=== PATIENT | male | born 1970 | race Caucasian/White ===

== ENCOUNTER 2020-09-03 18:12 | Observation (INO) | payer MEDICAID, SELFPAY ==
[2020-09-03] VITALS (7 sets, daily range): BP systolic 117–150; BP diastolic 73–115; PULSE 67–124; RESP 14–20; TEMP 36.1–36.6; O2SAT 97–100; BMI 28.7
--- NOTE | ~2020-09-03 | XR_ITS ---
XR chest 1V portable DATE: 09/03/2020 19:03 INDICATION: Left chest pain. Atrial fibrillation. TECHNIQUE: Portable upright AP chest on 09/03/2020 at 1905 hours COMPARISON: None FINDINGS: Normal heart size. No hilar or mediastinal enlargement. No pulmonary infiltrate or consolid ation, pleural effusion or pulmonary vascular congestion or pneumothorax. Osteopenia. IMPRESSION: No active cardiopulmonary disease Reviewed, dictated and finalized at location A.
--- NOTE | 2020-09-03 18:33 | ED.GENADULT ---
HPI - General Adult General Chief complaint: Recheck/Abnormal Lab/Rx Stated complaint: high blood pressure Time Seen by Provider: 09/03/20 18:21 Source: patient History of Present Illness HPI narrative: Patient is a 50 y/o male complaining of intermittent feeling off , head pressure for 2 weeks. The severity of his symptom is moderate. There is no alleviating or exacerbating factor. He also has intermittent chest pain. Related Data Home Medications Medication Instructions Recorded Confirmed No Home Medications 09/03/20 09/03/20 Allergies Allergy/AdvReac Type Severity Reaction Status Date / Time No Known Allergies Allergy Verified 09/03/20 18:46 Review of Systems Constitutional: Constitutional: Denies chills, Denies fever(s), Reports headache(s), Reports malaise and Denies weakness Eyes: Eyes: Denies blurry vision ENT: Reports headache(s) and Denies neck pain Cardiovascular: Cardiovascular: Reports chest pain and Denies dyspnea Respiratory: Respiratory: Denies cough and Denies dyspnea Gastrointestinal: Gastrointestinal: Denies abdominal pain, Denies diarrhea, Denies nausea and Denies vomiting Genitourinary: Genitourinary: Denies hematuria and Denies dysuria Musculoskeletal: Musculoskeletal: Denies back pain and Denies neck pain Neurologic: Reports headache(s) and Denies weakness [facility] Social History Social History Gender identity (if verbalized by the patient): Male Exam Const: General: no acute distress and well developed Orientation/consciousness: oriented to person, oriented to place, oriented to time and patient oriented x3 HENMT: Head: normocephalic Ears: external ears normal General nose exam: Normal external nose present Eyes: General: appearance normal, both eyes and all related structures Conjunctivae: conjunctivae normal Neck: Neck: normal visual inspection and full ROM Chest: Chest palpation & inspection: normal inspection of the chest and no tenderness Resp: Effort & Inspection: normal respiratory effort Auscultation: clear to auscultation bilaterally Cardio: Rate: tachycardic Rhythm: abnormal rhythm irregularly irregular GI: GI Palp: No abdominal tenderness and Yes Soft to palpation Skin: General skin exam: normal color and turgor normal Neuro: General: oriented to person, oriented to place, oriented to time and patient oriented x3 Cognition (Neuro): normal cognition Extrem: General: normal to inspection, full ROM and no pedal edema Psych: Appearance: grossly normal Mental Status: mental status grossly normal Affect: normal affect Course Consultations Consultation #1: Discussed with Dr. Roman, who agrees to admit and recommends Lovenox x 1 dose Date: 09/03/20 Time: 22:18 Vital Signs Vital signs: Vital Signs Temperature 36.6 C 09/03/20 18:17 Pulse Rate 89 09/03/20 18:17 Respiratory Rate 20 09/03/20 18:17 Blood Pressure 141/92 H 09/03/20 18:17 Pulse Oximetry 99 09/03/20 18:17 Temperature 36.6 C 09/03/20 18:17 Pulse Rate 88 09/03/20 19:45 Respiratory Rate 14 09/03/20 19:45 Blood Pressure 133/115 H 09/03/20 19:45 Pulse Oximetry 100 09/03/20 19:45 Medical Decision Making Vital Signs Vital Signs: Vital Signs Temperature 36.6 C 09/03/20 18:17 Pulse Rate 89 09/03/20 18:17 Respiratory Rate 20 09/03/20 18:17 Blood Pressure 141/92 H 09/03/20 18:17 Pulse Oximetry 99 09/03/20 18:17 Temperature 36.6 C 09/03/20 18:17 Pulse Rate 88 09/03/20 19:45 Respiratory Rate 14 09/03/20 19:45 Blood Pressure 133/115 H 09/03/20 19:45 Pulse Oximetry 100 09/03/20 19:45 Lab Data Result diagrams: 09/03/20 18:55 09/03/20 18:55 Labs: Lab Results 09/03/20 09/03/20 09/03/20 Range/Units 18:54 18:55 18:55 WBC 9.1 (4.5-10.0) K/mm3 RBC 4.61 (4.6-6.20) M/mm3 Hgb 15.7 (14.0-18.0) g/dL Hct 46.1 (42.0-52.0)
--- NOTE | 2020-09-03 18:48 | ECG_ITS ---
Measurements Intervals [place] Rate: 111 P: 75 CT: 173 QRS: 9 QRSD: 81 T: 68 QT: 370 QTc: 503 Interpretive Statements ATRIAL TACHYCARDIA WITH RAPID VENTRICULAR RESPONSE CHANGES TO SINUS RHYTHM ATRIAL COUPLET AND ATRIAL PREMATURE COMPLEX BORDERLINE T WAVE ABNORMALITY- HIGH LATERAL LEADS BASELINE ARTIFACT- II, III, V1 ABNORMAL ECG Electronically Signed On 09-03-2020 20:13:44 CDT by Adolfo Dos Santos D.O.
[2020-09-03 19:16] LABS: Basophils Percent Auto 0.4 % (0.2-1.2); Hematocrit 46.1 % (42.0-52.0); Hemoglobin 15.7 g/dL (14.0-18.0); Immature Granulocyte Absolute 0.02 K/mm3 (0.00-0.031); Immature Granulocyte Percent A 0.2 % (0-0.5); Lymphocytes Absolute Auto 3.73 K/mm3 (0.9-3.2); Lymphocytes Percent Auto 41.2 % (18.3-44.2); Mean Corpuscular HGB Conc 34.1 g/dl (32-36); Mean Corpuscular Hemoglobin 34.1 pg (26-34); Mean Platelet Volume 10.2 fl (7.4-10.4); Monocytes Absolute Auto 0.8 K/mm3 (0.1-0.6); Monocytes Percent Auto 8.7 % (2.6-8.5); Neutrophils Absolute Auto 4.5 K/mm3 (1.3-6.7); Neutrophils Percent Auto 49.5 % (45.5-73.1); Platelet Count Result 233 k/mm3 (150-375); Red Blood Count 4.61 M/mm3 (4.6-6.20); Red Cell Distribution Width 12.6 % (11.5-14.5); White Blood Count 9.1 K/mm3 (4.5-10.0)
[2020-09-03 19:28] LABS: Alanine Aminotransferase 26 U/L (4-50); Albumin Level 4.5 g/dL (3.5-5.1); Alkaline Phosphatase 67 U/L (38-126); Anion Gap 6 mmol/L (8-16); Aspartate Amino Transferase 31 U/L (17-59); Bilirubin,Total 0.6 mg/dL (0.2-1.3); Blood Urea Nitrogen 14 mg/dL (9-20); Calcium 9.3 mg/dL (8.4-10.2); Carbon Dioxide 30 mmol/L (22-30); Chloride 103 mmol/L (98-107); Estimated CRCL calculation 93 ml/min; Estimated Glomerular Filt Rate > 60; Glucose 83 mg/dL (75-110); Potassium 4.2 mmol/L (3.4-5.0); Sodium 139 mmol/L (137-145)
[2020-09-03 19:35] LABS: Add Urine Microscopic? NO; Appearance Urine Clear (Clear); Bilirubin Urine Negative (Negative); Blood Urine Negative (Negative); Color Urine Yellow (Yellow); Glucose Urine UA Negative (Negative); Ketones Urine Negative (Negative); Leukocyte Esterase Ur Negative LEU/UL (Negative); Nitrate Urine Negative (Negative); Protein Urine Negative (Negative); Specific Grav Ur 1.011 (1.001-1.035); Urobilinogen Urine Negative mg/dL (<2.0)
[2020-09-03 19:37] LABS: NT Pro B Type Natriuretic Pept 265 PG/ML (5-100)
[2020-09-03 19:40] LABS: Troponin I < 0.012 ng/mL (0.000-0.034)
[2020-09-03] MEDS: METOPROLOL TARTRATE 50 MG TAB PO (20:02)
[2020-09-03 22:28] LABS: Troponin I < 0.012 ng/mL (0.000-0.034)
[2020-09-03] MEDS: ENOXAPARIN 100 MG/ML SYRINGE SUB-Q (23:35)
--- NOTE | 2020-09-03 23:57 | ADMGEN ---
This patient, Pa Galeas, was admitted to IMU Room 211-01. Patient/family oriented to hospital policies and general routines including ID bracelet, bed and alarms, visiting hours, pain management, procedures, bathroom and other care routines, personal items, smoking policy, room service/diet, and visiting hours. Information on how to activate the Rapid Response Team has been discussed. Patient/Family are encouraged to report perceived risks to care and to ask questions if they do not understand what they are told or what they should do.
[2020-09-04] VITALS (20 sets, daily range): BP systolic 99–120; BP diastolic 54–70; PULSE 75–129; RESP 18–20; TEMP 36.2–36.4; O2SAT 97–100; BMI 28.7
[2020-09-04 01:12] LABS: Troponin I < 0.012 ng/mL (0.000-0.034)
[2020-09-04] MEDS: METOPROLOL TARTRATE 25 MG TABLET PO ×2 (08:18→15:07)
--- NOTE | 2020-09-04 09:23 | ECHO_ITS ---
Patient Info Name: Pa Galeas Age: 50 years : 1970 Gender: Male Ht: 71 in Wt: 206 lbs BSA: 2.18 m2 HR: 105 bpm BP: 106 / 68 mmHg Heart Rhythm: Sinus Rhythm, Tachycardia Technical Quality: Good Exam Date: 09/04/2020 1:55 PM Exam Location: [facility] Card Pulmonary Patient Status: Inpatient Admit Date: 09/03/2020 Staff Ordering Physician: Sudhir Torres MD Radio Equipment Repairer: Brandi Monreal RDCS Attending Provider: Flores Roman MD Referring Physician: Brian ANNE; Exam Type: CA echo doppler color flow Study Info Indications - atrial tachyarrhythmia Complete two-dimensional, color flow and Doppler transthoracic echocardiogram is performed. Summary 1. Complete two-dimensional, color flow and Doppler transthoracic echocardiogram is performed. 2. Left ventricular systolic function is normal, estimated at 55-60%. 3. There is no increased left ventricular wall thickness. 4. The left ventricular diastolic function is grade II diastolic dysfunction. 5. Left atrial chamber dimension is mildly enlarged. 6. There is no aortic valve stenosis. 7. There is mild mitral valve regurgitation. 8. There is mild tricuspid valve regurgitation. 9. No pulmonary hypertension, estimated pulmonary arterial systolic pressure is 34 mmHg. 10. Sinus rhythm with frequent brief runs of atrial tachycardia. Left Ventricle Left ventricular chamber dimension is normal. Left ventricular systolic function is normal, estimated at 55-60%. There is no increased left ventricular wall thickness. The left ventricular diastolic function is grade II diastolic dysfunction. Right Ventricle Right ventricular chamber dimension is normal. Right ventricular systolic function is normal. Left Atria Left atrial chamber dimension is mildly enlarged. Right Atria Right atrial chamber dimension is normal. Aortic Valve The aortic valve is trileaflet. There is mild aortic valve sclerosis. There is no aortic valve stenosis. There is no aortic valve regurgitation. Pulmonic Valve The pulmonic valve is not well visualized. There is trace pulmonic regurgitation. Mitral Valve The mitral valve has thickened leaflets. There is mild mitral valve regurgitation. Tricuspid Valve The tricuspid valve leaflets are normal. There is mild tricuspid valve regurgitation. No pulmonary hypertension, estimated pulmonary arterial systolic pressure is 34 mmHg. Pericardium/Pleural The pericardium appears normal. There is trivial pericardial effusion. Inferior Vena Cava Normal inferior vena cava with >50% collapse upon inspiration consistent with normal right atrial pressure, 5 mmHg. Aorta The aortic root size at the sinus of Valsalva is normal. Left Ventricular Outflow Tract Name Value Normal LVOT 2D LVOT Diameter 2.0 cm LVOT Doppler LVOT Peak Gradient 4 mmHg LVOT Mean Gradient 2 mmHg LVOT VTI 29 cm LVOT VTI/AV VTI Ratio 0.9 LVOT Stroke Volume 93 ml LVOT CO
[2020-09-04 10:03] LABS: Cholesterol 187 mg/dL (0-200); HDL Direct 49 mg/dL; Triglycerides 216 mg/dL (<150)
[2020-09-04 10:14] LABS: LDL Cholesterol Direct 115 mg/dL
[2020-09-04 10:17] LABS: Magnesium 1.8 mg/dL (1.6-2.3)
--- NOTE | 2020-09-04 10:43 | PM.IMHP ---
H&P: HPI History of Present Illness Date/Time: Date of service: 09/04/20 10:43 Cardiology short-stay H and P summary: Chief Complaint: Head pressure/fogginess, high blood pressure Narrative: Patient is a pleasant 50-year-old male with chronic back pain, tobacco and social alcohol use, history of polysubstance abuse presents emergency department after complaining of feeling off the preceding day. Patient states he checked his blood pressure at home and found it to be 160s over 100 so presented to the ER out of concern. He has occasional sharp aching chest pain which occurs randomly not associated with position or activity. He notes intermittent symptoms off and on at rest years no particular exacerbation of late although noted it intermittently prior to presentation. He denies chest pain presently. He states he presented to the ER feeling foggy or with head pressure but no sinus congestion, recent illnesses, fevers or chills. He noted mild lightheadedness but no near syncope or syncope. He admits he snores and stops breathing at night but has never been tested for BEE. No prior cardiac testing. He does not check his blood pressure at other times generally. Currently he feels well. In the ER it was noted to have sinus rhythm with frequent intermittent self-limited runs of SVT which the ER interpreted as atrial fibrillation. No evidence of AFib thus far on telemetry. Patient has no prior history of arrhythmias but admits to feeling intermittent palpitations for many years. He feels fine and has no other complaints at this time. BP is much improved at present. Review of Systems Review of Systems: All systems reviewed & are unremarkable except as noted in HPI and below Constitutional: Constitutional: Reports as per HPI and Reports no additional constitutional complaints Eyes: Eyes: Reports as per HPI and Reports no additional eye complaints ENT: Reports system reviewed and no additional complaints, except as documented, Reports as per HPI, Denies nasal congestion and Denies nasal discharge Comments: Head pressure, feeling of fogginess Cardiovascular: Cardiovascular: Reports as per HPI, Reports no additional cardiovascular complaints, Reports chest pain, Reports lightheadedness and Reports palpitations (Intermittent faint palpitations) Respiratory: Respiratory: Reports as per HPI, Reports no additional respiratory complaints, Denies chest congestion, Denies cough, Denies dyspnea and Denies dyspnea on exertion Gastrointestinal: Gastrointestinal: Reports as per HPI, Reports no additional gastrointestinal complaints, Denies abdominal pain, Denies melena, Denies hematochezia, Denies nausea and Denies vomiting Genitourinary: Genitourinary: Reports no additional male genitourinary complaints and Reports as per HPI Musculoskeletal: Musculoskeletal: Reports no additional musculoskeletal complaints, Reports as per HPI, Reports back pain (Chronic on disability) and Reports arthralgias Integumentary/Breasts: Skin/Breast: Reports system reviewed and no additional complaints, except as docu and Reports as per HPI Neurologic: Reports system reviewed and no additional complaints, except as documented, Reports as per HPI, Denies Abnormal speech present, Denies abnormal gait, Denies confusion and Reports headache(s) Psychiatric: Psychiatric: Reports no additional psychiatric complaints and Reports as per HPI Endocrine: Endocrine: Reports no additional endocrine complaints and Reports as per HPI Hematologic/Lymphatic: Hematologic/Lymphatic: Reports no additional hematologic/lymphatic complaints and Reports as per HPI Allergic/Immunologic: Allergic/Immunologic: Reports no additional allergic/immunologic complaints and Reports as per HPI [facility] Past Medical History Medical History Arthritis, lumbar spine Chronic back pain Hypertension Family History Family History (Reviewed 09/04/20 @ 14:07 b
[2020-09-04] MEDS: METOPROLOL TARTRATE 50 MG TAB PO (20:20)
[2020-09-05] VITALS (8 sets, daily range): BP systolic 97–106; BP diastolic 48–61; PULSE 74–104; RESP 18–22; TEMP 36.2–36.4; O2SAT 99–100
--- NOTE | 2020-09-05 07:55 | PCRCNOTE ---
Apnea link monitor not available on 09/04. Will perform study tonight.
[2020-09-05] MEDS: METOPROLOL TARTRATE 50 MG TAB PO (08:32)
--- NOTE | 2020-09-05 10:18 | PM.PNCARD ---
Progress Note: A&P Assessment and Plan (1) Tachycardia-bradycardia syndrome: Code(s): I49.5 - Sick sinus syndrome Status: Acute Assessment and Plan: Evidence of tachycardia bradycardia syndrome but without prolonged pauses or high-grade AV blocks. Second-degree AV block Mobitz type 1 noted. Tolerating medications thus far. Frequent atrial tachycardia, possible brief transient AFib. Limited aggressive antiarrhythmic therapy due to tachybrady. Discussed case with electrophysiology at [facility] Dr. Hill who agreed with plan of care and will see pt this Thursday at 815 AM in consultation as an outpatient. Patient in agreement. Patient comfortable discharge home as he is asymptomatic at this time. Counseled patient monitor symptoms closely, ambulate with caution. Monitor for bleeding. Will continue metoprolol 50 mg twice daily for now. -will not pursue stress test at this time inpatient as it will not change our management given concerns regarding tolerance for additional antiarrhythmic therapy and in particular Class IC agents (unlikely but cannot entirely exclude accessory pathway) Patient will be discharged home in stable and improved condition with the above recommendations. He will follow up with me in approximately 1 month. (2) PSVT (paroxysmal supraventricular tachycardia): Code(s): I47.1 - Supraventricular tachycardia Status: Acute Assessment and Plan: As above. Mostly consistent with atrial tachycardia. Possible transient brief episode of atrial fibrillation intermixed. Brief wide complex tachyarrhythmia likely aberrant conduction cannot exclude possible accessory pathway as well. Given intervening bradycardia caution antiarrhythmic therapy. Continue metoprolol 50 mg twice daily. Plan for apnea link to screen for probable obstructive sleep apnea, however, study was not performed due to lack of availability of the device which was frustrating. Outpatient pursuit of BEE. (3) Paroxysmal atrial fibrillation: Code(s): I48.0 - Paroxysmal atrial fibrillation Status: Acute Assessment and Plan: Possible transient brief episode albeit very little. Will institute aspirin 325 mg daily enteric-coated to be taken with full glass of water and food for now. CHADS2 Vasc score 0-1. (4) Hypertension: Code(s): I10 - Essential (primary) hypertension Status: Acute Assessment and Plan: Uncontrolled at presentation but has been entirely normal subsequently on beta-kevin therapy. (5) Headache: Code(s): R51.9 - Headache, unspecified Status: Acute Assessment and Plan: Resolved with improvement in blood pressure. BP at home, low-sodium intake, lifestyle modification counseling. (6) Chest pain: Qualifiers: Chest pain type: unspecified Qualified Code(s): R07.9 - Chest pain, unspecified Code(s): R07.9 - Chest pain, unspecified Status: Acute Assessment and Plan: Atypical, very likely noncardiac. Ruled out for myocardial infarction. Not exertional. 2D echo fairly unremarkable. No wall motion abnormalities, preserved LV systolic function. (7) Chronic back pain: Code(s): M54.9 - Dorsalgia, unspecified; G89.29 - Other chronic pain Status: Acute Assessment and Plan: Chronic no acute issue. Subjective Date/time seen: Date of service: 09/05/20 10:18 Follow-up for tachy-janes, dizziness, palpitations Patient stable but continues with frequent runs of SVT likely atrial tachycardia cannot exclude AFib transiently with intermittent bradycardia and second-degree AV block Mobitz type 1. Patient asymptomatic this morning denies dizziness, headache, chest pain or palpitations. Unfortunately apnea link was not performed due to the lack of availability of testing device. Review of Systems Review of Systems: All systems reviewed & are unremarkable except as noted in HPI and below Constitutional:
--- NOTE | 2020-09-05 10:37 | PM.DS ---
DS: Admitting Diagnosis Admitting Diagnosis Admitting Diagnosis: SVT, hypertension DS: Discharge Diagnosis Discharge Diagnosis (1) Tachycardia-bradycardia syndrome: Code(s): I49.5 - Sick sinus syndrome Status: Acute Assessment and Plan: Evidence of tachycardia bradycardia syndrome but without prolonged pauses or high-grade AV blocks. Second-degree AV block Mobitz type 1 noted. Tolerating medications thus far. Frequent atrial tachycardia, possible brief transient AFib. Limited aggressive antiarrhythmic therapy due to tachybrady. Discussed case with electrophysiology at [facility] Dr. Hill who agreed with plan of care and will see pt this Thursday at 815 AM in consultation as an outpatient. Patient in agreement. Patient comfortable discharge home as he is asymptomatic at this time. Counseled patient monitor symptoms closely, ambulate with caution. Monitor for bleeding. Will continue metoprolol 50 mg twice daily for now. -will not pursue stress test at this time inpatient as it will not change our management given concerns regarding tolerance for additional antiarrhythmic therapy and in particular Class IC agents (unlikely but cannot entirely exclude accessory pathway) Patient will be discharged home in stable and improved condition with the above recommendations. He will follow up with me in approximately 1 month. (2) PSVT (paroxysmal supraventricular tachycardia): Code(s): I47.1 - Supraventricular tachycardia Status: Acute Assessment and Plan: As above. Mostly consistent with atrial tachycardia. Possible transient brief episode of atrial fibrillation intermixed. Brief wide complex tachyarrhythmia likely aberrant conduction cannot exclude possible accessory pathway as well. Given intervening bradycardia caution antiarrhythmic therapy. Continue metoprolol 50 mg twice daily. Plan for apnea link to screen for probable obstructive sleep apnea, however, study was not performed due to lack of availability of the device which was frustrating. Outpatient pursuit of BEE. (3) Paroxysmal atrial fibrillation: Code(s): I48.0 - Paroxysmal atrial fibrillation Status: Acute Assessment and Plan: Possible transient brief episode albeit very little. Will institute aspirin 325 mg daily enteric-coated to be taken with full glass of water and food for now. CHADS2 Vasc score 0-1. (4) Hypertension: Code(s): I10 - Essential (primary) hypertension Status: Acute Assessment and Plan: Uncontrolled at presentation but has been entirely normal subsequently on beta-kevin therapy. (5) Headache: Code(s): R51.9 - Headache, unspecified Status: Acute Assessment and Plan: Resolved with improvement in blood pressure. BP at home, low-sodium intake, lifestyle modification counseling. (6) Chest pain: Qualifiers: Chest pain type: unspecified Qualified Code(s): R07.9 - Chest pain, unspecified Code(s): R07.9 - Chest pain, unspecified Status: Acute Assessment and Plan: Atypical, very likely noncardiac. Ruled out for myocardial infarction. Not exertional. 2D echo fairly unremarkable. No wall motion abnormalities, preserved LV systolic function. (7) Chronic back pain: Code(s): M54.9 - Dorsalgia, unspecified; G89.29 - Other chronic pain Status: Acute Assessment and Plan: Chronic no acute issue. DS: Summary Hospital Course Reason for hospitalization: SVT, hypertension Hospital Course: Patient was admitted to the emergency department thought to be in atrial fibrillation intermittently, however, he is predominantly in sinus rhythm and sinus bradycardia with frequent runs of atrial tachycardia possible very brief episodes of atrial fibrillation. Patient was minimally symptomatic initially. No prior known history of arrhythmias. Blood pressure elevated at presentation very well controlled on metoprolol thereafte
== END 2020-09-05 11:17 | disposition home or self-care (01) ==
LOC: ANHED 22:20 → ANHIMU 09-04 00:26
PROVIDERS: Admitting Provider Internal Medicine Cardiovascular Disease; Emergency Provider Emergency Medicine; Visit Provider Internal Medicine Cardiovascular Disease
DX: I47.1 Supraventricular tachycardia (principal); I49.5 Sick sinus syndrome; I48.0 Paroxysmal atrial fibrillation; R07.89 Other chest pain; I10 Essential (primary) hypertension; M54.9 Dorsalgia, unspecified; G89.29 Other chronic pain; F17.210 Nicotine dependence, cigarettes, uncomplicated
CPT/HCPCS: 36415; 71045; 80053; 80061; 81003; 83735; 83880; 84443; 84484; 85025; 93005; 93306; 96372; 99285; A9270; G0378; G0379; J1650

== ENCOUNTER 2020-10-05 12:41 | Outpatient (CLI) | payer MEDICAID, SELFPAY ==
[2020-10-05 13:21] LABS: Basophils Percent Auto 0.2 % (0.2-1.2); Hemoglobin 16.1 g/dL (14.0-18.0); Immature Granulocyte Absolute 0.05 K/mm3 (0.00-0.031); Immature Granulocyte Percent A 0.4 % (0-0.5); Lymphocytes Absolute Auto 2.13 K/mm3 (0.9-3.2); Lymphocytes Percent Auto 16.7 % (18.3-44.2); Mean Corpuscular HGB Conc 34.3 g/dl (32-36); Mean Corpuscular Hemoglobin 33.5 pg (26-34); Mean Corpuscular Volume 97.9 fl (80-100); Mean Platelet Volume 9.4 fl (7.4-10.4); Monocytes Absolute Auto 0.8 K/mm3 (0.1-0.6); Monocytes Percent Auto 6.6 % (2.6-8.5); Neutrophils Absolute Auto 9.7 K/mm3 (1.3-6.7); Neutrophils Percent Auto 76.1 % (45.5-73.1); Platelet Count Result 301 k/mm3 (150-375); Red Cell Distribution Width 12.3 % (11.5-14.5); White Blood Count 12.7 K/mm3 (4.5-10.0)
[2020-10-05 13:34] LABS: Alanine Aminotransferase 20 U/L (4-50); Albumin Level 4.7 g/dL (3.5-5.1); Alkaline Phosphatase 75 U/L (38-126); Anion Gap 5 mmol/L (8-16); Aspartate Amino Transferase 38 U/L (17-59); Bilirubin,Total 0.7 mg/dL (0.2-1.3); Blood Urea Nitrogen 10 mg/dL (9-20); Calcium 11.1 mg/dL (8.4-10.2); Carbon Dioxide 33 mmol/L (22-30); Chloride 101 mmol/L (98-107); Estimated Glomerular Filt Rate > 60; Glucose 109 mg/dL (75-110); Sodium 139 mmol/L (137-145)
== END 2020-10-05 12:42 | disposition home or self-care (01) ==
PROVIDERS: Visit Provider Nurse Practitioner Adult Health
DX: K29.00 Acute gastritis without bleeding (principal)
CPT/HCPCS: 36415; 80053; 85025

== ENCOUNTER → 2021-11-19 00:22 | Outpatient (CLI) | payer OTHER, SELFPAY ==
[2021-11-19 12:07] LABS: SARS-CoV-2 RNA PCR Negative
== END ==
PROVIDERS: PCP Family Medicine; Visit Provider Internal Medicine Critical Care Medicine
DX: U07.1 COVID-19 (principal); Z20.822 Contact with and (suspected) exposure to COVID-19
CPT/HCPCS: C9803; U0003; U0005

== ENCOUNTER 2021-11-21 08:21 | Outpatient (CLI) | payer OTHER, SELFPAY ==
--- NOTE | 2021-12-05 17:45 | WPDSLEEPSTUD ---
Sleep Study Date of Study: 11/21/21 Ordering Provider: Sania Levin MD Interpreting Physician: Masha Gonzales MD Sleep Study Type: Split Polysomnogram Height: 1.83 m Weight: 97.522 kg Body Mass Index: 29.1 Neck Circumference (inches): 17 [place]: 3 Reason for Sleep Study Non-restorative sleep, waking up more tired than he feels at bedtime Sleep History Pa Galeas is a 51-year-old man with non restorative sleep. He has a difficult time falling asleep and he wakes up throughout the night. He has a difficult time waking in the morning. He occasionally awakens from sleep feeling short of breath. He occasionally awakens at night with heartburn, belching or coughing. He constantly snores, and frequently this is loud enough that others complain about it. He rarely has trouble sleeping with a cold. He rarely wakes up gasping for breath at night. He frequently has breathing problems at night observed by others. He frequently sweats excessively night. He rarely notices his heart pounding or beating irregularly at night. He does not fall asleep during the day, does not fall asleep involuntarily or while driving. He does not have loss of muscle tone with strong emotion. He does not have daytime difficulties due to excessive sleepiness. 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 He does not feel paralyzed on waking or falling asleep. He does not have vivid dreamlike scenes upon awakening or falling asleep. He does not feel afraid to go to sleep. He rarely has nightmares. He rarely remembers his dreams. He rarely has racing thoughts. He rarely feels sad depressed or anxious. He frequently has muscular tension. He occasionally notices parts of his body jerking and he occasionally kicks at night. He constantly has aching and crawling feelings in his legs and constantly has leg pain during the night. He does not have morning jaw pain. He does not grind his teeth during sleep. He constantly is bothered by pain during the day, at night, constantly feels stiff in the morning with sore achy muscles and pain in the neck and spine. He has fatigue, headaches, sexual problems. Normal bedtime is between 11:00 p.m. and 1:00 a.m., taking 1-2 hours to fall asleep, typically waking up 4-5 times throughout the night to urinate. He usually awakens in the morning between 8:00 a.m. and 10:00 p.m.. His weekend schedule is the same. He estimates getting between 7 hours and 10 hours of sleep at night. He does not generally nap in the afternoon or evening. A short nap is not refreshing. He is usually drowsy for 2 hours after waking. He feels better in the evening compared other times a day. Habits: Tobacco half pack per day. He consumes caffeine. He consumes 3 alcoholic beverages per week. No current recreational drug use. [facility] Past Medical History Medical History Arthritis, lumbar spine Chronic back pain Erectile dysfunction Hypertension Peripheral neuropathy Surgical History Surgical History Hx of tonsillectomy (~1973) Perirectal cyst 2018 - Excision Previous back surgery (~2013) Lumbar spine surgeries - 2013, 2017, 2019 Family History Family History Father History of blood clots Mother Hypertension Social History Social History Smoking packs per day: 1 Smoking cigarettes per day: 20.0 Years smoked: 30 Smoking pack-years: 30.00 Smoking status: Current some day smoker Second hand tobacco smoke exposure: Yes Alcohol intake: current Drinks per week: 3 Substance use: former Substance use type: marijuana and crack/cocaine Last use: 2000 Gender identity (if verbalized by the patient): Male Spiritual care concerns: No Medications Home Medications Medica
[2021-12-05 18:33] VITALS: BMI 29.1
== END 2021-11-22 06:35 | disposition home or self-care (01) ==
LOC: ANHCSM 08:24
PROVIDERS: PCP Family Medicine; Visit Provider Family Medicine
DX: G47.30 Sleep apnea, unspecified (principal); G47.33 Obstructive sleep apnea (adult) (pediatric); G25.81 Restless legs syndrome
CPT/HCPCS: 95811

== ENCOUNTER 2021-12-19 21:46 | Emergency (ER) | payer OTHER, SELFPAY ==
[2021-12-19] VITALS (10 sets, daily range): BP systolic 146–174; BP diastolic 95–108; PULSE 76–99; RESP 18–20; TEMP 36.7; O2SAT 95–97
--- NOTE | ~2021-12-19 | CT_ITS ---
EXAMINATION: CT brain wo con INDICATION: Headache COMPARISON: None TECHNIQUE: Standard unenhanced head CT. The dose-length product (DLP) was 681.00 mGy-cm. The mA was a djusted according to patient size. Iterative reconstruction technique was employed. FINDINGS: There is no intracranial hemorrhage, acute infarction, or abnormal mass lesion. The ventric les are normal. There is no abnormal mass effect or midline shift. The rodriguez-white matter differentiat ion is normal. The basal cisterns are patent. Intracranial calcified cerebral atherosclerosis is note d. The orbits are normal. There is mild mucosal thickening of the paranasal sinuses. IMPRESSION: 1. No acute intracranial abnormality. Reviewed, dictated and finalized at location F.
[2021-12-19] MEDS: cloNIDine HCL 0.1 MG TABLET PO (22:38)
[2021-12-19 23:01] LABS: Basophils Percent Auto 0.2 % (0.2-1.2); Hematocrit 43.3 % (42.0-52.0); Hemoglobin 14.8 g/dL (14.0-18.0); Immature Granulocyte Absolute 0.08 K/mm3 (0.00-0.031); Immature Granulocyte Percent A 0.6 % (0-0.5); Lymphocytes Absolute Auto 2.23 K/mm3 (0.9-3.2); Lymphocytes Percent Auto 15.9 % (18.3-44.2); Mean Corpuscular HGB Conc 34.2 g/dl (32-36); Mean Corpuscular Hemoglobin 34.1 pg (26-34); Mean Corpuscular Volume 99.8 fl (80-100); Mean Platelet Volume 9.1 fl (7.4-10.4); Monocytes Absolute Auto 1.1 K/mm3 (0.1-0.6); Neutrophils Absolute Auto 10.6 K/mm3 (1.3-6.7); Neutrophils Percent Auto 75.3 % (45.5-73.1); Platelet Count Result 236 k/mm3 (150-375); Red Blood Count 4.34 M/mm3 (4.6-6.20); Red Cell Distribution Width 13.2 % (11.5-14.5)
[2021-12-19 23:03] LABS: Appearance Urine Clear (Clear); Bilirubin Urine Negative (Negative); Blood Urine Negative (Negative); Glucose Urine UA Negative (Negative); Ketones Urine Negative (Negative); Leukocyte Esterase Ur Negative LEU/UL (Negative); Nitrate Urine Negative (Negative); Protein Urine Negative (Negative); Specific Grav Ur <= 1.005 (1.001-1.035); Urobilinogen Urine 0.2 mg/dL (<2.0); pH Urine 5.5 (5.0-9.0)
[2021-12-19 23:17] LABS: Alanine Aminotransferase 40 U/L (6-50); Albumin Level 4.5 g/dL (3.5-5.1); Alkaline Phosphatase 71 U/L (38-126); Anion Gap 9 mmol/L (8-16); Aspartate Amino Transferase 43 U/L (17-59); Bilirubin,Total 0.3 mg/dL (0.2-1.3); Blood Urea Nitrogen 10 mg/dL (9-20); Calcium 8.9 mg/dL (8.4-10.2); Carbon Dioxide 21 mmol/L (22-30); Chloride 104 mmol/L (98-107); Estimated CRCL calculation 100 ml/min; Estimated Glomerular Filt Rate > 60; Glucose 112 mg/dL (65-110); Potassium 4.2 mmol/L (3.4-5.0); Sodium 134 mmol/L (137-145)
[2021-12-19 23:30] LABS: Add Urine Microscopic? NO; Color Urine Light Yellow (Yellow)
--- NOTE | 2021-12-19 23:42 | ED.GENADULT ---
HPI - General Adult General Chief complaint: Headache Stated complaint: headache, hi blood pressure readings Time Seen by Provider: 12/19/21 22:15 Source: patient and family Mode of arrival: ambulatory Limitations: no limitations History of Present Illness HPI narrative: 51-year-old with a history of PSVT on flecainide here with complaints of headache and elevated blood pressure for past few days patient states that he feels like pressure in his head. He denies any nausea or vomiting. He states that he has been checking his home blood pressures diastolic is about 105. He denied any chest pain. No history of nausea or vomiting or visual problems. Onset (ago): day(s) (2) Location: head Radiation: non-radiation Severity: moderate Quality: aching Pain Consistency: constant Relieving factors: none Exacerbating factors: none Associated symptoms: denies other symptoms Related Data Home Medications Medication Instructions Recorded Confirmed flecainide 100 mg tablet 100 mg PO Q12H 05/06/21 11/04/21 Allergies Allergy/AdvReac Type Severity Reaction Status Date / Time No Known Allergies Allergy Verified 12/19/21 22:02 Review of Systems Review of Systems: All systems reviewed & are unremarkable except as noted in HPI and below Constitutional: Constitutional: Reports no additional constitutional complaints Eyes: Eyes: Reports no additional eye complaints ENT: Reports system reviewed and no additional complaints, except as documented Cardiovascular: Cardiovascular: Reports no additional cardiovascular complaints Respiratory: Respiratory: Reports no additional respiratory complaints Gastrointestinal: Gastrointestinal: Reports no additional gastrointestinal complaints Musculoskeletal: Musculoskeletal: Reports no additional musculoskeletal complaints Neurologic: Reports as per HPI Psychiatric: Psychiatric: Reports no additional psychiatric complaints Endocrine: Endocrine: Reports no additional endocrine complaints COUNTS INCLUDE 234 BEDS AT THE [facility] Past Medical History Medical History Arthritis, lumbar spine Chronic back pain Erectile dysfunction Hypertension Peripheral neuropathy Surgical History Surgical History Hx of tonsillectomy (~1973) Perirectal cyst 2018 - Excision Previous back surgery (~2013) Lumbar spine surgeries - 2013, 2018, 2019 Family History Family History Father History of blood clots Mother Hypertension Social History Social History Smoking packs per day: 1 Smoking cigarettes per day: 20.0 Years smoked: 30 Smoking pack-years: 30.00 Smoking status: Current some day smoker Second hand tobacco smoke exposure: Yes Alcohol intake: current Drinks per week: 3 Substance use: former Substance use type: marijuana and crack/cocaine Last use: 2000 Gender identity (if verbalized by the patient): Male Spiritual care concerns: No Course Course Emergency Course: Patient feeling much better. His headache has resolved. And his blood pressure is 146/97 I informed him about his lab work, CT findings recommended him to start Norvasc 5 mg daily, follow-up with his primary doctor in the next few days to recheck the blood pressure . Vital Signs Vital signs: Vital Signs Temperature 36.7 C 12/19/21 21:59 Pulse Rate 78 12/19/21 21:59 Respiratory Rate 20 12/19/21 21:59 Blood Pressure 160/95 H 12/19/21 21:59 Pulse Oximetry 97 12/19/21 21:59 Oxygen Delivery Room Air 12/19/21 21:59 Temperature 36.7 C 12/19/21 21:59 Pulse Rate 76 12/19/21 22:47 Respiratory Rate 18 12/19/21 22:17 Blood Pressure 146/97 H 12/19/21 22:47 Pulse Oximetry 96 12/19/21 22:47 Oxygen Delivery Room Air 12/19/21 21:59 Medical Decision Making Vital Signs Vital Signs:
== END 2021-12-20 00:20 | disposition home or self-care (01) ==
PROVIDERS: Emergency Provider Family Medicine; PCP Family Medicine
DX: R51.9 Headache, unspecified (principal); I10 Essential (primary) hypertension; M47.816 Spondylosis without myelopathy or radiculopathy, lumbar region; G62.9 Polyneuropathy, unspecified; F17.210 Nicotine dependence, cigarettes, uncomplicated
CPT/HCPCS: 36415; 70450; 80053; 81003; 85025; 99284; A9270

== ENCOUNTER 2021-12-25 14:49 | Emergency (ER) | payer MEDICARE, MEDICAID, SELFPAY ==
[2021-12-25] VITALS (11 sets, daily range): BP systolic 139–177; BP diastolic 90–116; PULSE 75–94; RESP 13–20; TEMP 36.6; O2SAT 94–99
--- NOTE | ~2021-12-25 | CT_ITS ---
EXAMINATION: CT brain wo con DATE: 12/25/2021 15:21 INDICATION: Headache, hypertension TECHNIQUE: Computed tomography (CT) of the head was performed without intravenous contrast. The mA wa s adjusted according to patient size. Iterative reconstruction technique was employed. Exam dose: 60 5.33 mGy-cm total exam DLP. COMPARISON: 12/19/2021 CT brain FINDINGS: Bilateral carotid siphon and supraclinoid internal carotid artery calcifications. There is nonspecific diminished attenuation of the cerebral white matter, likely due to chronic small vessel i schemic changes. Caval septum pellucidum and cavum vergae, anatomic variations. No intracranial mass lesion or hemorrhage or cerebrovascular accident is detected. No midline shift o r mass effect. No subdural or epidural hematoma is detected. No fracture or bone destruction of the cranial vault. Included paranasal sinuses and mastoid air cell s are unremarkable. IMPRESSION: Cerebral atherosclerosis and chronic small vessel ischemic changes of cerebral white mat ter Caval septum pellucidum and cavum verge, anatomic variants No acute intracranial finding Reviewed, dictated and finalized at Location A. Reviewed, dictated and finalized at location A. IMPRESSION: Cerebral atherosclerosis and chronic small vessel ischemic changes of cerebral white matter Caval septum pellucidum and cavum verge, anatomic variants No acute intracranial finding
--- NOTE | ~2021-12-25 | XR_ITS ---
EXAMINATION: XR chest 2V 12/25/2021 15:25 INDICATION: Left-sided chest pain PROCEDURE: 2 view chest COMPARISON: 09/03/2020 FINDINGS: The lungs are clear. The cardiomediastinal silhouette is within normal limits. There are no pleural effusions. There is no pneumothorax suspected. IMPRESSION: 1: NO ACUTE CARDIOPULMONARY DISEASE. Reviewed, dictated and finalized at location A.
--- NOTE | 2021-12-25 14:55 | ECG_ITS ---
Measurements Intervals [place] Rate: 79 P: 42 HI: 187 QRS: -19 QRSD: 94 T: 47 QT: 377 QTc: 434 Interpretive Statements SINUS RHYTHM BASELINE ARTIFACT- I, III, AVR, AVL, AVF, V4-V6 NORMAL ECG Electronically Signed On 12-25-2021 15:09:28 CDT by Adolfo Dos Santos D.O.
--- NOTE | 2021-12-25 15:16 | PC.NURSE ---
Dr. Ramos stated to let pt have scan before admin of Aspirin
[2021-12-25 15:22] LABS: Basophils Percent Auto 0.3 % (0.2-1.2); Immature Granulocyte Absolute 0.14 K/mm3 (0.00-0.031); Immature Granulocyte Percent A 1.1 % (0-0.5); Lymphocytes Absolute Auto 1.95 K/mm3 (0.9-3.2); Lymphocytes Percent Auto 15.5 % (18.3-44.2); Mean Corpuscular HGB Conc 35.6 g/dl (32-36); Mean Corpuscular Hemoglobin 34.9 pg (26-34); Monocytes Absolute Auto 0.7 K/mm3 (0.1-0.6); Monocytes Percent Auto 5.7 % (2.6-8.5); Neutrophils Absolute Auto 9.8 K/mm3 (1.3-6.7); Neutrophils Percent Auto 77.4 % (45.5-73.1); Platelet Count Result 241 k/mm3 (150-375); Red Blood Count 4.59 M/mm3 (4.6-6.20); Red Cell Distribution Width 13.2 % (11.5-14.5); White Blood Count 12.6 K/mm3 (4.5-10.0)
--- NOTE | 2021-12-25 15:27 | ED.CHESTPAIN ---
HPI - Chest Pain General Chief Complaint: Chest Pain Stated Complaint: high blood pressure Time Seen by Provider: 12/25/21 14:55 Source: patient History of Present Illness HPI narrative: Patient presents with headache and chest pain. Patient reports eating approximately week ago for the same in the emergency room was worked up and was discharged home started on a new medication. He has continued to have intermittent symptoms and noted his blood pressure was high so he came to the ER for evaluation. Reports his chest pain is now resolved. There is a pulmonary pain and see his headache. His pain is achy, constant, no clear aggravating or alleviating factors, no radiation. Denies any focal numbness or weakness denies any nausea vomiting or diaphoresis denies any shortness of breath. Related Data Home Medications Medication Instructions Recorded Confirmed flecainide 100 mg tablet 100 mg PO Q12H 05/06/21 11/04/21 Allergies Allergy/AdvReac Type Severity Reaction Status Date / Time No Known Allergies Allergy Verified 12/19/21 22:02 Review of Systems Review of Systems: CONSTITUTIONAL: Denies fever, chills, or sweats. EYES: Denies visual changes, redness, or discharge. ENT: Denies rhinorrhea, congestion, sore throat, or otalgia. CARDIOVASCULAR: Denies palpitations, or edema. RESPIRATORY: Denies cough or dyspnea. GASTROINTESTINAL: Denies abdominal pain, nausea, vomiting, or diarrhea. GENITOURINARY: Denies dysuria or hematuria. SKIN: Denies rash or itching. MUSCULOSKELETAL: Denies back pain, joint pain, or myalgia. NEUROLOGIC: Denies numbness, dizziness, or weakness. PSYCHIATRIC: Denies anxiety or depression. All systems reviewed & are unremarkable except as noted in HPI and below PMFSH Past Medical History Medical History Arthritis, lumbar spine Chronic back pain Erectile dysfunction Hypertension Peripheral neuropathy Surgical History Surgical History Hx of tonsillectomy (~1973) Perirectal cyst 2018 - Excision Previous back surgery (~2013) Lumbar spine surgeries - 2013, 2018, 2019 Family History Family History Father History of blood clots Mother Hypertension Social History Social History Smoking packs per day: 1 Smoking cigarettes per day: 20.0 Years smoked: 30 Smoking pack-years: 30.00 Smoking status: Current some day smoker Second hand tobacco smoke exposure: Yes Alcohol intake: current Drinks per week: 3 Substance use: former Substance use type: marijuana and crack/cocaine Last use: 2000 Gender identity (if verbalized by the patient): Male Spiritual care concerns: No Exam Narrative: GENERAL: Well-appearing, well-nourished, and in no acute distress. HEAD: Normocephalic, atraumatic. EYES: PERRLA and EOMI. ENT: Nares clear, no rhinorrhea or epistaxis. Mucous membranes moist. NECK: Supple. No masses. No JVD CHEST: Clear to auscultation. No respiratory distress. No wheezes rales or rhonchi HEART: Regular rate and rhythm. No murmur heard. Normal peripheral pulses. ABDOMEN: Soft, nontender, nondistended EXTREMITIES: Normal range of motion. No edema. SKIN: Warm, dry, no rash. NEURO: No nerves II through XII are intact patient is 5 out of 5 strength in all extremities sensation intact light touch in all extremities alert and oriented x3. PSYCH: Normal mood and affect. Course Reevaluation(s) Reevaluation #1: Patient resting comfortable blood pressure greatly improved patient reports symptoms much improved. Patient is comfortable outpatient plan. Date: 12/25/21 Time: 17:04 Vital Signs Vital signs: Vital Signs Temperature 36.6 C 12/25/21 14:55 Pulse Rate 80 12/25/21 14:55 Respiratory Rate 15 12/25/21 14:55 Blood Pressure 177/109 H 12/25/21 14:5
[2021-12-25 15:32] LABS: Alanine Aminotransferase 48 U/L (6-50); Albumin Level 4.6 g/dL (3.5-5.1); Alkaline Phosphatase 84 U/L (38-126); Anion Gap 5 mmol/L (8-16); Aspartate Amino Transferase 43 U/L (17-59); Bilirubin,Total 0.6 mg/dL (0.2-1.3); Blood Urea Nitrogen 12 mg/dL (9-20); Calcium 9.2 mg/dL (8.4-10.2); Carbon Dioxide 23 mmol/L (22-30); Chloride 103 mmol/L (98-107); Estimated CRCL calculation 90 ml/min; Estimated Glomerular Filt Rate > 60; Glucose 109 mg/dL (65-110); Lipase 201 U/L (23-300); Potassium 4.1 mmol/L (3.4-5.0); Sodium 131 mmol/L (137-145)
[2021-12-25 15:34] LABS: Prothrombin Time 12.7 Seconds (11.1-14.7)
[2021-12-25 15:35] LABS: Partial Thromboplastin Time 27.1 SECONDS (22.3-36.8)
[2021-12-25 15:44] LABS: Troponin I < 0.012 ng/mL (0.000-0.034)
[2021-12-25] MEDS: ASPIRIN 81 MG CHEWABLE TABLET 324 MG PO (16:19)
[2021-12-25] MEDS: PROCHLORPERAZINE EDISYLATE 10 MG/2 ML VIAL IV PUSH (16:23)
[2021-12-25] MEDS: KETOROLAC 15 MG/ML VIAL (*BKC) IV PUSH (16:27)
== END 2021-12-25 17:28 | disposition home or self-care (01) ==
PROVIDERS: Emergency Provider Emergency Medicine; PCP Family Medicine
DX: I10 Essential (primary) hypertension (principal); R51.9 Headache, unspecified; F17.210 Nicotine dependence, cigarettes, uncomplicated
CPT/HCPCS: 36415; 70450; 71046; 80053; 83690; 84484; 85025; 85610; 85730; 93005; 96365; 96375; 99284; A9270; J0131; J0780; J1885

== ENCOUNTER 2022-05-12 09:26 | Outpatient (CLI) | payer MEDICARE, SELFPAY ==
[2022-05-12 10:05] LABS: Basophils Percent Auto 0.4 % (0.2-1.2); Eosinophils Percent Auto 0.1 % (0-4.4); Hematocrit 45.8 % (42.0-52.0); Hemoglobin 15.7 g/dL (14.0-18.0); Immature Granulocyte Absolute 0.02 K/mm3 (0.00-0.031); Immature Granulocyte Percent A 0.3 % (0-0.5); Lymphocytes Absolute Auto 2.26 K/mm3 (0.9-3.2); Lymphocytes Percent Auto 31.4 % (18.3-44.2); Mean Corpuscular HGB Conc 34.3 g/dl (32-36); Mean Corpuscular Hemoglobin 34.3 pg (26-34); Mean Platelet Volume 9.1 fl (7.4-10.4); Monocytes Absolute Auto 0.6 K/mm3 (0.1-0.6); Monocytes Percent Auto 7.8 % (2.6-8.5); Neutrophils Absolute Auto 4.3 K/mm3 (1.3-6.7); Platelet Count Result 235 k/mm3 (150-375); Red Blood Count 4.58 M/mm3 (4.6-6.20); Red Cell Distribution Width 12.5 % (11.5-14.5); White Blood Count 7.2 K/mm3 (4.5-10.0)
[2022-05-12 10:32] LABS: Alanine Aminotransferase 37 U/L (6-50); Albumin Level 4.4 g/dL (3.5-5.1); Alkaline Phosphatase 85 U/L (38-126); Anion Gap 9 mmol/L (8-16); Aspartate Amino Transferase 37 U/L (17-59); Bilirubin,Total 0.7 mg/dL (0.2-1.3); Blood Urea Nitrogen 11 mg/dL (9-20); Calcium 9.2 mg/dL (8.4-10.2); Carbon Dioxide 23 mmol/L (22-30); Chloride 103 mmol/L (98-107); Cholesterol 237 mg/dL (0-200); Estimated Glomerular Filt Rate > 60; Glucose 99 mg/dL (65-110); HDL Direct 54 mg/dL; Potassium 4.4 mmol/L (3.4-5.0); Sodium 135 mmol/L (137-145); Triglycerides 208 mg/dL (<150)
[2022-05-12 10:43] LABS: LDL Cholesterol Direct 136 mg/dL
[2022-05-12 11:01] LABS: Prostate Specific Antigen 2.1 ng/mL (< OR = 4.0)
[2022-05-12 11:01] LABS: Vitamin D 25 Hydroxy 28.3 ng/mL
== END 2022-05-12 09:27 | disposition home or self-care (01) ==
PROVIDERS: PCP Family Medicine; Visit Provider Family Medicine
DX: Z79.899 Other long term (current) drug therapy (principal); G62.9 Polyneuropathy, unspecified; I47.1 Supraventricular tachycardia; E78.5 Hyperlipidemia, unspecified; Z12.5 Encounter for screening for malignant neoplasm of prostate; E55.9 Vitamin D deficiency, unspecified
CPT/HCPCS: 36415; 80053; 80061; 82306; 84153; 84443; 85025; G0103

== ENCOUNTER 2022-07-10 12:32 | Emergency (ER) | payer MEDICARE, SELFPAY ==
[2022-07-10] VITALS (9 sets, daily range): BP systolic 113–141; BP diastolic 54–103; PULSE 72–100; RESP 17–21; TEMP 36.6; O2SAT 97–100
--- NOTE | ~2022-07-10 | XR_ITS ---
XR hip LT min 3V w AP pelvis DATE: 07/10/2022 15:37 INDICATION: Left hip pain following fall. TECHNIQUE: AP pelvis. AP, lateral and crosstable lateral views of left hip COMPARISON: None FINDINGS: Status post anterior and posterior surgical fusion at L5-S1. Normal alignment at the pubic symphysis and sacral iliac joints. No pelvic fracture or bone destructi on is detected. Mild bilateral hip osteoarthritis. No fracture, dislocation, avascular necrosis or bone destruction o f the left hip. IMPRESSION: Mild bilateral hip osteoarthritis; no fracture or dislocation of left hip Status post anterior and posterior surgical fusion at L5-S1 Reviewed, dictated and finalized at location L. STRAPPER IMPRESSION: Mild bilateral hip osteoarthritis; no fracture or dislocation of le ft hip Status post anterior and posterior surgical fusion at L5-S1
--- NOTE | ~2022-07-10 | CT_ITS ---
EXAMINATION: CT cervical spine wo con DATE: 07/10/2022 15:24 INDICATION: Neck pain. Syncope. Fall. TECHNIQUE: Computed tomography (CT) of the cervical spine was performed without intravenous contrast. Automated exposure control and iterative reconstruction technique were employed. The dose-length pro duct was 555.24 mGy-cm. COMPARISON: None FINDINGS: There is 10 degrees levoscoliosis of cervicothoracic spine. There is 2 mm retrolisthesis of C5 on C6. Vertebral body heights are normal. There is mildly decreased disc height at C4-C5 and mode rately decreased disc height at C5-C6 and C6-C7. The following disc levels are specifically discussed : C2-C3: There is mild bilateral uncovertebral joint osteoarthritis. There is moderate left facet joint osteoarthritis. There is no neural foraminal stenosis. There is no central canal stenosis. C3-C4: There is no uncovertebral joint osteoarthritis. There is mild right and severe left facet join t osteoarthritis. There is mild left neural foraminal stenosis. There is no central canal stenosis. C4-C5: There is mild bilateral uncovertebral joint osteoarthritis. There is mild right and severe lef t facet joint osteoarthritis. There is mild left neural foraminal stenosis. There is no central canal stenosis. C5-C6: There is severe right and moderate left uncovertebral joint osteoarthritis. There is severe le ft facet joint osteoarthritis. There is mild bilateral neural foraminal stenosis. There is mild centr al canal stenosis. C6-C7: There is mild right and severe left uncovertebral joint osteoarthritis. There is severe bilate ral facet joint osteoarthritis. There is mild bilateral neural foraminal stenosis. There is mild cent ral canal stenosis. C7-T1: There is no uncovertebral joint osteoarthritis. There is severe bilateral facet joint osteoart hritis. There is mild bilateral neural foraminal stenosis. There is no central canal stenosis. IMPRESSION: 1. No fracture. 2. Moderate cervical spondylosis. 3. Cervicothoracic dextroscoliosis. Reviewed, dictated and finalized at location A. MAN CONDUCTOR
--- NOTE | ~2022-07-10 | CT_ITS ---
EXAMINATION: CT brain wo con DATE: 07/10/2022 15:23 INDICATION: Syncope. Neck pain. Fall. TECHNIQUE: Computed tomography (CT) of the head was performed without intravenous contrast. The mA wa s adjusted according to patient size. Iterative reconstruction technique was employed. The dose-lengt h product was 605.33 mGy-cm. COMPARISON: Head CT 12/25/21 FINDINGS: There is no intracranial hemorrhage, acute infarction, or abnormal intracranial mass lesion . There are scattered areas of low attenuation in the cerebral white matter, which is within normal l imits for the patient's age. The ventricles are normal in size. Cavum septum pellucidum and vergae ar e noted. There are bilateral optic nerve drusen. The mastoid air cells are normal. There is mild muco koby thickening in the paranasal sinuses. IMPRESSION: 1. Normal aging brain. Reviewed, dictated and finalized at location A. IFIED ENERGY MANAGER IMPRESSION: 1. Normal aging brain.
--- NOTE | 2022-07-10 12:36 | ECG_ITS ---
Measurements Intervals [place] Rate: 75 P: 46 [place]: 185 QRS: -17 QRSD: 96 T: 30 QT: 382 QTc: 429 Interpretive Statements SINUS RHYTHM DELAYED PRECORDIAL R/S TRANSITION BORDERLINE ECG COMPARED TO ECG 12/25/2021 15:04:05 NO SIGNIFICANT CHANGES Electronically Signed On 07-10-2022 16:31:23 MUSIC DIRECTOR by Adolfo Dos Santos D.O.
--- NOTE | 2022-07-10 12:53 | PC.NURSE ---
multiple attempts at blood draw without success.
[2022-07-10 15:14] LABS: Basophils Percent Auto 0.3 % (0.2-1.2); Eosinophils Percent Auto 0.1 % (0-4.4); Hematocrit 46.3 % (42.0-52.0); Hemoglobin 15.9 g/dL (14.0-18.0); Immature Granulocyte Absolute 0.06 K/mm3 (0.00-0.031); Immature Granulocyte Percent A 0.6 % (0-0.5); Lymphocytes Absolute Auto 2.76 K/mm3 (0.9-3.2); Lymphocytes Percent Auto 28.1 % (18.3-44.2); Mean Corpuscular HGB Conc 34.3 g/dl (32-36); Mean Corpuscular Hemoglobin 34.6 pg (26-34); Mean Corpuscular Volume 100.7 fl (80-100); Mean Platelet Volume 9.4 fl (7.4-10.4); Monocytes Absolute Auto 0.7 K/mm3 (0.1-0.6); Monocytes Percent Auto 7.2 % (2.6-8.5); Neutrophils Absolute Auto 6.3 K/mm3 (1.3-6.7); Neutrophils Percent Auto 63.7 % (45.5-73.1); Platelet Count Result 229 k/mm3 (150-375); Red Cell Distribution Width 12.7 % (11.5-14.5); White Blood Count 9.8 K/mm3 (4.5-10.0)
[2022-07-10 15:34] LABS: Alanine Aminotransferase 39 U/L (6-50); Albumin Level 4.5 g/dL (3.5-5.1); Alkaline Phosphatase 87 U/L (38-126); Anion Gap 8 mmol/L (8-16); Aspartate Amino Transferase 41 U/L (17-59); Bilirubin,Total 0.5 mg/dL (0.2-1.3); Blood Urea Nitrogen 12 mg/dL (9-20); Calcium 9.1 mg/dL (8.4-10.2); Carbon Dioxide 26 mmol/L (22-30); Chloride 103 mmol/L (98-107); Estimated CRCL calculation 104 ml/min; Estimated Glomerular Filt Rate > 60; Glucose 115 mg/dL (65-110); Potassium 4.2 mmol/L (3.4-5.0); Sodium 137 mmol/L (137-145)
--- NOTE | 2022-07-10 16:14 | ED.SYNCOPE ---
HPI - Syncope General Chief Complaint: Syncope Stated Complaint: Hit head, loc Time Seen by Provider: 07/10/22 14:47 History of Present Illness HPI narrative: Patient presents after he found himself on the ground in the hallway, last thing he remembered he was in bed. He does have a history of sleepwalking and he does have a bad leg that he trips over frequently. He denies any chest pain, JUAN, lightheadedness, or any recent illness; does endorse pain in his head, neck, and hip where he fell. Ambulating with normal gait. Dnies focal numbness/weakness. Related Data Home Medications Medication Instructions Recorded Confirmed cholecalciferol (vitamin D3) 50 07/10/22 mcg (2,000 unit) tablet diclofenac sodium 1 % topical gel topical 07/10/22 flecainide 100 mg tablet mg 07/10/22 lisinopril 20 tablet 07/10/22 mg-hydrochlorothiazide 12.5 mg tablet pregabalin 100 mg capsule mg 07/10/22 Allergies Allergy/AdvReac Type Severity Reaction Status Date / Time No Known Allergies Allergy Verified 07/10/22 14:54 Review of Systems Review of Systems: CONST: No fever. HEENT: No sore throat C/V: No chest pain RESP: No cough GI: No nausea or vomiting : No dysuria. M/S: Left hip pain SKIN: No rash. NEURO: [Headache, no focal numbness or weakness] PSYCH: [No depression] [facility] Past Medical History Medical History Arthritis, lumbar spine Chronic back pain Dyslipidemia Erectile dysfunction Essential (primary) hypertension Hypertension BEE (obstructive sleep apnea) Peripheral neuropathy Vitamin D deficiency Surgical History Surgical History Hx of tonsillectomy (~1973) Perirectal cyst 2018 - Excision Previous back surgery (~2013) Lumbar spine surgeries - 2013, 2017, 2018 Family History Family History Father History of blood clots Mother Hypertension Social History Social History Smoking packs per day: 1 Smoking cigarettes per day: 20.0 Years smoked: 30 Smoking pack-years: 30.00 Smoking status: Current some day smoker Second hand tobacco smoke exposure: Yes Alcohol intake: current Drinks per week: 3 Substance use: former Substance use type: marijuana and crack/cocaine Last use: 2000 Lack of Transportation: No Lack of Food: Never True Current Housing: I Have Housing Concerned About Future Housing: No Difficulty Paying Gas/Electric Bills: No Difficulty Paying for Meds: No Currently Unemployed: No Education: High School Diploma/GED Difficulty w/ Childcare or Family Care: No Gender identity (if verbalized by the patient): Male Spiritual care concerns: No Exam Narrative: EXAMINATION OF ORGAN SYSTEMS/BODY AREAS: Constitutional: Vital signs per nursing GENERAL:[No acute distress, non-toxic appearing.] HEAD: Some tenderness to head EYES: EOMI, conjunctiva normal ENT: Hearing grossly intact LUNGS: Nonlabored breathing. HEART: [Regular rate and rhythm] ABD: [Soft], [nontender to palpation] EXT: Normal range of motion, some tenderness to L hip SKIN: [No rashes or lesions.] NEURO: [Alert and oriented x 3. No gross focal sensory or strength deficits.] PSYCH: Normal affect Course Vital Signs Vital signs: Vital Signs Temperature 97.8 F 07/10/22 12:33 Pulse Rate 80 07/10/22 12:33 Respiratory Rate 18 07/10/22 12:33 Blood Pressure 140/100 H 07/10/22 12:33 Pulse Oximetry 100 07/10/22 12:33 Oxygen Delivery Room Air 07/10/22 12:33 Temperature 97.8 F 07/10/22 12:33 Pulse Rate 83 07/10/22 16:30 Respiratory Rate 17 07/10/22 16:30 Blood Pressure 118/54 L 07/10/22 16:30 Pulse Oximetry 97 07/10/22 16:30 Oxygen Delivery Room Air 07/10/22 12:33 MDM - Syncope MDM Narrative Medical decision making narrative: 51-year-
[2022-07-10 16:24] LABS: Troponin I < 0.012 ng/mL (0.000-0.034)
== END 2022-07-10 16:59 | disposition home or self-care (01) ==
PROVIDERS: Emergency Provider Emergency Medicine; PCP Family Medicine
DX: S09.90XA Unspecified injury of head, initial encounter (principal); R55 Syncope and collapse; E78.5 Hyperlipidemia, unspecified; I10 Essential (primary) hypertension; G47.33 Obstructive sleep apnea (adult) (pediatric); G62.9 Polyneuropathy, unspecified; E55.9 Vitamin D deficiency, unspecified; F17.210 Nicotine dependence, cigarettes, uncomplicated; M47.812 Spondylosis without myelopathy or radiculopathy, cervical region; M16.0 Bilateral primary osteoarthritis of hip; Z98.1 Arthrodesis status; W18.39XA Other fall on same level, initial encounter
CPT/HCPCS: 36415; 70450; 72125; 73502; 80053; 84484; 85025; 93005; 99284

== ENCOUNTER 2023-05-08 09:34 | Outpatient (CLI) | payer MEDICARE, SELFPAY ==
[2023-05-08 10:44] LABS: Basophils Percent Auto 0.5 % (0.2-1.2); Eosinophils Absolute Auto 0.2 K/mm3 (0-0.3); Eosinophils Percent Auto 2.6 % (0-4.4); Hematocrit 44.8 % (42.0-52.0); Hemoglobin 14.9 g/dL (14.0-18.0); Immature Granulocyte Absolute 0.04 K/mm3 (0.00-0.031); Immature Granulocyte Percent A 0.5 % (0-0.5); Lymphocytes Absolute Auto 2.55 K/mm3 (0.9-3.2); Lymphocytes Percent Auto 34.6 % (18.3-44.2); Mean Corpuscular HGB Conc 33.3 g/dl (32-36); Mean Corpuscular Hemoglobin 34.1 pg (26-34); Mean Corpuscular Volume 102.5 fl (80-100); Mean Platelet Volume 9.9 fl (7.4-10.4); Monocytes Absolute Auto 0.6 K/mm3 (0.1-0.6); Monocytes Percent Auto 7.7 % (2.6-8.5); Neutrophils Percent Auto 54.1 % (45.5-73.1); Platelet Count Result 234 k/mm3 (150-375); Red Blood Count 4.37 M/mm3 (4.6-6.20); Red Cell Distribution Width 12.2 % (11.5-14.5); White Blood Count 7.4 K/mm3 (4.5-10.0)
[2023-05-08 11:01] LABS: Hemoglobin A1C 5.1 % (<5.7)
[2023-05-08 11:13] LABS: LDL Cholesterol Direct 102 mg/dL
[2023-05-08 11:16] LABS: Alanine Aminotransferase 62 U/L (6-50); Albumin Level 4.1 g/dL (3.5-5.1); Alkaline Phosphatase 82 U/L (38-126); Anion Gap 9 mmol/L (8-16); Blood Urea Nitrogen 12 mg/dL (9-20); Calcium 9.3 mg/dL (8.4-10.2); Carbon Dioxide 24 mmol/L (22-30); Chloride 104 mmol/L (98-107); Cholesterol 196 mg/dL (0-200); Estimated Glomerular Filt Rate > 60; Glucose 95 mg/dL (65-110); HDL Direct 62 mg/dL; Sodium 137 mmol/L (137-145); Triglycerides 174 mg/dL (<150)
[2023-05-08 11:27] LABS: Prostate Specific Antigen 1.4 ng/mL (< OR = 4.0)
[2023-05-08 11:39] LABS: Aspartate Amino Transferase 55 U/L (17-59)
[2023-05-08 11:44] LABS: Vitamin D 25 Hydroxy 45.4 ng/mL
[2023-05-08 11:57] LABS: Thyroid Stimulating Hormone Reflex 0.794 uIU/mL (0.465-4.68)
== END 2023-05-08 09:35 | disposition home or self-care (01) ==
PROVIDERS: PCP Family Medicine; Visit Provider Family Medicine
DX: E78.5 Hyperlipidemia, unspecified (principal); I10 Essential (primary) hypertension; Z00.00 Encounter for general adult medical examination without abnormal findings; R73.9 Hyperglycemia, unspecified; E55.9 Vitamin D deficiency, unspecified; Z12.5 Encounter for screening for malignant neoplasm of prostate; E53.8 Deficiency of other specified B group vitamins
CPT/HCPCS: 36415; 80053; 80061; 82306; 82607; 83036; 84153; 84443; 85025; G0103

== ENCOUNTER 2023-05-27 15:44 | Outpatient (CLI) | payer MEDICARE, MEDICAID, SELFPAY ==
--- NOTE | ~2023-05-27 | US_ITS ---
EXAMINATION: US soft tissue UE RT DATE: 05/27/2023 16:42 INDICATION: Right ring finger mass TECHNIQUE: Multiple grayscale and Doppler ultrasound images of the region of concern at the medial as pect of the right fourth middle phalanx were obtained. COMPARISON: None FINDINGS: Nonspecific 1.5 x 0.7 x 0.7 cm hypoechoic subcutaneous mass with bilobed peanut shaped configuration at the region of concern. A couple small vessels appear to flow into the mass both proximally and dis tally on color Doppler. The mass appears separate from the underlying bone as well as the dorsal exte nsor and palmar sided flexor tendons. IMPRESSION: 1. 1.5 x 0.7 x 0.7 cm bilobed simultaneous mass at the medial aspect of the right fourth middle phala nx. Appearance is nonspecific although the location along the course of the neurovascular bundle rais es the possibility of either a dilated thrombosed vessel or neurogenic tumor such as schwannoma or pe ripheral nerve sheath tumor. Definitive determination would likely require biopsy. Reviewed, dictated and finalized at location A. RS LACE MACHINE OPERATOR IMPRESSION: 1. 1.5 x 0.7 x 0.7 cm bilobed simultaneous mass at the medial aspect of the rig ht fourth middle phalanx. Appearance is nonspecific although the location along the course of the neurovascular bundle raises the possibility of either a dila chadwick thrombosed vessel or neurogenic tumor such as schwannoma or peripheral nerv e sheath tumor. Definitive determination would likely require biopsy.
== END 2023-05-27 15:45 | disposition home or self-care (01) ==
PROVIDERS: PCP Family Medicine; Visit Provider Plastic Surgery
DX: R22.31 Localized swelling, mass and lump, right upper limb (principal)
CPT/HCPCS: 76882

== ENCOUNTER 2023-07-28 09:40 | Outpatient (CLI) | payer MEDICARE, MEDICAID, SELFPAY ==
--- NOTE | 2023-07-28 11:00 | NEURO_ITS ---
# iMPRESSION: # Complains of numbness of right hand. # Right Carpal tunnel Syndrome. # No ulnar neuropathy. # Needle/EMG exam mildly neurogenic in right APB. Nerve Conduction Studies Anti Sensory Summary Table Stim Site NR Peak (ms) P-T Amp (?V) Site1 Site2 Delta-P (ms) Dist (cm) Landon (m/s) Right Median Anti Sensory (2-3nd Digit) Wrist 4.6 20.1 Wrist 2-3nd Digit 4.6 14.0 30 Wrist 5.2 23.5 Wrist 2-3nd Digit 4.6 14.0 30 Right Radial Anti Sensory (Base 1st Digit) Wrist 2.7 7.7 Wrist Base 1st Digit 2.7 0.0 Right Ulnar Anti Sensory (5th Digit) Wrist 2.9 11.4 Wrist 5th Digit 2.9 14.0 48 Motor Summary Table Stim Site NR Onset (ms) O-P Amp (mV) Site1 Site2 Delta-0 (ms) Dist (cm) Landon (m/s) Right Median Motor (Abd Poll Brev) Wrist 4.6 4.1 Elbow Wrist 5.3 29.0 55 Elbow 9.9 4.2 Right Ulnar Motor (Abd Dig Minimi) Wrist 2.9 6.2 A Elbow Wrist 5.5 31.0 56 A Elbow 8.4 5.3 F Wave Studies NR F-Lat (ms) L-R F-Lat (ms) Right Median (Mrkrs) (Abd Poll Brev) 31.93 Right Ulnar (Mrkrs) (Abd Dig Min) 31.11 EMG Side Muscle Nerve Root Ins Act Fibs Amp Dur Recrt Comment Right 1stDorInt Ulnar C8-T1 Nml Nml Nml Nml Nml Right Ext Indicis Radial (Post Int) C7-8 Nml Nml Nml Nml Nml Right Ext Digitorum Radial (Post Int) C7-8 Nml Nml Nml Nml Nml Right BrachioRad Radial C5-6 Nml Nml Nml Nml Nml Right PronatorTeres Median C6-7 Nml Nml Nml Nml Nml Right Abd Poll Brev Median C8-T1 Nml Nml Nml Nml Nml Right ABD Dig Min Ulnar C8-T1 Nml Nml Nml Nml Nml MTDD
== END 2023-07-28 09:41 | disposition home or self-care (01) ==
LOC: ANHNEURO 09:42
PROVIDERS: PCP Family Medicine; Visit Provider Plastic Surgery
DX: G56.01 Carpal tunnel syndrome, right upper limb (principal); R22.30 Localized swelling, mass and lump, unspecified upper limb
CPT/HCPCS: 95886; 95909

== ENCOUNTER 2023-09-02 02:49 | Day surgery (SDC) | payer MEDICARE, MEDICAID, SELFPAY ==
--- NOTE | 2023-08-25 15:04 | PC.NURSE ---
Addendum entered by sAhley Ruth RN 08/28/23 09:46: pt called in, states no longer taking Pregabalin. Aware that he should take no meds am of surgery and aware of holding Vitamin d# x 3 days. Original Note: Report to the Outpatient Waiting Room, entrance under the green pavilion located off [facility], at time _0600_ on date _[id number]_. Planned Procedure Time: _0730_. Time changes happen often and if your time is changed the preop area will call you the afternoon before. - You and your visitor will be asked to self-screen and do not enter if you have any COVID symptoms. - A mask is optional within the hospital at this time. Patients may have clear liquids (water, carbonated beverages, clear teas, apple juice) until 3 hours prior to surgery with a maximum of 20 ounces. - No food from midnight until time of surgery Take the following medications with a SIP of water the morning of surgery: ____Pregabalin DO NOT STOP ANY OF YOUR OTHER PRESCRIPTION MEDICATIONS PRIOR TO SURGERY ?EXCEPT THE FOLLOWING Medications to discontinue per physician Vitamin D3 Date to take last dcwx___[id number] Please no make-up, nail kyrgyz, hairspray, perfume, deodorant, or body powder the day of surgery. No jewelry (including any body piercings) or valuables the day of surgery, leave them at home. Please take a shower or bath the night before, or the morning of, surgery with an antibacterial soap. Wear comfortable, loose fitting clothing. - Jewelry must be removed prior to entering the operating room. Rings and piercings that are not removed may be cut off. - The hospital will not accept responsibility for valuables. - Please leave all valuables, including medications, at home the day of surgery. If you are going home after surgery, a licensed catering truck driver must drive you home. - NO public transportation without another adult if you receive anesthesia. - We recommend that an adult stay with you for 24 hours following discharge. - We also recommend that you do not drive, make important decision, drink alcoholic beverages, or take any drugs that were not prescribed by your health care provider for at least 24 hours after your discharge time. Follow any additional instructions given to you from your surgeon. If you or anyone in your household have experienced Covid symptoms in the past week, please notify your surgeon or the nurse liaison at the phone number below for possible testing. Telephone instructions given to _Robert and asked if any additional questions and then verbalized understanding. Patient advised to call surgeon office or pre surgery nurse liaison [phone] if any additional questions.
--- NOTE | 2023-09-02 08:10 | PM.HPGS ---
History of Present Illness History of Present Illness Chief complaint: right carpal tunnel syndrome Narrative: Patient seen and examined in pre-operative holding area. No interval change in medical history or symptoms. Patient recalls previous discussion of benefits and alternatives to procedure. Continues to desire to proceed with right endoscopic possible open carpal tunnel release and right ring finger radial sided mass excision possible nerve repair with conduit . Reviewed procedure, post-op expectations and risks including but not limited to bleeding, infection, injury to tendon/nerve/vessel, decreased hand function, stiffness, recurrence, RSD, no change or worsening of symptoms. I discussed the possible use of assistants and their participation in the case. Patient stated understanding and signed the consent form wishing to proceed. Review of Systems Review of Systems: All systems reviewed & are unremarkable except as noted in HPI and below PMFSH Past Medical History Medical History (Updated 09/02/23 @ 08:50 by Harry Novak DO) Arthritis, lumbar spine Atrial fibrillation Chronic back pain Dyslipidemia Erectile dysfunction Essential (primary) hypertension GERD without esophagitis Lumbar spondylosis BEE (obstructive sleep apnea) Peripheral neuropathy Post laminectomy syndrome Restless legs syndrome (RLS) Vitamin D deficiency Surgical History Surgical History Hx of tonsillectomy (~1973) Perirectal cyst 2018 - Excision Previous back surgery (~2013) Lumbar spine surgeries - 2013, 2017, 2019 Family History Family History Father History of blood clots Mother Hypertension Social History Social History Smoking packs per day: 0.5 Smoking cigarettes per day: 10.0 Years smoked: 25 Smoking pack-years: 12.50 Smoking status: Current some day smoker Tobacco type: cigarettes Second hand tobacco smoke exposure: Yes Alcohol intake: current Drinks per week: 3 Substance use: former Substance use type: marijuana and crack/cocaine Last use: 2000 Lack of Transportation: No Lack of Food: Never True Current Housing: I Have Housing Concerned About Future Housing: No Difficulty Paying Gas/Electric Bills: No Difficulty Paying for Meds: No Currently Unemployed: No Education: High School Diploma/GED Difficulty w/ Childcare or Family Care: No Living arrangements: with family Gender identity (if verbalized by the patient): Male Spiritual care concerns: No Meds Home Medications and Allergies Home Medications Medication Instructions Recorded Confirmed Type cholecalciferol (vitamin D3) 50 50 mcg PO DAILY #90 tabs 02/16/23 08/25/23 Rx mcg (2,000 unit) tablet atorvastatin 40 mg tablet 40 mg PO QHS 05/04/23 08/25/23 History losartan 100 mg tablet 100 mg PO DAILY 05/04/23 08/25/23 History omeprazole 20 mg capsule,delayed 20 mg PO DAILY #90 caps 07/17/23 08/25/23 Rx release Allergies Allergy/AdvReac Type Severity Reaction Status Date / Time No Known Allergies Allergy Verified 08/25/23 14:57 Exam Narrative: unchanged Assessment and Plan Assessment and plan (1) Localized swelling, mass and lump, right upper limb: Code(s): R22.31 - Localized swelling, mass and lump, right upper limb Status: Acute Assessment and Plan: cont as above
--- NOTE | 2023-09-02 08:11 | W.PM.PROC2 ---
Procedure Note - Detailed Date of Procedure 09/02/23 Pre-op Diagnosis right carpal tunnel syndrome and ring finger mass Post-op Diagnosis Same Procedure Performed right ectr and right ring finger mass excision Surgeon Renny Buck MD Maid Supervisor Gucci Alan PA-C Anesthesia MAC Description of Procedure INFORMED CONSENT: The patient was seen and examined and marked in the pre-op area.? The patient signed the consent form. PROCEDURE IN DETAIL:The patient taken back to OR on the stretcher in supine position. Time out performed with anesthesia, surgeon and staff agreeing on patient's name site and surgery to be performed SCDs were placed on the lower extremities and inflated. A tourniquet was placed on {right} upper extremity and antibiotics given IV After anesthesia administered sedation I injected {4}cc 1%lido with epi and 0.5% marcaine plain at the operative site for ectr and 3cc 1%lido and 0.5%marcaine plain for right ring finger digital block in the palm The?{right upper extremity}?was prepped and draped in sterile fashion the??{right upper extremity} was? exsanguinated with Esmarch bandage and tourniquet inflated to 250mmHg I made a transverse incision in the {right} volar distal wrist crease through skin and dermis with 15 blade scalpel.? Littler scissors spread down to antebrachial fascia. A small incision was made in antebrachial fascia allowing access to Carpal tunnel. I proceeded with sequential dilation staying in line with the ring finger and hugging the hook of the hamate.? I then used the synovial elevator to free any adhesions from the underside of the transverse carpal ligament. Next I was able to insert the Microaire endoscopic carpal tunnel device with direct visualization of the transverse fibers on the monitor and proceeded with complete segmental retrograde release of the ligament in its entirety.? I irrigated with normal saline and closed with 4-0 monocryl for dermis and subcuticular closure. Next I proceeded with making a longitudinal incision over the Right ring finger mass at the glabrous non-glabrous border through skin and dermis with a 15 blade scalpel. I identified a cyst-like lobulated mass that began in the subcutaneous tissue but appeared to have penetrated deeper through Timothy's ligament and was abutting the radial neurovascular bundle. The mass was dissected off the neurovascular bundle which was protected throughout the procedure. I irrigated with normal saline and closed skin with 4-0 chromic. A dressing of xeroform for the finger and Dermabond for the wrist followed by 4x4s, adolph, and a volar wrist splint was applied for patient safety, security, and comfort and secured with an elif bandage after the tourniquet was let down noting the hand was warm and well perfused. The patient was then awaken from anesthesia and transferred to the recovery room in stable condition.? Complications - none EBL- 0cc Disposition - home in stable conditions Gucci Alan PA-C was essential for positioning, retraction, closure and dressing placement [facility] Billing Surgery - Charge Forward: Surgery Billing ([id number] and [id number] and [id number] same for gucci adding modifier and omitting [id number])
--- NOTE | 2023-09-02 08:50 | WPDANESEPPF ---
Anes - Initial Pre Proc Eval Procedure: Operation Date: 09/02/23 12:30 Proposed Procedures p Right Endoscopic Carpal Tunnel Release, Possible Open - Renny Buck MD s Excision Right Ring Finger Mass, Possible Nerve Repair with Conduit - Renny Buck MD Date/Time: 09/02/23 08:50 Surgeon: Renny Buck MD Pre Op Diagnosis: right carpal tunnel syndrome Patient Data Age: 53 Gender: M Height: 1.8 m Weight: 97.7 kg Allergies Allergy/AdvReac Type Severity Reaction Status Date / Time No Known Allergies Allergy Verified 09/02/23 11:00 Home Medications Medication Instructions Recorded Confirmed Type cholecalciferol (vitamin D3) 50 50 mcg PO DAILY #90 tabs 02/16/23 09/02/23 Rx mcg (2,000 unit) tablet atorvastatin 40 mg tablet 40 mg PO QHS 05/04/23 09/02/23 History losartan 100 mg tablet 100 mg PO DAILY 05/04/23 09/02/23 History omeprazole 20 mg capsule,delayed 20 mg PO DAILY #90 caps 07/17/23 09/02/23 Rx release tramadol 50 mg tablet 50 mg PO Q6H PRN pain #16 tabs 09/02/23 Rx Patient hx anesthesia problems: post op nausea/vomiting (only one time) Family hx anesthesia problems: none Results Review: All pre-operative results and documents have been reviewed as part of the pre-operative evaluation. [facility] Past Medical History Medical History (Updated 09/02/23 @ 08:50 by Harry Novak DO) Arthritis, lumbar spine Atrial fibrillation Chronic back pain Dyslipidemia Erectile dysfunction Essential (primary) hypertension GERD without esophagitis Lumbar spondylosis BEE (obstructive sleep apnea) Peripheral neuropathy Post laminectomy syndrome Restless legs syndrome (RLS) Vitamin D deficiency Surgical History Surgical History Hx of tonsillectomy (~1973) Perirectal cyst 2018 - Excision Previous back surgery (~2013) Lumbar spine surgeries - 2013, 2017, 2019 Family History Family History Father History of blood clots Mother Hypertension Social History Social History (Updated 09/02/23 @ 11:21 by DEBBY Omalley Smoking packs per day: 1 Smoking cigarettes per day: 20.0 Years smoked: 25 Smoking pack-years: 25.00 Smoking status: Current every day smoker Tobacco type: cigarettes Second hand tobacco smoke exposure: Yes Alcohol intake: current Alcohol use details: 6 beers/day Substance use: former Substance use type: marijuana and crack/cocaine Other substance usage details: still smokes marijuana occasionally Last use: 2000 Lack of Transportation: No Lack of Food: Never True Current Housing: I Have Housing Concerned About Future Housing: No Difficulty Paying Gas/Electric Bills: No Difficulty Paying for Meds: No Currently Unemployed: No Education: High School Diploma/GED Difficulty w/ Childcare or Family Care: No Living arrangements: with family Gender identity (if verbalized by the patient): Male Spiritual care concerns: No Anes - Eval Final PreProcedure Day of Procedure 09/02/23 08:50 Patient weight: obese Heart: regular rate and rhythm Lungs: clear to auscultation Airway: Mallampati scale class III Neurological: alert and oriented Last oral intake: >/= 8 hours ASA classification: III Emergent: no Anesthetic plan: proceed Anesthesia type and monitoring: general LMA and standard monitoring Results Review: All pre-operative results and documents have been reviewed as part of the pre-operative evaluation. Informed Consent: The patient's anesthetic plan and its attendant risks and benefits were discussed with the patient/family/POA. Questions were solicited and answers provided to the satisfaction of the patient/family/POA.
[2023-09-02 10:35] VITALS: BP 142/88; PULSE 79; RESP 16; TEMP 36.9; O2SAT 96
[2023-09-02] MEDS: LACTATED RINGERS 1,000 ML 30 ML IV CONT (11:05)
[2023-09-02] MEDS: ceFAZolin 2 GM/D5W 50 ML 2 GM/50 ML BAG IVPB (11:56)
[2023-09-02] MEDS: LIDOCAINE HCL 1% LOCAL INJ 10 ML VIAL INFILTRATE (12:07)
[2023-09-02] MEDS: LIDO 1%/EPINEPHRINE 1:100,000 50 ML VIAL 15 ML INFILTRATE (12:11)
[2023-09-02 12:33] VITALS: BP 131/88; PULSE 76; RESP 16; TEMP 36.4; O2SAT 100
[2023-09-02 12:45] VITALS: BP 151/104; PULSE 73; RESP 15; O2SAT 100
[2023-09-02 13:00] VITALS: BP 146/100; PULSE 74; RESP 19; O2SAT 99
[2023-09-02 13:06] VITALS: BP 140/105; PULSE 75; RESP 18
[2023-09-02] MEDS: oxyCODONE HCL (*CRX) 5 MG TAB IR PO (13:15)
[2023-09-02 13:36] VITALS: BP 153/94; PULSE 67; RESP 18
== END 2023-09-02 13:46 | disposition home or self-care (01) ==
PROVIDERS: PCP Family Medicine; Visit Provider Plastic Surgery
PROC: 01N54ZZ Release Median Nerve, Percutaneous Endoscopic Approach (ICD-10-PCS; CPT 29848; principal; 2023-09-02 12:30)
PROC: (CPT 29848; 2023-09-02 12:30)
DX: G56.01 Carpal tunnel syndrome, right upper limb (principal); L72.8 Other follicular cysts of the skin and subcutaneous tissue; I48.91 Unspecified atrial fibrillation; E78.5 Hyperlipidemia, unspecified; I10 Essential (primary) hypertension; G47.33 Obstructive sleep apnea (adult) (pediatric); E55.9 Vitamin D deficiency, unspecified; F17.210 Nicotine dependence, cigarettes, uncomplicated
CPT/HCPCS: 29848; 11422; 88304; A9270; J0690; J1100; J2250; J2405; J2704; J3010; J7120

== ENCOUNTER 2023-10-20 10:00 | Outpatient (CLI) | payer MEDICARE, MEDICAID, SELFPAY ==
--- NOTE | 2023-10-20 10:45 | NEURO_ITS ---
Impression: # Complains of left hand pain and paresthesia. Not diabetic. # Left mild to moderate Carpal Tunnel Syndrome. # No ulnar neuropathy. # Needle/EMG exam mildly abnormal in left APB. Nerve Conduction Studies Anti Sensory Summary Table Stim Site NR Peak (ms) P-T Amp (?V) Site1 Site2 Delta-P (ms) Dist (cm) Landon (m/s) Left Median Anti Sensory (2-3nd Digit) Wrist 3.8 19.8 Wrist 2-3nd Digit 3.8 14.0 37 Wrist 4.3 15.7 Wrist 2-3nd Digit 3.8 14.0 37 Left Radial Anti Sensory (Base 1st Digit) Wrist 2.0 4.7 Wrist Base 1st Digit 2.0 0.0 Left Ulnar Anti Sensory (5th Digit) Wrist 2.5 37.3 Wrist 5th Digit 2.5 14.0 56 Motor Summary Table Stim Site NR Onset (ms) O-P Amp (mV) Site1 Site2 Delta-0 (ms) Dist (cm) Landon (m/s) Left Median Motor (Abd Poll Brev) Wrist 4.4 0.9 Elbow Wrist 5.7 31.0 54 Elbow 10.1 0.8 Left Ulnar Motor (Abd Dig Minimi) Wrist 2.6 9.3 A Elbow Wrist 5.4 32.0 59 A Elbow 8.0 8.2 F Wave Studies NR F-Lat (ms) L-R F-Lat (ms) Left Median (Mrkrs) (Abd Poll Brev) 28.83 Left Ulnar (Mrkrs) (Abd Dig Min) 29.44 EMG Side Muscle Nerve Root Ins Act Fibs Amp Dur Recrt Comment Left 1stDorInt Ulnar C8-T1 Nml Nml Nml Nml Nml Left Ext Indicis Radial (Post Int) C7-8 Nml Nml Nml Nml Nml Left Ext Digitorum Radial (Post Int) C7-8 Nml Nml Nml Nml Nml Left BrachioRad Radial C5-6 Nml Nml Nml Nml Nml Left PronatorTeres Median C6-7 Nml Nml Nml Nml Nml Left Abd Poll Brev Median C8-T1 Nml Nml Nml >12ms + Left ABD Dig Min Ulnar C8-T1 Nml Nml Nml Nml Nml MTDD
== END 2023-10-20 10:01 | disposition home or self-care (01) ==
LOC: ANHNEURO 10:02
PROVIDERS: PCP Family Medicine; Visit Provider Physician Assistant Surgical
DX: G56.02 Carpal tunnel syndrome, left upper limb (principal)
CPT/HCPCS: 95886; 95909

== ENCOUNTER 2023-12-17 13:28 | Emergency (ER) | payer MEDICARE, MEDICAID, SELFPAY ==
[2023-12-17] VITALS (8 sets, daily range): BP systolic 123–151; BP diastolic 82–99; PULSE 54–78; RESP 15–18; TEMP 36.9–37; O2SAT 96–100
--- NOTE | ~2023-12-17 | CT_ITS ---
CT brain wo con Ordering provider: Pavan Gardner MD History: 53 years Male with . JERRY x 3 weeks . Comparison: July 10, 2022 Technique: CT of the head without contrast. Radiation reduction technique utilized. DLP is 681 mGy. FINDINGS: BRAIN PARENCHYMA AND CSF SPACES: No midline shift, mass effect or hemorrhage. The brain parenchyma a nd CSF spaces are otherwise normal. Cavum septum pellucidum. VISUALIZED PARANASAL SINUSES: Bilateral ethmoid sinus disease. MASTOIDS: Well aerated. BONES: The bones appear intact. SOFT TISSUES: Visualized nasopharynx is normal. Superficial soft tissues are normal. IMPRESSION: No acute intracranial findings. Reviewed, dictated and finalized at location A.
[2023-12-17] MEDS: diphenhydrAMINE HCl INJ 50 MG/ML VIAL 25 MG IV PUSH (17:15)
[2023-12-17] MEDS: KETOROLAC 15 MG/ML VIAL (*BKC) IV PUSH (17:16)
[2023-12-17] MEDS: SODIUM CHLORIDE 0.9% IV 1,000 ML 999 ML IV CONT (17:16)
[2023-12-17] MEDS: METOCLOPRAMIDE HCL INJ 10 MG/2 ML VIAL IV PUSH (17:16)
--- NOTE | 2023-12-17 17:23 | ED.GENADULT ---
HPI - General Adult General Chief complaint: Headache Stated complaint: c/o JERRY x 3 weeks Time Seen by Provider: 12/17/23 16:23 History of Present Illness HPI narrative: Patient is a 53-year-old male who presents to the emergency department this afternoon complaining of headache for the past 3 weeks. Patient states that he initially thought it was due to the Chantix he was taking. Patient states that he stopped taking it as he thought that the headaches were due to the medication but even though he has opted for 3 weeks, he continues to have these headaches. Headaches are mild, not associated with any photophobia. Patient denies any focal weakness, lightheadedness, dizziness, numbness and aching. No additional symptoms or concerns at this time. Related Data Home Medications Medication Instructions Recorded Confirmed losartan 100 mg tablet 100 mg PO DAILY 05/04/23 11/21/23 nicotine (polacrilex) 2 mg gum mg PO 11/20/23 11/21/23 atorvastatin 40 mg tablet See Rx Instructions PO QHS 11/21/23 11/21/23 Allergies Allergy/AdvReac Type Severity Reaction Status Date / Time No Known Allergies Allergy Verified 11/21/23 11:41 Review of Systems Review of Systems: All systems are reviewed and are negative unless stated otherwise in the HPI. [facility] Past Medical History Medical History Arthritis, lumbar spine Atrial fibrillation Chronic back pain Dyslipidemia Erectile dysfunction Essential (primary) hypertension GERD without esophagitis Lumbar spondylosis BEE (obstructive sleep apnea) Peripheral neuropathy Post laminectomy syndrome Restless legs syndrome (RLS) Vitamin D deficiency Surgical History Surgical History History of carpal tunnel surgery Hx of tonsillectomy (~1973) Perirectal cyst 2018 - Excision Previous back surgery (~2013) Lumbar spine surgeries - 2013, 2018, 2019 Family History Family History Father History of blood clots Mother Hypertension Social History Social History Smoking packs per day: 0.50 Smoking cigarettes per day: 10.0 Years smoked: 25 Smoking pack-years: 12.50 Smoking status: Current every day smoker Tobacco type: cigarettes Second hand tobacco smoke exposure: Yes Alcohol intake: current Alcohol use details: 6 beers/day Substance use: former Substance use type: marijuana and crack/cocaine Other substance usage details: still smokes marijuana occasionally Last use: 2000 Do You Feel Safe in your Home?: Yes Lack of Transportation: No Lack of Food: Never True Current Housing: I Have Housing Concerned About Future Housing: No Difficulty Paying Gas/Electric Bills: No Difficulty Paying for Meds: No Currently Unemployed: No Education: High School Diploma/GED Difficulty w/ Childcare or Family Care: No Living arrangements: with family Gender identity (if verbalized by the patient): Male Spiritual care concerns: No Exam Narrative: General: Alert, awake, afebrile, in no acute distress. HEENT: PERRL, no rhinorrhea, no post nasal drip, oropharynx clear. Cardiovascular: Regular rate and rhythm, no murmurs, rubs or gallops, no peripheral edema. Respiratory: Clear to auscultation bilaterally, no tachypnea, no wheezing, no rhonchi, no rubs, no respiratory distress. Abdomen: Soft, nontender, nondistended, no rebound, no guarding, no peritoneal signs. Musculoskeletal: No joint swelling or deformity, normal muscle tone. Skin: No rashes or petechia, no signs of infection. Neurological: Alert and oriented to person, place, and time. Follows all commands. No focal deficits, speech is clear and fluent. Course Vital Signs Vital signs: Vital Signs Temperature 98.6 F 12/17/23 13:48 Pulse Rate 78 12/17/23 13:48
== END 2023-12-17 18:23 | disposition home or self-care (01) ==
PROVIDERS: Emergency Provider Emergency Medicine; PCP Family Medicine
DX: R51.9 Headache, unspecified (principal); I48.91 Unspecified atrial fibrillation; I10 Essential (primary) hypertension; E78.5 Hyperlipidemia, unspecified; E55.9 Vitamin D deficiency, unspecified; G47.33 Obstructive sleep apnea (adult) (pediatric); G62.9 Polyneuropathy, unspecified; G25.81 Restless legs syndrome; K21.9 Gastro-esophageal reflux disease without esophagitis; M47.816 Spondylosis without myelopathy or radiculopathy, lumbar region; F17.210 Nicotine dependence, cigarettes, uncomplicated; Z79.899 Other long term (current) drug therapy
CPT/HCPCS: 70450; 96361; 96374; 96375; 99284; J1200; J1885; J2765; J7030

== ENCOUNTER 2024-10-05 13:15 | Outpatient (RCR) | payer MEDICARE, SELFPAY ==
--- NOTE | 2024-09-14 14:31 | OPREHPOC ---
Outpatient Therapy Plan of Care This is a Multidisciplinary Plan of Care that may contain components documented by all disciplines (PT, OT, and ST.) PT Problem 1 PT Problem #1 Knowledge Deficit PT Goal 1 Goal / Goal Update 1. Pt to be IND with issued HEP Target Visit 8 PT Problem 2 PT Problem #2 Pain PT Goal 1 Goal / Goal Update 1. Pt to report pain no greater than 5/10 in the last week. 2. Pt to report no more than 25% disability on the Oswestry. Target Visit 8 PT Problem 3 PT Problem #3 Impaired Range of Motion PT Goal 1 Goal / Goal Update 1. Pt to improve hip flexion ROM to 120 deg without pain 2. Pt to improve hamstring length to -30 deg Target Visit 8 PT Problem 4 PT Problem #4 Impaired Strength PT Goal 1 Goal / Goal Update 1. Pt to improve 5xSTS to less than 20s 2. Pt to be able to lift 20lb from ground without an increase in pain. Target Visit 8
--- NOTE | 2024-09-14 14:31 | PTOPEVAL1 ---
Assessment and note entered by Aster Ugalde, PT, DPT Evaluation Information Assessment Status Evaluation Diagnosis chronic low back pain ICD-10 Condition Codes (PT) Pain in low back M54.50,Radiculopathy, lumbar region M54.16 Subjective Information Pt reports 3 back surgeries, and has been on disability since 2018. He states he is getting worse, not better, but states he is not doing anything to get better. States he has not done exercise since covid started in 2020. States his most surgery was in 2019, he has an anterior and posterior fusion at L5-S1. Pt reports constant burning sensations in both of his legs, states his L foot is completely numb. States he get stabbing , shooting, and muscle spasms, in his BLEs and sometimes in his hands. Reported Pain Level Pain Score 7: Self Report Assessment PT Clinical Summary Pt presents to therapy today for his initial evaluation with a diagnosis of chronic low back pain with peripheral neuropathy, has a history of a lumbar fusion procedure as well. Today he demonstrates significant limitations in his hip and lumbar mobility, he demonstrates hip and ankle weakness, core weakness, poor posture, and decreased body awareness with functional tasks. He reports BLE pain that limits his functional mobility. Times during the 5xSTS and 2 min walk test also place him at an increased risk for falls . Skilled therapy services are indicated to address the deficits noted above, to manage pain, to improve body mechanics, and to promote improved functional mobility. Plan of Care Interventions Electrical Stimulation,Gait Training,Hot Pack/Cold Pack,Manual Therapy,Neuro Re-education,Patient/ Caregiver Education,Therapeutic Activities, Therapeutic Exercise PT Services Indicated Yes Treatment Frequency and 2x/wk for 8 visits Duration These treatments will address the objective and functional deficits as defined above. The patient will be advanced safely and appropriately in order for the patient to progress towards his/her prior level of function. Additional exercises will be introduced and as well as a comprehensive home exercise program upon discharge, if needed, ?to ensure carryover of functional gains achieved in the clinic. This treatment plan has been reviewed and agreement upon by the patient.
--- NOTE | 2024-10-06 15:53 | PCPTNOTE ---
Patient called & cancelled scheduled appointment this date due to pain. Has been rescheduled.
--- NOTE | 2024-10-13 11:13 | PCPTNOTE ---
Patient did not show up for scheduled appointment this date.
--- NOTE | 2024-10-13 11:19 | PTOPDC ---
Assessment and note entered by Aster Ugalde, PT, DPT Evaluation Information Assessment Status Discharge - Pt Not Present Diagnosis chronic low back pain ICD-10 Condition Codes (PT) Pain in low back M54.50,Radiculopathy, lumbar region M54.16 Subjective Information Pt did not show up for scheduled appointment. Called and spoke to pt, he states he does not remember scheduling his appointment. States he has been doing the exercises and is not getting any benefit and would not like to continue. Assessment PT Clinical Summary Pt completed 7 visits of skilled therapy from 09/14 to 10/06/24. Will be discharged at this time per pt request.
== END 2024-10-13 13:00 | disposition home or self-care (01) ==
LOC: ANHGOSHPT 13:15
PROVIDERS: PCP Family Medicine; Visit Provider Family Medicine
DX: M96.1 Postlaminectomy syndrome, not elsewhere classified (principal); M54.9 Dorsalgia, unspecified; G89.29 Other chronic pain; G62.9 Polyneuropathy, unspecified
CPT/HCPCS: 97014; 97110; 97161; 97530; G0283

== ENCOUNTER 2024-11-09 09:08 | Outpatient (CLI) | payer MEDICARE, MEDICAID, SELFPAY ==
--- NOTE | ~2024-11-09 | US_ITS ---
EXAMINATION: US art doppler w press LE BI DATE: 11/09/2024 09:55 INDICATION: Peripheral vascular disease TECHNIQUE: Segmental pressures and plethysmographic and Doppler waveforms of the brachial and lower e xtremity arteries were obtained. COMPARISON: None. FINDINGS: Right and left brachial artery pressures of 124 mm Hg and 139 mm Hg, respectively, are concordant (no rmal difference <= 30 mmHg). The right ankle-brachial index (BOUBACAR) is 1.13 (normal >= 0.9-1). The right great toe-brachial index (T BI) is 0.90 (normal >= 0.6-0.8). The right lower extremity segmental pressure gradients are normal (n ormal gradients <= 20-30 mmHg between adjacent levels on the same leg or the same levels on the two l egs). Arterial waveforms are triphasic with brisk systolic upstrokes throughout the arteries of the r ight lower limb. The left BOUBACAR is 1.09. The left TBI is 2.81. The left lower extremity segmental pressure gradients are normal. Arterial waveforms are biphasic with brisk systolic upstrokes at the left common femoral, roblero perficial femoral and popliteal arteries and monophasic with brisk systolic upstrokes at the left pos terior tibial and dorsalis pedis arteries. IMPRESSION: 1. No significant arterial occlusive disease with normal bilateral ABIs and TBIs. Reviewed, dictated and finalized at location A. IMPRESSION: 1. No significant arterial occlusive disease with normal bilateral ABIs and TBI s.
--- OUTSIDE RECORDS SUMMARY | 2024-11-09 09:48 | XMS_ITS | Referral Summary ---
Author Organization [facility] Address [address] [place] [address] Care Team Providers Care Principal Network Architect Name Role Phone Brendon Ramirez MD Unavailable [phone] No, Physician Primary Care Provider [phone] Allergies No known active allergies Medications pantoprazole DR (PROTONIX) 40 mg EC tabletIndication s:Acute gastritis, presence of bleeding unspecified, unspecified gastritis type Take 1 tablet (40 mg total) by mouth daily 90 tablet 1 12/27/2020 Active flecainide (TAMBOCOR) 100 mg tablet TAKE 1 TABLET BY MOUTH TWICE A DAY 180 tablet 1 02/19/2022 Active Active Problems Problem Noted Date Diagnosed Date Paroxysmal atrial tachycardia 11/21/2020 Palpitations 11/21/2020 Paroxysmal atrial fibrillation 11/21/2020 Dyslipidemia 11/21/2020 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 His permanent weight limit is 20 lb and could do no bending twisting stooping or awkward positions Assessment & Plan (07/27/2019 9:38 AM SALES SUPPORT ENGINEER): Assessment Healed L5-S1 fusion with ongoing bilateral lower extremity symptoms in light of normal electrical studies and no impingement on the CT scan Plan Physical therapy 2 times per week return in 6 weeks for lumbar spine x-ray in to assess his progress. I have told him that there is nothing else surgically to offer him Assessment & Plan (05/03/2019 9:26 AM SALES SUPPORT ENGINEER): Assessment Healing fusion L5-S1 with ongoing symptoms of low back pain and bilateral leg numbness and tingling Plan Repeat CT scan to evaluate fusion and EMG nerve conduction studies meanwhile he is unable to work Assessment & Plan (03/02/2019 10:11 AM CDT): Assessment Delayed union L5-S1 with some improvement on recent CT scan Plan I would see him back in 2 months for an x-ray hopefully it will be improved. Meanwhile a given names of pain management physicians for ongoing treatment Assessment & Plan (02/03/2019 10:51 AM CDT): Healing anterior posterior lumbar fusion at the level of L5-S1. I am ordering lab work to determine if the patient has any underlying rheumatologic condition that is causing his other joint aches and pains. I will call him with regard to his results. I am increasing his gabapentin to 900 mg at night. He is to make an appointment for February and we will schedule another CT scan at that time which will make him approximately 5 months out postop from the anterior fusion and a year out from his posterior fusion. S/P spinal fusion 09/14/2018 Overview (09/14/2018): Added automatically from request for surgery [id number] Assessment & Plan (12/15/2018 12:04 PM CDT): Assessment Healing fusion L5-S1 with continued leg pain Plan Because he has a strong history of deep venous thrombosis in his family I will schedule venous Doppler and call him with the results. I increased his Neurontin to 600 HS and he is to return in 6 weeks for an x-ray Postlaminectomy syndrome, lumbar 03/01/2018 Overview (03/01/2018): Added automatically from request for surgery [id number] Assessment & Plan (07/22/2018 12:17 PM SALES SUPPORT ENGINEER): Assessment Healing fusion L5-S1 with some increased leg pain compared to the recent visit Plan Observation I added Neuronmani at HS talked about do's no 6 cues and from work and he is to return for x-ray in 6 weeks Intervertebral disc disorder s with radiculopathy, lumbosacral region 03/01/2018 Overview (03/01/2018): Added automatically from request for surgery [id number] Assessment & Plan (09/04/2021 11:31 AM CDT): Assessment Healed fusion L5-S1 with solid bone graft and no further nerve root impingement on imaging studies. I released him in 2019 with a permanent 20 lb weight limit no bending twisting stooping or awkward positions. 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 I will procedure with him using anatomical models outlined the risks nature and expectations he understands and accepts Assessment & Plan (09/02/2018 9:39 AM CDT): Assessment Healing fusion L5-S1 Plan CT scan lumbar spine to evaluate fusion and the recent increase in left leg pain and then a decision can be made about his ability to return to work Resolved Problems Problem Noted Date Diagnosed Date Resolved Date Spinal instabilities, lumbosacral region 03/01/2018 07/22/2018 Overview (03/01/2018): Added automatically from request for surgery [id number] Assessment & Plan (06/10/2018 12:05 PM SALES SUPPORT ENGINEER): Assessment Healing fusion L5-S1 Plan I talked about do's and don'ts he is to continue to exercise on his own return in 6 weeks for an x-ray which time we will likely begin physical therapy. He is to remain off work Social History Tobacco Use Types Packs/Day Years Used Date Smoking Tobacco: Some Days Cigarettes 0.3 20 Cigars Smokeless Tobacco: Never Comments:quit cigarettes 12/21 018- still smokes occasional cigar Alcohol Use Standard Drinks/Week Comments Not Currently 0 (1 standard drink = 0.6 oz pure alcohol) previously 18 cans beer/week - has not drank since 02/2018 PHQ-2 Answer Date Recorded PHQ-2 Score 0 08/27/2018 Sex and Gender Information Value Date Recorded Sex Assigned at Not on file Legal Sex Male 4:43 AM SALES SUPPORT ENGINEER Gender Identity Not on file Sexual Orientation Not on file Last Filed Vital Signs Vital Sign Reading Time Taken Comments Blood Pressure 130/91 05/22/2021 11:08 AM SALES SUPPORT ENGINEER Pulse 87 05/22/2021 11:08 AM SALES SUPPORT ENGINEER Temperature 36.5 C (97.7 F) 08/03/2019 8:42 AM SALES SUPPORT ENGINEER Respiratory Rate 18 05/22/2021 11:0 8 AM SALES SUPPORT ENGINEER Oxygen Saturation 97% 11/21/2020 2:27 PM CDT Inhaled Oxygen Concentration - - Weight 95.2 kg (209 lb 12.8 oz) 021 11:08 AM SALES SUPPORT ENGINEER Height 180.3 cm (5' 11 ) 05/22/2021 11: 08 AM SALES SUPPORT ENGINEER Body Mass Index 29.26 05/22/2021 11:08 AM SALES SUPPORT ENGINEER Plan of Treatment Not on file Medical Devices Implanted Type Area Apartment Hotel Manager Device Identifier Shelf Expiration Date Model / Serial / Lot [employer] [id number] Inqu Paste Mix Plus Bulk Plant Agent 10cc Bone Graft Hyaluronic Acid Poly - [id number] Implanted:Qty: 1 on 03/16/2018 by Ronaldo Toledo MD at [facility] N/A: Lumbar-Sa cral Spine [employer] 11/25/2018 [id number] / / [id number] Screw 7.0mm X 40mm Streamline Tl Pedicle - [id number] Implanted:Qty: 4 on 03/16/2018 by Ronaldo Toledo MD at [facility] N/A: Lumbar-Sa cral Spine [employer] PA-70-40 / / Description:Polyaxial screw Screw Set Streamline Tl Screw System - [id number] Implanted:Qty: 4 on 03/16/2018 by Ronaldo Toledo MD at [facility] N/A: Lumbar-Sa cral Spine [employer] 01-SETSCREW / / [employer] Pr35 Quantum 5.5mm 35mm Prebent Michele Spinal Titanium - [id number] Implanted:Qty: 2 on 03/16/2018 by Ronaldo Toledo MD at [facility] N/A: Lumbar-Sa cral Spine [employer] AZ35 / / Description:Prebent michele Medtronic Sofamor Danek [id number] Infuse 20ga 2x1in Vial Absorbable Syringe Needle Medium Graft 5.6 - [id number] Implanted:Qty: 1 on 10/06/2018 by Ronaldo Toledo MD at [facility] N/A: Lumbar-Sa cral Spine [employer] Sofamor [employer] 04/21/2019 [id number] / / [id number] [employer] [id number] Contact Option Vbr [id number] Insertion Hole Back Cut Teeth - [id number] Implanted:Qty: 1 on 10/06/2018 by Ronaldo Toledo MD at [facility] N/A: Lumbar-Sa cral Spine [employer] 06/04/2021 [id number] / / [id number] [employer] 25-Sp-36 36mm Spine Sacral Anterior Plate Bone Nonsterile - [id number] Implanted:Qty: 1 on 10/06/2018 by Ronaldo Toledo MD at [facility] N/A: Lumbar-Sa cral Spine [employer] 25-SP-36 / / [employer] 25-60-24 6mm 24mm Spine Lumbar Screw Bone Nonsterile - [id number] Implanted:Qty: 4 on 10/06/2018 by Ronaldo Toledo MD at [facility] N/A: Lumbar-Sa cral Spine [employer] 25-60-24 / / Insurance [facility] Address: [address] [address] [place] [address] Advance Directives For more information, please contact: [phone] * Full Code (Latest Code Status on File) Date Activated Date Inactivated Comments 06/17/2019 9:18 PM 06/19/2019 6:47 PM * Full Code Date Activated Date Inactivated Comments 10/06/2018 5:48 PM 10/07/2018 5:18 PM * Full Code Date Activated Date Inactivated Comments 03/16/2018 6:28 PM 03/18/2018 4:03 PM Care Teams Principal Network Architect Relationship Specialty Start Date End Date No, Physician PCP - General 09/03/20 Brendon Ramirez MD Consulting Physician Colon and Rectal Surgery 08/03/19
--- OUTSIDE RECORDS SUMMARY | 2024-11-09 09:48 | XMS_ITS | Encounter Summary ---
Author Organization [facility] Address [address] [place] [address] Care Team Providers Care Data Software Engineer Name Role Phone Spenser Crooks MD Primary Care Provider [phone] Encounter Details Date Type Department Care Team (Late st Contact Info) Description 01/07/2017 [facility] Outpatient Visit [facility] [address] [place] [address] [place] [id number] [place], [place] [id number] Social History Tobacco Use Types Packs/Day Years Used Date Smoking Tobacco: Every Day Smokeless Tobacco: Never Alcohol Use Standard Drinks/Week Comments Yes 0 (1 standard drink = 0.6 oz pur e alcohol) Sex and Gender Information Value Date Recorded Sex Assigned at Not on file Legal Sex Male 5:51 AM DRY DRUG WORKER Gender Identity Not on file Sexual Orientation Not on file documented as of this encounter Plan of Treatment Not on file documented as of this encounter Visit Diagnoses Not on filedocumented in this encounter Care Teams Data Software Engineer Relationship Specialty [place] [address] [place] [address] [address] [place] [address] PCP - General Internal Medicine 01/07/17 documented as of this encounter
--- OUTSIDE RECORDS SUMMARY | 2024-11-09 09:48 | XMS_ITS | Clinical Summary ---
Author Organization [email or web address] Address [address] [facility] [place] [address] Care Team Providers Care Water Proofer Name Role Phone Spenser Crooks MD Primary Care Provider Source Comments [email or web address],non-owned Affiliates and Associated Physician Practices is amultiple site organization consisting of ambulatory clinics and hospital sitesin [place], [place], [place] and [place]. This disclosure is being madepursuant to the Care Everywhere program and may not contain all information available regarding this patient. Last updated 18.[email or web address] Allergies No known active allergies Medications * Be aware that medications may not be up to date on this document. Alwaysverify current medications with the patient. LYRICA 50 MG capsule Take 50 mg by mouth 3 times daily 0 7 Active docusate sodium (COLACE) 100 MG capsule Take 1 Cap by mouth 2 times daily 60 Cap 1 7 Active Additional Information Patient not taking.Reported on 03/06/2017 oxyCODONE-aceta minophen (PERCOCET) 7.5-325 MG tablet Take 1 Tab by mouth every 6 hours as needed for Pain 40 Tab 7 Active Additional Information Patient not taking.Reported on 03/06/2017 traMADol (ULTRAM) 50 MG tablet Take 50 mg by mouth once daily 0 7 Active Active Problems Problem Noted Date Diagnosed Date [id number] 02/19/2017 Encounter for screening for malignant neoplasm o f colon 01/27/2017 Benign neoplasm of ascending colon 01/27/2017 Third degree hemorrhoids 01/27/2017 Fistula 01/07/2017 Family History Medical History Relation Name Comments Cancer - Breast Mother Other Neg Hx negative Relation Name Status Comments Father Alive Mother Alive Social History Tobacco Use Types Packs/Day Years Used Date Smoking Tobacco: Every Day Cigarettes Smokeless Tobacco: Never Tobacco Cessation:Ready to Q uit: No; Counseling Given: Yes Alcohol Use Standard Drinks/Week Comments Yes 0 (1 standard drink = 0.6 oz pur e alcohol) 3x week Sex and Gender Information Value Date Recorded Sex Assigned at Not on file Legal Sex Male 5:51 AM GROCERY CADDY Gender Identity Not on file Sexual Orientation Not on file Last Filed Vital Signs Vital Sign Reading Time Taken Comments Blood Pressure 130/93 02/24/2017 11:24 AM CDT Pulse 72 02/24/2017 11:24 AM CDT Temperature 34.9 C (94.8 F) 02/24/2017 11:24 AM CDT Just had Ice Water Respiratory Rate 18 02/24/2017 11:2 4 AM CDT Oxygen Saturation 100% 02/24/2017 11: 24 AM CDT Inhaled Oxygen Concentration - - Weight 95.7 kg (211 lb) 04/24/2017 2:32 PM CDT Height 182.9 cm (6') 04/24/2017 2:32 PM CDT Body Mass Index 28.62 04/24/2017 2:32 PM CDT Plan of Treatment Health Maintenance Due Date Last Done Comments COLOGUARD (AGES 45-75) - COL ON CA SCREENING 1970 CT COLONOGRAPHY - COLON CA SCREENING 1970 FIT - COLON CA SCREENING 1970 FLEX SIG - COLON CA SCREENING 1969 LIPID TESTING 1969 HIV SCREENING 1984 HEPATITIS C SCREENING 07/20/1987 DTAP/TDAP/TD VACCINES (1 - Tdap) 1988 HEPATITIS B VACCINE (1 of 3 - 19+ 3-dose series) 1988 PNEUMOCOCCAL VACCINE 50+ (1 of 2 - PCV) 1988 SCREENING FOR DIABETES 01/07/2017 ZOSTER VACCINE (1 of 2) 2019 COVID-19 VACCINE (1 - 2023-2 5 season) 2024 DEPRESSION SCREENING 06/22/2024 MEDICARE AWV CALENDAR YEAR 2024 INFLUENZA VACCINE (Season Ended) 2025 COLON MONITORING 01/27/2027 01/27/2017, 01/27/2017 COLONOSCOPY - COLON CA SCREENING 01/27/2027 01/27/2017, 01/27/2017 Colorectal Cancer Screening 01/27/2027 HIB VACCINE Aged Out No longer eligi ble based on patient's age to complete this topic HPV VACCINE Aged Out No longer eligi ble based on patient's age to complete this topic MENINGOCOCCAL (Group B) VACCINE SHARED DECISION-MAKING Aged Out No longer eligible based on patient's age to complete this topic MENINGOCOCCAL GROUPS A/C/Y/W VACCINE Aged Out No longer eligible b ased on patient's age to complete this topic Procedures Procedure Name Priority Date/Time Associated Diagnosis Comments ENDOSCOPY, COLON, SCREENING Routine 01/27/2017 7:27 AM CDT from Last 3 Months or Most Recently Relevant to Health Maintenance Results * ENDOSCOPY, COLON, SCREENING (01/27/2017 7:27 AM CDT) Report Endoscopy POC _ Patient Name: Brenden Dunham Procedure Date: 01/27/2017 7:27 AM Date of : 1970 Admit Type: Outpatient Age: 46 Gender: Male Attending MD: Hemanth Gimenez MD _ Procedure: Colonoscopy Indications: Screening for colorectal malignant neoplasm Providers: Hemanth Gimenez MD (Doctor) Referring MD: Spenser Crooks (Referring MD) Medicines: Propofol per Anesthesia Complications: No immediate complications. _ Procedure: After I obtained informed consent, the scope was passed under direct vision. Throughout the procedure, the patient's blood pressure, pulse, and oxygen saturations were monitored continuously. The Colonoscope was introduced through the anus and advanced to the cecum, identified by appendiceal orifice and ileocecal valve. The colonoscopy was performed without difficulty. The patient tolerated the procedure well. The quality of the bowel preparation was good. Findings: A 4 mm polyp was found in the mid ascending colon. The polyp was sessile. The polyp was removed with a hot biopsy forceps. Resection and retrieval were complete. Verification of patient identification for the specimen was done by the nurse. Estimated blood loss was minimal. Internal hemorrhoids were found during digital exam. The hemorrhoids were Grade III (internal hemorrhoids that prolapse but require manual reduction). _ Impression: - One 4 mm polyp in the mid ascending colon, removed with a hot biopsy forceps. Resected and retrieved. - Internal hemorrhoids. Recommendation: - Return to my office in 2 weeks. Procedure Code(s): --- Professional --- [id number], Colonoscopy, flexible; with removal of tumor(s), polyp(s), or other lesion(s) by hot biopsy forceps --- Technical --- [id number], Colonoscopy, flexible; with removal of tumor(s), polyp(s), or other lesion(s) by hot biopsy forceps Diagnosis Code(s): --- Professional --- Z12.11, Encounter for screening for malignant neoplasm of colon D12.2, Benign neoplasm of ascending colon K64.2, Third degree hemorrhoids --- Technical --- Z12.11, Encounter for screening for malignant neoplasm of colon D12.2, Benign neoplasm of ascending colon K64.2, Third degree hemorrhoids CPT copyright 2015 [employer]. All rights reserved. The codes documented in this report are preliminary and upon compressor mechanic review may be revised to meet current compliance requirements. Dr. Hemanth Gimenez MD Hemanth Gimenez MD 01/27/2017 9:04:26 AM This report has been signed electronically. Number of Addenda: 0 Note Initiated On: 01/27/2017 7:27 AM [facility] 01/27/2017 7:27 AM CDT us Hemanth Gimenez MD GI PROCEDURE ORDERABLES Edited Result - Final [place] [address] from Last 3 Months or Most Recently Relevant to Health Maintenance Insurance [facility] MANAGED MEDICARE [facility] MEDICAID - [place] Member Subscriber Plan / Payer (Ef fective for All Dates) Name:Brenden Dunham Member ID:Not on file Relation to Subscriber:Self Name:Brenden Dunham Subscriber ID:Not on file Payer ID:Not on file Group ID:Not on file Type:Medicaid [place] Address: [place] [id number] [facility] MANAGED MEDICARE ADV Member Subscriber Plan / Payer (Ef fective 2024-Present) Name:Brenden Dunham Relation to Subscriber:Self Name:Brenden Dunham Payer ID:[id number] (NAIC) Type:Medicare-Managed Care Address: [address] MEDICAID - [place] [facility] MANAGED MEDICARE ADV Member Subscriber Plan / Payer (Ef fective 2024-Present) Name:Brenden Dunham Relation to Subscriber:Self Name:Brenden Dunham Payer ID:[id number] (NAIC) Type:Medicare-Managed Care Address: [address] [place]ICAID [place] Member Subscriber Plan / Payer (Ef fective for All Dates) Name:Brenden Dunham Member ID:Not on file Relation to Subscriber:Self Name:Brenden Dunham Subscriber ID:Not on file Payer ID:Not on file Group ID:Not on file Type:Medicaid [place] Address: [place] [phone] [facility] MANAGED MEDICARE ADV Care Teams Water Proofer Relationship Specialty Start Date End Date Spenser Crooks MD [address] [facility] [address] [place] [id number] PCP - General Internal Medicine 01/07/17
--- OUTSIDE RECORDS SUMMARY | 2024-11-09 09:48 | XMS_ITS | Clinical Summary ---
Author Organization [facility] Address [address] [place] [address] Care Team Providers Care Social Worker Delinquency Prevention Name Role Phone Brendon Ramirez MD Unavailable [phone] No, Physician Primary Care Provider [phone] Allergies No known active allergies Medications pantoprazole [...] (07/13/2019): Added automatically from request for surgery [id number] Perirectal abscess 06/17/2019 Alcohol use 06/17/2019 Pseudarthrosis after fusion or arthrodesis 09/14 Overview (09/14/2018): Added automatically from request for surgery [id number] Assessment & Plan (03/20/2020 10:31 AM CDT): Assessment Healed fusion L5-S1 Plan Released with permanent restrictions as outlined in the functional capabilities report that I filled out. His permanent weight limit is 20 lb and could do no bending twisting stooping or awkward positions Assessment & Plan (07/27/2019 9:38 AM OPTOMETRIC ASSISTANT): Assessment Healed L5-S1 fusion with ongoing bilateral lower extremity symptoms in light of normal electrical studies and no impingement on the CT scan Plan Physical therapy 2 times per week return in 6 weeks for lumbar spine x-ray in to assess his progress. I have told him that there is nothing else surgically to offer him Assessment & Plan (05/03/2019 9:26 AM OPTOMETRIC ASSISTANT): Assessment Healing fusion L5-S1 with ongoing symptoms [...] (09/14/2018): Added automatically from request for surgery [id number] Assessment & Plan (12/15/2018 12:04 PM CDT): [...] (03/01/2018): Added automatically from request for surgery [id number] Assessment & Plan (07/22/2018 12:17 PM OPTOMETRIC ASSISTANT): Assessment Healing fusion L5-S1 with some increased leg pain compared to the recent visit Plan Observation I added Neuronmani at HS talked about do's no 6 cues and from work and he is to return for x-ray in 6 weeks Intervertebral disc disorder s with radiculopathy, lumbosacral region 03/01/2018 Overview (03/01/2018): Added automatically from request for surgery [id number] Assessment & Plan (09/04/2021 11:31 AM CDT): [...] (03/01/2018): Added automatically from request for surgery [id number] Assessment & Plan (06/10/2018 12:05 PM OPTOMETRIC ASSISTANT): Assessment Healing fusion L5-S1 Plan I talked about do's and don'ts he is to continue to exercise on his own return in 6 weeks for an x-ray which time we will likely begin physical therapy. He is to remain off work Surgical History Surgery Date Site/Laterality Comments MICRODISCECTOMY LUMBAR L5-S1 TONSILLECTOMY TREATMENT FISTULA ANAL several surgeries SPINAL FUSION 03/16/2018 L5-S1 PLF SPINAL FUSION 10/06/2018 L5-S1 ALIF Medical History Medical History Date Comments Postlaminectomy syndrome of lumbar region Osteoarthritis Intervertebral disc disorder with radiculopathy of lumbosacral region Heavy alcohol consumption Perirectal abscess Atrial fibrillation (HCC) Supraventricular tachycardia Social History Tobacco Use Types Packs/Day Years [...] on file Legal Sex Male 4:43 AM OPTOMETRIC ASSISTANT Gender Identity Not on file Sexual Orientation Not on file Obstetrics History Last Filed Vital Signs Vital Sign Reading Time Taken Comments Blood Pressure 130/91 05/22/2021 11:08 AM OPTOMETRIC ASSISTANT Pulse 87 05/22/2021 11:08 AM OPTOMETRIC ASSISTANT Temperature 36.5 C (97.7 F) 08/03/2019 8:42 AM OPTOMETRIC ASSISTANT Respiratory Rate 18 05/22/2021 11:0 8 AM OPTOMETRIC ASSISTANT Oxygen Saturation 97% 11/21/2020 2:27 PM CDT Inhaled Oxygen Concentration - - Weight 95.2 kg (209 lb 12.8 oz) 021 11:08 AM OPTOMETRIC ASSISTANT Height 180.3 cm (5' 11 ) 05/22/2021 11: 08 AM OPTOMETRIC ASSISTANT Body Mass Index 29.26 05/22/2021 11:08 AM OPTOMETRIC ASSISTANT Plan of Treatment Not on file Medical Devices Implanted Type Area Assembly Room Supervisor Device Identifier Shelf Expiration Date Model / Serial / Lot [employer] [id number] Inqu Paste Mix Plus House Supervisor 10cc Bone Graft Hyaluronic Acid Poly - [id number] Implanted:Qty: 1 on 03/16/2018 by Ronaldo Toledo MD at [facility] N/A: Lumbar-Sa cral Spine [employer] 11/25/2018 [id number] / / [id number] Screw 7.0mm X 40mm Streamline Tl Pedicle - [id number] Implanted:Qty: 4 on 03/16/2018 by Ronaldo Toledo MD at [facility] N/A: Lumbar-Sa cral Spine [employer] PA-70-40 / / Description:Polyaxial screw Screw Set Streamline Tl Screw System - [id number] Implanted:Qty: 4 on 03/16/2018 by Ronaldo Toledo MD at [facility] N/A: Lumbar-Sa cral Spine [employer] -SETSCREW / / [employer] Pr-35 Quantum 5.5mm 35mm Prebent Michele Spinal Titanium - [id number] Implanted:Qty: 2 on 03/16/2018 by Ronaldo Toledo MD at [facility] N/A: Lumbar-Sa cral Spine [employer] -DC-35 / / Description:Prebent michele [employer] Sof[employer] [id number] Infuse 20ga 2x1in Vial Absorbable Syringe Needle Medium Graft 5.6 - [id number] Implanted:Qty: 1 on 10/06/2018 by Ronaldo Toledo MD at [facility] N/A: Lumbar-Sa cral Spine [employer] 04/21/2019 [id number] / / [id number] [employer] [id number] Contact Option [id number] [id number] Insertion Hole Back Cut Teeth - [id number] Implanted:Qty: 1 on 10/06/2018 by Ronaldo Toledo MD at [facility] N/A: Lumbar-Sa cral Spine [employer] 06/04/2021 [id number] / / [id number] [employer] 25-Sp-36 36mm Spine Sacral Anterior Plate Bone Nonsterile - [id number] Implanted:Qty: 1 on 10/06/2018 by Ronaldo Toledo MD at [facility] N/A: Lumbar-Sa cral Spine [employer] 25-SP-36 / / [employer] 2560-24 6mm 24mm Spine Lumbar Screw Bone Nonsterile - [id number] Implanted:Qty: 4 on 10/06/2018 by Ronaldo Toledo MD at [facility] N/A: Lumbar-Sa cral Spine [employer] 2560-24 / / Insurance [facility] [facility] Advance Directives For more information, please contact: [phone] * Full Code (Latest Code Status on File) Date Activated Date Inactivated Comments 06/17/2019 9:18 PM 06/19/2019 6:47 PM * Full Code Date Activated Date Inactivated Comments 10/06/2018 5:48 PM 10/07/2018 5:18 PM * Full Code Date Activated Date Inactivated Comments 03/16/2018 6:28 PM 03/18/2018 4:03 PM Care Teams Social Worker Delinquency Prevention Relationship Specialty Start Date End Date No, Physician PCP - General 09/03/20 Brendon Ramirez MD Consulting Physician Colon and Rectal Surgery 08/03/19
--- OUTSIDE RECORDS SUMMARY | 2024-11-09 09:48 | XMS_ITS | Patient Health Record ---
Author Organization [facility] Address [address] [place] [address] [place] [address] Care Team Providers Care And Drying Supervisor Cooking Casing Name Role Phone Sania Levin MD Primary Care Provider Unavailable ALLERGIES No Known Allergies REASON FOR REFERRAL No Information MEDICATIONS Medication SIG (Take, Route, Frequency, Duration) Notes Start Date End Date Status Flecainide Acetate 100 MG as directed Orally Active Voltaren 1 % apply 4 grams to jo nful joint(s) Transdermal 4x/day as needed for pain for 30 days Active Medrol 4 MG as directed Orally 10/30/2021 Active Pregabalin 100 MG 1 capsule Orally Twi ce a day for 30 days 01/15/2023 Active Xanax 0.25 MG 1-2 tablets Orally 3 0 minutes prior to injection 09/22/2022 Activ e Omeprazole 10 MG 1 capsule 30 minutes before morning meal Orally Once a day for 30 day(s) Active Lisinopril-hydroCHLOROthia zide 20-12.5 MG 1 tablet Orally Once a day for 30 day(s) Active SOCIAL HISTORY Sex Assigned At : Social History Observation Description Sex Assigned At Unknown PROBLEMS Problem Type ICD Code Onset Dates Problem Status W/U Status Risk SNOMED Code Notes Problem Fear of injections and transfusions (F40.231) Active confirmed Fear of medical treatment (739342917) Problem Unspecified osteoarthritis, unspecified site (M19.90) Active confirmed Osteoarthritis (278445608) Problem Sacroiliitis, not elsewhere classified (M46.1) Active confirmed Solitary sacroiliitis (557655162) Problem Spondylosis without myelopathy or radiculopathy, cervical region (M47.812) Active confirmed Cervical spondylosis without myelopathy (220731989) Problem Spondylosis without myelopathy or radiculopathy, cervicothoracic region (M47.813) Active confirmed Cervical spondylosis without myelopathy (354013758) Problem Spondylosis without myelopathy or radiculopathy, lumbar region (M47.816) Active confirmed Lumbosacral spondylosis without myelopathy (76031046) Problem Spondylosis without myelopathy or radiculopathy, lumbosacral region (M47.817) Active confirmed Lumbosacral spondylosis without myelopathy (disorder) (77419968) Problem Intervertebral disc disorders with radiculopathy, lumbosacral region (M51.17) Active confirmed Lumbosacral radiculopathy (2503921) Problem Radiculopathy, cervical region (M54.12) Active confirmed Cervical radiculopathy (98135983) Problem Radiculopathy, cervicothoracic region (M54.13) Active confirmed Cervical radiculopathy (76120201) Problem Radiculopathy, lumbar region (M54.16) Active confirmed Lumbar radiculopathy (516641237) Problem Radiculopathy, lumbosacral region (M54.17) Active confirmed Lumbosacral radiculopathy (6531269) Problem Cervicalgia (M54.2) Active confirmed Cervicalgia (32188833) Problem Postlaminectomy syndrome, not elsewhere classified (M96.1) Active confirmed Post-lami nectomy syndrome (83186186) Problem Osseous stenosis of neural canal of lumbar region (M99.33) Active confirmed Spinal stenosis of lumbar region (84389382) Problem Other vermin exterminator (current) drug therapy (Z79.899) Active confirmed Long-term current use of drug therapy (581769457) PLAN OF TREATMENT Pending Test Test Name Order Date Chem 7 (BUN, Cr, Lytes, Glu) 09/04/2022 MRI : Cervical Spine without Contrast (7 0540) 11/07/2021 MRI : Lumbar Spine with and without Cont rast (68683) 04/16/2022 Insurance Providers Payer Name Payer Address Payer Phone Subscriber Number Group Number Insured Name Patient Relationship to Insured Coverage Start Date Coverage End Date [facility] MEDIC[facility] [employer]VANTAGE (PPO) [address] [address] [place] [address] [id number] BRENDEN DUNHAM Self - patient is the insured [place] [address] [address] [place] [address] [id number] BRENDEN DUNHAM Self - patient is the insured MEDICAL (GENERAL) HISTORY Medical History History ICD Code AFIB Osteoarthritis SVT Hypertension Surgical History Surgery Date(Month/Year) L5-S1 microdisctomy Posterior lumbar fusion at L5-S1 02/2018 ALIF L5-S1 09/2018
--- OUTSIDE RECORDS SUMMARY | 2024-11-09 09:48 | XMS_ITS | CONTINUITY OF CARE DOCUMENT ---
Author Name sameer estrella Address Unknown Organization [facility] Address [address] [place] [address] [address] [place] [address] Phone [phone] Care Team Providers Care Resin Coater Name Role Phone Agus MEYERS, Katarzyna Unavailable [phone] Spenser Crooks MD Unavailable [phone] Spenser Crooks MD Unavailable [phone] PROBLEMS Condition Status Date Provider Notes Alcohol abuse active Rashel Ahmedzai Venous insufficiency, bilateral active Rashel Ahmedzai Long-term (current) use of other medications active 20 13/12/25 Carlos Floyd RN Vitamin D deficiency- on meds active Carlos odonnell RN Hypertension--echo ef nl, 01/2023 active Ri lotus Ahmedzai Hyperlipidemia active Rashel Ahmedzai Hypertriglyceridemia active Trino Kruse MD Leg ulcer, right active Rashel Ahmedzai Lower extremity edema active Rashel Ahmedzai Sleep apnea--cpap active Rashel Ahmedzai Chest pain--stress nuc nl, 04/2023 active Flash Goldsmith MD SVT / atrial tach, mobap active Rashel Ahmedz ai Syncope active Rashel Ahmedzai Tobacco abuse active Rashel Ahmedzai ENCOUNTERS Date Type Provider Location Encounter Diag nosis - In-person encounter Office Visit Trino Aixa MD [facility] [place] [facility] Hypertriglyceridemia - In-person encounter Office Visit Katarzyna Goldsmith MD [facility] Lower extremity edemaLeg ulcer, right - In-person encounter Office Visit Slava Blanco MD [facility] [place] [facility] - In-person encounter Office Visit Katarzyna Goldsmith MD [facility] [place] [facility] - In-person encounter Office Visit Katarzyna Goldsmith MD [facility] Chest pain--stress nuc nl, 04/2023 - In-person encounter Office Visit Katarzyna Goldsmith MD [facility] [place] [facility] Tobacco abuseSyncopeSVT / atrial tach, mobapHypertension--echo ef nl, hest pain--stress nuc nl, 04/2023Sleep apnea--cpapHyperlipidemia VITAL SIGNS Date Observation Value Provider Body Mass Index (Ratio) 29.84 kg/m2 Francisco J Nugent blood pressure, cuff size regular Ke rri Ang blood pressure, diastolic 80 mm[Hg] Ke rri Ionuealberto blood pressure, systolic 140 mm[Hg] Randall ri Ang oxygen saturation, oximetry 98 % Marysol Ang respiratory rate E&M 14 /min Marysol G johneneamador pulse rate 98 /min Marysol Abigail lder weight E&M 214 [lb_av] Marysol Abigail lder height E&M 71 [in_i] Marysol Abigail lder Body Mass Index (Ratio) 30.82 kg/m2 Frank Goldsmith MD blood pressure, cuff size regular [facility] blood pressure, diastolic 90 mm[Hg] [facility] blood pressure, systolic 132 mm[Hg] [facility] respiratory rate E&M 16 /min [facility] pulse rate 85 /min [facility] oxygen saturation, oximetry 97 % [facility] weight E&M 221 [lb_av] [facility] height E&M 71 [in_i] [facility] Body Mass Index (Ratio) 30.82 kg/m2 Francisco J as Raffi blood pressure, diastolic 80 mm[Hg] Li nkLogic blood pressure, systolic 118 mm[Hg] Tasha kLogic blood pressure, diastolic 80 mm[Hg] Ja blood pressure, systolic 118 mm[Hg] Jar [facility] pulse rate 91 /min [facility] y blood pressure, cuff size regular [facility] oxygen saturation, oximetry 97 % [facility] respiratory rate E&M 16 /min [facility] weight E&M 221 [lb_av] [facility] y height E&M 71 [in_i] [facility] y Body Mass Index (Ratio) 30.54 kg/m2 Frank Goldsmith MD blood pressure, diastolic 93 mm[Hg] Ja rret blood pressure, systolic 140 mm[Hg] Jar ret pulse rate 90 /min Isaak y blood pressure, cuff size regular [facility] oxygen saturation, oximetry 98 % [facility] respiratory rate E&M 16 /min Isaak weight E&M 219 [lb_av] [facility] y height E&M 71 [in_i] [facility] Body Mass Index (Ratio) 32.21 kg/m2 Frank Goldsmith MD blood pressure, cuff size regular Ja [facility] blood pressure, diastolic 103 mm[Hg] Ja et blood pressure, systolic 152 mm[Hg] Jacoby delarosa pulse rate 81 /min Isaak respiratory rate E&M 12 /min Isaak oxygen saturation, oximetry 98 % Isaak weight E&M 231 [lb_av] Isaak height E&M 71 [in_i] [facility] Body Mass Index (Ratio) 31.66 kg/m2 Frank Goldsmith MD height E&M 71 [in_i] [facility] blood pressure, cuff size regular [facility] blood pressure, diastolic 127 mm[Hg] [facility] blood pressure, systolic 148 mm[Hg] [facility] oxygen saturation, oximetry 98 % [facility] pulse rate 98 /min [facility] respiratory rate E&M 16 /min Rosa Kohler iller weight E&M 227 [lb_av] [facility] ALLERGIES Allergy Name Onset Date Reaction Criticality Status CHANTIX headache headache Low Criticality ac tive METOPROLOL CP High Criticality active AMLODIPINE CP High Criticality active HISTORY OF MEDICATION USE Medication Status Instructions Dates Provider Indications Com ments amlodipine 10 mg tablet active TAKE 1 TABLET BY MOUTH EVERY DAY AT NIGHT Jelena Davis losartan 100 mg tablet active TAKE 1 TABLET BY MOUTH EVERY DAY Rashel Manley atorvastatin 40 mg tablet active TAKE 1 TABLET BY MOUTH EVERYDAY AT BEDTIME Katarzyna Goldsmith MD metoprolol succinate 50 mg tablet extended release 24 hr active TAKE 1 TABLET BY MOUTH EVERY DAY Marysol Fry atorvastatin 40 mg tablet completed - Katarzyna Goldsmith MD Vascepa 1 gram capsule active TAKE 2 CAPSULES BY MOUTH TWICE A DAY Katarzyna Goldsmith MD metoprolol succinate 100 mg tablet extended release 24 hr completed Take 1 tablet by mouth once a day - Marysol Fry metoprolol succinate 25 mg tablet extended release 24 hr completed TAKE 1 TABLET BY MOUTH EVERY DAY - Rashel Manley Toprol XL 25 mg tablet extended release 24 hr completed Take 1 tablet by mouth once a day - Rashel Manley amlodipine 10 mg tablet completed Take 1 tablet by mouth every night - Katarzyna Goldsmith MD nicotine (polacrilex) 2 mg gum completed Chew 1 piece in mouth every two hours for first 6 weeks - Rashel Manley atorvastatin 40 mg tablet completed Take 1 tablet by mouth at bedtime - [facility] losartan 100 mg tablet completed Take 1 tablet by mouth once a day - Rashel Manley Vitamin D3 50 mcg (2,000 unit) tablet completed TAKE 1 TABLET BY MOUTH EVERY DAY - Isaak pregabalin 100 mg capsule completed - Rashel Manley omeprazole 20 mg capsule,delayed release(DR/EC) active TAKE 1 CAPSULE BY MOUTH EVERY DAY 30 MINUTES TO 1 HOUR BEFORE A MEAL [facility] flecainide 100 mg tablet completed - Rashel Manley lisinopril-hydr ochlorothiazide 20-12.5 mg tablet completed - Rashel Manley SOCIAL HISTORY Date Observation Value Provider smoking history, tot al pack/day less than a pack a day Trino Kruse MD cigarette use yes Trino Rehman smoking status Current every day smoker U loan Kruse MD smoking history, tot al pack/day less than a pack a day Rashel Manley cigarette use yes Rashel Manley smoking status Current every day smoker R luisnaeem Manley smoking history, tot al pack/day less than a pack a day Slava Blanco MD cigarette use yes Slava Blanco MD smoking status Current every day smoker M nakita Blanco MD smoking history, tot al pack/day less than a pack a day Rashel Manley cigarette use yes Rashel Manley smoking status Current every day smoker R bibi Manley smoking history, tot al pack/day less than a pack a day Rashel Manley cigarette use yes Rashel Manley smoking status Current every day smoker R bibi Manley social history E&M S moking History: P atmoni currently smokes every day. Rashel Manley smoking history, tot al pack/day less than a pack a day Rosa Brush cigarette use yes Rosa Brush smoking status Current every day smoker F stephane Brush social history reviewed E&M revi ewed - no changes required Rashel Manley INSURANCE PROVIDERS Payer name Policy type / Coverage type [employer] party ID AARP MEDICARE ADVANTAGE ([facility] COMPLETE PPO) Other [id number] ADVANCE DIRECTIVES Name Date DISCUSSED - NO DECISION MADE TREATMENT PLAN Date Name Performer [id number],S, Rashel Hinojosa i [id number],S, Rashel Hinojosa i [id number],S, Rashel Hinojosa i [id number],SRashel i [id number],S, Rashel Hinojosa i [id number],S, Rashel Hinojosa i Cardiology:The patie nt is using CPAP on a regular basis. The patient has been benefiting from therapy and should continue use. Trino Kruse MD Cardiology: H is updated medication list for this problem includes: Atorvastatin 40 Mg Tablet (Atorvastatin) Vascepa 1 Gram Capsule (Icosapent ethyl) ..... Take 2 capsules by mouth twice a day Trino Kruse MD Cardiology: H is updated medication list for this problem includes: Metoprolol Succinate 100 Mg Tablet Extended Release 24 Hr (Metoprolol succinate) ..... Take 1 tablet by mouth once a day Losartan 100 Mg Tablet (Losartan) ..... Take 1 tablet by mouth once a day BP today: 140/80 P rior BP: 132/90 (01/27/2024) Trino Kruse MD Cardiology:last trig s [address] medical therapy along with associated lifestyle changes Trino Kruse MD Cardiology:Will plan for venaseal of the R SSV H e endorses rest pain and discomfort at present H as had previous ulcer that has healed. Trino Kruse MD Telehealth Rashel Manley Telehealth Rashel Manley Telehealth Rashel Manley Telehealth: H is updated medication list for this problem includes: Atorvastatin 40 Mg Tablet (Atorvastatin) Vascepa 1 Gram Capsule (Icosapent ethyl) ..... Take 2 capsules by mouth twice a day Rashel Manley Telehealth: H is updated medication list for this problem includes: Metoprolol Succinate 100 Mg Tablet Extended Release 24 Hr (Metoprolol succinate) ..... Take 1 tablet by mouth once a day Losartan 100 Mg Tablet (Losartan) ..... Take 1 tablet by mouth once a day Rashel Manley Telehealth: H is updated medication list for this problem includes: Metoprolol Succinate 100 Mg Tablet Extended Release 24 Hr (Metoprolol succinate) ..... Take 1 tablet by mouth once a day [facility] Telehealth [facility] Cardiology:This visi t has been a part of the consistent, comprehensive, and ongoing management of the chronic medical condition(s) listed above for the patient. BP today: 132/90 P rior BP: 118/80 (12/23/2023) His updated medication list for this problem includes: Metoprolol Succinate 100 Mg Tablet Extended Release 24 Hr (Metoprolol succinate) ..... Take 1 tablet by mouth once a day Losartan 100 Mg Tablet (Losartan) ..... Take 1 tablet by mouth once a day Katarzyna Goldsmith MD Cardiology: O rders: V enous Doppler Bilateral LE - Reflux (CPT-96201) [facility]: O rders: V enous Doppler Bilateral LE - Reflux (CPT-29872) A rterial Duplex Bi-Lower EX (CPT-15092) [facility] Cardiology: H is updated medication list for this problem includes: Vascepa 1 Gram Capsule (Icosapent ethyl) ..... Take 2 capsules by mouth twice a day Orders: L IPID PANEL (9819) [facility] Card[facility]: B P today: 132/90 P rior BP: 118/80 (12/23/2023) His updated medication list for this problem includes: Metoprolol Succinate 100 Mg Tablet Extended Release 24 Hr (Metoprolol succinate) ..... Take 1 tablet by mouth once a day Losartan 100 Mg Tablet (Losartan) ..... Take 1 tablet by mouth once a day [facility] Cardiology: H is updated medication list for this problem includes: Metoprolol Succinate 100 Mg Tablet Extended Release 24 Hr (Metoprolol succinate) ..... Take 1 tablet by mouth once a day [facility] Cardiology:The patie nt is using CPAP on a regular basis. The patient has been benefiting from therapy and should continue use. Rashel Manley Telehealth Katarzyna Goldsmith MD Telehealth Katarzyna Goldsmith MD Telehealth Katarzyna Goldsmith MD Telehealth: H is updated medication list for this problem includes: Metoprolol Succinate 100 Mg Tablet Extended Release 24 Hr (Metoprolol succinate) ..... Take 1 tablet by mouth once a day Losartan 100 Mg Tablet (Losartan) ..... Take 1 tablet by mouth once a day Katarzyna Goldsmith MD Cardiology: B lood pressure is satisfactory. Slava Blanco MD Cardiology: N o recurrence. Slava Blanco MD Cardiology: R ecent TG 729, LDL not reported. Off statin due to leg pains. Slava Blanco MD Cardiology: T he Patient was reencouraged to stop smoking. Slava Blanco MD Cardiology: O rders: C OMPREHENSIVE METABOLIC PANEL, W/EGFR (57930) C BC (INCLUDES DIFF/PLT) (6399) L IPID PANEL (7600) M AGNESIUM (622) T SH, free T4, total T3 (7444) V itamin D, 25-Hydroxy (969418) Rashel Manley Cardiology: O rders: C OMPREHENSIVE METABOLIC PANEL, W/EGFR (68476) C BC (INCLUDES DIFF/PLT) (6399) L IPID PANEL (7600) M AGNESIUM (622) T SH, free T4, total T3 (7444) V itamin D, 25-Hydroxy (679737) Rashel Manley Cardiology: O rders: C OMPREHENSIVE METABOLIC PANEL, W/EGFR (06664) C BC (INCLUDES DIFF/PLT) (6399) L IPID PANEL (7600) M AGNESIUM (622) T SH, free T4, total T3 (7444) V itamin D, 25-Hydroxy (129637) Rashel Manley Cardiology:Patient was advised t o stop smoking. Rashel Ahmedzai Cardiology: O rders: C OMPREHENSIVE METABOLIC PANEL, W/EGFR (26126) C BC (INCLUDES DIFF/PLT) (6399) L IPID PANEL (7600) M AGNESIUM (622) T SH, free T4, total T3 (7444) V itamin D, 25-Hydroxy (548497) Rashel Ahmedzai Cardiology: O rders: R PM (remote patient monitoring) (77045) C OMPREHENSIVE METABOLIC PANEL, W/EGFR (09762) C BC (INCLUDES DIFF/PLT) (6399) L IPID PANEL (7600) M AGNESIUM (622) T SH, free T4, total T3 (7444) V itamin D, 25-Hydroxy (821591) H is updated medication list for this problem includes: Metoprolol Succinate 50 Mg Tablet Extended Release 24 Hr (Metoprolol succinate) ..... Take 1 tablet by mouth every day Losartan 100 Mg Tablet (Losartan) ..... Take 1 tablet by mouth once a day Rashel Ahmedzai Telehealth Rashel Ahmedzai Telehealth Rashel Ahmedzai Telehealth Rashel Ahmedzai Telehealth Rashel Ahmedzai Telehealth Rashel Ahmedzai Cardiology Rashel Ahmedzai Cardiology Rashel Ahmedzai Cardiology Rashel Ahmedzai Cardiology Rashel Ahmedzai Cardiology Rashel Ahmedzai Cardiology Rashel Ahmedzai Cardiology Rashel Ahmedzai Cardiology Rashel Ahmedzai Cardiology Rashel Ahmedzai Cardiology Rashel Ahmedzai Cardiology Rashel Ahmedzai Cardiology Rashel Ahmedzai Date Name VenaSeal Arterial Duplex Bi-L ower EX Venous Doppler Bilat eral LE - Reflux LIPID PANEL Vitamin D, 25-Hydrox y TSH, free T4, total T3 MAGNESIUM LIPID PANEL CBC (INCLUDES DIFF/P LT) COMPREHENSIVE METABO LIC PANEL, W/EGFR RPM (remote patient monitoring) Stress Exercise Card iolite HISTORY OF PROCEDURES Procedure Date Procedure Name Provider Procedure Notes S tatus Complex e/m visit add on Katarzyna Goldsmith MD completed EKG Slava Blanco MD complet ed Complex e/m visit add on Katarzyna Goldsmith MD completed Tobacco user + tobac co cessation intervention Katarzyna Goldsmith MD completed
--- OUTSIDE RECORDS SUMMARY | 2024-11-09 09:48 | XMS_ITS | Clinical Summary ---
Author Organization [facility] Address [address] 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 Role Phone Unavailable Primary Care Provider Unavailabl e Social History Tobacco Use Types Packs/Day Years Used Date Smoking Tobacco: Never Assessed Sex and Gender Information Value Date Recorded Sex Assigned at Not on file Legal Sex Male 11:26 PM CDT Gender Identity Not on file Sexual Orientation Not on file Plan of Treatment Health Maintenance Due Date Last Done Comments DTAP/TDAP/TD VACCINES (1 - Tdap) 1988 HEPATITIS B VACCINES (1 of 3 - 19+ 3-dose series) 07/1988 COLORECTAL SCREENING 2014 Colorectal Cancer Screening 2014 FIT-DNA Q 3 years 2014 FIT/FOBT Q 1 year 2014 Flex Sig/CT Colonography Q 5 years 2014 ZOSTER VACCINE (1 of 2) 2019 INFLUENZA VACCINE (#1) 2024
== END 2024-11-09 09:09 | disposition home or self-care (01) ==
PROVIDERS: PCP Family Medicine; Visit Provider Family Medicine
DX: I73.9 Peripheral vascular disease, unspecified (principal)
CPT/HCPCS: 93923

== ENCOUNTER 2024-12-05 11:34 | Inpatient (IN) | payer MEDICARE, MEDICAID, SELFPAY ==
[2024-12-05] VITALS (18 sets, daily range): BP systolic 106–140; BP diastolic 64–83; PULSE 81–151; RESP 16–19; TEMP 36.6–36.9; O2SAT 97–98; BMI 31.0; BMI 30.4
--- NOTE | ~2024-12-05 | CT_ITS ---
CLINICAL INDICATION: Left-sided chest and abdominal pain COMPARISON: None. TECHNIQUE: An enhanced CT of the abdomen and pelvis was performed utilizing multislice spiral [place] ue reconstructed at 5 mm slice thickness. Coronal and sagittal reconstructions were performed. This CT examination was performed utilizing dose reduction techniques. DLP: 1387 mGy-cm FINDINGS/OBSERVATIONS: Lung: The lungs are clear. The heart is of normal size, without pericardial effusion. Mediastinum: No pathologically enlarged or morphologically suspicious lymph nodes are identified within the medias tinum, bilateral axilla, within the soft tissues of the anterior chest wall. Small hiatal hernia. Soft tissues of the chest: Unremarkable. Bones of the chest: No acute fracture. No lytic or blastic lesions are identified. Liver: The liver enhances homogeneously and is enlarged measuring 21 cm in longitudinal dimension. Gallbladder and biliary system: The gallbladder is decompressed, and otherwise unremarkable. Pancreas: The pancreas enhances homogeneously, without ductal dilatation. Spleen: The spleen enhances homogeneously and is not enlarged. Kidneys: The bilateral kidneys enhance symmetrically without hydronephrosis or renal calculi. Adrenal glands: Unremarkable. Gastrointestinal tract: Small hiatal hernia is present. Bowel loops are unremarkable Appendix: The air-filled appendix is of normal caliber (axial series, images 164 through 179). Vasculature: Calcified atherosclerotic disease is present. No aneurysmal dilatation. Lymph nodes: Scattered nonpathologically enlarged lymph nodes within the root of the mesentery and deep in the pel vis. Pelvic structures: The bladder is only minimally distended and otherwise unremarkable. The prostate gland is not enlarged. Body wall and musculoskeletal: Small fat-containing umbilical hernia. Anterior fixation at the level of L5/S1. The remainder of the thoracic and lumbar spines are unremark able IMPRESSION: Hepatomegaly. No acute pathology within the chest, abdomen or pelvis, as detailed above. Reviewed, dictated and finalized at location A.
--- NOTE | ~2024-12-05 | XR_ITS ---
XR chest 2V Ordering provider: Yoandy Avila MD History: 54 years Male with . Dizzy . Comparison: December 25, 2021 FINDINGS: MEDIASTINUM: The cardiac silhouette is not enlarged. LUNGS: No infiltrates, effusions or pneumothorax. OTHER: No free air under the diaphragm. Degenerative changes of the spine. IMPRESSION: No acute cardiopulmonary pathology. Reviewed, dictated and finalized at location A.
--- NOTE | 2024-12-05 11:56 | ECG_ITS ---
Test Date: 2024-12-05 11:42:13 Measurements Intervals [place] Rate: 138 P: 0 PA: 0 QRS: -7 QRSD: 85 T: 30 QT: 260 QTc: 395 Interpretive Statements SINUS RHYTHM WITH FREQUENT EPISODES OF ATRIAL TACHYCARDIA ABNORMAL ECG No previous ECG available for comparison Electronically Signed On 12-05-2024 13:03:02 CDT by Adolfo Dos Santos D.O.
[2024-12-05 12:02] LABS: Basophils Percent Auto 0.5 % (0.2-1.2); Eosinophils Absolute Auto 0.2 K/mm3 (0-0.3); Hematocrit 47.1 % (42.0-52.0); Hemoglobin 16.4 g/dL (14.0-18.0); Immature Granulocyte Absolute 0.03 K/mm3 (0.00-0.031); Immature Granulocyte Percent A 0.4 % (0-0.5); Lymphocytes Absolute Auto 3.22 K/mm3 (0.9-3.2); Lymphocytes Percent Auto 42.6 % (18.3-44.2); Mean Corpuscular HGB Conc 34.8 g/dl (32-36); Mean Corpuscular Hemoglobin 34.9 pg (26-34); Mean Corpuscular Volume 100.2 fl (80-100); Mean Platelet Volume 9.7 fl (7.4-10.4); Monocytes Absolute Auto 0.6 K/mm3 (0.1-0.6); Monocytes Percent Auto 8.5 % (2.6-8.5); Neutrophils Absolute Auto 3.5 K/mm3 (1.3-6.7); Platelet Count Result 206 k/mm3 (150-375); Red Cell Distribution Width 12.5 % (11.5-14.5); White Blood Count 7.6 K/mm3 (4.5-10.0)
[2024-12-05 12:11] LABS: Alanine Aminotransferase 60 U/L (6-50); Albumin Level 4.2 g/dL (3.5-5.1); Alkaline Phosphatase 70 U/L (38-126); Anion Gap 8 mmol/L (4-12); Aspartate Amino Transferase 51 U/L (17-59); Bilirubin,Total 0.7 mg/dL (0.2-1.3); Blood Urea Nitrogen 14 mg/dL (9-20); Calcium 9.2 mg/dL (8.4-10.2); Carbon Dioxide 21 mmol/L (22-30); Chloride 107 mmol/L (98-107); Estimated CRCL calculation 99 ml/min; Estimated Glomerular Filt Rate > 60; Glucose 110 mg/dL (65-110); Potassium 4.6 mmol/L (3.4-5.0); Sodium 136 mmol/L (137-145); Total Protein 7.4 g/dL (6.3-8.2)
--- NOTE | 2024-12-05 12:34 | ED_ITS ---
HPI - General Adult General Chief complaint: Weakness Stated complaint: headache, HTN, palpitations Time Seen by Provider: 12/05/24 12:03 History of Present Illness HPI narrative: 54-year-old male with history of hypertension, atrial fibrillation on losartan and metoprolol. No anticoagulation. Patient presents to the emergency depart with 5 days of malaise, headache, weakness, dizziness. 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 No leg swelling or history of DVT/PE but he is not anticoagulated for his AFib. No recent upper respiratory symptoms, no sick contacts. Was otherwise in his normal state of health. No recent hospital visits. Related Data Home Medications ?Medication ?Instructions ?Recorded ?Confirmed ?Last Taken ?Type losartan 100 mg tablet 100 mg PO DAILY 05/04/23 12/05/24 09/01/23 History icosapent ethyl 1 gram capsule 2 g PO BID 05/05/24 12/05/24 Unknown History (Vascepa) metoprolol succinate 50 mg 50 mg PO DAILY 05/05/24 12/05/24 Unknown History tablet,extended release 24 hr omeprazole 20 mg capsule,delayed 20 mg PO DAILY 09/12/24 12/05/24 Unknown History release Allergies Allergy/AdvReac Type Severity Reaction Status Date / Time No Known Allergies Allergy Verified 12/05/24 15:20 Review of Systems 2 Review of Systems: As reviewed above in HPI [facility] Past Medical History Medical History Atrial fibrillation GERD without esophagitis Lumbar spondylosis Post laminectomy syndrome Dyslipidemia Vitamin D deficiency BEE (obstructive sleep apnea) Essential (primary) hypertension Restless legs syndrome (RLS) Erectile dysfunction Peripheral neuropathy Arthritis, lumbar spine Chronic back pain Surgical History Surgical History History of carpal tunnel surgery (~08/2023) Right Perirectal cyst 2018 - Excision Hx of tonsillectomy (~1973) Previous back surgery (~2013) Lumbar spine surgeries - 2013, 2017, 2019 Family History Family History Father History of blood clots Mother Hypertension Social History Social History Smoking packs per day: 0.5 Smoking cigarettes per day: 10.0 Years smoked: 33 Smoking pack-years: 16.50 Smoking status: Current every day smoker Tobacco type: cigarettes Second hand tobacco smoke exposure: Yes Alcohol intake: current Drinks per week: 14 Alcohol use details: 6 beers/day Substance use: current Substance use type: marijuana Other substance usage details: still smokes marijuana occasionally Last use: 2000 Do You Feel Safe in your Home?: Yes Lack of Transportation: No Lack of Food: Never True Current Housing: I Have Housing Concerned About Future Housing: No Difficulty Paying Gas/Electric Bills: No Difficulty Paying for Meds: No Currently Unemployed: No Education: Associate Degree Difficulty w/ Childcare or Family Care: No Living arrangements: with family Gender identity (if verbalized by the patient): Male Spiritual care concerns: No Exam 2 Narrative: GENERAL: Ill-appearing, not in any acute distress HEAD: [Normocephalic, atraumatic.] EYES: [PERRLA and EOMI.] ENT: Nares clear, no rhinorrhea or epistaxis. Mucous membranes moist. NECK: Supple. CHEST: [Clear to auscultation. No respiratory distress.] HEART: Irregular rate and rhythm. No murmur heard. [Normal peripheral pulses.] ABDOMEN: [Soft, nondistended], [nontender], [No rigidity or guarding] EXTREMITIES: Normal range of motion. [No edema.] SKIN: Warm, dry, no rash. NEURO: [No focal deficits]. Alert and oriented [x3.] PSYCH: [Normal mood and affect.] Course Vital Signs Vital signs: Vital Signs Temperature 36.8 C 12/05/24 11:49 Pulse Rate 102 H 12/05/24 11:49 Respiratory Rate 19 12/05/24 11:49 Blood Pressure 140/71 12/05/24 11:49 Pulse Oximetry 98 12/05/24 11:49 Oxygen Delivery Room Air 12/05/24 11:49 Temperature 36.8 C 12/05/24 19:34 Pulse Rate 113 H 12/05/24 22:00 Respiratory Rate 18 12/05/24 21:35 Blood Pressure 106/64 12/05/24 22:00 Pulse Oximetry 98 12/05/24 19:34 Oxygen Delivery Room Air 12/05/24 20:00 Medical Decision Making MDM Narrative Medical decision making narrative: 54-year-old male presenting with generalized malaise, weakness, headache. He has a history of atrial fibrillation and hypertension he takes losartan and metoprolol. Does not take any anticoagulation. Found to be very tachycardic in triage with a rate of 138 confirmed on EKG to be AFib RVR. This resolved spontaneously when transitioning him into the bed. He still complaints of malaise and weakness but no present chest pain shortness a breath. Heart rate in the low 90s to 100s range. No hypoxia, fever, blood pressure concerns. Clear breath sounds throughout, no signs of thromboembolic DVT on examination, no leg swelling. Given his AFib RVR in triage this could be likely source of his symptomatology but other potential causes include viral syndrome, pneumonia, pneumothorax, ACS, heart failure. Low suspicion PE given low Wells criteria. Workup was ordered including CBC, CMP, BNP, troponin, D-dimer, chest x-ray, viral panel swabs. He was given a fluid bolus re-evaluated. Placed on radiographer cardiac catheterization and pulse oximetry. Workup shows no leukocytosis or anemia. Normal platelet count. D-dimer is negative which is reassuring. Chemistry panel shows no electrolyte derangements, normal creatinine, normal glucose. Unremarkable LFTs. Serial troponins are negative. BNP mildly elevated 1460. Chest x-ray without any acute cardiopulmonary disease. EKG shows atrial fibrillation versus atrial tachycardia with rapid ventricular response. Patient was given 5 mg aliquots of metoprolol with transient improvement. Discussed the case with the hospitalist service who accepted the patient to the IMU for continued evaluation and treatment of his atrial tachycardia/fibrillation. He has a low chads Vasc score and in. Anticoagulation was deferred to treatment team. Patient was comfortable with the plan and safely admitted to the IMU. Medical Records Medical records reviewed: Yes I reviewed the external patient's medical records. Vital Signs Vital Signs: Vital Signs Temperature 36.8 C 12/05/24 11:49 Pulse Rate 102 H 12/05/24 11:49 Respiratory Rate 19 12/05/24 11:49 Blood Pressure 140/71 12/05/24 11:49 Pulse Oximetry 98 12/05/24 11:49 Oxygen Delivery Room Air 12/05/24 11:49 Temperature 36.8 C 12/05/24 19:34 Pulse Rate 113 H 12/05/24 22:00 Respiratory Rate 18 12/05/24 21:35 Blood Pressure 106/64 12/05/24 22:00 Pulse Oximetry 98 12/05/24 19:34 Oxygen Delivery Room Air 12/05/24 20:00 Lab Data Lab results reviewed: Yes I reviewed the patient's lab results. 12/05/24 11:57 12/05/24 11:57 Labs: Lab Results 12/05/24 12/05/24 Range/Units 11:57 12:27 WBC 7.6 (4.5-10.0) K/mm3 RBC 4.70 (4.6-6.20) M/mm3 Hgb 16.4 (14.0-18.0) g/dL Hct 47.1 (42.0-52.0) % MCV 100.2 H (80-100) fl MCH 34.9 H (26-34) pg MCHC 34.8 (32-36) g/dl RDW 12.5 (11.5-14.5) % Plt Count 206 (150-375) k/mm3 MPV 9.7 (7.4-10.4) fl Immature Gran % (Auto) 0.4 (0-0.5) % Neut % (Auto) 46.0 (45.5-73.1) % Lymph % (Auto) 42.6 (18.3-44.2) % Mayes % (Auto) 8.5 (2.6-8.5) % Eos % (Auto) 2.0 (0-4.4) % Baso % (Auto) 0.5 (0.2-1.2) % Lymph # (Auto) 3.22 H (0.9-3.2) K/mm3 Mayes # (Auto) 0.6 (0.1-0.6) K/mm3 Eos # (Auto) 0.2 (0-0.3) K/mm3 Baso # (Auto) 0.0 (0.0-0.1) K/mm3 Abs Immat Gran (auto) 0.03 (0.00-0.031) K/mm3 Absolute Neuts (auto) 3.5 (1.3-6.7) K/mm3 Absolute Nucleated RBC 0.000 (0.0-0.012) K/mm3 Nucleated RBC % 0.0 (0.0-0.2) % D-Dimer 0.37 (<0.48) ug/mL Sodium 136 L (137-145) mmol/L Potassium 4.6 (3.4-5.0) mmol/L Chloride 107 (98-107) mmol/L Carbon Dioxide 21 L (22-30) mmol/L Anion Gap 8 (4-12) mmol/L BUN 14 (9-20) mg/dL Creatinine 0.89 (0.7-1.3) mg/dL Estim Creat Clear Calc 99 ml/min Estimated GFR > 60 (59 - ) Glucose 110 (65-110) mg/dL Calcium 9.2 (8.4-10.2) mg/dL Total Bilirubin 0.7 (0.2-1.3) mg/dL AST 51 (17-59) U/L ALT 60 H (6-50) U/L Alkaline Phosphatase 70 (38-126) U/L Troponin I < 0.012 (0.000-0.034) ng/mL NT-Pro-B Natriuret Pep 1460 H (19.9-100) pg/mL Total Protein 7.4 (6.3-8.2) g/dL Albumin 4.2 (3.5-5.1) g/dL Influenza A (RT-PCR) Negative (Negative) Influenza B (RT-PCR) Negative (Negative) RSV (RT-PCR) Negative (Negative) SARS-CoV-2 RNA (RT-PCR) Negative (Negative) Imaging Data Attestation: I personally reviewed and interpreted this imaging study as follows: My impression: Impressions Chest X-Ray 12/05/24 12:34 IMPRESSION: No acute cardiopulmonary pathology. Critical Care Time Critical Care Time Critical Care Time: Yes Total Critical Care Time: 35 Discharge Plan Discharge Clinical Impression: Atrial fibrillation with rapid ventricular response, Atrial paroxysmal tachycardia, Exertional dyspnea Patient Disposition: Home Condition: Stable Time of Disposition: 22:59
[2024-12-05] MEDS: LACTATED RINGERS 1,000 ML 999 ML IV CONT (12:38)
[2024-12-05 12:49] LABS: D Dimer 0.37 ug/mL (<0.48)
[2024-12-05 12:50] LABS: NT Pro B Type Natriuretic Pept 1460 pg/mL (19.9-100); Troponin I < 0.012 ng/mL (0.000-0.034)
--- OUTSIDE RECORDS SUMMARY | 2024-12-05 12:50 | XMS_ITS | Clinical Summary ---
Author Organization [facility] [employer] Address [address] [place] [address] Care Team Providers Care Railroad Worker Name Role Phone Spenser Crooks MD Primary Care Provider [phone] Source Comments [facility] [employer],non-owned Affiliates and Associated Physician Practices is amultiple site organization consisting of ambulatory clinics and hospital sitesin [place], [place], [place] and [place]. This disclosure is being madepursuant to the Care Everywhere program and may not contain all information available regarding this patient. 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 Procedure Code(s): --- Professional --- 53375, Colonoscopy, flexible; with removal of tumor(s), polyp(s), or other lesion(s) by hot biopsy forceps --- Technical --- 15773, Colonoscopy, flexible; with removal of tumor(s), polyp(s), or other lesion(s) by hot biopsy forceps Diagnosis Code(s): --- Professional --- Z12.11, Encounter for screening for malignant neoplasm of colon D12.2, Benign neoplasm of ascending colon K64.2, Third degree hemorrhoids --- Technical --- Z12.11, Encounter for screening for malignant neoplasm of colon D12.2, Benign neoplasm of ascending colon K64.2, Third degree hemorrhoids CPT copyright 2015 [employer]. All rights reserved. The codes documented in this report are preliminary and upon education and development manager review may be revised to meet current compliance requirements. Dr. Hemanth Gimenez MD Hemanth Gimenez MD 01/27/2017 9:04:26 AM This report has been signed electronically. Number of Addenda: 0 Note Initiated On: 01/27/2017 7:27 AM [facility] 01/27/2017 7:27 AM CDT us Hemanth Gimenez MD GI PROCEDURE ORDERABLES Edited Result - Final [facility] [place] [address] from Last 3 Months or Most Recently Relevant to Health Maintenance Insurance [facility] MANAGED MEDICARE [facility] [place] [address] MEDICAID - [place] Member Subscriber Plan / Payer (Ef fective for All Dates) Name:Brenden Dunham Member ID:Not on file Relation to Subscriber:Self Name:Brenden Dunham Subscriber ID:Not on file Payer ID:Not on file Group ID:Not on file Type:Medicaid [place] Address: [place] [id number] [facility]NA[facility]ED [facility] ADV Member Subscriber Plan / Payer (Ef fective 2024-Present) Name:Brenden Dunham Relation to Subscriber:Self Name:Brenden Dunham Payer ID:[id number] (NAIC) Type:Medicare-Managed Care Address: [address] MEDICAID - [place] [facility] MANAGED MEDICARE ADV Member Subscriber Plan / Payer (Ef fective 2024-Present) Name:Brenden Dunham Relation to Subscriber:Self Name:Brenden Dunham Payer ID:[id number] (NAIC) Type:Medicare-Managed Care Address: [address] MEDICAID - [place] Member Subscriber Plan / Payer (Ef fective for All Dates) Name:Brenden Dunham Member ID:Not on file Relation to Subscriber:Self Name:Brenden Dunham Subscriber ID:Not on file Payer ID:Not on file Group ID:Not on file Type:Medicaid [place] Address: [place] [id number] [facility] [place] [address] Care Teams Railroad Worker Relationship Specialty Start Date End Date Spenser Crooks MD [address] [facility] [address] [place] [id number] PCP - General Internal Medicine 01/07/17
--- OUTSIDE RECORDS SUMMARY | 2024-12-05 12:50 | XMS_ITS | Referral Summary ---
Author Organization [facility] Address [address] [place] [address] Care Team Providers Care Raveler Name Role Phone Brendon Ramirez MD Unavailable [phone] Sania Levni MD Primary Care Provider Allergies No known active allergies Medications pantoprazole [...] (07/13/2019): Added automatically from request for surgery [id number] Perirectal abscess 06/17/2019 Alcohol use 06/17/2019 Pseudarthrosis after fusion or arthrodesis 09/14 Overview (09/14/2018): Added automatically from request for surgery [id number] Assessment & Plan (03/20/2020 10:31 AM CDT): Assessment Healed fusion L5-S1 Plan Released with permanent restrictions as outlined in the functional capabilities report that I filled out. His permanent weight limit is 20 lb and could do no bending twisting stooping or awkward positions Assessment & Plan (07/27/2019 9:38 AM STERILE INSTRUMENT TECHNICIAN): Assessment Healed L5-S1 fusion with ongoing bilateral lower extremity symptoms in light of normal electrical studies and no impingement on the CT scan Plan Physical therapy 2 times per week return in 6 weeks for lumbar spine x-ray in to assess his progress. I have told him that there is nothing else surgically to offer him Assessment & Plan (05/03/2019 9:26 AM STERILE INSTRUMENT TECHNICIAN): Assessment Healing fusion L5-S1 with ongoing symptoms [...] (09/14/2018): Added automatically from request for surgery [id number] Assessment & Plan (12/15/2018 12:04 PM CDT): [...] (03/01/2018): Added automatically from request for surgery [id number] Assessment & Plan (07/22/2018 12:17 PM STERILE INSTRUMENT TECHNICIAN): Assessment Healing fusion L5-S1 with some increased leg pain compared to the recent visit Plan Observation I added Neurontin at HS talked about do's no 6 cues and from work and he is to return for x-ray in 6 weeks Intervertebral disc disorder s with radiculopathy, lumbosacral region 03/01/2018 Overview (03/01/2018): Added automatically from request for surgery [id number] Assessment & Plan (09/04/2021 11:31 AM CDT): [...] (03/01/2018): Added automatically from request for surgery [id number] Assessment & Plan (06/10/2018 12:05 PM STERILE INSTRUMENT TECHNICIAN): Assessment Healing fusion L5-S1 Plan I talked [...] on file Legal Sex Male 4:43 AM STERILE INSTRUMENT TECHNICIAN Gender Identity Not on file Sexual Orientation Not on file Last Filed Vital Signs Vital Sign Reading Time Taken Comments Blood Pressure 130/91 05/22/2021 11:08 AM STERILE INSTRUMENT TECHNICIAN Pulse 87 05/22/2021 11:08 AM STERILE INSTRUMENT TECHNICIAN Temperature 36.5 C (97.7 F) 08/03/2019 8:42 AM STERILE INSTRUMENT TECHNICIAN Respiratory Rate 18 05/22/2021 11:0 8 AM STERILE INSTRUMENT TECHNICIAN Oxygen Saturation 97% 11/21/2020 2:27 PM CDT Inhaled Oxygen Concentration - - Weight 95.2 kg (209 lb 12.8 oz) 021 11:08 AM STERILE INSTRUMENT TECHNICIAN Height 180.3 cm (5' 11) 05/22/2021 11: 08 AM STERILE INSTRUMENT TECHNICIAN Body Mass Index 29.26 05/22/2021 11:08 AM STERILE INSTRUMENT TECHNICIAN Plan of Treatment Not on file Medical Devices Implanted Type Area Accounting Associate Device Identifier Shelf Expiration Date Model / Serial / Lot [employer] [id number] Inqu Paste Mix Plus Grey Tender 10cc Bone Graft Hyaluronic Acid Poly - [id number] Implanted:Qty: 1 on 03/16/2018 by Ronaldo Toledo MD at [facility] N/A: Lumbar-Sa cral Spine [employer] 11/25/2018 [id number] / / [id number] Screw 7.0mm X 40mm Streamline Tl Pedicle - [id number] Implanted:Qty: 4 on 03/16/2018 by Ronaldo Toledo MD at [facility] N/A: Lumbar-Sa cral Spine [employer] PA-70-40 / / Description:Polyaxial screw Screw Set Streamline Tl Screw System - [id number] Implanted:Qty: 4 on 03/16/2018 by Ronaldo Toledo MD at [facility] N/A: Lumbar-Sa cral Spine [employer] 01-SETSCREW / / [employer] Pr35 Quantum 5.5mm 35mm Prebent Michele Spinal Titanium - [id number] Implanted:Qty: 2 on 03/16/2018 by Ronaldo Toledo MD at [facility] N/A: Lumbar-Sa cral Spine [employer] [id number] / / Description:Prebent michele Medtronic Sofamor Danek [id number] Infuse 20ga 2x1in Vial Absorbable Syringe Needle Medium Graft 5.6 - [id number] Implanted:Qty: 1 on 10/06/2018 by Ronaldo Toledo MD at [facility] N/A: Lumbar-Sa cral Spine [employer] 04/21/2019 [id number] / / [id number] [employer] 34-L50-31-5 Contact Option [id number] Insertion Hole Back Cut Teeth - [id number] Implanted:Qty: 1 on 10/06/2018 by Ronaldo Toledo MD at [facility] N/A: Lumbar-Sa cral Spine [employer] 06/04/2021 34-K18-75-8 / / [id number] [employer] 25-Sp-36 36mm Spine Sacral Anterior Plate Bone Nonsterile - [id number] Implanted:Qty: 1 on 10/06/2018 by Ronaldo Toledo MD at [facility] N/A: Lumbar-Sa cral Spine [employer] 25-SP-36 / / [employer] 60-24 6mm 24mm Spine Lumbar Screw Bone Nonsterile - [id number] Implanted:Qty: 4 on 10/06/2018 by Ronaldo Toledo MD at [facility] N/A: Lumbar-Sa cral Spine [employer] 25-60-24 / / Insurance [facility] Advance Directives For more information, please contact: [phone] * Full Code (Latest Code Status on File) Date Activated Date Inactivated Comments 06/17/2019 9:18 PM 06/19/2019 6:47 PM * Full Code Date Activated Date Inactivated Comments 10/06/2018 5:48 PM 10/07/2018 5:18 PM * Full Code Date Activated Date Inactivated Comments 03/16/2018 6:28 PM 03/18/2018 4:03 PM Care Teams Raveler Relationship Specialty Start Date End Date Sania Levin MD [address] [place] [address] [address] PCP - General Family Practice 11/09/24 Brendon Ramirez MD Consulting Physician Colon and Rectal Surgery 08/03/19
--- OUTSIDE RECORDS SUMMARY | 2024-12-05 12:50 | XMS_ITS | Clinical Summary ---
Author Organization [facility] Address [address] [place] [address] Care Team Providers Care Journeyman Painter Name Role Phone Brendon Ramirez MD Unavailable [phone] Sania Levin MD Primary Care Provider Allergies No known [...] (07/13/2019): Added automatically from request for surgery [id number] Perirectal abscess 06/17/2019 Alcohol use 06/17/2019 Pseudarthrosis after fusion or arthrodesis 09/14 Overview (09/14/2018): Added automatically from request for surgery [id number] Assessment & Plan (03/20/2020 10:31 AM CDT): Assessment Healed fusion L5-S1 Plan Released with permanent restrictions as outlined in the functional capabilities report that I filled out. His permanent weight limit is 20 lb and could do no bending twisting stooping or awkward positions Assessment & Plan (07/27/2019 9:38 AM EXHIBITIONS AND COLLECTIONS MANAGER): Assessment Healed L5-S1 fusion with ongoing bilateral lower extremity symptoms in light of normal electrical studies and no impingement on the CT scan Plan Physical therapy 2 times per week return in 6 weeks for lumbar spine x-ray in to assess his progress. I have told him that there is nothing else surgically to offer him Assessment & Plan (05/03/2019 9:26 AM EXHIBITIONS AND COLLECTIONS MANAGER): Assessment Healing fusion L5-S1 with ongoing symptoms [...] (09/14/2018): Added automatically from request for surgery [id number] Assessment & Plan (12/15/2018 12:04 PM CDT): [...] (03/01/2018): Added automatically from request for surgery [id number] Assessment & Plan (07/22/2018 12:17 PM EXHIBITIONS AND COLLECTIONS MANAGER): Assessment Healing fusion L5-S1 with some increased leg pain compared to the recent visit Plan Observation I added Neurontin at HS talked about do's no 6 cues and from work and he is to return for x-ray in 6 weeks Intervertebral disc disorder s with radiculopathy, lumbosacral region 03/01/2018 Overview (03/01/2018): Added automatically from request for surgery [id number] Assessment & Plan (09/04/2021 11:31 AM CDT): [...] (03/01/2018): Added automatically from request for surgery [id number] Assessment & Plan (06/10/2018 12:05 PM EXHIBITIONS AND COLLECTIONS MANAGER): Assessment Healing fusion L5-S1 Plan I talked [...] on file Legal Sex Male 4:43 AM EXHIBITIONS AND COLLECTIONS MANAGER Gender Identity Not on file Sexual Orientation Not on file Obstetrics History Last Filed Vital Signs Vital Sign Reading Time Taken Comments Blood Pressure 130/91 05/22/2021 11:08 AM EXHIBITIONS AND COLLECTIONS MANAGER Pulse 87 05/22/2021 11:08 AM EXHIBITIONS AND COLLECTIONS MANAGER Temperature 36.5 C (97.7 F) 08/03/2019 8:42 AM EXHIBITIONS AND COLLECTIONS MANAGER Respiratory Rate 18 05/22/2021 11:0 8 AM EXHIBITIONS AND COLLECTIONS MANAGER Oxygen Saturation 97% 11/21/2020 2:27 PM CDT Inhaled Oxygen Concentration - - Weight 95.2 kg (209 lb 12.8 oz) 021 11:08 AM EXHIBITIONS AND COLLECTIONS MANAGER Height 180.3 cm (5' 11) 05/22/2021 11: 08 AM EXHIBITIONS AND COLLECTIONS MANAGER Body Mass Index 29.26 05/22/2021 11:08 AM EXHIBITIONS AND COLLECTIONS MANAGER Plan of Treatment Health Maintenance Due Date Last Done Comments Colon Cancer Screening-Colonoscopy 1969 Hepatitis C Screening 1969 Prostate Cancer Screening-PSA 1969 DTaP/Tdap/Td Vaccine (1 - Tdap) 1980 Hepatitis B Screening 1987 Regular Well Visit/Exam 18-64 1987 Pneumococcal vaccine <65 (1 of 2 - PCV) 1988 Zoster Vaccine (1 of 2) 2019 Depression Screening 09/09/2019 09/08/2018, 09/03/19 Influenza Vaccine (Season Ended) 2025 Medical Devices Implanted Type Area Timber Harvester Operator Device Identifier Shelf Expiration Date Model / Serial / Lot [employer]S [facility] [id number] Inqu Paste Mix Plus Jinrikisha Driver 10cc Bone Graft Hyaluronic Acid Poly - [id number] Implanted:Qty: 1 on 03/16/2018 by Ronaldo Toledo MD at [facility] N/A: Lumbar-Sa cral Spine Isto [employer] [facility] 11/25/2018 [id number] / / [id number] Screw 7.0mm X 40mm Streamline Tl Pedicle - [id number] Implanted:Qty: 4 on 03/16/2018 by Ronaldo Toledo MD at [facility] N/A: Lumbar-Sa cral Spine [employer] PA-70-40 / / Description:Polyaxial screw Screw Set Streamline Tl Screw System - [id number] Implanted:Qty: 4 on 03/16/2018 by Ronaldo Toledo MD at [facility] N/A: Lumbar-Sa cral Spine [employer] 01-SETSCREW / / [employer] Pr35 Quantum 5.5mm 35mm Prebent Michele Spinal Titanium - [id number] Implanted:Qty: 2 on 03/16/2018 by Ronaldo Toledo MD at [facility] N/A: Lumbar-Sa cral Spine [employer] -AL-35 / / Description:Prebent michele Medtronic Sofamor Danek [id number] Infuse 20ga 2x1in Vial Absorbable Syringe Needle Medium Graft 5.6 - [id number] Implanted:Qty: 1 on 10/06/2018 by Ronaldo Toledo MD at [facility] N/A: Lumbar-Sa cral Spine [employer] Sofamor [employer]ane[employer] 04/21/2019 [id number] / / [id number] [employer] 34-N68-31-8 Contact Option Vbr [id number] 3 Insertion Hole Back Cut Teeth - [id number] Implanted:Qty: 1 on 10/06/2018 by Ronaldo Toledo MD at [facility] N/A: Lumbar-Sa cral Spine [employer] 06/04/2021 34-U71-02-5 / / [id number] [employer] 25-Sp-36 36mm Spine Sacral Anterior Plate Bone Nonsterile - [id number] Implanted:Qty: 1 on 10/06/2018 by Ronaldo Toledo MD at [facility] N/A: Lumbar-Sa cral Spine [employer] 25-SP-36 / / [employer] 25-60-24 6mm 24mm Spine Lumbar Screw Bone Nonsterile - [id number] Implanted:Qty: 4 on 10/06/2018 by Ronaldo Toledo MD at [facility] N/A: Lumbar-Sa cral Spine [employer] 25-60-24 / / Insurance [facility] Address: [address] [address] [place] [address] Advance Directives For more information, please contact: [phone] * Full Code (Latest Code Status on File) Date Activated Date Inactivated Comments 06/17/2019 9:18 PM 06/19/2019 6:47 PM * Full Code Date Activated Date Inactivated Comments 10/06/2018 5:48 PM 10/07/2018 5:18 PM * Full Code Date Activated Date Inactivated Comments 03/16/2018 6:28 PM 03/18/2018 4:03 PM Care Teams Journeyman Painter Relationship Specialty Start Date End Date Sania Levin MD [address] [place] [id number] PCP - General Family Practice 11/09/24 Brendon Ramirez MD Consulting Physician Colon and Rectal Surgery 08/03/19
--- OUTSIDE RECORDS SUMMARY | 2024-12-05 12:50 | XMS_ITS | Encounter Summary ---
Author Organization [facility] Health Address [address] [place] [address] Care Team Providers Care Camp Maintenance Supervisor Name Role Phone Spenser Crooks MD Primary Care Provider [phone] Encounter Details Date Type Department Care Team (Late st Contact Info) Description 01/07/2017 [facility] Outpatient Visit [facility] [address] [place] [address] [place] [id number] [place], [place] [id number] Social History Tobacco Use Types Packs/Day Years Used Date Smoking Tobacco: Every Day Smokeless Tobacco: Never Alcohol Use Standard Drinks/Week Comments Yes 0 (1 standard drink = 0.6 oz pur e alcohol) Sex and Gender Information Value Date Recorded Sex Assigned at Not on file Legal Sex Male 5:51 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
--- OUTSIDE RECORDS SUMMARY | 2024-12-05 12:50 | XMS_ITS | Clinical Summary ---
Author Organization [facility] Address [address] Z[place]ala: Epic Prelude ADT JUSTICE [place] [address] Care Team Providers Care Power Machine Operator Name Role Phone Unavailable Primary Care Provider [...]
--- OUTSIDE RECORDS SUMMARY | 2024-12-05 12:50 | XMS_ITS | Patient Health Record ---
Author Organization [facility] Address [address] [place] [address] [place] [address] Care Team Providers Care Sound Truck Operator Name Role Phone Sania Levin MD Primary [...] Once a day for 30 day(s) Active PROBLEMS Problem Type ICD Code Onset Dates Problem Status W/U Status Risk SNOMED Code Notes Problem Fear of injections and transfusions (F40.231) Active confirmed Fear of medical treatment (750894814) Problem Unspecified osteoarthritis, unspecified site (M19.90) Active confirmed Osteoarthritis (072783428) Problem Sacroiliitis, not elsewhere classified (M46.1) Active confirmed Solitary sacroiliitis (042250446) Problem Spondylosis without myelopathy or radiculopathy, cervical region (M47.812) Active confirmed Cervical spondylosis without myelopathy (609735477) Problem Spondylosis without myelopathy or radiculopathy, cervicothoracic region (M47.813) Active confirmed Cervical spondylosis without myelopathy (416132692) Problem Spondylosis without myelopathy or radiculopathy, lumbar region (M47.816) Active confirmed Lumbosacral spondylosis without myelopathy (89853913) Problem Spondylosis without myelopathy or radiculopathy, lumbosacral region (M47.817) Active confirmed Lumbosacral spondylosis without myelopathy (disorder) (32238919) Problem Intervertebral disc disorders with radiculopathy, lumbosacral region (M51.17) Active confirmed Lumbosacral radiculopathy (6701808) Problem Radiculopathy, cervical region (M54.12) Active confirmed Cervical radiculopathy (39078855) Problem Radiculopathy, cervicothoracic region (M54.13) Active confirmed Cervical radiculopathy (26167593) Problem Radiculopathy, lumbar region (M54.16) Active confirmed Lumbar radiculopathy (928272305) Problem Radiculopathy, lumbosacral region (M54.17) Active confirmed Lumbosacral radiculopathy (6028259) Problem Cervicalgia (M54.2) Active confirmed Cervicalgia (83614593) Problem Postlaminectomy syndrome, not elsewhere classified (M96.1) Active confirmed Post-lami nectomy syndrome (38398711) Problem Osseous stenosis of neural canal of lumbar region (M99.33) Active confirmed Spinal stenosis of lumbar region (65257790) Problem Other intermediate (current) drug therapy (Z79.899) Active confirmed Long-term current use of drug therapy (885639008) PLAN OF TREATMENT Pending Test Test Name Order Date Chem 7 (BUN, Cr, Lytes, Glu) 09/04/2022 MRI : Cervical Spine without Contrast (7 0540) 11/07/2021 MRI : Lumbar Spine with and without Cont rast (93704) 04/16/2022 Insurance Providers Payer Name Payer Address Payer Phone Subscriber Number Group Number Insured Name Patient Relationship to Insured Coverage Start Date Coverage End Date [facility] MEDICARE ADVANTAGE (PPO) [address] [address] [place] [address] [phone] [id number] BRENDEN DUNHAM Self - patient is the insured Medicare [place] [address] [address] [place] [address] [id number] BRENDEN DUNHAM Self - patient is the insured MEDICAL (GENERAL) HISTORY Medical History History ICD Code AFIB Osteoarthritis SVT Hypertension Surgical History Surgery Date(Month/Year) L5-S1 microdisctomy Posterior lumbar fusion at L5-S1 02/2018 ALIF L5-S1 09/2018
[2024-12-05 13:09] LABS: Influenza A QL RT-PCR Negative (Negative); Influenza B QL RT-PCR Negative (Negative); RSV RNA, RT-PCR Negative (Negative); SARS-CoV-2 RNA PCR Negative (Negative)
--- OUTSIDE RECORDS SUMMARY | 2024-12-05 13:13 | XMS_ITS | Encounter Summary ---
Author Organization [facility] Health Address [address] [place] [address] Care Team Providers Care Study Abroad Advisor Name Role Phone Spenser Crooks MD Primary Care Provider [phone] Encounter Details Date Type Department Care Team (Late st Contact Info) Description 01/07/2017 [facility] Outpatient Visit [facility] [address] [place] [address] [place] [id number] [place], [place] [id number] Social History Tobacco Use Types Packs/Day Years Used Date Smoking Tobacco: Every Day Smokeless Tobacco: Never Alcohol Use Standard Drinks/Week Comments Yes 0 (1 standard drink = 0.6 oz pur e alcohol) Sex and Gender Information Value Date Recorded Sex Assigned at Not on file Legal 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
--- OUTSIDE RECORDS SUMMARY | 2024-12-05 13:13 | XMS_ITS | CONTINUITY OF CARE DOCUMENT ---
Author Name sameer estrella Address Unknown Organization [facility] Address [address] [place] [address] Phone [phone] Care Team Providers Care Monotype Mechanic Name Role Phone Agus MEYERS, Katarzyna Unavailable Spenser Crooks MD Unavailable Spenser Crooks MD Unavailable [phone] PROBLEMS Condition Status Date Provider Notes Alcohol abuse active Rashel Ahmedzai Venous insufficiency, bilateral active Rashel Ahmedzai Long-term (current) use of other medications active 20 13/12/25 Carlos Floyd RN Vitamin D deficiency- on meds active Carlos odonnell RN Tobacco abuse active Rashel Ahmedzai Syncope active Rashel Ahmedzai SVT / atrial tach, mobap active Rashelnaeem Can ai Hypertension--echo ef nl, 01/2023 active Ri lotus Barlowmedstarlai Chest pain--stress nuc nl, 04/2023 active Flash Goldsmith MD Sleep apnea--cpap active Rashel Ahmedzai Hyperlipidemia active Rashel Ahmedzai Lower extremity edema active Rashel Ahmedzai Leg ulcer, right active Rashel Ahmedzai Hypertriglyceridemia active Trino Kruse MD ENCOUNTERS Date Type Provider Location Encounter Diag nosis - In-person encounter Office Visit Trino Kruse MD [facility] Hypertriglyceridemia - In-person encounter Office Visit Katarzyna Goldsmith MD [facility] Lower extremity edemaLeg ulcer, right - In-person encounter Office Visit Slava Blanco MD [facility] - In-person encounter Office Visit Katarzyna Goldsmith MD [facility] - In-person encounter Office Visit Katarzyna Goldsmith MD [facility] Chest pain--stress nuc nl, 04/2023 - In-person encounter Office Visit Katarzyna Goldsmith MD [facility] Tobacco abuseSyncopeSVT / atrial tach, mobapHypertension--echo ef nl, hest pain--stress nuc nl, 04/2023Sleep apnea--cpapHyperlipidemia VITAL SIGNS Date Observation Value Provider Body Mass Index (Ratio) 29.84 kg/m2 Francisco J Nugent blood pressure, cuff size regular Ke rri Ang blood pressure, diastolic 80 mm[Hg] Ke rri Ionuealberto blood pressure, systolic 140 mm[Hg] Randall ri Agn oxygen saturation, oximetry 98 % Marysol Ang [...] libertad Pratt blood pressure, systolic 132 mm[Hg] [facility] respiratory rate E&M 16 /min [facility] pulse rate 85 /min [facility] oxygen saturation, oximetry 97 % [facility] weight E&M 221 [lb_av] [facility] height E&M 71 [in_i] [facility] Body Mass Index (Ratio) 30.82 kg/m2 Francisco J as Raffi blood pressure, diastolic 80 mm[Hg] Li nkLogic blood pressure, systolic 118 mm[Hg] Tasha kLogic blood pressure, diastolic 80 mm[Hg] Ja blood pressure, systolic 118 mm[Hg] Jar [facility] pulse rate 91 /min [facility] y blood pressure, cuff size regular [facility] oxygen saturation, oximetry 97 % [facility] respiratory rate E&M 16 /min [facility] weight E&M 221 [lb_av] [facility] y height E&M 71 [in_i] [facility] y Body Mass Index (Ratio) 30.54 kg/m2 Frank Goldsmith MD blood pressure, diastolic 93 mm[Hg] Ja rret blood pressure, systolic 140 mm[Hg] Jar ret pulse rate 90 /min Isaak y blood pressure, cuff size regular [facility] oxygen saturation, oximetry 98 % [facility] respiratory rate E&M 16 /min Isaak weight E&M 219 [lb_av] [facility] y height E&M 71 [in_i] [facility] Body Mass Index (Ratio) 32.21 kg/m2 Frank Goldsmith MD blood pressure, cuff size regular Ja [facility] blood pressure, diastolic 103 mm[Hg] Ja et blood pressure, systolic 152 mm[Hg] Jacoby delarosa pulse rate 81 /min Isaak respiratory rate E&M 12 /min Isaak oxygen saturation, oximetry 98 % Isaak weight E&M 231 [lb_av] Isaak height E&M 71 [in_i] [facility] Body Mass Index (Ratio) 31.66 kg/m2 Frank Goldsmith MD height E&M 71 [in_i] [facility] blood pressure, cuff size regular [facility] blood pressure, diastolic 127 mm[Hg] [facility] blood pressure, systolic 148 mm[Hg] [facility] oxygen saturation, oximetry 98 % [facility] pulse rate 98 /min [facility] respiratory rate E&M 16 /min Rosa Kohler iller weight E&M 227 [lb_av] [facility] ALLERGIES Allergy Name Onset Date Reaction Criticality [...] 1 tablet by mouth at bedtime - [facility] losartan 100 mg tablet completed Take 1 tablet by mouth once a day - Rashel Manley Vitamin D3 50 mcg (2,000 unit) tablet completed TAKE 1 TABLET BY MOUTH EVERY DAY - Isaak pregabalin 100 mg capsule completed - Rashel Manley omeprazole 20 mg capsule,delayed release(DR/EC) active TAKE 1 CAPSULE BY MOUTH EVERY DAY 30 MINUTES TO 1 HOUR BEFORE A MEAL [facility] flecainide 100 mg tablet completed - [...] Payer name Policy type / Coverage type [place] red republican ID AARP MEDICARE ADVANTAGE ([facility] COMPLETE PPO) Other [id number] ADVANCE DIRECTIVES Name Date DISCUSSED - NO DECISION MADE TREATMENT PLAN Date Name Performer [id number],S, Rashel Hinojosa i [id number],S, Rashel Hinojosa i [id number],S, Rashel Hinojosa i [id number],SRashel i [id number],S, Rashel Hinojosa i [id number],S, Rashel Hinojosa i Cardiology:The patie nt is [...] 1 tablet by mouth once a day [facility] Telehealth [facility] Cardiology:This visi t has been a part [...] V enous Doppler Bilateral LE - Reflux ([id number]) [facility]: O rders: V enous Doppler Bilateral LE - Reflux (CPT-75748) A rterial Duplex Bi-Lower EX (CPT-74671) [facility] Cardiology: H is updated medication list for this problem includes: Vascepa 1 Gram Capsule (Icosapent ethyl) ..... Take 2 capsules by mouth twice a day Orders: L IPID PANEL (2744) [facility]: B P today: 132/90 P rior BP: 118/80 (12/23/2023) His updated medication list for this problem includes: Metoprolol Succinate 100 Mg Tablet Extended Release 24 Hr (Metoprolol succinate) ..... Take 1 tablet by mouth once a day Losartan 100 Mg Tablet (Losartan) ..... Take 1 tablet by mouth once a day [facility] Cardiology: H is updated medication list for this problem includes: Metoprolol Succinate 100 Mg Tablet Extended Release 24 Hr (Metoprolol succinate) ..... Take 1 tablet by mouth once a day [facility] Cardiology:The patie nt is using CPAP on [...] O rders: C OMPREHENSIVE METABOLIC PANEL, W/EGFR (85858) C BC (INCLUDES DIFF/PLT) (6399) L IPID PANEL (7600) M AGNESIUM (622) T SH, free T4, total T3 (7444) V itamin D, 25-Hydroxy (031898) Rashel Manley Cardiology: O rders: C OMPREHENSIVE METABOLIC PANEL, W/EGFR (66847) C BC (INCLUDES DIFF/PLT) (6399) L IPID PANEL (7600) M AGNESIUM (622) T SH, free T4, total T3 (7444) V itamin D, 25-Hydroxy (454216) Rashel Manley Cardiology: O rders: C OMPREHENSIVE METABOLIC PANEL, W/EGFR (29157) C BC (INCLUDES DIFF/PLT) (6399) L IPID PANEL (7600) M AGNESIUM (622) T SH, free T4, total T3 (7444) V itamin D, 25-Hydroxy (086241) Rashel Manley Cardiology:Patient was advised t o stop smoking. Rashel Ahmedzai Cardiology: O rders: C OMPREHENSIVE METABOLIC PANEL, W/EGFR (57744) C BC (INCLUDES DIFF/PLT) (6399) L IPID PANEL (7600) M AGNESIUM (622) T SH, free T4, total T3 (7444) V itamin D, 25-Hydroxy (954451) Rashel Ahmedzai Cardiology: O rders: R PM (remote patient monitoring) (77151) C OMPREHENSIVE METABOLIC PANEL, W/EGFR (41773) C BC (INCLUDES DIFF/PLT) (6399) L IPID PANEL (7600) M AGNESIUM (622) T SH, free T4, total T3 (7444) V itamin D, 25-Hydroxy (301915) H is updated medication list for this [...] Cardiology Rashel Ahmedzai Cardiology Rashel Ahmedzai Cardiology Rahsel Ahmedzai Cardiology Rashel Ahmedzai Cardiology Rashel Ahmedzai [...]
--- OUTSIDE RECORDS SUMMARY | 2024-12-05 13:13 | XMS_ITS | Clinical Summary ---
Author Organization [facility] Address [address] [place] [address] Care Team Providers Care Coffee Supervisor Name Role Phone Brendon Ramirez MD Unavailable [phone] Sania Levin MD Primary Care Provider Allergies [...] (07/13/2019): Added automatically from request for surgery [id number] Perirectal abscess 06/17/2019 Alcohol use 06/17/2019 Pseudarthrosis after fusion or arthrodesis 09/14 Overview (09/14/2018): Added automatically from request for surgery [id number] Assessment & Plan (03/20/2020 10:31 AM CDT): Assessment Healed fusion L5-S1 Plan Released with permanent restrictions as outlined in the functional capabilities report that I filled out. His permanent weight limit is 20 lb and could do no bending twisting stooping or awkward positions Assessment & Plan (07/27/2019 9:38 AM HISTOLOGIST TECHNOLOGIST): Assessment Healed L5-S1 fusion with ongoing bilateral lower extremity symptoms in light of normal electrical studies and no impingement on the CT scan Plan Physical therapy 2 times per week return in 6 weeks for lumbar spine x-ray in to assess his progress. I have told him that there is nothing else surgically to offer him Assessment & Plan (05/03/2019 9:26 AM HISTOLOGIST TECHNOLOGIST): Assessment Healing fusion L5-S1 with ongoing symptoms [...] (09/14/2018): Added automatically from request for surgery [id number] Assessment & Plan (12/15/2018 12:04 PM CDT): [...] (03/01/2018): Added automatically from request for surgery [id number] Assessment & Plan (07/22/2018 12:17 PM HISTOLOGIST TECHNOLOGIST): Assessment Healing fusion L5-S1 with some increased leg pain compared to the recent visit Plan Observation I added Neurontin at HS talked about do's no 6 cues and from work and he is to return for x-ray in 6 weeks Intervertebral disc disorder s with radiculopathy, lumbosacral region 03/01/2018 Overview (03/01/2018): Added automatically from request for surgery [id number] Assessment & Plan (09/04/2021 11:31 AM CDT): [...] (03/01/2018): Added automatically from request for surgery [id number] Assessment & Plan (06/10/2018 12:05 PM HISTOLOGIST TECHNOLOGIST): Assessment Healing fusion L5-S1 Plan I talked [...] on file Legal Sex Male 4:43 AM HISTOLOGIST TECHNOLOGIST Gender Identity Not on file Sexual Orientation Not on file Obstetrics History Last Filed Vital Signs Vital Sign Reading Time Taken Comments Blood Pressure 130/91 05/22/2021 11:08 AM HISTOLOGIST TECHNOLOGIST Pulse 87 05/22/2021 11:08 AM HISTOLOGIST TECHNOLOGIST Temperature 36.5 C (97.7 F) 08/03/2019 8:42 AM HISTOLOGIST TECHNOLOGIST Respiratory Rate 18 05/22/2021 11:0 8 AM HISTOLOGIST TECHNOLOGIST Oxygen Saturation 97% 11/21/2020 2:27 PM CDT Inhaled Oxygen Concentration - - Weight 95.2 kg (209 lb 12.8 oz) 021 11:08 AM HISTOLOGIST TECHNOLOGIST Height 180.3 cm (5' 11) 05/22/2021 11: 08 AM HISTOLOGIST TECHNOLOGIST Body Mass Index 29.26 05/22/2021 11:08 AM HISTOLOGIST TECHNOLOGIST Plan of Treatment Health Maintenance Due Date [...] Ended) 2025 Medical Devices Implanted Type Area Snowblower Mechanic Device Identifier Shelf Expiration Date Model / Serial / Lot IsStudent Retention [employer] [facility] [id number] Inqu Paste Mix Plus Information Technology Account Manager 10cc Bone Graft Hyaluronic Acid Poly - [id number] Implanted:Qty: 1 on 03/16/2018 by Ronaldo Toledo MD at [facility] N/A: Lumbar-Sa cral Spine [employer]sto [employer] [facility] 11/25/2018 [id number] / / [id number] Screw 7.0mm X 40mm Streamline Tl Pedicle - [id number] Implanted:Qty: 4 on 03/16/2018 by Ronaldo Toledo MD at [facility] N/A: Lumbar-Sa cral Spine [employer] PA-70-40 / / Description:Polyaxial screw Screw Set Streamline Tl Screw System - [id number] Implanted:Qty: 4 on 03/16/2018 by Ronaldo Toledo MD at [facility] N/A: Lumbar-Sa cral Spine [employer] 01-SETSCREW / / [employer] Inc Pr35 Quantum 5.5mm 35mm Prebent Michele Spinal Titanium - [id number] Implanted:Qty: 2 on 03/16/2018 by Ronaldo Toledo MD at [facility] N/A: Lumbar-Sa cral Spine [employer] -FL-35 / / Description:Prebent michele Medtronic Sofamor Danek [id number] Infuse 20ga 2x1in Vial Absorbable Syringe Needle Medium Graft 5.6 - [id number] Implanted:Qty: 1 on 10/06/2018 by Ronaldo Toledo MD at [facility] N/A: Lumbar-Sa cral Spine Medtronic Sofamor Danek 04/21/2019 [id number] / / [id number] [employer] 34-E13-42-1 Contact Option [id number] Insertion Hole Back Cut Teeth - [id number] Implanted:Qty: 1 on 10/06/2018 by Ronaldo Toledo MD at [facility] N/A: Lumbar-Sa cral Spine [employer] 06/04/2021 34-[id number] / / [id number] [employer] 25-Sp-36 36mm Spine Sacral Anterior Plate Bone Nonsterile - [id number] Implanted:Qty: 1 on 10/06/2018 by Ronaldo Toledo MD at [facility] N/A: Lumbar-Sa cral Spine [employer] 25-SP-36 / / [employer] 25-60-24 6mm 24mm Spine Lumbar Screw Bone Nonsterile - [id number] Implanted:Qty: 4 on 10/06/2018 by Ronaldo Toledo MD at [facility] N/A: Lumbar-Sa cral Spine [employer] 25-60-24 / / Insurance [facility] Advance Directives For more information, please contact: [phone] * Full Code (Latest Code Status on File) Date Activated Date Inactivated Comments 06/17/2019 9:18 PM 06/19/2019 6:47 PM * Full Code Date Activated Date Inactivated Comments 10/06/2018 5:48 PM 10/07/2018 5:18 PM * Full Code Date Activated Date Inactivated Comments 03/16/2018 6:28 PM 03/18/2018 4:03 PM Care Teams Coffee Supervisor Relationship Specialty Start Date End Date Sania Levin MD [address] [facility] [place] [id number] PCP - General Family Practice 11/09/24 Brendon Ramirez MD Consulting Physician Colon and Rectal Surgery 08/03/19
--- OUTSIDE RECORDS SUMMARY | 2024-12-05 13:13 | XMS_ITS | Referral Summary ---
Author Organization [facility] Address [address] [place] [address] Care Team Providers Care Painter Maintenance Name Role Phone Brendon Ramirez MD Unavailable [phone] Sania Levin MD Primary Care Provider Allergies [...] (07/13/2019): Added automatically from request for surgery [id number] Perirectal abscess 06/17/2019 Alcohol use 06/17/2019 Pseudarthrosis after fusion or arthrodesis 09/14 Overview (09/14/2018): Added automatically from request for surgery [id number] Assessment & Plan (03/20/2020 10:31 AM CDT): Assessment Healed fusion L5-S1 Plan Released with permanent restrictions as outlined in the functional capabilities report that I filled out. His permanent weight limit is 20 lb and could do no bending twisting stooping or awkward positions Assessment & Plan (07/27/2019 9:38 AM BEAN DUMPER): Assessment Healed L5-S1 fusion with ongoing bilateral lower extremity symptoms in light of normal electrical studies and no impingement on the CT scan Plan Physical therapy 2 times per week return in 6 weeks for lumbar spine x-ray in to assess his progress. I have told him that there is nothing else surgically to offer him Assessment & Plan (05/03/2019 9:26 AM BEAN DUMPER): Assessment Healing fusion L5-S1 with ongoing symptoms [...] (09/14/2018): Added automatically from request for surgery [id number] Assessment & Plan (12/15/2018 12:04 PM CDT): [...] (03/01/2018): Added automatically from request for surgery [id number] Assessment & Plan (07/22/2018 12:17 PM BEAN DUMPER): Assessment Healing fusion L5-S1 with some increased leg pain compared to the recent visit Plan Observation I added Neurontin at HS talked about do's no 6 cues and from work and he is to return for x-ray in 6 weeks Intervertebral disc disorder s with radiculopathy, lumbosacral region 03/01/2018 Overview (03/01/2018): Added automatically from request for surgery [id number] Assessment & Plan (09/04/2021 11:31 AM CDT): [...] (03/01/2018): Added automatically from request for surgery [id number] Assessment & Plan (06/10/2018 12:05 PM BEAN DUMPER): Assessment Healing fusion L5-S1 Plan I talked [...] on file Legal Sex Male 4:43 AM BEAN DUMPER Gender Identity Not on file Sexual Orientation Not on file Last Filed Vital Signs Vital Sign Reading Time Taken Comments Blood Pressure 130/91 05/22/2021 11:08 AM BEAN DUMPER Pulse 87 05/22/2021 11:08 AM BEAN DUMPER Temperature 36.5 C (97.7 F) 08/03/2019 8:42 AM BEAN DUMPER Respiratory Rate 18 05/22/2021 11:0 8 AM BEAN DUMPER Oxygen Saturation 97% 11/21/2020 2:27 PM CDT Inhaled Oxygen Concentration - - Weight 95.2 kg (209 lb 12.8 oz) 021 11:08 AM BEAN DUMPER Height 180.3 cm (5' 11) 05/22/2021 11: 08 AM BEAN DUMPER Body Mass Index 29.26 05/22/2021 11:08 AM BEAN DUMPER Plan of Treatment Not on file Medical Devices Implanted Type Area Child Development Assistant Device Identifier Shelf Expiration Date Model / Serial / Lot Is[employer]ctin Llc [id number] Inqu Paste Mix Plus Charger 10cc Bone Graft Hyaluronic Acid Poly - [id number] Implanted:Qty: 1 on 03/16/2018 by Ronaldo Toledo MD at [facility] N/A: Lumbar-Sa cral Spine [employer] 11/25/2018 [id number] / / [id number] Screw 7.0mm X 40mm Streamline Tl Pedicle - [id number] Implanted:Qty: 4 on 03/16/2018 by Ronaldo Toledo MD at [facility] N/A: Lumbar-Sa cral Spine [employer] PA-70-40 / / Description:Polyaxial screw Screw Set Streamline Tl Screw System - [id number] Implanted:Qty: 4 on 03/16/2018 by Ronaldo Toledo MD at [facility] N/A: Lumbar-Sa cral Spine [employer] 01-SETSCREW / / [employer] Inc Pr35 Quantum 5.5mm 35mm Prebent Michele Spinal Titanium - [id number] Implanted:Qty: 2 on 03/16/2018 by Ronaldo Toledo MD at [facility] N/A: Lumbar-Sa cral Spine [employer] Inc [id number] / / Description:Prebent michele Medtronic Sofamor Danek [id number] Infuse 20ga 2x1in Vial Absorbable Syringe Needle Medium Graft 5.6 - [id number] Implanted:Qty: 1 on 10/06/2018 by Ronaldo Toledo MD at [facility] N/A: Lumbar-Sa cral Spine Medtronic Sofamor Danek 04/21/2019 [id number] / / [id number] Rti [employer] Inc 34-Q35-75-7 Contact Option [id number] Insertion Hole Back Cut Teeth - [id number] Implanted:Qty: 1 on 10/06/2018 by Ronaldo Toledo MD at [facility] N/A: Lumbar-Sa cral Spine [employer] Inc 06/04/2021 34-[id number] / / [id number] R[employer] Inc 25-Sp-36 36mm Spine Sacral Anterior Plate Bone Nonsterile - [id number] Implanted:Qty: 1 on 10/06/2018 by Ronaldo Toledo MD at [facility] N/A: Lumbar-Sa cral Spine [employer] 25-SP-36 / / Rti [employer] Inc 60-24 6mm 24mm Spine Lumbar Screw Bone Nonsterile - [id number] Implanted:Qty: 4 on 10/06/2018 by Ronaldo Toledo MD at [facility] N/A: Lumbar-Sa cral Spine [employer] 25-60-24 / / Insurance [facility] MEDIC[facility] Address: [address] [address] [place] [address] Advance Directives For more information, please contact: [phone] * Full Code (Latest Code Status on File) Date Activated Date Inactivated Comments 06/17/2019 9:18 PM 06/19/2019 6:47 PM * Full Code Date Activated Date Inactivated Comments 10/06/2018 5:48 PM 10/07/2018 5:18 PM * Full Code Date Activated Date Inactivated Comments 03/16/2018 6:28 PM 03/18/2018 4:03 PM Care Teams Painter Maintenance Relationship Specialty Start Date End Date Sania Levin MD [address] [place] [address] [address] PCP - General Family Practice 11/09/24 Brendon Ramirez MD Consulting Physician Colon and Rectal Surgery 08/03/19
--- OUTSIDE RECORDS SUMMARY | 2024-12-05 13:13 | XMS_ITS | Clinical Summary ---
Author Organization [facility] Address [address] [place] [address] Care Team Providers Care Roads And Parking Lots Sweeper Operator Name Role Phone Spenser Crooks MD Primary Care Provider Source Comments [facility],non-owned Affiliates and Associated Physician Practices is amultiple site organization consisting of ambulatory clinics and hospital sitesin [place], [place], [place] and [place]. This disclosure is being madepursuant to the Care Everywhere program and may not contain all information available regarding this patient. 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 Procedure Code(s): --- Professional --- 21310, Colonoscopy, flexible; with removal of tumor(s), polyp(s), or other lesion(s) by hot biopsy forceps --- Technical --- 36138, Colonoscopy, flexible; with removal of tumor(s), polyp(s), or other lesion(s) by hot biopsy forceps Diagnosis Code(s): --- Professional --- Z12.11, Encounter for screening for malignant neoplasm of colon D12.2, Benign neoplasm of ascending colon K64.2, Third degree hemorrhoids --- Technical --- Z12.11, Encounter for screening for malignant neoplasm of colon D12.2, Benign neoplasm of ascending colon K64.2, Third degree hemorrhoids CPT copyright 2015 [employer]. All rights reserved. The codes documented in this report are preliminary and upon pharmaceutical worker review may be revised to meet current compliance requirements. Dr. Hemanth Gimenez MD Hemanth Gimenez MD 01/27/2017 9:04:26 AM This report has been signed electronically. Number of Addenda: 0 Note Initiated On: 01/27/2017 7:27 AM [facility] 01/27/2017 7:27 AM CDT us Hemanth Gimenez MD GI PROCEDURE ORDERABLES Edited Result - Final [facility] [place] [address] from Last 3 Months or Most Recently Relevant to Health Maintenance Insurance [facility] MANAGED MEDICARE [facility] MEDICAID - [place] Member Subscriber Plan / Payer (Ef fective for All Dates) Name:Brenden Dunham Member ID:Not on file Relation to Subscriber:Self Name:Brenden Dunham Subscriber ID:Not on file Payer ID:Not on file Group ID:Not on file Type:Medicaid [place] Address: [place] [id number] [facility] MANAGED MEDICARE ADV Member Subscriber Plan / Payer (Ef fective 2024-Present) Name:Brenden Dunham Relation to Subscriber:Self Name:Brenden Dunham Payer ID:[id number] (NAIC) Type:Medicare-Managed Care Address: [address] MEDICAID - [place] [facility] MANAGED MEDICARE ADV Member Subscriber Plan / Payer (Ef fective 2024-Present) Name:Brenden Dunham Relation to Subscriber:Self Name:Brenden Dunham Payer ID:[id number] (NAIC) Type:Medicare-Managed Care Address: [address] MEDICAID - [place] Member Subscriber Plan / Payer (Ef fective for All Dates) Name:Brenden Dunham Member ID:Not on file Relation to Subscriber:Self Name:Brenden Dunham Subscriber ID:Not on file Payer ID:Not on file Group ID:Not on file Type:Medicaid [place] Address: [place] [id number] [facility] MANAGED MEDICARE ADV Care Teams Roads And Parking Lots Sweeper Operator Relationship Specialty Start Date End Date Spenser Crooks MD [address] [facility] [address] [place] [id number] PCP - General Internal Medicine 01/07/17
--- OUTSIDE RECORDS SUMMARY | 2024-12-05 13:13 | XMS_ITS | Clinical Summary ---
Author Organization [facility] Address [address] [facility] [address] Zavala: Epic Prelude ADT [facility] [place] [address] Care Team Providers Care Laboratory Equipment Installer Name Role Phone Unavailable Primary Care Provider [...]
[2024-12-05] MEDS: METOPROLOL TARTRATE INJ 5 MG/5 ML VIAL IV PUSH ×4 (14:12→20:56)
--- NOTE | 2024-12-05 15:00 | ECG_ITS ---
Test Date: 2024-12-05 15:05:36 Measurements Intervals Mcguffey Rate: 131 P: 0 DC: 0 QRS: 9 QRSD: 81 T: 31 QT: 274 QTc: 405 Interpretive Statements SINUS RHYTHM WITH FREQUENT EPISODES OF ATRIAL TACHYCARDIA BASELINE ARTIFACT- I, II, AVR ABNORMAL ECG Compared to ECG 12/05/2024 11:42:13 NO SIGNIFICANT CHANGE Electronically Signed On 12-05-2024 16:03:58 CDT by Adolfo Dos Santos D.O.
--- NOTE | 2024-12-05 15:17 | PM.IMHP ---
H&P: HPI History of Present Illness Date/Time: 12/05/24 15:17 Chief Complaint: Dizziness, Headache, Generalized Weakness Narrative: 54 y/o M with PMH of Afib, HLD, BEE (not compliant with CPAP), HTN and restless leg syndrome presents here with general malaise, headache, generalized weakness, and dizziness. The patient presents here with multiple complaints including malaise, headache, generalized weakness, and dizziness. He reports onset approximately 5 days ago. The symptoms are not accompanied by nausea, vomiting, fever, chills, shortness of breath. He endorses chest discomfort, diaphoresis that seems disproportionate with his activity level, and diarrhea. He describes this as achy, nonradiating, constant, no aggravating or alleviating factors. He reports a history of atrial fibrillation on metoprolol, no current anticoagulation. Initial VS at presentation: 98.2? F, HR 102, RR 19, 140/71, and 98% on RA. ED workup showed: No leukocytosis, no anemia, D-dimer within normal limits, sodium 136, creatinine 0.89 and GFR >60, initial troponin negative x2, BNP 1460, and viral PCR negative. CXR showed no acute cardiopulmonary pathology. EKG showed sinus rhythm with frequent episodes of atrial tachycardia, rate 138. Review of Systems Review of Systems: All systems reviewed & are unremarkable except as noted in HPI and below PMFSH Past Medical History Medical History Atrial fibrillation GERD without esophagitis Lumbar spondylosis Post laminectomy syndrome Dyslipidemia Vitamin D deficiency BEE (obstructive sleep apnea) Essential (primary) hypertension Restless legs syndrome (RLS) Erectile dysfunction Peripheral neuropathy Arthritis, lumbar spine Chronic back pain Surgical History Surgical History History of carpal tunnel surgery (~08/2023) Right Perirectal cyst 2018 - Excision Hx of tonsillectomy (~1973) Previous back surgery (~2013) Lumbar spine surgeries - 2013, 2017, 2019 Family History Family History Father History of blood clots Mother Hypertension Social History Social History Smoking packs per day: 0.5 Smoking cigarettes per day: 10.0 Years smoked: 33 Smoking pack-years: 16.50 Smoking status: Current every day smoker Tobacco type: cigarettes Second hand tobacco smoke exposure: Yes Alcohol intake: current Drinks per week: 14 Alcohol use details: 6 beers/day Substance use: current Substance use type: marijuana Other substance usage details: still smokes marijuana occasionally Last use: 2000 Do You Feel Safe in your Home?: Yes Lack of Transportation: No Lack of Food: Never True Current Housing: I Have Housing Concerned About Future Housing: No Difficulty Paying Gas/Electric Bills: No Difficulty Paying for Meds: No Currently Unemployed: No Education: Associate Degree Difficulty w/ Childcare or Family Care: No Living arrangements: with family Gender identity (if verbalized by the patient): Male Spiritual care concerns: No Meds Home Medications and Allergies Home Medications ?Medication ?Instructions ?Recorded ?Confirmed ?Type losartan 100 mg tablet 100 mg PO DAILY 05/04/23 12/05/24 History icosapent ethyl 1 gram capsule 2 g PO BID 05/05/24 12/05/24 History (Vascepa) metoprolol succinate 50 mg 50 mg PO DAILY 05/05/24 12/05/24 History tablet,extended release 24 hr omeprazole 20 mg capsule,delayed 20 mg PO DAILY 09/12/24 12/05/24 History release Allergies Allergy/AdvReac Type Severity Reaction Status Date / Time No Known Allergies Allergy Verified 12/05/24 15:20 Vital Signs Vital Signs - 24 hr 12/05/24 11:49 12/05/24 12:41 12/05/24 14:12 Temperature 98.2 F Pulse Rate 102 H 87 112 H Respiratory Rate 19 16 Blood Pressure 140/71 111/80 Pulse Oximetry 98 98 Oxygen Delivery Room Air 12/05/24 14:17 Temperature Pulse Rate 81 Respiratory Rate 17 Blood Pressure 128/83 Pulse Oximetry 97 Oxygen Delivery Exam Const: General: comfortable and no acute distress Other: , male, modestly ill-appearing HENMT: Face/Nose/Sinus: Normal nares present Mouth: Yes moist mucous membranes Eyes: General: appearance normal, both eyes and all related structures Sclera: sclerae normal Pupils: Equal, round and reactive pupils present EOM: EOMs intact bilaterally Resp: Effort & Inspection: normal respiratory effort Other: Faint expiratory wheeze, no crackles. Cardio: Other: Intermittently tachycardic (100-150), irregular, no murmur or rub appreciated. GI: Other: Abdomen soft, nondistended, nontender. Normoactive bowel sounds in all quadrants. Skin: General skin exam: normal color and no rashes or lesions noted Wounds: no wounds Neuro: Speech: normal speech Motor exam (neuro): 5/5 motor strength present throughout Sensory Exam: normal sensation Other: A&O x4 Extrem: Other: 1+ edema to bilateral ankles, nonpitting and symmetric. Psych: Mental Status: mental status grossly normal Affect: normal affect Other: Good insight and judgment, pleasant H&P: Results Labs Labs: Short CBC 12/05/24 Range/Units 11:57 WBC 7.6 (4.5-10.0) K/mm3 Hgb 16.4 (14.0-18.0) g/dL Hct 47.1 (42.0-52.0) % Plt Count 206 (150-375) k/mm3 BMP 12/05/24 11:57 Sodium 136 L Potassium 4.6 Chloride 107 Carbon Dioxide 21 L BUN 14 Creatinine 0.89 Glucose 110 Calcium 9.2 Cardiac Enzymes 12/05/24 Range/Units 11:57 Troponin I < 0.012 (0.000-0.034) ng/mL Liver Function 12/05/24 Range/Units 11:57 Total Bilirubin 0.7 (0.2-1.3) mg/dL AST 51 (17-59) U/L ALT 60 H (6-50) U/L Alkaline Phosphatase 70 (38-126) U/L Albumin 4.2 (3.5-5.1) g/dL Assessment and Plan Assessment and plan (1) Atrial fibrillation with RVR: Code(s): I48.91 - Unspecified atrial fibrillation Status: Acute Assessment and Plan: - EKG, initial: sinus rhythm with frequent episodes of atrial tachycardia, rate 138. - EKG, repeat: AFib RVR, rate 131, nonspecific T-wave abnormality. When compared to previous, sinus rhythm no longer present and T-wave abnormality now present. - given 5mg of Metoprolol IV with transient effect. PRN Metoprolol IV. - on Metoprolol ER 50 mg, hold. Start Metoprolol tartrate 37.5 mg PO BID. Monitor response -> has had no improvement. Remains intermittently tachycardic between 100-170. Chest discomfort still present, cardiology consulted. - CHADSVasc: 1 (HTN hx) -> started on Lovenox SQ 40 daily - admit to IMU, telemetry monitoring (2) Elevated brain natriuretic peptide (BNP) level: Code(s): R79.89 - Other specified abnormal findings of blood chemistry Status: Acute Assessment and Plan: - BNP 1460 - check echo, none on file - hold on initiation of diuretic until echo results, XX on exam - monitor I&Os and daily weights - trend renal function (3) Essential (primary) hypertension: Code(s): I10 - Essential (primary) hypertension Status: Acute Assessment and Plan: - chronic, currently 128/83 - continue home medications: losartan - monitor (4) BEE (obstructive sleep apnea): Code(s): G47.33 - Obstructive sleep apnea (adult) (pediatric) Status: Acute Assessment and Plan: - noncompliant with CPAP Plan Diet: heart healthy GI Prophylaxis: Not currently indicated DVT Prophylaxis: Lovenox SQ IV fluids: 1L bolus Lines/Tubes: Peripheral IV Code Status: Full code Quality VTE Prophylaxis VTE prophylaxis: pharmacologic ordered Hospitalist [facility] Advance Care Plan I have confirmed that the patient's Advanced Care Plan is present, code status is documented, or surrogate decision maker is listed in patient medical record.: Yes Medication Reconciliation I have utilized all available resources to obtain, update and review the patients current medications (includes all prescriptions, OTC, herbals, cannabis, and nutritional supplements).: Yes
[2024-12-05 15:20] LABS: Troponin I < 0.012 ng/mL (0.000-0.034)
--- NOTE | 2024-12-05 15:36 | PC.NURSE ---
This patient, Pa Galeas, was admitted to IMU Room 209-01. Patient/family oriented to hospital policies and general routines including ID bracelet, bed and alarms, visiting hours, pain management, procedures, bathroom and other care routines, personal items, smoking policy, room service/diet, and visiting hours. Information on how to activate the Rapid Response Team has been discussed. Patient/Family are encouraged to report perceived risks to care and to ask questions if they do not understand what they are told or what they should do.
[2024-12-05] MEDS: ACETAMINOPHEN 325 MG TABLET 650 MG PO ×2 (15:49→20:15)
[2024-12-05] MEDS: METOPROLOL TARTRATE TAB 25 MG, METOPROLOL TARTRATE TAB 12.5 MG 37.5 MG PO (20:15)
[2024-12-05] MEDS: KETOROLAC 30 MG/ML VIAL (*BKC) IV PUSH (20:47)
[2024-12-05] MEDS: diphenhydrAMINE HCl INJ 50 MG/ML VIAL 25 MG IV PUSH (20:48)
[2024-12-05] MEDS: IPRATROPIUM 0.5 MG/ALBUTEROL SULFATE 2.5 MG AMPUL.NEB 3 ML INHALATION (21:26)
[2024-12-05] MEDS: dilTIAZem HCl INJ 25 MG/5 ML VIAL 10 MG IV PUSH (21:43)
[2024-12-05] MEDS: dilTIAZem 100 MG/100 ML 100 MG/100 ML BAG IV CONT (21:44)
[2024-12-06] VITALS (23 sets, daily range): BP systolic 99–140; BP diastolic 50–85; PULSE 57–123; RESP 12–18; TEMP 36.6–36.9; O2SAT 94–98
[2024-12-06 04:27] LABS: Basophils Percent Auto 0.5 % (0.2-1.2); Eosinophils Absolute Auto 0.1 K/mm3 (0-0.3); Eosinophils Percent Auto 1.6 % (0-4.4); Hematocrit 44.6 % (42.0-52.0); Hemoglobin 15.1 g/dL (14.0-18.0); Immature Granulocyte Absolute 0.03 K/mm3 (0.00-0.031); Immature Granulocyte Percent A 0.4 % (0-0.5); Lymphocytes Absolute Auto 4.14 K/mm3 (0.9-3.2); Lymphocytes Percent Auto 53.6 % (18.3-44.2); Mean Corpuscular HGB Conc 33.9 g/dl (32-36); Mean Corpuscular Hemoglobin 34.6 pg (26-34); Mean Corpuscular Volume 102.1 fl (80-100); Mean Platelet Volume 9.7 fl (7.4-10.4); Monocytes Absolute Auto 0.6 K/mm3 (0.1-0.6); Monocytes Percent Auto 7.8 % (2.6-8.5); Neutrophils Absolute Auto 2.8 K/mm3 (1.3-6.7); Neutrophils Percent Auto 36.1 % (45.5-73.1); Platelet Count Result 168 k/mm3 (150-375); Red Blood Count 4.37 M/mm3 (4.6-6.20); Red Cell Distribution Width 12.6 % (11.5-14.5); White Blood Count 7.7 K/mm3 (4.5-10.0)
[2024-12-06 05:06] LABS: Anion Gap 7 mmol/L (4-12); Blood Urea Nitrogen 17 mg/dL (9-20); Calcium 8.9 mg/dL (8.4-10.2); Carbon Dioxide 20 mmol/L (22-30); Chloride 106 mmol/L (98-107); Estimated CRCL calculation 91 ml/min; Estimated Glomerular Filt Rate > 60; Glucose 94 mg/dL (65-110); Sodium 133 mmol/L (137-145)
--- NOTE | 2024-12-06 08:07 | PM.IMPN ---
Progress Note: A&P Assessment and Plan (1) Atrial fibrillation with RVR: Code(s): I48.91 - Unspecified atrial fibrillation Status: Acute Assessment and Plan: - EKG, initial: sinus rhythm with frequent episodes of atrial tachycardia, rate 138. - EKG, repeat: AFib RVR, rate 131, nonspecific T-wave abnormality. When compared to previous, sinus rhythm no longer present and T-wave abnormality now present. - given 5mg of Metoprolol IV with transient effect. PRN Metoprolol IV. - on Metoprolol ER 50 mg, hold. Start Metoprolol tartrate 37.5 mg PO BID. Monitor response -> has had no improvement. Remains intermittently tachycardic between 100-170. Chest discomfort still present, cardiology consulted. - CHADSVasc: 1 (HTN hx) -> started on Lovenox SQ 40 daily - admit to IMU, telemetry monitoring Patient started on Cardizem drip overnight. Check TSH Cardiology consulted await their recommendations. EKGs are mostly sinus with intermittent paroxysmal of atrial tachycardias. No atrial fibrillation noted (2) Elevated brain natriuretic peptide (BNP) level: Code(s): R79.89 - Other specified abnormal findings of blood chemistry Status: Acute Assessment and Plan: - BNP 1460 - check echo, none on file - hold on initiation of diuretic until echo results, XX on exam - monitor I&Os and daily weights - trend renal function (3) Essential (primary) hypertension: Code(s): I10 - Essential (primary) hypertension Status: Acute Assessment and Plan: - chronic, currently 128/83 - continue home medications: losartan - monitor (4) BEE (obstructive sleep apnea): Code(s): G47.33 - Obstructive sleep apnea (adult) (pediatric) Status: Acute Assessment and Plan: - noncompliant with CPAP Will check ApneaLink Plan His chest pain/abdominal pain will get CT chest abdomen pelvis to further evaluate Diet: heart healthy DVT Prophylaxis: Lovenox SQ Code Status: Full code Subjective Date/time seen: 12/06/24 08:07 Interval history: Chart reviewed. Patient presented with 5 days of malaise headache weakness and dizziness no chest pain or shortness of breath. No swelling of the legs no respiratory symptoms no sick contact. History of atrial fibrillation hypertension. Not on anticoagulation. Found to be tachycardic on the tri is rate of 138 EKG with AFib with RVR. Resolved spontaneously while transitioning him to bed. Laboratory workup showed no leukocytosis or anemia normal platelet count. D-dimer was negative. Chem panel with no electrolyte derangements normal creatinine normal glucose unremarkable LFTs. Serial troponins negative. BNP elevated at 14 60. Chest x-ray with no cardiopulmonary disease. EKG with atrial fibrillation versus atrial tachycardia with rapid response. Reports pain in her left side of the chest and also left side of the abdomen Review of Systems Review of Systems: All systems reviewed & are unremarkable except as noted in HPI and below Exam Narrative: GENERAL: Ill-appearing, not in any acute distress HEAD: [Normocephalic, atraumatic.] EYES: [PERRLA and EOMI.] ENT: Nares clear, no rhinorrhea or epistaxis. Mucous membranes moist. NECK: Supple. CHEST: [Clear to auscultation. No respiratory distress.] HEART: Irregular rate and rhythm. No murmur heard. [Normal peripheral pulses.] ABDOMEN: [Soft, nondistended], mild tenderness left lower quadrant, [No rigidity or guarding] EXTREMITIES: Normal range of motion. [No edema.] SKIN: Warm, dry, no rash. NEURO: [No focal deficits]. Alert and oriented [x3.] PSYCH: [Normal mood and affect.] Objective Data Vital Signs Vital Signs: Vital Signs - 24 hr 12/05/24 11:49 12/05/24 12:41 12/05/24 14:12 Temperature 98.2 F Pulse Rate 102 H 87 112 H Respiratory Rate 19 16 Blood Pressure 140/71 111/80 Pulse Oximetry 98 98 Oxygen Delivery Room Air 12/05/24 14:17 12/05/24 15:49 12/05/24 15:52 Temperature 97.8 F Pulse Rate 81 88 88 Respiratory Rate 17 18 18 Blood Pressure 128/83 121/78 Pulse Oximetry 97 97 97 Oxygen Delivery Room Air 12/05/24 16:00 12/05/24 16:22 12/05/24 18:00 Temperature Pulse Rate 136 H 135 H 111 H Respiratory Rate Blood Pressure Pulse Oximetry Oxygen Delivery 12/05/24 19:34 12/05/24 20:00 12/05/24 20:15 Temperature 98.2 F Pulse Rate 112 H 117 H Respiratory Rate 16 Blood Pressure 136/64 Pulse Oximetry 98 Oxygen Delivery Room Air 12/05/24 20:45 12/05/24 20:56 12/05/24 21:29 Temperature Pulse Rate 126 H 151 H 106 H Respiratory Rate 18 Blood Pressure Pulse Oximetry Oxygen Delivery 12/05/24 21:35 12/05/24 21:44 12/05/24 22:00 Temperature Pulse Rate 110 H 144 H 113 H Respiratory Rate 18 Blood Pressure 106/64 106/64 Pulse Oximetry Oxygen Delivery 12/05/24 22:00 12/05/24 22:00 12/05/24 23:49 Temperature 98.4 F Pulse Rate 120 H 115 H 109 H Respiratory Rate 17 Blood Pressure 117/68 Pulse Oximetry 97 Oxygen Delivery 12/06/24 00:00 12/06/24 00:00 12/06/24 00:00 Temperature Pulse Rate 109 H 106 H Respiratory Rate Blood Pressure 117/68 Pulse Oximetry Oxygen Delivery Room Air 12/06/24 02:00 12/06/24 02:07 12/06/24 03:48 Temperature 98.0 F Pulse Rate 114 H 114 H 114 H Respiratory Rate 17 Blood Pressure 115/85 115/85 Pulse Oximetry 94 Oxygen Delivery 12/06/24 03:49 12/06/24 04:00 12/06/24 04:00 Temperature 98.0 F Pulse Rate 92 92 Respiratory Rate 17 Blood Pressure 105/70 105/70 Pulse Oximetry 94 Oxygen Delivery Room Air 12/06/24 04:00 12/06/24 06:00 12/06/24 06:00 Temperature Pulse Rate 85 72 72 Respiratory Rate Blood Pressure 116/68 Pulse Oximetry Oxygen Delivery 12/06/24 06:12 12/06/24 07:59 Temperature 98.4 F 97.9 F Pulse Rate 72 57 L Respiratory Rate 17 18 Blood Pressure 116/68 99/53 L Pulse Oximetry 95 97 Oxygen Delivery Intake/Output Intake/Output: Intake & Output 12/03/24 12/04/24 12/05/24 12/06/24 23:59 23:59 23:59 23:59 Intake Total 1961.3 40 Output Total 775 Balance 1.3 -735 Meds/Results Medications: Active Medications Generic Name Dose Route Start Last Admin Trade Name Freq PRN Reason Stop Dose Admin Acetaminophen 650 mg 12/05/24 14:34 12/05/24 20:15 Acetaminophen 325 Mg Tablet PO 650 mg Q4H PRN Administration Mild Pain (1-3) or Fever Enoxaparin Sodium 40 mg 12/06/24 09:00 Enoxaparin 40 Mg/0.4 Ml Syringe SUB-Q DAILY GHASSAN Diltiazem HCl 100 mg in 100 mls @ 5 mls/hr 12/05/24 21:35 12/06/24 06:00 Cardizem 100 Mg/100 Ml IV CONT 5 mg/hr .Q20H GHASSAN 5 mls/hr Infusion 5 MG/HR Losartan Potassium 100 mg 12/06/24 09:00 Losartan Potassium 100 Mg Tablet PO DAILY GHASSAN Ondansetron HCl 4 mg 12/05/24 14:34 Ondansetron Inj 4 Mg/2 Ml Vial IV PUSH Q4H PRN Nausea Pantoprazole Sodium 40 mg 12/06/24 09:00 Pantoprazole 40 Mg Tablet PO QAM [facility] Perflutren Lipid Microsphere 0 ml 12/05/24 14:34 Perflutren Lipid Microspheres 1.5 Ml Vial Diluted To 10 Ml Total Volume IV PUSH 12/08/24 14:35 ONCE PRN adequate visualization Protocol Radiology Results: ITS Impressions Chest X-Ray 12/05/24 12:34 IMPRESSION: No acute cardiopulmonary pathology. Labs Labs: Laboratory Results - last 24 hr 12/05/24 12/05/24 12/05/24 11:57 12:27 14:48 WBC 7.6 RBC 4.70 Hgb 16.4 Hct 47.1 MCV 100.2 H MCH 34.9 H MCHC 34.8 RDW 12.5 Plt Count 206 MPV 9.7 Immature Gran % (Auto) 0.4 Neut % (Auto) 46.0 Lymph % (Auto) 42.6 [facility] % (Auto) 8.5 Eos % (Auto) 2.0 Baso % (Auto) 0.5 Lymph # (Auto) 3.[address] [facility] # (Auto) 0.6 Eos # (Auto) 0.2 Baso # (Auto) 0.0 Abs Immat Gran (auto) 0.03 Absolute Neuts (auto) 3.5 Absolute Nucleated RBC 0.000 Nucleated RBC % 0.0 D-Dimer 0.37 Sodium 136 L Potassium 4.6 Chloride 107 Carbon Dioxide 21 L Anion Gap 8 BUN 14 Creatinine 0.89 Estim Creat Clear Calc 99 Estimated GFR > 60 Glucose 110 Calcium 9.2 Total Bilirubin 0.7 AST 51 ALT 60 H Alkaline Phosphatase 70 Troponin I < 0.012 < 0.012 NT-Pro-B Natriuret Pep 1460 H Total Protein 7.4 Albumin 4.2 Influenza A (RT-PCR) Negative Influenza B (RT-PCR) Negative RSV (RT-PCR) Negative SARS-CoV-2 RNA (RT-PCR) Negative 12/06/24 04:08 WBC 7.7 RBC 4.37 L Hgb 15.1 Hct 44.6 MCV 102.1 H MCH 34.6 H MCHC 33.9 RDW 12.6 Plt Count 168 MPV 9.7 Immature Gran % (Auto) 0.4 Neut % (Auto) 36.1 L Lymph % (Auto) 53.[address] [facility] % (Auto) 7.8 Eos % (Auto) 1.6 Baso % (Auto) 0.5 Lymph # (Auto) 4.[address] [facility] # (Auto) 0.6 Eos # (Auto) 0.1 Baso # (Auto) 0.0 Abs Immat Gran (auto) 0.03 Absolute Neuts (auto) 2.8 Absolute Nucleated RBC 0.000 Nucleated RBC % 0.0 D-Dimer Sodium 133 L Potassium 4.0 Chloride 106 Carbon Dioxide 20 L Anion Gap 7 BUN 17 Creatinine 0.97 Estim Creat Clear Calc 91 Estimated GFR > 60 Glucose 94 Calcium 8.9 Total Bilirubin AST ALT Alkaline Phosphatase Troponin I NT-Pro-B Natriuret Pep Total Protein Albumin Influenza A (RT-PCR) Influenza B (RT-PCR) RSV (RT-PCR) SARS-CoV-2 RNA (RT-PCR)
--- NOTE | 2024-12-06 08:20 | PM.CNCAR ---
Assessment and Plan Assessment and plan (1) Atrial paroxysmal tachycardia: Code(s): I47.19 - Other supraventricular tachycardia Status: Acute Assessment and Plan: Sinus rhythm with frequent atrial tachycardia/SVT. No evidence of atrial fibrillation or flutter on EKG or telemetry Will discontinue diltiazem and resume home dose of metoprolol Give one dose metoprolol tartrate 25mg now Echo reviewed and unremarkable 30 day tele monitor upon discharge (2) Dyslipidemia: Code(s): E78.5 - Hyperlipidemia, unspecified Status: Acute Assessment and Plan: Continue Vascepa. Recommend FLP as outpatient as well. (3) Essential (primary) hypertension: Code(s): I10 - Essential (primary) hypertension Status: Acute Assessment and Plan: At goal. History of Present Illness History of Present Illness Consult date/time: 12/06/24 08:20 Requesting physician: Chantell Sin APRN Consult reason: atrial fibrillation Reason For Visit: Afib RVR Narrative: Pa Galeas is a 54-year-old male with hypertension, hyperlipidemia, neuropathy, and reported history of atrial fibrillation previously on flecainide although none of his available EKGs demonstrate this arrhythmia. He comes to the hospital because of having headache for 5 days. Cardiology is consulted for atrial fibrillation/atrial tachycardia. His EKG and telemetry demonstrates sinus rhythm with frequent paroxysms of atrial tachycardia. He is asymptomatic. He has been placed on a diltiazem drip, but continues to have frequent atrial tachycardia. At the time of my evaluation he is lying comfortably in bed and does any active complaints. He states that his headache has improved. Review of Systems Review of Systems: All systems reviewed & are unremarkable except as noted in HPI and below PMFSH Past Medical History Medical History Atrial fibrillation GERD without esophagitis Lumbar spondylosis Post laminectomy syndrome Dyslipidemia Vitamin D deficiency BEE (obstructive sleep apnea) Essential (primary) hypertension Restless legs syndrome (RLS) Erectile dysfunction Peripheral neuropathy Arthritis, lumbar spine Chronic back pain Surgical History Surgical History History of carpal tunnel surgery (~08/2023) Right Perirectal cyst 2018 - Excision Hx of tonsillectomy (~1973) Previous back surgery (~2013) Lumbar spine surgeries - 2013, 2017, 2019 Family History Family History Father History of blood clots Mother Hypertension Social History Social History Smoking packs per day: 0.5 Smoking cigarettes per day: 10.0 Years smoked: 33 Smoking pack-years: 16.50 Smoking status: Current every day smoker Tobacco type: cigarettes Second hand tobacco smoke exposure: Yes Alcohol intake: current Drinks per week: 14 Alcohol use details: 6 beers/day Substance use: current Substance use type: marijuana Other substance usage details: still smokes marijuana occasionally Last use: 2000 Do You Feel Safe in your Home?: Yes Lack of Transportation: No Lack of Food: Never True Current Housing: I Have Housing Concerned About Future Housing: No Difficulty Paying Gas/Electric Bills: No Difficulty Paying for Meds: No Currently Unemployed: No Education: Associate Degree Difficulty w/ Childcare or Family Care: No Living arrangements: with family Gender identity (if verbalized by the patient): Male Spiritual care concerns: No Meds Home Medications and Allergies Home Medications ?Medication ?Instructions ?Recorded ?Confirmed ?Type losartan 100 mg tablet 100 mg PO DAILY 05/04/23 12/05/24 History icosapent ethyl 1 gram capsule 2 g PO BID 05/05/24 12/05/24 History (Vascepa) metoprolol succinate 50 mg 50 mg PO DAILY 05/05/24 12/05/24 History tablet,extended release 24 hr omeprazole 20 mg capsule,delayed 20 mg PO DAILY 09/12/24 12/05/24 History release Allergies Allergy/AdvReac Type Severity Reaction Status Date / Time No Known Allergies Allergy Verified 12/05/24 15:20 Vital Signs Vital Signs - 24 hr 12/05/24 11:49 12/05/24 12:41 12/05/24 14:12 Temperature 36.8 C Pulse Rate 102 H 87 112 H Respiratory Rate 19 16 Blood Pressure 140/71 111/80 Pulse Oximetry 98 98 Oxygen Delivery Room Air 12/05/24 14:17 12/05/24 15:49 12/05/24 15:52 Temperature 36.6 C Pulse Rate 81 88 88 Respiratory Rate 17 18 18 Blood Pressure 128/83 121/78 Pulse Oximetry 97 97 97 Oxygen Delivery Room Air 12/05/24 16:00 12/05/24 16:22 12/05/24 18:00 Temperature Pulse Rate 136 H 135 H 111 H Respiratory Rate Blood Pressure Pulse Oximetry Oxygen Delivery 12/05/24 19:34 12/05/24 20:00 12/05/24 20:15 Temperature 36.8 C Pulse Rate 112 H 117 H Respiratory Rate 16 Blood Pressure 136/64 Pulse Oximetry 98 Oxygen Delivery Room Air 12/05/24 20:45 12/05/24 20:56 12/05/24 21:29 Temperature Pulse Rate 126 H 151 H 106 H Respiratory Rate 18 Blood Pressure Pulse Oximetry Oxygen Delivery 12/05/24 21:35 12/05/24 21:44 12/05/24 22:00 Temperature Pulse Rate 110 H 144 H 113 H Respiratory Rate 18 Blood Pressure 106/64 106/64 Pulse Oximetry Oxygen Delivery 12/05/24 22:00 12/05/24 22:00 12/05/24 23:49 Temperature 36.9 C Pulse Rate 120 H 115 H 109 H Respiratory Rate 17 Blood Pressure 117/68 Pulse Oximetry 97 Oxygen Delivery 12/06/24 00:00 12/06/24 00:00 12/06/24 00:00 Temperature Pulse Rate 109 H 106 H Respiratory Rate Blood Pressure 117/68 Pulse Oximetry Oxygen Delivery Room Air 12/06/24 02:00 12/06/24 02:07 12/06/24 03:48 Temperature 36.7 C Pulse Rate 114 H 114 H 114 H Respiratory Rate 17 Blood Pressure 115/85 115/85 Pulse Oximetry 94 Oxygen Delivery 12/06/24 03:49 12/06/24 04:00 12/06/24 04:00 Temperature 36.7 C Pulse Rate 92 92 Respiratory Rate 17 Blood Pressure 105/70 105/70 Pulse Oximetry 94 Oxygen Delivery Room Air 12/06/24 04:00 12/06/24 06:00 12/06/24 06:00 Temperature Pulse Rate 85 72 72 Respiratory Rate Blood Pressure 116/68 Pulse Oximetry Oxygen Delivery 12/06/24 06:12 12/06/24 07:59 Temperature 36.9 C 36.6 C Pulse Rate 72 57 L Respiratory Rate 17 18 Blood Pressure 116/68 99/53 L Pulse Oximetry 95 97 Oxygen Delivery Exam Const: General: comfortable, no acute distress, alert and awake Orientation/consciousness: patient oriented x3 HENMT: Head: normal to inspection Eyes: General: appearance normal, both eyes and all related structures Pupils: Equal, round and reactive pupils present Neck: Neck: normal visual inspection, supple and no JVD Carotids: normal carotid upstroke Resp: Effort & Inspection: normal respiratory effort Auscultation: clear to auscultation bilaterally Cardio: Rate: regular rate and tachycardic Rhythm: abnormal rhythm Heart sounds: S1 normal heart sound present, S2 normal heart sound present and no murmurs GI: Auscultation: normal bowel sounds Skin: General skin exam: normal color Neuro: General: patient oriented x3 Cranial nerves: Yes Equal, round and reactive pupils present Extrem: General: normal to inspection Psych: Appearance: grossly normal Mental Status: mental status grossly normal Results Labs and Meds 12/06/24 04:08 12/06/24 04:08 Lab results: Cardiac Enzymes 12/05/24 12/05/24 Range/Units 11:57 14:48 AST 51 (17-59) U/L Troponin I < 0.012 < 0.012 (0.000-0.034) ng/mL CBC 12/05/24 12/06/24 Range/Units 11:57 04:08 WBC 7.6 7.7 (4.5-10.0) K/mm3 RBC 4.70 4.37 L (4.6-6.20) M/mm3 Hgb 16.4 15.1 (14.0-18.0) g/dL Hct 47.1 44.6 (42.0-52.0) % Plt Count 206 168 (150-375) k/mm3 Lymph # (Auto) 3.22 H 4.14 H (0.9-3.2) K/mm3 [place] # (Auto) 0.6 0.6 (0.1-0.6) K/mm3 Eos # (Auto) 0.2 0.1 (0-0.3) K/mm3 Baso # (Auto) 0.0 0.0 (0.0-0.1) K/mm3 Comprehensive Metabolic Panel 12/05/24 12/06/24 Range/Units 11:57 04:08 Sodium 136 L 133 L (137-145) mmol/L Potassium 4.6 4.0 (3.4-5.0) mmol/L Chloride 107 106 (98-107) mmol/L Carbon Dioxide 21 L 20 L (22-30) mmol/L BUN 14 17 (9-20) mg/dL Creatinine 0.89 0.97 (0.7-1.3) mg/dL Glucose 110 94 (65-110) mg/dL Calcium 9.2 8.9 (8.4-10.2) mg/dL AST 51 (17-59) U/L ALT 60 H (6-50) U/L Alkaline Phosphatase 70 (38-126) U/L Total Protein 7.4 (6.3-8.2) g/dL Albumin 4.2 (3.5-5.1) g/dL Intake and Output 12/05/24 12/06/24 12/06/24 23:59 07:59 15:59 Intake Total 961.3 40 Output Total 775 Balance 961.3 -735 Intake: IV 1.3 40 dilTIAZem 100 MG/100 ML 100 mg 1.3 40 In 100 ml @ 5 MG/HR 5 mls/hr IV CONT .Q20H COUNTS INCLUDE 234 BEDS AT THE [facility] Rx#:[id number] Oral 960 Output: Urine 775 Other: # Unmeasured Voids 3 Number of Bowel Movements Today 1 Patient Weight 12/06/24 23:59 Weight 104.4 kg
[2024-12-06] MEDS: ENOXAPARIN 40 MG/0.4 ML SYRINGE SUB-Q (08:52)
[2024-12-06] MEDS: PANTOPRAZOLE 40 MG TABLET PO (08:54)
[2024-12-06 09:24] LABS: Magnesium 1.9 mg/dL (1.6-2.3)
[2024-12-06] MEDS: METOPROLOL TARTRATE 25 MG TABLET PO (11:48)
[2024-12-06 15:37] LABS: Total Triiodothyronine (T3) 1.12 NG/ML (0.82-1.58)
--- NOTE | 2024-12-06 16:25 | ECHO_ITS ---
Patient Info Name: Pa Galeas Age: 54 years : 1970 Gender: Male Ht: 71 in Wt: 218 lbs BSA: 2.25 m2 HR: 72 bpm BP: 116 / 68 mmHg Technical Quality: Good Exam Date: 12/06/2024 7:25 AM Patient Status: I Admit Date: 12/06/2024 Exam Type: CA echo doppler color flow Complete two-dimensional, color flow and Doppler transthoracic echocardiogram is performed. Staff Referring Physician: Yoandy Avila Sap Bods Developer: Melida Alonzo Attending Provider: Ekta Herrera Summary 1. Complete two-dimensional, color flow and Doppler transthoracic echocardiogram is performed. 2. Left ventricular chamber dimension is normal. 3. Left ventricular systolic function is normal, estimated at 60-65. 4. The left ventricular diastolic function is normal. 5. E/e' 8 is minimally elevated. 6. Left atrial chamber dimension is mildly enlarged. 7. There is mild mitral valve regurgitation. 8. There is mild tricuspid valve regurgitation. 9. No pulmonary hypertension, estimated pulmonary arterial systolic pressure is 35 mmHg. Left Ventricle E/e' 8 is minimally elevated. Left ventricular chamber dimension is normal. Left ventricular systolic function is normal, estimated at 60-65. The left ventricular diastolic function is normal. Right Ventricle Right ventricular chamber dimension is normal. Right ventricular systolic function is normal. Left Atria Left atrial chamber dimension is mildly enlarged. Right Atria Right atrial chamber dimension is normal. Aortic Valve The aortic valve is trileaflet. There is no aortic valve stenosis. There is no aortic valve regurgitation. Pulmonic Valve There is no pulmonic regurgitation. Mitral Valve There is no mitral valve stenosis. There is mild mitral valve regurgitation. Tricuspid Valve There is mild tricuspid valve regurgitation. No pulmonary hypertension, estimated pulmonary arterial systolic pressure is 35 mmHg. Pericardium/Pleural There is no pericardial effusion. Inferior Vena Cava Normal inferior vena cava with >50% collapse upon inspiration consistent with normal right atrial pressure, 5 mmHg. Aorta The aortic root size at the sinus of Valsalva is normal. Left Ventricular Outflow Tract Name Value Normal LVOT 2D LVOT Diameter 1.9 cm LVOT Doppler LVOT Peak Velocity 140 cm/s LVOT Peak Gradient 4 mmHg LVOT Mean Gradient 2 mmHg LVOT VTI 30 cm LVOT VTI/AV VTI Ratio 0.8 LVOT Stroke Volume 82 ml LVOT CO 3.0 l/min LVOT CI 1.4 l/min/m2 Pulmonic Valve Name Value Normal PV Doppler PV Peak Velocity 108 cm/s PV Peak Gradient 5 mmHg Mitral Valve Name Value Normal MV Regurgitation Doppler MR Peak Gradient 63 mmHg MV Diastolic Function MV E Peak Velocity 92 cm/s MV A Peak Velocity 69 cm/s MV E/A 1.3 MV Decel Time (PW) 194 ms MV Annular TDI MV E/e' (Septal) 7.8 MV E/e' (Lateral) 8.3 MV E/e' (Average) 8.0 Tricuspid Valve Name Value Normal TV Regurgitation Doppler TR Peak Velocity 273 cm/s TR Peak Gradient 25 mmHg Estimated PAP/RSVP RA Pressure 5 mmHg <=5 PA Systolic Pressure 35 mmHg <36 RV Systolic Pressure 35 mmHg <36 TV Annular TDI TV Lateral Idania s' Velocity 14.8 cm/s >=9.5 Aortic Valve Name Value Normal AV Doppler AV Peak Velocity 199 cm/s AV Peak Gradient 16 mmHg AV Mean Gradient 9 mmHg AV VTI 40 cm AV Area (Cont Eq VTI) 2.1 cm2 >=3.0 AV Area (Cont Eq Landon) 1.9 cm2 AV DI (Landon) 0.71 AV Regurgitation 2D LVOT Area 2.7 cm2 Ventricles Name Value Normal LV Dimensions 2D/MM IVS Diastolic Thickness (2D) 1.1 cm 0.6-1.0 LVID Diastole (2D) 4.7 cm 4.2-5.8 LVIW Diastolic Thickness (2D) 1.1 cm 0.6-1.0 LVID Systole (2D) 2.7 cm 2.5-4.0 LVOT Diameter 1.9 cm LV Mass (2D Cubed) 192.97 g 88.00-224.00 LV Mass Index (2D Cubed) 86 g/m2 49-115 Relative Wall Thickness (2D) 0.48 <=0.42 LV Fractional Shortening/Ejection Fraction 2D/MM LV Fractional Shortening (2D) 43 % 25-43 LV EF (2D Teichholz) 74 % LV Diastolic Volume (4C MOD) 110 ml LV EF (4C MOD) 68 % LV Diastolic Volume (2C MOD) 80 ml LV EF (2C MOD) 53 % LV Diastolic Volume (BP MOD) 88 ml 62-150 LV Diastolic Volume Index (BP MOD) 39 ml/m2 34-74 LV Systolic Volume (BP MOD) 31 ml 21-61 LV Systolic Volume Index (BP MOD) 14 ml/m2 11-31 LV EF (BP MOD) 64 % 52-72 LV Diastolic Length (4C) 9.1 cm LV Systolic Length (4C) 6.6 cm LV Stroke Volume (4C MOD) 75 ml Atria Name Value Normal LA Dimensions LA Volume (4C A-L) 68 ml LA Volume (BP A-L) 60 ml RA Dimensions RA Systolic Major [place] Length (4C) 5.0 cm 2.1-2.7 RA Area (4C) 14.1 cm2 <=18.0 Report Signatures
[2024-12-06] MEDS: FLUTICASONE PROPIONATE 0.05% NA SPR 16 GM BTL (*BKC) 1 SPRAY NASAL ×2 (16:49→20:27)
[2024-12-06] MEDS: ACETAMINOPHEN 325 MG TABLET 650 MG PO (23:28)
[2024-12-07] VITALS (10 sets, daily range): BP systolic 113–143; BP diastolic 64–99; PULSE 73–120; RESP 16–20; TEMP 36.8; O2SAT 97–98
[2024-12-07] MEDS: KETOROLAC 15 MG/ML VIAL (*BKC) IV PUSH (04:27)
[2024-12-07 05:06] LABS: Glucose Point of Care 102 mg/dl (65-105)
--- NOTE | 2024-12-07 06:45 | PC.NURSE ---
Patient went into non-sustained V-tach with HR in the 240s. Upon entering the room patient was asleep and awakened, but asymptomatic. Vagal maneuvers initiated and HR dropped to 108. Stephen CORTEZ notified at 0648 and orders received for STAT labs and a STAT EKG.
--- NOTE | 2024-12-07 06:48 | ECG_ITS ---
Test Date: 2024-12-07 06:52:40 Measurements Intervals [place] Rate: 136 P: 0 MO: 0 QRS: -14 QRSD: 78 T: 7 QT: 281 QTc: 423 Interpretive Statements SINUS RHYTHM WITH FREQUENT EPISODES OF ATRIAL TACHYCARDIA BASELINE ARTIFACT- I, II, III, AVR, AVL, AVF ABNORMAL ECG Compared to ECG 12/05/2024 15:05:36 NO SIGNIFICANT CHANGE Electronically Signed On 12-07-2024 07:03:45 CDT by Adolfo Dos Santos D.O.
[2024-12-07 07:14] LABS: Basophils Absolute Auto 0.1 K/mm3 (0.0-0.1); Basophils Percent Auto 0.6 % (0.2-1.2); Hematocrit 45.5 % (42.0-52.0); Hemoglobin 15.6 g/dL (14.0-18.0); Immature Granulocyte Absolute 0.02 K/mm3 (0.00-0.031); Immature Granulocyte Percent A 0.2 % (0-0.5); Lymphocytes Absolute Auto 3.44 K/mm3 (0.9-3.2); Lymphocytes Percent Auto 40.4 % (18.3-44.2); Mean Corpuscular HGB Conc 34.3 g/dl (32-36); Mean Corpuscular Hemoglobin 34.8 pg (26-34); Mean Corpuscular Volume 101.6 fl (80-100); Mean Platelet Volume 9.8 fl (7.4-10.4); Monocytes Absolute Auto 0.7 K/mm3 (0.1-0.6); Monocytes Percent Auto 7.7 % (2.6-8.5); Neutrophils Absolute Auto 4.4 K/mm3 (1.3-6.7); Neutrophils Percent Auto 51.1 % (45.5-73.1); Platelet Count Result 177 k/mm3 (150-375); Red Blood Count 4.48 M/mm3 (4.6-6.20); Red Cell Distribution Width 12.3 % (11.5-14.5); White Blood Count 8.5 K/mm3 (4.5-10.0)
[2024-12-07] MEDS: MAGNESIUM SULF 2 GM/WATER 50ML 2 GM/50 ML BAG IVPB (07:20)
[2024-12-07 07:39] LABS: Albumin Level 3.8 g/dL (3.5-5.1); Anion Gap 6 mmol/L (4-12); Blood Urea Nitrogen 14 mg/dL (9-20); Calcium 8.8 mg/dL (8.4-10.2); Carbon Dioxide 25 mmol/L (22-30); Chloride 104 mmol/L (98-107); Estimated CRCL calculation 86 ml/min; Estimated Glomerular Filt Rate > 60; Glucose 97 mg/dL (65-110); Magnesium 1.9 mg/dL (1.6-2.3); NT Pro B Type Natriuretic Pept 1870 pg/mL (19.9-100); Phosphorus 4.2 mg/dL (2.5-4.5); Potassium 4.2 mmol/L (3.4-5.0); Sodium 135 mmol/L (137-145); Troponin I < 0.012 ng/mL (0.000-0.034)
--- NOTE | 2024-12-07 08:28 | P.PNIM_ITS ---
Progress Note: A&P Assessment and Plan (1) Atrial fibrillation with RVR: Code(s): I48.91 - Unspecified atrial fibrillation Status: Acute Assessment and Plan: - EKG, initial: sinus rhythm with frequent episodes of atrial tachycardia, rate 138. - EKG, repeat: AFib RVR, rate 131, nonspecific T-wave abnormality. When compared to previous, sinus rhythm no longer present and T-wave abnormality now present. - given 5mg of Metoprolol IV with transient effect. PRN Metoprolol IV. - on Metoprolol ER 50 mg, hold. Start Metoprolol tartrate 37.5 mg PO BID. Monitor response -> has had no improvement. Remains intermittently tachycardic between 100-170. Chest discomfort still present, cardiology consulted. - CHADSVasc: 1 (HTN hx) -> started on Lovenox SQ 40 daily - admit to IMU, telemetry monitoring Patient started on Cardizem drip overnight. TSH normal Cardiology consulted await their recommendations. EKGs are mostly sinus with intermittent paroxysmal of atrial tachycardias. No atrial fibrillation noted Patient started on metoprolol 12/07/2024 episode of extreme tachycardia. Telemetry with narrow complex tachycardia with? aberrant conduction versus artifact Cardiology on board Echo with normal EF at 60-65% no significant valvular abnormality. No pulmonary hypertension. Apnea link with AHI 3 no hypoxia (2) Elevated brain natriuretic peptide (BNP) level: Code(s): R79.89 - Other specified abnormal findings of blood chemistry Status: Acute Assessment and Plan: - BNP 1460 - check echo, none on file - hold on initiation of diuretic until echo results, XX on exam - monitor I&Os and daily weights - trend renal function (3) Essential (primary) hypertension: Code(s): I10 - Essential (primary) hypertension Status: Acute Assessment and Plan: - chronic, currently 128/83 - continue home medications: losartan - monitor Losartan currently on hold due to borderline blood pressure. On metoprolol (4) BEE (obstructive sleep apnea): Code(s): G47.33 - Obstructive sleep apnea (adult) (pediatric) Status: Acute Assessment and Plan: - noncompliant with CPAP Apnea link with AHI of 3 Plan His chest pain/abdominal pain CT chest abdomen pelvis with no abnormal finding. Small hiatal hernia Diet: heart healthy DVT Prophylaxis: Lovenox SQ Code Status: Full code Subjective Date/time seen: 12/07/24 08:28 Interval history: Telemetry reviewed extreme tachycardia in 200 this a.m.. Telemetry reviewed. Intermittent paroxysm of atrial tachycardia persists. He reports he did have any symptoms was in fact sleeping at that time. Vitals are stable. Review of Systems Review of Systems: All systems reviewed & are unremarkable except as noted in HPI and below Exam Narrative: GENERAL: Well-appearing, not in any acute distress HEAD: [Normocephalic, atraumatic.] EYES: [PERRLA and EOMI.] ENT: Nares clear, no rhinorrhea or epistaxis. Mucous membranes moist. NECK: Supple. CHEST: [Clear to auscultation. No respiratory distress.] HEART: Irregular rate and rhythm. No murmur heard. [Normal peripheral pulses.] ABDOMEN: [Soft, nondistended], mild tenderness left lower quadrant, [No rigidity or guarding] EXTREMITIES: Normal range of motion. [No edema.] SKIN: Warm, dry, no rash. NEURO: [No focal deficits]. Alert and oriented [x3.] PSYCH: [Normal mood and affect.] Objective Data Vital Signs Vital Signs: Vital Signs - 24 hr 12/06/24 10:00 12/06/24 10:00 12/06/24 10:09 Temperature Pulse Rate 107 H 107 H 118 H Respiratory Rate Blood Pressure 114/50 L 114/50 L Pulse Oximetry 97 Oxygen Delivery 12/06/24 10:33 12/06/24 11:48 12/06/24 11:49 Temperature Pulse Rate 83 83 Respiratory Rate Blood Pressure 112/79 Pulse Oximetry 97 Oxygen Delivery Room Air 12/06/24 12:00 12/06/24 12:00 12/06/24 12:00 Temperature 97.9 F Pulse Rate 83 123 H 83 Respiratory Rate 12 12 Blood Pressure 112/79 Pulse Oximetry 97 97 Oxygen Delivery Room Air 12/06/24 14:00 12/06/24 16:00 12/06/24 16:00 Temperature Pulse Rate 109 H 101 H Respiratory Rate Blood Pressure Pulse Oximetry Oxygen Delivery Room Air 12/06/24 16:00 12/06/24 18:00 12/06/24 20:00 Temperature 98.0 F 97.8 F Pulse Rate 70 103 H 94 Respiratory Rate 12 17 Blood Pressure 107/72 140/84 Pulse Oximetry 98 97 Oxygen Delivery 12/06/24 20:00 12/06/24 20:00 12/06/24 22:00 Temperature Pulse Rate 102 H 103 H Respiratory Rate Blood Pressure Pulse Oximetry Oxygen Delivery Room Air 12/06/24 23:15 12/06/24 23:37 12/07/24 00:00 Temperature 98.4 F Pulse Rate 74 68 Respiratory Rate 16 18 Blood Pressure 135/85 Pulse Oximetry 96 97 Oxygen Delivery Room Air Room Air 12/07/24 00:00 12/07/24 02:00 12/07/24 04:00 Temperature 98.2 F Pulse Rate 119 H 93 88 Respiratory Rate 17 Blood Pressure 113/64 Pulse Oximetry 97 Oxygen Delivery 12/07/24 04:00 12/07/24 04:00 12/07/24 06:00 Temperature Pulse Rate 100 108 H Respiratory Rate Blood Pressure Pulse Oximetry Oxygen Delivery Room Air 12/07/24 07:50 Temperature 98.2 F Pulse Rate 74 Respiratory Rate 16 Blood Pressure 124/85 Pulse Oximetry 97 Oxygen Delivery Intake/Output Intake/Output: Intake & Output 12/04/24 12/05/24 12/06/24 12/07/24 23:59 23:59 23:59 23:59 Intake Total 1961.3 1650 786 Output Total 1475 350 Balance 1961.3 175 436 Meds/Results Medications: Active Medications Generic Name Dose Route Start Last Admin Trade Name Freq PRN Reason Stop Dose Admin Acetaminophen 650 mg 12/05/24 14:34 12/06/24 23:28 Acetaminophen 325 Mg Tablet PO 650 mg Q4H PRN Administration Mild Pain (1-3) or Fever Enoxaparin Sodium 40 mg 12/06/24 09:00 12/06/24 08:52 Enoxaparin 40 Mg/0.4 Ml Syringe SUB-Q 40 mg DAILY GHASSAN Administration Fluticasone Propionate 1 spray 12/06/24 15:00 12/06/24 20:27 Fluticasone Propionate 0.05% Na Spr 16 Gm Btl (*Bkc) NASAL 1 spray Q12HR GHASSAN Administration Magnesium Sulfate 2 gm in 50 mls @ 25 mls/hr 12/07/24 06:50 12/07/24 07:20 Magnesium Sulf 2 Gm/Water 50ml IVPB 12/07/24 08:49 25 mls/hr ONCE STA Administration Losartan Potassium 100 mg 12/06/24 09:00 Losartan Potassium 100 Mg Tablet PO DAILY GHASSAN Metoprolol Succinate 50 mg 12/07/24 09:00 Metoprolol Succinate Ext Rel 50 Mg Tabcr PO QAM GHASSAN Ondansetron HCl 4 mg 12/05/24 14:34 Ondansetron Inj 4 Mg/2 Ml Vial IV PUSH Q4H PRN Nausea Pantoprazole Sodium 40 mg 12/06/24 09:00 12/06/24 08:54 Pantoprazole 40 Mg Tablet PO 40 mg QAM GHASSAN Administration Perflutren Lipid Microsphere 0 ml 12/05/24 14:34 Perflutren Lipid Microspheres 1.5 Ml Vial Diluted To 10 Ml Total Volume IV PUSH 12/08/24 14:35 ONCE PRN adequate visualization Protocol Radiology Results: ITS Impressions Chest X-Ray 12/05/24 12:34 IMPRESSION: No acute cardiopulmonary pathology. Chest/Abdomen/Pelvis CT 12/06/24 15:32 IMPRESSION: Hepatomegaly. No acute pathology within the chest, abdomen or pelvis, as detailed above. Labs Labs: Laboratory Results - last 24 hr 12/06/24 12/07/24 12/07/24 04:04 04:30 06:52 WBC 8.5 RBC 4.48 L Hgb 15.6 Hct 45.5 MCV 101.6 H MCH 34.8 H MCHC 34.3 RDW 12.3 Plt Count 177 MPV 9.8 Immature Gran % (Auto) 0.2 Neut % (Auto) 51.1 Lymph % (Auto) 40.4 [place] % (Auto) 7.7 Eos % (Auto) 0.0 Baso % (Auto) 0.6 Lymph # (Auto) 3.44 H [place] # (Auto) 0.7 H Eos # (Auto) 0.0 Baso # (Auto) 0.1 Abs Immat Gran (auto) 0.02 Absolute Neuts (auto) 4.4 Absolute Nucleated RBC 0.000 Nucleated RBC % 0.0 Sodium 135 L Potassium 4.2 Chloride 104 Carbon Dioxide 25 Anion Gap 6 BUN 14 Creatinine 1.03 Estim Creat Clear Calc 86 Estimated GFR > 60 Glucose 97 POC Capillary Glucose 102 Calcium 8.8 Phosphorus 4.2 Magnesium 1.9 1.9 Troponin I < 0.012 NT-Pro-B Natriuret Pep 1870 H Albumin 3.8 TSH (Reflex) 4.080 Free T4 1.20 Total T3 1.12
[2024-12-07] MEDS: ENOXAPARIN 40 MG/0.4 ML SYRINGE SUB-Q (08:30)
[2024-12-07] MEDS: PANTOPRAZOLE 40 MG TABLET PO (08:30)
[2024-12-07] MEDS: METOPROLOL SUCCINATE EXT REL 50 MG TABCR PO ×2 (08:30→10:42)
--- NOTE | 2024-12-07 09:02 | P.PNCA_ITS ---
Progress Note: A&P Assessment and Plan (1) Atrial paroxysmal tachycardia: Code(s): I47.19 - Other supraventricular tachycardia Status: Acute Assessment and Plan: Sinus rhythm with frequent atrial tachycardia/SVT. * No evidence of atrial fibrillation or flutter on EKG or telemetry * Continue Metoprolol, will increase to 100mg once daily. * Echo reviewed and unremarkable * 30 day tele monitor upon discharge (order for this already placed) (2) Essential (primary) hypertension: Code(s): I10 - Essential (primary) hypertension Status: Acute Assessment and Plan: Continue Losartan. Continue Metoprolol. Plan Okay for discharge from a cardiac standpoint. Will arrange follow up in the office. Recommendations and plan discussed with Hospitalist. Subjective Date/time seen: 12/07/24 09:02 Interval history: Reason for visit: Paroxysmal atrial tachycardia HPI: Pa Galeas is a 54-year-old male with hypertension, hyperlipidemia, neuropathy, and reported history of atrial fibrillation previously on flecainide although none of his available EKGs demonstrate this arrhythmia. He comes to the hospital because of having headache for 5 days. Cardiology is consulted for atrial fibrillation/atrial tachycardia. His EKG and telemetry demonstrates sinus rhythm with frequent paroxysms of atrial tachycardia. He is asymptomatic. He has been placed on a diltiazem drip, but continues to have frequent atrial tachycardia. At the time of my evaluation he is lying comfortably in bed and does any active complaints. He states that his headache has improved. Date of service 12/07: Paroxysmal atrial tach noted on tele overnight. Patient denies any palpitations. Review of Systems Cardiovascular: Cardiovascular: Reports as per HPI Exam Const: General: no acute distress HENMT: Mouth: Yes moist mucous membranes Eyes: General: appearance normal, both eyes and all related structures Sclera: sclerae normal Resp: Effort & Inspection: normal respiratory effort Cardio: Rate: regular rate Rhythm: regular rhythm and abnormal rhythm with ectopic beats Skin: General skin exam: normal color Neuro: Speech: normal speech Psych: Mental Status: mental status grossly normal Affect: normal affect Objective Data Vital Signs Vital Signs: Vital Signs - 24 hr 12/06/24 10:00 12/06/24 10:00 12/06/24 10:09 Temperature Pulse Rate 107 H 107 H 118 H Respiratory Rate Blood Pressure 114/50 L 114/50 L Pulse Oximetry 97 Oxygen Delivery 12/06/24 10:33 12/06/24 11:48 12/06/24 11:49 Temperature Pulse Rate 83 83 Respiratory Rate Blood Pressure 112/79 Pulse Oximetry 97 Oxygen Delivery Room Air 12/06/24 12:00 12/06/24 12:00 12/06/24 12:00 Temperature 36.6 C Pulse Rate 83 123 H 83 Respiratory Rate 12 12 Blood Pressure 112/79 Pulse Oximetry 97 97 Oxygen Delivery Room Air 12/06/24 14:00 12/06/24 16:00 12/06/24 16:00 Temperature Pulse Rate 109 H 101 H Respiratory Rate Blood Pressure Pulse Oximetry Oxygen Delivery Room Air 12/06/24 16:00 12/06/24 18:00 12/06/24 20:00 Temperature 36.7 C 36.6 C Pulse Rate 70 103 H 94 Respiratory Rate 12 17 Blood Pressure 107/72 140/84 Pulse Oximetry 98 97 Oxygen Delivery 12/06/24 20:00 12/06/24 20:00 12/06/24 22:00 Temperature Pulse Rate 102 H 103 H Respiratory Rate Blood Pressure Pulse Oximetry Oxygen Delivery Room Air 12/06/24 23:15 12/06/24 23:37 12/07/24 00:00 Temperature 36.9 C Pulse Rate 74 68 Respiratory Rate 16 18 Blood Pressure 135/85 Pulse Oximetry 96 97 Oxygen Delivery Room Air Room Air 12/07/24 00:00 12/07/24 02:00 12/07/24 04:00 Temperature 36.8 C Pulse Rate 119 H 93 88 Respiratory Rate 17 Blood Pressure 113/64 Pulse Oximetry 97 Oxygen Delivery 12/07/24 04:00 12/07/24 04:00 12/07/24 06:00 Temperature Pulse Rate 100 108 H Respiratory Rate Blood Pressure Pulse Oximetry Oxygen Delivery Room Air 12/07/24 07:50 12/07/24 08:30 Temperature 36.8 C Pulse Rate 74 108 H Respiratory Rate 16 Blood Pressure 124/85 Pulse Oximetry 97 Oxygen Delivery Intake/Output Intake/Output: Intake & Output 12/04/24 12/05/24 12/06/24 12/07/24 23:59 23:59 23:59 23:59 Intake Total 1960.3 1650 786 Output Total 1475 350 Balance 1960.3 175 436 Meds/Results Medications: Active Medications Generic Name Dose Route Start Last Admin Trade Name Freq PRN Reason Stop Dose Admin Acetaminophen 650 mg 12/05/24 14:34 12/06/24 23:28 Acetaminophen 325 Mg Tablet PO 650 mg Q4H PRN Administration Mild Pain (1-3) or Fever Enoxaparin Sodium 40 mg 12/06/24 09:00 12/07/24 08:30 Enoxaparin 40 Mg/0.4 Ml Syringe SUB-Q 40 mg DAILY GHASSAN Administration Fluticasone Propionate 1 spray 12/06/24 15:00 12/07/24 08:32 Fluticasone Propionate 0.05% Na Spr 16 Gm Btl (*Bkc) NASAL Not Given Q12HR GHASSAN Losartan Potassium 100 mg 12/06/24 09:00 Losartan Potassium 100 Mg Tablet PO DAILY GHASSAN Metoprolol Succinate 100 mg 12/08/24 09:00 Metoprolol Succinate Ext Rel 50 Mg Tabcr PO QAM GHASSAN Metoprolol Succinate 50 mg 12/07/24 09:01 Metoprolol Succinate Ext Rel 50 Mg Tabcr PO 12/07/24 09:02 ONCE ONE Ondansetron HCl 4 mg 12/05/24 14:34 Ondansetron Inj 4 Mg/2 Ml Vial IV PUSH Q4H PRN Nausea Pantoprazole Sodium 40 mg 12/06/24 09:00 12/07/24 08:30 Pantoprazole 40 Mg Tablet PO 40 mg QAM GHASSAN Administration Perflutren Lipid Microsphere 0 ml 12/05/24 14:34 Perflutren Lipid Microspheres 1.5 Ml Vial Diluted To 10 Ml Total Volume IV PUSH 12/08/24 14:35 ONCE PRN adequate visualization Protocol Radiology Results: ITS Impressions Chest X-Ray 12/05/24 12:34 IMPRESSION: No acute cardiopulmonary pathology. Chest/Abdomen/Pelvis CT 12/06/24 15:32 IMPRESSION: Hepatomegaly. No acute pathology within the chest, abdomen or pelvis, as detailed above. Labs Labs: Laboratory Results - last 24 hr 12/06/24 12/07/24 12/07/24 04:04 04:30 06:52 WBC 8.5 RBC 4.48 L Hgb 15.6 Hct 45.5 MCV 101.6 H MCH 34.8 H MCHC 34.3 RDW 12.3 Plt Count 177 MPV 9.8 Immature Gran % (Auto) 0.2 Neut % (Auto) 51.1 Lymph % (Auto) 40.4 [place] % (Auto) 7.7 Eos % (Auto) 0.0 Baso % (Auto) 0.6 Lymph # (Auto) 3.44 H [place] # (Auto) 0.7 H Eos # (Auto) 0.0 Baso # (Auto) 0.1 Abs Immat Gran (auto) 0.02 Absolute Neuts (auto) 4.4 Absolute Nucleated RBC 0.000 Nucleated RBC % 0.0 Sodium 135 L Potassium 4.2 Chloride 104 Carbon Dioxide 25 Anion Gap 6 BUN 14 Creatinine 1.03 Estim Creat Clear Calc 86 Estimated GFR > 60 Glucose 97 POC Capillary Glucose 102 Calcium 8.8 Phosphorus 4.2 Magnesium 1.9 1.9 Troponin I < 0.012 NT-Pro-B Natriuret Pep 1870 H Albumin 3.8 TSH (Reflex) 4.080 Free T4 1.20 Total T3 1.12
[2024-12-07 10:31] LABS: Troponin I < 0.012 ng/mL (0.000-0.034)
--- NOTE | 2024-12-07 12:02 | P.DS_ITS ---
DS: Admitting Diagnosis Discharge Date 12/07/2024 Admitting Diagnosis chest pain DS: Discharge Diagnosis Discharge Diagnosis (1) Atrial fibrillation with RVR: Code(s): I48.91 - Unspecified atrial fibrillation Status: Deleted (2) Elevated brain natriuretic peptide (BNP) level: Code(s): R79.89 - Other specified abnormal findings of blood chemistry Status: Acute (3) Essential (primary) hypertension: Code(s): I10 - Essential (primary) hypertension Status: Acute (4) BEE (obstructive sleep apnea): Code(s): G47.33 - Obstructive sleep apnea (adult) (pediatric) Status: Acute DS: Summary Hospital Course Hospital Course: # atrial tachycardia: - EKG, initial: sinus rhythm with frequent episodes of atrial tachycardia, rate 138. - EKG, repeat: AFib RVR, rate 131, nonspecific T-wave abnormality. When compared to previous, sinus rhythm no longer present and T-wave abnormality now present. - given 5mg of Metoprolol IV with transient effect. PRN Metoprolol IV. - on Metoprolol ER 50 mg, hold. Start Metoprolol tartrate 37.5 mg PO BID. Monitor response -> has had no improvement. Remains intermittently tachycardic between 100-170. Chest discomfort still present, cardiology consulted. - CHADSVasc: 1 (HTN hx) -> started on Lovenox SQ 40 daily - admit to IMU, telemetry monitoring Patient started on Cardizem drip overnight. TSH normal Cardiology consulted. event montior at [facility]. started on metoprolo.. fu as op basis. asymptomatic with PACs EKGs are mostly sinus with intermittent paroxysmal of atrial tachycardias. No atrial fibrillation noted Patient started on metoprolol 12/07/2024 episode of extreme tachycardia. Telemetry with narrow complex tachycardia with? aberrant conduction versus artifact Cardiology on board Echo with normal EF at 60-65% no significant valvular abnormality. No pulmonary hypertension. Apnea link with AHI 3 no hypoxia # Elevated brain natriuretic peptide (BNP) level: - BNP 1460 - check echo, none on file - hold on initiation of diuretic until echo results, XX on exam - monitor I&Os and daily weights - trend renal function # Essential (primary) hypertension: - chronic - continue home medications: losartan - monitor Losartan currently on hold due to borderline blood pressure. On metoprolol # BEE (obstructive sleep apnea): - noncompliant with CPAP Apnea link with AHI of 3 # chest pain/abdominal pain CT chest abdomen pelvis with no abnormal finding. # Small hiatal hernia # Diet: heart healthy # DVT Prophylaxis: Lovenox SQ # Code Status: Full code Time Spent with Patient Time attestation: Total time spent providing and/or coordinating discharge services: 35 mins Exam Narrative: GENERAL: Well-appearing, not in any acute distress HEAD: [Normocephalic, atraumatic.] EYES: [PERRLA and EOMI.] ENT: Nares clear, no rhinorrhea or epistaxis. Mucous membranes moist. NECK: Supple. CHEST: [Clear to auscultation. No respiratory distress.] HEART: Irregular rate and rhythm. No murmur heard. [Normal peripheral pulses.] ABDOMEN: [Soft, nondistended], mild tenderness left lower quadrant, [No rigidity or guarding] EXTREMITIES: Normal range of motion. [No edema.] SKIN: Warm, dry, no rash. NEURO: [No focal deficits]. Alert and oriented [x3.] PSYCH: [Normal mood and affect.] DS: Data Data Completed and Pending Completed studies during hospitalization: Exam Type: CA echo doppler color flow Complete two-dimensional, color flow and Doppler transthoracic echocardiogram is performed. Staff Referring Physician: Yoandy Avila Orange Grower: Melida Alonzo Attending Provider: Ekta Herrera Summary 1. Complete two-dimensional, color flow and Doppler transthoracic echocardiogram is performed. 2. Left ventricular chamber dimension is normal. 3. Left ventricular systolic function is normal, estimated at 60-65. 4. The left ventricular diastolic function is normal. 5. E/e' 8 is minimally elevated. 6. Left atrial chamber dimension is mildly enlarged. 7. There is mild mitral valve regurgitation. 8. There is mild tricuspid valve regurgitation. 9. No pulmonary hypertension, estimated pulmonary arterial systolic pressure is 35 mmHg. Left Ventricle E/e' 8 is minimally elevated. Left ventricular chamber dimension is normal. Left ventricular systolic function is normal, estimated at 60-65. The left ventricular diastolic function is normal. Right Ventricle Right ventricular chamber dimension is normal. Right ventricular systolic function is normal. Left Atria Left atrial chamber dimension is mildly enlarged. Right Atria Right atrial chamber dimension is normal. Aortic Valve The aortic valve is trileaflet. There is no aortic valve stenosis. There is no aortic valve regurgitation. Pulmonic Valve There is no pulmonic regurgitation. Mitral Valve There is no mitral valve stenosis. There is mild mitral valve regurgitation. Tricuspid Valve There is mild tricuspid valve regurgitation. No pulmonary hypertension, estimated pulmonary arterial systolic pressure is 35 mmHg. Pericardium/Pleural There is no pericardial effusion. Inferior Vena Cava Normal inferior vena cava with >50% collapse upon inspiration consistent with normal right atrial pressure, 5 mmHg. Aorta The aortic root size at the sinus of Valsalva is normal. Labs on day of discharge: Labs from last 24 hours 12/07/24 12/07/24 12/07/24 10:05 06:52 04:30 WBC 8.5 RBC 4.48 L Hgb 15.6 Hct 45.5 MCV 101.6 H MCH 34.8 H MCHC 34.3 RDW 12.3 Plt Count 177 MPV 9.8 Immature Gran % (Auto) 0.2 Neut % (Auto) 51.1 Lymph % (Auto) 40.4 Bulloch % (Auto) 7.7 Eos % (Auto) 0.0 Baso % (Auto) 0.6 Lymph # (Auto) 3.44 H Bulloch # (Auto) 0.7 H Eos # (Auto) 0.0 Baso # (Auto) 0.1 Abs Immat Gran (auto) 0.02 Absolute Neuts (auto) 4.4 Absolute Nucleated RBC 0.000 Nucleated RBC % 0.0 Sodium 135 L Potassium 4.2 Chloride 104 Carbon Dioxide 25 Anion Gap 6 BUN 14 Creatinine 1.03 Estim Creat Clear Calc 86 Estimated GFR > 60 Glucose 97 POC Capillary Glucose 102 Calcium 8.8 Phosphorus 4.2 Magnesium 1.9 Troponin I < 0.012 < 0.012 NT-Pro-B Natriuret Pep 1870 H Albumin 3.8 TSH (Reflex) Free T4 Total T3 12/06/24 04:04 WBC RBC Hgb Hct MCV MCH MCHC RDW Plt Count MPV Immature Gran % (Auto) Neut % (Auto) Lymph % (Auto) Bulloch % (Auto) Eos % (Auto) Baso % (Auto) Lymph # (Auto) Bulloch # (Auto) Eos # (Auto) Baso # (Auto) Abs Immat Gran (auto) Absolute Neuts (auto) Absolute Nucleated RBC Nucleated RBC % Sodium Potassium Chloride Carbon Dioxide Anion Gap BUN Creatinine Estim Creat Clear Calc Estimated GFR Glucose POC Capillary Glucose Calcium Phosphorus Magnesium Troponin I NT-Pro-B Natriuret Pep Albumin TSH (Reflex) 4.080 Free T4 1.20 Total T3 1.12 Imaging Radiologist's impression: ITS Impressions Chest X-Ray 12/05/24 12:34 IMPRESSION: No acute cardiopulmonary pathology. Chest/Abdomen/Pelvis CT 12/06/24 15:32 IMPRESSION: Hepatomegaly. No acute pathology within the chest, abdomen or pelvis, as detailed above. Discharge Plan Discharge Attending physician on discharge: Thierry Stover Consulting providers: Lexy Taylor Discharging Clinician: Thierry Stover Anticipated Discharge Date/Time: 12/07/24 12:08 Patient Disposition: Home Activity: as tolerated Diet: heart healthy Patient Instructions: Antibiotic Form Patient Language: Cymraes Stand Alone Forms: General Discharge Information Follow-up/Referrals: Lexy Taylor, NUCLEAR POWER REACTOR OPERATOR-C [Advanced Practice Nurse] - 2 Weeks Chase Levin MD [Primary Care Provider] - 1 Week Discharge Medications: New fluticasone propionate 50 mcg/actuation [place],Suspension 1 spray intranasal Q12HR Qty: 30 0RF metoprolol succinate 50 mg Tablet Extended Release 24 Hr 100 mg PO QAM Qty: 60 0RF Continued losartan 100 mg tablet 100 mg PO DAILY icosapent ethyl [Vascepa] 1 gram capsule 2 g PO BID omeprazole 20 mg capsule,delayed release(DR/EC) 20 mg PO DAILY Discontinued metoprolol succinate 50 mg tablet extended release 24 hr 50 mg PO DAILY Other Ambulatory Orders: CA cardiac event monitor (Routine) Timeframe: 1 Month Location: [facility] [place] Cardiology Ordered By: Lexy Taylor Date of admission: 12/06/24 10:52 Primary Care Provider: Chase Levin Admitting Provider: Ekta Herrera Attending physician on admission: Ekta Herrera Condition: Stable
== END 2024-12-07 13:00 | disposition home or self-care (01) | DRG 310 ==
LOC: ANHED 12:18 → ANHIMU 14:56
PROVIDERS: Emergency Medicine; Nurse Practitioner; Student in an Organized Health Care Education/Training Program; Admitting Provider Internal Medicine; Emergency Provider Student in an Organized Health Care Education/Training Program; PCP Family Medicine; Visit Provider Internal Medicine
DX: I47.19 Other supraventricular tachycardia (principal); I48.20 Chronic atrial fibrillation, unspecified; I10 Essential (primary) hypertension; E78.5 Hyperlipidemia, unspecified; E55.9 Vitamin D deficiency, unspecified; K21.9 Gastro-esophageal reflux disease without esophagitis; K44.9 Diaphragmatic hernia without obstruction or gangrene; R79.89 Other specified abnormal findings of blood chemistry; M47.816 Spondylosis without myelopathy or radiculopathy, lumbar region; M96.1 Postlaminectomy syndrome, not elsewhere classified; G25.81 Restless legs syndrome; G62.9 Polyneuropathy, unspecified; G47.33 Obstructive sleep apnea (adult) (pediatric); F17.210 Nicotine dependence, cigarettes, uncomplicated
CPT/HCPCS: 36415; 71046; 71260; 74177; 80048; 80053; 80069; 82948; 83735; 83880; 84439; 84443; 84480; 84484; 85025; 85380; 87637; 93005; 93306; 94640; 94762; 96361; 96365; 96366; 96372; 96374; 96375; 96376; 99285; A9270; G0378; J1200; J1650; J1885; J3475; J7120; Q9967

== ENCOUNTER 2024-12-08 04:44 | Emergency (ER) | payer MEDICARE, MEDICAID, SELFPAY ==
--- NOTE | ~2024-12-08 | CT_ITS ---
CT of the Abdomen and Pelvis: Indication: Abdominal pain Technique: 2.5 mm axial scans were obtained through the abdomen and pelvis following intravenous adm inistration of 100 cc of Omnipaque 350. Dose reduction technique was used on this scan by utilizing a utomated exposure control and iterative reconstruction technique. The dose-length product (DLP) was 8 85.44 mGy-cm. COMPARISON: 12/06/2024 Findings: Scans through the lung bases are unremarkable. Diffuse hepatic steatosis noted. The spleen, pancreas, gallbladder, adrenals and kidneys are within n ormal limits. No evidence of aortic aneurysm. No lymphadenopathy. No bowel obstruction or bowel wall thickening. There is no evidence to suggest acute appendicitis. Images through the pelvis were performed. Urinary bladder unremarkable. No pelvic mass seen. No ascit es. Impression: No acute abnormality. Diffuse hepatic steatosis. Reviewed, dictated and finalized at [facility]. Impression: No acute abnormality. Diffuse hepatic steatosis.
--- OUTSIDE RECORDS SUMMARY | 2024-12-08 04:46 | XMS_ITS | Referral Summary ---
Author Organization [facility] Address [address] [place] [address] Care Team Providers Care Tennis Court Attendant Name Role Phone Brendon Ramirez MD Unavailable [phone] Sania eLvin MD Primary Care Provider Encounters Date Type Department Care Team Description 12/07/2024 1:10 PM CDT Ancillary Procedure [facility] Cardiology [address] [place] [address] Cardiac arrhythmia, unspecified cardiac arrhythmia type from Last 3 Months Allergies No known active allergies Medications pantoprazole [...] (07/13/2019): Added automatically from request for surgery [id number] Perirectal abscess 06/17/2019 Alcohol use 06/17/2019 Pseudarthrosis after fusion or arthrodesis 09/14 Overview (09/14/2018): Added automatically from request for surgery [id number] Assessment & Plan (03/20/2020 10:31 AM CDT): Assessment Healed fusion L5-S1 Plan Released with permanent restrictions as outlined in the functional capabilities report that I filled out. His permanent weight limit is 20 lb and could do no bending twisting stooping or awkward positions Assessment & Plan (07/27/2019 9:38 AM GRILL CHEF): Assessment Healed L5-S1 fusion with ongoing bilateral lower extremity symptoms in light of normal electrical studies and no impingement on the CT scan Plan Physical therapy 2 times per week return in 6 weeks for lumbar spine x-ray in to assess his progress. I have told him that there is nothing else surgically to offer him Assessment & Plan (05/03/2019 9:26 AM GRILL CHEF): Assessment Healing fusion L5-S1 with ongoing symptoms [...] (09/14/2018): Added automatically from request for surgery [id number] Assessment & Plan (12/15/2018 12:04 PM CDT): [...] (03/01/2018): Added automatically from request for surgery [id number] Assessment & Plan (07/22/2018 12:17 PM GRILL CHEF): Assessment Healing fusion L5-S1 with some increased leg pain compared to the recent visit Plan Observation I added Neurontin at HS talked about do's no 6 cues and from work and he is to return for x-ray in 6 weeks Intervertebral disc disorder s with radiculopathy, lumbosacral region 03/01/2018 Overview (03/01/2018): Added automatically from request for surgery [id number] Assessment & Plan (09/04/2021 11:31 AM CDT): [...] (03/01/2018): Added automatically from request for surgery [id number] Assessment & Plan (06/10/2018 12:05 PM GRILL CHEF): Assessment Healing fusion L5-S1 Plan I talked [...] on file Legal Sex Male 4:43 AM GRILL CHEF Gender Identity Not on file Sexual Orientation Not on file Last Filed Vital Signs Vital Sign Reading Time Taken Comments Blood Pressure 130/91 05/22/2021 11:08 AM GRILL CHEF Pulse 87 05/22/2021 11:08 AM GRILL CHEF Temperature 36.5 C (97.7 F) 08/03/2019 8:42 AM GRILL CHEF Respiratory Rate 18 05/22/2021 11:0 8 AM GRILL CHEF Oxygen Saturation 97% 11/21/2020 2:27 PM CDT Inhaled Oxygen Concentration - - Weight 95.2 kg (209 lb 12.8 oz) 021 11:08 AM GRILL CHEF Height 180.3 cm (5' 11) 05/22/2021 11: 08 AM GRILL CHEF Body Mass Index 29.26 05/22/2021 11:08 AM GRILL CHEF Plan of Treatment Not on file Medical Devices Implanted Type Area Director Of Nuclear Medicine Device Identifier Shelf Expiration Date Model / Serial / Lot [employer] [id number] Inqu Paste Mix Plus Master Plumber 10cc Bone Graft Hyaluronic Acid Poly - [id number] Implanted:Qty: 1 on 03/16/2018 by Ronaldo Toledo MD at [facility] N/A: Lumbar-Sa cral Spine [employer] 11/25/2018 [id number] / / [id number] Screw 7.0mm X 40mm Streamline Tl Pedicle - [id number] Implanted:Qty: 4 on 03/16/2018 by Ronaldo Toledo MD at [facility] N/A: Lumbar-Sa cral Spine [employer] PA-70-40 / / Description:Polyaxial screw Screw Set Streamline Tl Screw System - [id number] Implanted:Qty: 4 on 03/16/2018 by Ronaldo Toledo MD at [facility] N/A: Lumbar-Sa cral Spine [employer] CREW / / [employer] Inc Pr35 Quantum 5.5mm 35mm Prebent Michele Spinal Titanium - [id number] Implanted:Qty: 2 on 03/16/2018 by Ronaldo Toledo MD at [facility] N/A: Lumbar-Sa cral Spine [employer] -ME-35 / / Description:Prebent michele Medtronic Sofamor Danek [id number] Infuse 20ga 2x1in Vial Absorbable Syringe Needle Medium Graft 5.6 - [id number] Implanted:Qty: 1 on 10/06/2018 by Ronaldo Toledo MD at [facility] N/A: Lumbar-Sa cral Spine Medtronic Sofamor Danek 04/21/2019 [id number] / / [id number] [employer] 34-K11-05-0 Contact Option [id number] Insertion Hole Back Cut Teeth - [id number] Implanted:Qty: 1 on 10/06/2018 by Ronaldo Toledo MD at [facility] N/A: Lumbar-Sa cral Spine [employer] 06/04/2021 34-D15-02-0 / / [id number] [employer] 25-Sp-36 36mm Spine Sacral Anterior Plate Bone Nonsterile - [id number] Implanted:Qty: 1 on 10/06/2018 by Ronaldo Toledo MD at [facility] N/A: Lumbar-Sa cral Spine [employer] 25-SP-36 / / [employer] 24 6mm 24mm Spine Lumbar Screw Bone Nonsterile - [id number] Implanted:Qty: 4 on 10/06/2018 by Ronaldo Toledo MD at [facility] N/A: Lumbar-Sa cral Spine [employer] 24 / / Insurance [facility] MEDICARE ADVANTAGE [facility] MEDICARE ADVANTAGE Advance Directives For more information, please contact: [phone] * Full Code (Latest Code Status on File) Date Activated Date Inactivated Comments 06/17/2019 9:18 PM 06/19/2019 6:47 PM * Full Code Date Activated Date Inactivated Comments 10/06/2018 5:48 PM 10/07/2018 5:18 PM * Full Code Date Activated Date Inactivated Comments 03/16/2018 6:28 PM 03/18/2018 4:03 PM Care Teams Tennis Court Attendant Relationship Specialty Start Date End Date Sania Levin MD [facility] [address] [address] PCP - General Family Practice 11/09/24 Brendon Ramirez MD Consulting Physician Colon and Rectal Surgery 08/03/19
--- OUTSIDE RECORDS SUMMARY | 2024-12-08 04:46 | XMS_ITS | Clinical Summary ---
Author Organization [facility] Address [address] [place] [address] Care Team Providers Care Generation Manager Name Role Phone Brendon Ramirez MD Unavailable [phone] Sania Levin MD Primary Care Provider Allergies [...] (07/13/2019): Added automatically from request for surgery [id number] Perirectal abscess 06/17/2019 Alcohol use 06/17/2019 Pseudarthrosis after fusion or arthrodesis 09/14 Overview (09/14/2018): Added automatically from request for surgery [id number] Assessment & Plan (03/20/2020 10:31 AM CDT): Assessment Healed fusion L5-S1 Plan Released with permanent restrictions as outlined in the functional capabilities report that I filled out. His permanent weight limit is 20 lb and could do no bending twisting stooping or awkward positions Assessment & Plan (07/27/2019 9:38 AM SENIOR SUSTAINABILITY ADVISOR): Assessment Healed L5-S1 fusion with ongoing bilateral lower extremity symptoms in light of normal electrical studies and no impingement on the CT scan Plan Physical therapy 2 times per week return in 6 weeks for lumbar spine x-ray in to assess his progress. I have told him that there is nothing else surgically to offer him Assessment & Plan (05/03/2019 9:26 AM SENIOR SUSTAINABILITY ADVISOR): Assessment Healing fusion L5-S1 with ongoing symptoms [...] (09/14/2018): Added automatically from request for surgery [id number] Assessment & Plan (12/15/2018 12:04 PM CDT): [...] (03/01/2018): Added automatically from request for surgery [id number] Assessment & Plan (07/22/2018 12:17 PM SENIOR SUSTAINABILITY ADVISOR): Assessment Healing fusion L5-S1 with some increased leg pain compared to the recent visit Plan Observation I added Neurontin at HS talked about do's no 6 cues and from work and he is to return for x-ray in 6 weeks Intervertebral disc disorder s with radiculopathy, lumbosacral region 03/01/2018 Overview (03/01/2018): Added automatically from request for surgery [id number] Assessment & Plan (09/04/2021 11:31 AM CDT): [...] (03/01/2018): Added automatically from request for surgery [id number] Assessment & Plan (06/10/2018 12:05 PM SENIOR SUSTAINABILITY ADVISOR): Assessment Healing fusion L5-S1 Plan I talked about do's and don'ts he is to continue to exercise on his own return in 6 weeks for an x-ray which time we will likely begin physical therapy. He is to remain off work Encounters Date Type Department Care Team Description 12/07/2024 1:10 PM CDT Ancillary Procedure [facility] Cardiology [address] [place] [address] Cardiac arrhythmia, unspecified cardiac arrhythmia type from Last 3 Months Surgical History Surgery Date Site/Laterality Comments MICRODISCECTOMY [...] on file Legal Sex Male 4:43 AM SENIOR SUSTAINABILITY ADVISOR Gender Identity Not on file Sexual Orientation Not on file Obstetrics History Last Filed Vital Signs Vital Sign Reading Time Taken Comments Blood Pressure 130/91 05/22/2021 11:08 AM SENIOR SUSTAINABILITY ADVISOR Pulse 87 05/22/2021 11:08 AM SENIOR SUSTAINABILITY ADVISOR Temperature 36.5 C (97.7 F) 08/03/2019 8:42 AM SENIOR SUSTAINABILITY ADVISOR Respiratory Rate 18 05/22/2021 11:0 8 AM SENIOR SUSTAINABILITY ADVISOR Oxygen Saturation 97% 11/21/2020 2: 27 PM CDT Inhaled Oxygen Concentration - - Weight 95.2 kg (209 lb 12.8 oz) 021 11:08 AM SENIOR SUSTAINABILITY ADVISOR Height 180.3 cm (5' 11) 05/22/2021 11: 08 AM SENIOR SUSTAINABILITY ADVISOR Body Mass Index 29.26 05/22/2021 11:08 AM SENIOR SUSTAINABILITY ADVISOR Plan of Treatment Health Maintenance Due Date [...] Ended) 2025 Medical Devices Implanted Type Area Tank Truck Loader Device Identifier Shelf Expiration Date Model / Serial / Lot [employer] [id number] Inqu Paste Mix Plus Drug And Alcohol Treatment Specialist 10cc Bone Graft Hyaluronic Acid Poly - [id number] Implanted:Qty: 1 on 03/16/2018 by Ronaldo Toledo MD at [facility] N/A: Lumbar-Sa cral Spine [employer] 11/25/2018 [id number] / / [id number] Screw 7.0mm X 40mm Streamline Tl Pedicle - [id number] Implanted:Qty: 4 on 03/16/2018 by Ronaldo Toledo MD at [facility] N/A: Lumbar-Sa cral Spine [employer] Inc -PA-70-40 / / Description:Polyaxial screw Screw Set Streamline Tl Screw System - [id number] Implanted:Qty: 4 on 03/16/2018 by Ronaldo Toledo MD at [facility] N/A: Lumbar-Sa cral Spine [employer] 01-SETSCREW / / [employer] Inc Pr-35 Quantum 5.5mm 35mm Prebent Michele Spinal Titanium - [id number] Implanted:Qty: 2 on 03/16/2018 by Ronaldo Toledo MD at [facility] N/A: Lumbar-Sa cral Spine [employer] Inc IN-35 / / Description:Prebent michele Medtronic Sofamor Danek [id number] Infuse 20ga 2x1in Vial Absorbable Syringe Needle Medium Graft 5.6 - [id number] Implanted:Qty: 1 on 10/06/2018 by Ronaldo Toledo MD at [facility] N/A: Lumbar-Sa cral Spine Medtronic Sofamor Danek 04/21/2019 [id number] / / [id number] [employer] Inc 34-X17-55-9 Contact Option [id number] Insertion Hole Back Cut Teeth - [id number] Implanted:Qty: 1 on 10/06/2018 by Ronaldo Toledo MD at [facility] N/A: Lumbar-Sa cral Spine [employer] 06/04/2021 34-[id number] / / [id number] [employer] 25-Sp-36 36mm Spine Sacral Anterior Plate Bone Nonsterile - [id number] Implanted:Qty: 1 on 10/06/2018 by Ronaldo Toledo MD at [facility] N/A: Lumbar-Sa cral Spine [employer] 25-SP-36 / / R[employer] 25-60-24 6mm 24mm Spine Lumbar Screw Bone Nonsterile - [id number] Implanted:Qty: 4 on 10/06/2018 by Ronaldo Toledo MD at [facility] N/A: Lumbar-Sa cral Spine [employer] 25-60-24 / / Insurance [facility] MEDICARE ADVANTAGE [facility] MEDICARE ADVANTAGE Advance Directives For more information, please contact: [phone] * Full Code (Latest Code Status on File) Date Activated Date Inactivated Comments 06/17/2019 9:18 PM 06/19/2019 6:47 PM * Full Code Date Activated Date Inactivated Comments 10/06/2018 5:48 PM 10/07/2018 5:18 PM * Full Code Date Activated Date Inactivated Comments 03/16/2018 6:28 PM 03/18/2018 4:03 PM Care Teams Generation Manager Relationship Specialty Start Date End Date Sania Levin MD [address] [facility] [address] [address] PCP - General Family Practice 11/09/24 Brendon Ramirez MD Consulting Physician Colon and Rectal Surgery 08/03/19
--- OUTSIDE RECORDS SUMMARY | 2024-12-08 04:46 | XMS_ITS | Encounter Summary ---
Author Organization [facility] Address [address] [place] [address] Care Team Providers Care Discharge Rn Name Role Phone Spenser Crooks MD Primary Care Provider [phone] Encounter Details Date Type Department Care Team (Late st Contact Info) Description 01/07/2017 [facility] Outpatient Visit [facility] [address] [place] [address] [place] [id number] [place], [place] [id number] Social History Tobacco Use Types Packs/Day Years Used Date Smoking Tobacco: Every Day Smokeless Tobacco: Never Alcohol Use Standard Drinks/Week Comments Yes 0 (1 standard drink = 0.6 oz pur e alcohol) Sex and Gender Information Value Date Recorded Sex Assigned at Not on file Legal Sex Male 5:51 AM ROOFING SUBCONTRACTOR Gender Identity Not on file Sexual Orientation Not on file documented as of this encounter Plan of Treatment Not on file documented as of this encounter Visit Diagnoses Not on filedocumented in this encounter Care Teams Discharge Rn Relationship Specialty Start [place] [address] [place] [address] [address] [place] [address] PCP - General Internal Medicine 01/07/17 documented as of this encounter
--- OUTSIDE RECORDS SUMMARY | 2024-12-08 04:46 | XMS_ITS | CONTINUITY OF CARE DOCUMENT ---
Author Name sameer estrella Address Unknown Organization [facility] Address [address] [place] [address] Phone [phone] Care Team Providers Care Industrial Mechanic Name Role Phone Agus MEYERS, Katarzyna Unavailable Spenser Crooks MD Unavailable [phone] Spenser Crooks MD Unavailable [phone] PROBLEMS Condition Status Date Provider Notes Alcohol abuse active Rashel Ahmedzai Venous insufficiency, bilateral active Rashel Ahmedzai Long-term (current) use of other medications active 20 13/12/25 Carlos Floyd RN Vitamin D deficiency- on meds active Carlos odonnell RN Tobacco abuse active Rashel Ahmedzai Syncope active Rashel Ahmedzai SVT / atrial tach, mobap active Rashelnaeem Can ai Hypertension--echo ef nl, 01/2023 active Ri lotus Barlowmedsatrlai Chest pain--stress nuc nl, 04/2023 active Flash Goldsmith MD Sleep apnea--cpap active Rashel Ahmedzai Hyperlipidemia active Rashel Ahmedzai Lower extremity edema active Rashel Ahmedzai Leg ulcer, right active Rashel Ahmedzai Hypertriglyceridemia active Trino Kruse MD ENCOUNTERS Date Type Provider Location Encounter Diag nosis - In-person encounter Office Visit Trino Kruse MD [facility] Hypertriglyceridemia - In-person encounter Office Visit Katarzyna Goldsmith MD [facility] Lower extremity edemaLeg ulcer, right - In-person encounter Office Visit Slava Blanco MD [facility] - In-person encounter Office Visit Katarzyna Goldsmith MD [facility] - In-person encounter Office Visit Katarzyna Goldsmith MD [facility] Chest pain--stress nuc nl, 04/2023 - In-person encounter Office Visit Katarzyna Goldsmith MD [facility] Tobacco abuseSyncopeSVT / atrial tach, mobapHypertension--echo [...] libertad Pratt blood pressure, systolic 132 mm[Hg] [facility] in [facility] respiratory rate E&M 16 /min [facility] pulse rate 85 /min [facility] oxygen saturation, oximetry 97 % [facility] weight E&M 221 [lb_av] [facility] height E&M 71 [in_i] [facility] Body Mass Index (Ratio) 30.82 kg/m2 Francisco J as Raffi blood pressure, diastolic 80 mm[Hg] Li nkLogic blood pressure, systolic 118 mm[Hg] Tasha kLogic blood pressure, diastolic 80 mm[Hg] Ja blood pressure, systolic 118 mm[Hg] [facility] pulse rate 91 /min [facility] y blood pressure, cuff size regular [facility] oxygen saturation, oximetry 97 % [facility] respiratory rate E&M 16 /min [facility] weight E&M 221 [lb_av] [facility] y height E&M 71 [in_i] [facility] y Body Mass Index (Ratio) 30.54 kg/m2 Frank Goldsmith MD blood pressure, diastolic 93 mm[Hg] Ja rret blood pressure, systolic 140 mm[Hg] Jar ret pulse rate 90 /min Isaak y blood pressure, cuff size regular [facility] oxygen saturation, oximetry 98 % [facility] respiratory rate E&M 16 /min Isaak weight E&M 219 [lb_av] [facility] y height E&M 71 [in_i] [facility] Body Mass Index (Ratio) 32.21 kg/m2 Frank Goldsmith MD blood pressure, cuff size regular Ja [facility] blood pressure, diastolic 103 mm[Hg] Ja et blood pressure, systolic 152 mm[Hg] Jacoby delarosa pulse rate 81 /min Isaak respiratory rate E&M 12 /min Isaak oxygen saturation, oximetry 98 % Isaak weight E&M 231 [lb_av] Isaak height E&M 71 [in_i] [facility] Body Mass Index (Ratio) 31.66 kg/m2 Frank Goldsmith MD height E&M 71 [in_i] [facility] blood pressure, cuff size regular [facility] blood pressure, diastolic 127 mm[Hg] [facility] blood pressure, systolic 148 mm[Hg] [facility] oxygen saturation, oximetry 98 % [facility] pulse rate 98 /min [facility] respiratory rate E&M 16 /min Rosa Kohler iller weight E&M 227 [lb_av] [facility] ALLERGIES Allergy Name Onset Date Reaction Criticality [...] 1 tablet by mouth at bedtime - [facility] losartan 100 mg tablet completed Take 1 tablet by mouth once a day - Rashel Manley Vitamin D3 50 mcg (2,000 unit) tablet completed TAKE 1 TABLET BY MOUTH EVERY DAY - Isaak pregabalin 100 mg capsule completed - Rashel Manley omeprazole 20 mg capsule,delayed release(DR/EC) active TAKE 1 CAPSULE BY MOUTH EVERY DAY 30 MINUTES TO 1 HOUR BEFORE A MEAL [facility] flecainide 100 mg tablet completed - [...] Payer name Policy type / Coverage type [place] green party ID AARP MEDICARE ADVANTAGE ([facility] COMPLETE PPO) Other [id number] ADVANCE DIRECTIVES Name Date DISCUSSED - NO DECISION MADE TREATMENT PLAN Date Name Performer [id number],S, Rashel Hinojosa i [id number],S, Rashel Hinojosa i [id number],S, Rashel Hinojosa i [id number],SRashel i [id number],S, Rashel Hinojosa i [id number],S, Rashel Hinojosa i Cardiology:The patie nt is [...] 1 tablet by mouth once a day [facility] Telehealth [facility] Cardiology:This visi t has been a [...] V enous Doppler Bilateral LE - Reflux (CPT-75246) [facility]: O rders: V enous Doppler Bilateral LE - Reflux (CPT-32925) A rterial Duplex Bi-Lower EX (CPT-12005) [facility] Cardiology: H is updated medication list for this problem includes: Vascepa 1 Gram Capsule (Icosapent ethyl) ..... Take 2 capsules by mouth twice a day Orders: L IPID PANEL (7979) [facility]: B P today: 132/90 P rior BP: 118/80 (12/23/2023) His updated medication list for this problem includes: Metoprolol Succinate 100 Mg Tablet Extended Release 24 Hr (Metoprolol succinate) ..... Take 1 tablet by mouth once a day Losartan 100 Mg Tablet (Losartan) ..... Take 1 tablet by mouth once a day [facility] Cardiology: H is updated medication list for this problem includes: Metoprolol Succinate 100 Mg Tablet Extended Release 24 Hr (Metoprolol succinate) ..... Take 1 tablet by mouth once a day [facility] Cardiology:The patie nt is using CPAP on [...] O rders: C OMPREHENSIVE METABOLIC PANEL, W/EGFR (75967) C BC (INCLUDES DIFF/PLT) (6399) L IPID PANEL (7600) M AGNESIUM (622) T SH, free T4, total T3 (7444) V itamin D, 25-Hydroxy (908409) Rashel Manley Cardiology: O rders: C OMPREHENSIVE METABOLIC PANEL, W/EGFR (05459) C BC (INCLUDES DIFF/PLT) (6399) L IPID PANEL (7600) M AGNESIUM (622) T SH, free T4, total T3 (7444) V itamin D, 25-Hydroxy (790265) Rashel Manley Cardiology: O rders: C OMPREHENSIVE METABOLIC PANEL, W/EGFR (22457) C BC (INCLUDES DIFF/PLT) (6399) L IPID PANEL (7600) M AGNESIUM (622) T SH, free T4, total T3 (7444) V itamin D, 25-Hydroxy (564374) Rashel Manley Cardiology:Patient was advised t o stop smoking. Rashel Ahmedzai Cardiology: O rders: C OMPREHENSIVE METABOLIC PANEL, W/EGFR (64123) C BC (INCLUDES DIFF/PLT) (6399) L IPID PANEL (7600) M AGNESIUM (622) T SH, free T4, total T3 (7444) V itamin D, 25-Hydroxy (291059) Rashel Ahmedzai Cardiology: O rders: R PM (remote patient monitoring) (25598) C OMPREHENSIVE METABOLIC PANEL, W/EGFR (75541) C BC (INCLUDES DIFF/PLT) (6399) L IPID PANEL (7600) M AGNESIUM (622) T SH, free T4, total T3 (7444) V itamin D, 25-Hydroxy (217554) H is updated medication list for this [...]
--- OUTSIDE RECORDS SUMMARY | 2024-12-08 04:46 | XMS_ITS | Clinical Summary ---
Author Organization [facility] Address [address] [place]ala: Epic Prelude ADT JUSTICE [place] [address] Care Team Providers Care Oracle Database Developer Name Role Phone Unavailable Primary Care Provider [...]
--- OUTSIDE RECORDS SUMMARY | 2024-12-08 04:47 | XMS_ITS | Encounter Summary ---
Author Organization [facility] Address [address] [place] [address] Care Team Providers Care Sourcing Consultant Name Role Phone Brendon Ramirez MD Unavailable Sania Levin MD Primary Care Provider Reason for Visit * Cardiology (Routine) - Closed Specialty Diagnoses / Procedures Referred By Contac t Referred To Contact Diagnoses Cardiac arrhythmia, unspecified cardiac arrhythmia type Procedures [facility] Mobile Cardiac Telemetry Event Monitor Lexy Taylor NP [address] [address] Phone: tel: fax: [facility] Cardiology [address] [place] [address] Phone: tel: fax: Referral ID Status Reason Start Date Expiration Date Visits Re quested Visits Authorized [id number] Closed 12/07/2024 01/06/2026 1 1 Encounter Details Date Type Department Care Team (Latest Contact Info) Description 12/07/2024 1:10 PM CDT Ancillary Procedure [facility] Cardiology [address] [place] [phone] Cardiac arrhythmia, unspecified cardiac arrhythmia type Social History Tobacco Use Types Packs/Day Years Used Date Smoking Tobacco: Some Days Cigarettes 0.3 20 Cigars Smokeless Tobacco: Never Comments:quit cigarettes / 018- still smokes occasional cigar Alcohol Use Standard Drinks/Week Comments Not Currently 0 (1 standard drink = 0.6 oz pure alcohol) previously 18 cans beer/week - has not drank since 02/2018 PHQ-2 Answer Date Recorded PHQ-2 Score 0 08/27/2018 Sex and Gender Information Value Date Recorded Sex Assigned at Not on file Legal Sex Male 4:43 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 Gender Identity Not on file Sexual Orientation Not on file documented as of this encounter Plan of Treatment Pending Results Name Type Priority Associated Diagnoses Date /Time [facility] Mobile Cardiac Telemetry Event Monitor Cardiac Services Routine Cardiac arrhythmia, unspecified cardiac arrhythmia type 12/07/2024 1:50 PM CDT documented as of this encounter Visit Diagnoses Diagnosis Cardiac arrhythmia, unspecified cardiac arrhythmia type documented in this encounter Care Teams Sourcing Consultant Relationship Specialty Start Date End Date Sania Levin MD [address] [facility] [address] [address] PCP - General Family Practice 11/09/24 Brendon Ramirez MD Consulting Physician Colon and Rectal Surgery 08/03/19 documented as of this encounter
--- OUTSIDE RECORDS SUMMARY | 2024-12-08 04:47 | XMS_ITS | Patient Health Record ---
Author Organization [facility] Address [address] [place] [address] [place] [address] Care Team Providers Care Green Building Energy Engineer Name Role Phone Sania Levin MD Primary [...] (F40.231) Active confirmed Fear of medical treatment (848136286) Problem Unspecified osteoarthritis, unspecified site (M19.90) Active confirmed Osteoarthritis (284425019) Problem Sacroiliitis, not elsewhere classified (M46.1) Active confirmed Solitary sacroiliitis (680363611) Problem Spondylosis without myelopathy or radiculopathy, cervical region (M47.812) Active confirmed Cervical spondylosis without myelopathy (441861158) Problem Spondylosis without myelopathy or radiculopathy, cervicothoracic region (M47.813) Active confirmed Cervical spondylosis without myelopathy (559873308) Problem Spondylosis without myelopathy or radiculopathy, lumbar region (M47.816) Active confirmed Lumbosacral spondylosis without myelopathy (16878390) Problem Spondylosis without myelopathy or radiculopathy, lumbosacral region (M47.817) Active confirmed Lumbosacral spondylosis without myelopathy (disorder) (46109524) Problem Intervertebral disc disorders with radiculopathy, lumbosacral region (M51.17) Active confirmed Lumbosacral radiculopathy (2965555) Problem Radiculopathy, cervical region (M54.12) Active confirmed Cervical radiculopathy (03455973) Problem Radiculopathy, cervicothoracic region (M54.13) Active confirmed Cervical radiculopathy (97547063) Problem Radiculopathy, lumbar region (M54.16) Active confirmed Lumbar radiculopathy (300333930) Problem Radiculopathy, lumbosacral region (M54.17) Active confirmed Lumbosacral radiculopathy (1428662) Problem Cervicalgia (M54.2) Active confirmed Cervicalgia (75999078) Problem Postlaminectomy syndrome, not elsewhere classified (M96.1) Active confirmed Post-lami nectomy syndrome (41616583) Problem Osseous stenosis of neural canal of lumbar region (M99.33) Active confirmed Spinal stenosis of lumbar region (31877655) Problem Other custodial (current) drug therapy (Z79.899) Active confirmed Long-term current use of drug therapy (264434324) PLAN OF TREATMENT Pending Test Test Name Order Date Chem 7 (BUN, Cr, Lytes, Glu) 09/04/2022 MRI : Cervical Spine without Contrast (7 0540) 11/07/2021 MRI : Lumbar Spine with and without Cont rast (90684) 04/16/2022 Insurance Providers Payer Name Payer Address Payer Phone Subscriber Number Group Number Insured Name Patient Relationship to Insured Coverage Start Date Coverage End Date [facility] MEDICARE ADVANTAGE (PPO) [address] [address] [place] [address] [phone] [id number] BRENDEN DUNHAM Self - patient is the insured Medicare [place] [address] [address] [place] [address] [id number] BRENDEN DUNHAM Self - patient is the insured MEDICAL (GENERAL) HISTORY Medical History History ICD Code AFIB Osteoarthritis SVT Hypertension Surgical History Surgery Date(Month/Year) L5-S1 microdisctomy Posterior lumbar fusion at L5-S1 02/2018 ALIF L5-S1 09/2018
--- OUTSIDE RECORDS SUMMARY | 2024-12-08 04:47 | XMS_ITS | Clinical Summary ---
Author Organization [facility] Address [address] [address] Care Team Providers Care Lab Intern Name Role Phone Spenser Crooks MD Primary Care Provider Source Comments [facility],non-owned Affiliates and Associated Physician Practices is amultiple site organization consisting of ambulatory clinics and hospital sitesin [place], [place], [place] and [place]. This disclosure is being madepursuant to the Care Everywhere program and may not contain all information available regarding this patient. 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 Procedure Code(s): --- Professional --- 15438, Colonoscopy, flexible; with removal of tumor(s), polyp(s), or other lesion(s) by hot biopsy forceps --- Technical --- 12677, Colonoscopy, flexible; with removal of tumor(s), polyp(s), or other lesion(s) by hot biopsy forceps Diagnosis Code(s): --- Professional --- Z12.11, Encounter for screening for malignant neoplasm of colon D12.2, Benign neoplasm of ascending colon K64.2, Third degree hemorrhoids --- Technical --- Z12.11, Encounter for screening for malignant neoplasm of colon D12.2, Benign neoplasm of ascending colon K64.2, Third degree hemorrhoids CPT copyright 2015 [employer]. All rights reserved. The codes documented in this report are preliminary and upon crime scene technician review may be revised to meet current compliance requirements. Dr. Hemanth Gimenez MD Hemanth Gimenez MD 01/27/2017 9:04:26 AM This report has been signed electronically. Number of Addenda: 0 Note Initiated On: 01/27/2017 7:27 AM [facility] 01/27/2017 7:27 AM CDT us Hemanth Gimenez MD GI PROCEDURE ORDERABLES Edited Result - Final [facility] [place] [address] from Last 3 Months or Most Recently Relevant to Health Maintenance Insurance [facility] MANAGED MEDICARE [facility] [place] [address] MEDICAID - [place] Member Subscriber Plan / Payer (Ef fective for All Dates) Name:Brenden Dunham Member ID:Not on file Relation to Subscriber:Self Name:Brenden Dunham Subscriber ID:Not on file Payer ID:Not on file Group ID:Not on file Type:Medicaid [place] Address: [place] [id number] [facility] MANAGED MEDICARE ADV Member Subscriber Plan / Payer (Ef fective 2024-Present) Name:Brenden Dunham Relation to Subscriber:Self Name:Brenden Dunham Payer ID:[id number] (NAIC) Type:Medicare-Managed Care Address: [address] [place] [facility] MANAGED MEDICARE ADV Member Subscriber Plan / Payer (Ef fective 2024-Present) Name:Brenden Dunham Relation to Subscriber:Self Name:Brenden Dunham Payer ID:[id number] (NAIC) Type:Medicare-Managed Care Address: [address] [place] Member Subscriber Plan / Payer (Ef fective for All Dates) Name:Brenden Dunham Member ID:Not on file Relation to Subscriber:Self Name:Brenden Dunham Subscriber ID:Not on file Payer ID:Not on file Group ID:Not on file Type:Medicaid [place] Address: [place] [id number] [facility] [place] [address] Care Teams Lab Intern Relationship Specialty Start Date End Date Spenser Crooks MD [address] [facility] [address] [place] [id number] PCP - General Internal Medicine 01/07/17
[2024-12-08 04:48] VITALS: BP 130/89; PULSE 107; RESP 20; TEMP 36.8; O2SAT 98
--- NOTE | 2024-12-08 05:57 | ECG_ITS ---
Test Date: 2024-12-08 06:20:49 Measurements Intervals [place] Rate: 118 P: 0 NM: 0 QRS: 1 QRSD: 84 T: 29 QT: 318 QTc: 446 Interpretive Statements SINUS RHYTHM WITH FREQUENT EPISODES OF ATRIAL TACHYCARDIA NONSPECIFIC ST-T WAVE ABNORMALITY- HIGH LATERAL LEADS BASELINE ARTIFACT- I, II, III, AVR, AVL, AVF ABNORMAL ECG Compared to ECG 12/07/2024 06:52:40 NO SIGNIFICANT CHANGE Electronically Signed On 12-08-2024 07:30:03 CDT by Adolfo Dos Santos D.O.
[2024-12-08 06:20] VITALS: BP 119/72; PULSE 94; RESP 19; TEMP 36.6; O2SAT 96
[2024-12-08 06:47] LABS: Basophils Percent Auto 0.2 % (0.2-1.2); Eosinophils Percent Auto 0.1 % (0-4.4); Hematocrit 44.1 % (42.0-52.0); Hemoglobin 15.3 g/dL (14.0-18.0); Immature Granulocyte Absolute 0.04 K/mm3 (0.00-0.031); Immature Granulocyte Percent A 0.4 % (0-0.5); Lymphocytes Absolute Auto 1.99 K/mm3 (0.9-3.2); Lymphocytes Percent Auto 21.5 % (18.3-44.2); Mean Corpuscular HGB Conc 34.7 g/dl (32-36); Mean Corpuscular Hemoglobin 34.6 pg (26-34); Mean Corpuscular Volume 99.8 fl (80-100); Mean Platelet Volume 9.9 fl (7.4-10.4); Monocytes Absolute Auto 0.6 K/mm3 (0.1-0.6); Monocytes Percent Auto 6.5 % (2.6-8.5); Neutrophils Absolute Auto 6.6 K/mm3 (1.3-6.7); Neutrophils Percent Auto 71.3 % (45.5-73.1); Platelet Count Result 183 k/mm3 (150-375); Red Blood Count 4.42 M/mm3 (4.6-6.20); Red Cell Distribution Width 12.1 % (11.5-14.5); White Blood Count 9.2 K/mm3 (4.5-10.0)
[2024-12-08 06:58] LABS: Alanine Aminotransferase 50 U/L (6-50); Albumin Level 4.2 g/dL (3.5-5.1); Alkaline Phosphatase 78 U/L (38-126); Anion Gap 6 mmol/L (4-12); Aspartate Amino Transferase 45 U/L (17-59); Bilirubin,Total 0.9 mg/dL (0.2-1.3); Blood Urea Nitrogen 11 mg/dL (9-20); Calcium 9.4 mg/dL (8.4-10.2); Carbon Dioxide 23 mmol/L (22-30); Chloride 104 mmol/L (98-107); Estimated CRCL calculation 85 ml/min; Estimated Glomerular Filt Rate > 60; Glucose 124 mg/dL (65-110); Lipase 227 U/L (23-300); Potassium 4.3 mmol/L (3.4-5.0); Sodium 133 mmol/L (137-145); Total Protein 7.5 g/dL (6.3-8.2)
--- NOTE | 2024-12-08 07:08 | ED_ITS ---
HPI - Abdominal Pain General Chief Complaint: Abdominal Pain Stated Complaint: abd pain, vomiting Time Seen by Provider: 12/08/24 07:04 History of Present Illness HPI narrative: Pt just discharged yesterday after admission for a fib with rvr presents with llq abdominal pain since last night with nausea and vomiting. Pt denies urinary symptoms or fever or diarrhea. Related Data Home Medications ?Medication ?Instructions ?Recorded ?Confirmed ?Last Taken ?Type losartan 100 mg tablet 100 mg PO DAILY 05/04/23 12/05/24 09/01/23 History icosapent ethyl 1 gram capsule 2 g PO BID 05/05/24 12/05/24 Unknown History (Vascepa) omeprazole 20 mg capsule,delayed 20 mg PO DAILY 09/12/24 12/05/24 Unknown History release Allergies Allergy/AdvReac Type Severity Reaction Status Date / Time No Known Allergies Allergy Verified 12/08/24 04:51 Review of Systems 2 Review of Systems: All systems reviewed & are unremarkable except as noted in HPI and below PMFSH Past Medical History Medical History Atrial fibrillation GERD without esophagitis Lumbar spondylosis Post laminectomy syndrome Dyslipidemia Vitamin D deficiency BEE (obstructive sleep apnea) Essential (primary) hypertension Restless legs syndrome (RLS) Erectile dysfunction Peripheral neuropathy Arthritis, lumbar spine Chronic back pain Surgical History Surgical History History of carpal tunnel surgery (~08/2023) Right Perirectal cyst 2018 - Excision Hx of tonsillectomy (~1973) Previous back surgery (~2013) Lumbar spine surgeries - 2013, 2017, 2018 Family History Family History Father History of blood clots Mother Hypertension Social History Social History Smoking packs per day: 0.5 Smoking cigarettes per day: 10.0 Years smoked: 33 Smoking pack-years: 16.50 Smoking status: Current every day smoker Tobacco type: cigarettes Second hand tobacco smoke exposure: Yes Alcohol intake: current Drinks per week: 14 Alcohol use details: 6 beers/day Substance use: current Substance use type: marijuana Other substance usage details: still smokes marijuana occasionally Last use: 2000 Do You Feel Safe in your Home?: Yes Lack of Transportation: No Lack of Food: Never True Current Housing: I Have Housing Concerned About Future Housing: No Difficulty Paying Gas/Electric Bills: No Difficulty Paying for Meds: No Currently Unemployed: No Education: Associate Degree Difficulty w/ Childcare or Family Care: No Living arrangements: with family Gender identity (if verbalized by the patient): Male Spiritual care concerns: No Exam 2 Const: General: healthy appearing and no acute distress Nutritional Appearance: well nourished Orientation/consciousness: patient oriented x3 Limitations: no limitations Resp: Effort & Inspection: normal respiratory effort Auscultation: clear to auscultation bilaterally Cardio: Rate: regular rate Rhythm: regular rhythm GI: GI Palp: Yes Soft to palpation and Yes Tenderness to palpation present (GI) (llq) Auscultation: normal bowel sounds Back/Spine/Pelvis: Back: no CVA tenderness Skin: General skin exam: normal color Rashes: no rashes Wounds: no wounds Neuro: General: patient oriented x3, moves all extremities, no meningeal signs, no focal motor deficits and CN's II-XI intact bilaterally Speech: n ormal speech Extrem: General: normal to inspection and no clubbing, cyanosis or edema Psych: Mental Status: mental status grossly normal Affect: normal affect Attitude: cooperative Course Vital Signs Vital signs: Vital Signs Temperature 98.2 F 12/08/24 04:48 Pulse Rate 107 H 12/08/24 04:48 Respiratory Rate 20 12/08/24 04:48 Blood Pressure 130/89 12/08/24 04:48 Pulse Oximetry 98 12/08/24 04:48 Oxygen Delivery Room Air 12/08/24 04:48 Temperature 98 F 12/08/24 06:20 Pulse Rate 90 12/08/24 08:41 Respiratory Rate 18 12/08/24 08:41 Blood Pressure 108/68 12/08/24 08:41 Pulse Oximetry 95 12/08/24 08:41 Oxygen Delivery Room Air 12/08/24 06:20 MDM - Abdominal Pain MDM Narrative Medical decision making narrative: Pt presents with llq pain and vomiting. meagan need labs ua and ct. labs and ct neg. Pt feels better after meds. no definite cause for pain. will send home on norco and zofran. Pt instructed to return if pain worsens or persists. Differential Diagnosis Differential diagnosis: Likely abdominal pain, acute appendicitis, calculus of kidney, constipation, diverticulitis, gastroenteritis, small bowel obstruction and other (less likely ischemic bowel with a fib hx) Lab Data 12/08/24 06:37 12/08/24 06:37 Labs: Lab Results 12/08/24 12/08/24 Range/Units 06:37 07:21 WBC 9.2 (4.5-10.0) K/mm3 RBC 4.42 L (4.6-6.20) M/mm3 Hgb 15.3 (14.0-18.0) g/dL Hct 44.1 (42.0-52.0) % MCV 99.8 (80-100) fl MCH 34.6 H (26-34) pg MCHC 34.7 (32-36) g/dl RDW 12.1 (11.5-14.5) % Plt Count 183 (150-375) k/mm3 MPV 9.9 (7.4-10.4) fl Immature Gran % (Auto) 0.4 (0-0.5) % Neut % (Auto) 71.3 (45.5-73.1) % Lymph % (Auto) 21.5 (18.3-44.2) % [place] % (Auto) 6.5 (2.6-8.5) % Eos % (Auto) 0.1 (0-4.4) % Baso % (Auto) 0.2 (0.2-1.2) % Lymph # (Auto) 1.99 (0.9-3.2) K/mm3 [place] # (Auto) 0.6 (0.1-0.6) K/mm3 Eos # (Auto) 0.0 (0-0.3) K/mm3 Baso # (Auto) 0.0 (0.0-0.1) K/mm3 Abs Immat Gran (auto) 0.04 H (0.00-0.031) K/mm3 Absolute Neuts (auto) 6.6 (1.3-6.7) K/mm3 Absolute Nucleated RBC 0.000 (0.0-0.012) K/mm3 Nucleated RBC % 0.0 (0.0-0.2) % Sodium 133 L (137-145) mmol/L Potassium 4.3 (3.4-5.0) mmol/L Chloride 104 (98-107) mmol/L Carbon Dioxide 23 (22-30) mmol/L Anion Gap 6 (4-12) mmol/L BUN 11 (9-20) mg/dL Creatinine 0.92 (0.7-1.3) mg/dL Estim Creat Clear Calc 85 ml/min Estimated GFR > 60 (59 - ) Glucose 124 H (65-110) mg/dL Calcium 9.4 (8.4-10.2) mg/dL Total Bilirubin 0.9 (0.2-1.3) mg/dL AST 45 (17-59) U/L ALT 50 (6-50) U/L Alkaline Phosphatase 78 (38-126) U/L Total Protein 7.5 (6.3-8.2) g/dL Albumin 4.2 (3.5-5.1) g/dL Lipase 227 (23-300) U/L Urine Color Yellow (Yellow) Urine Appearance Clear (Clear) Urine pH 7.0 (5.0-9.0) Ur Specific [place] 1.006 (1.001-1.035) Urine Protein Negative (Negative) mg/dL Urine Glucose (UA) Negative (Negative) mg/dL Urine Ketones Negative (Negative) mg/dL Ur Blood (Man) Negative (Negative) Urine Nitrate Negative (Negative) Urine Bilirubin Negative (Negative) Urine Urobilinogen 0.2 (<2.0) mg/dL Leukocyte Esterase Rfl Negative (Negative) EFREN/UL Imaging Data Radiologist's impression: ITS Impressions Abdomen/Pelvis CT 12/08/24 07:56 Impression: No acute abnormality. Diffuse hepatic steatosis. Discharge Plan Discharge Clinical Impression: Abdominal pain Patient Disposition: Home Condition: Improved Instructions: Antibiotic Form, Abdominal Pain (ED) Patient Language: Turkmen Prescriptions: New hydrocodone-acetaminophen 5-325 mg tablet 1 tablet PO Q6H PRN (Reason: pain) Qty: 10 0RF ondansetron 4 mg tablet,disintegrating 4 mg PO Q8H PRN (Reason: nausea and vomiting) Qty: 14 0RF No Action losartan 100 mg tablet 100 mg PO DAILY icosapent ethyl [Vascepa] 1 gram capsule 2 g PO BID omeprazole 20 mg capsule,delayed release(DR/EC) 20 mg PO DAILY metoprolol succinate 50 mg Tablet Extended Release 24 Hr 100 mg PO QAM Qty: 60 0RF fluticasone propionate 50 mcg/actuation [place],Suspension 1 spray intranasal Q12HR Qty: 30 0RF Follow-up/Referrals: Chase Levin MD [Primary Care Provider] -
[2024-12-08] MEDS: ONDANSETRON INJ 4 MG/2 ML VIAL IV PUSH (07:18)
[2024-12-08] MEDS: HYDROmorphone HCL INJ (*CRX) 2 MG/ML VIAL 0.5 MG IV PUSH (07:18)
[2024-12-08] MEDS: SODIUM CHLORIDE 0.9% IV 1,000 ML 999 ML IV CONT (07:18)
--- OUTSIDE RECORDS SUMMARY | 2024-12-08 07:23 | XMS_ITS | Clinical Summary ---
Author Organization [email or web address] Address [address] [place] [address] Care Team Providers Care Casting Machine Operator Name Role Phone Spenser Crooks MD Primary Care Provider Source Comments [email or web address],non-owned Affiliates and Associated Physician Practices is amultiple site organization consisting of ambulatory clinics and hospital sitesin [place], [place], [place] and [place]. This disclosure is being madepursuant to the Care Everywhere program and may not contain all information available regarding this patient. 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 Procedure Code(s): --- Professional --- 47819, Colonoscopy, flexible; with removal of tumor(s), polyp(s), or other lesion(s) by hot biopsy forceps --- Technical --- 11773, Colonoscopy, flexible; with removal of tumor(s), polyp(s), or other lesion(s) by hot biopsy forceps Diagnosis Code(s): --- Professional --- Z12.11, Encounter for screening for malignant neoplasm of colon D12.2, Benign neoplasm of ascending colon K64.2, Third degree hemorrhoids --- Technical --- Z12.11, Encounter for screening for malignant neoplasm of colon D12.2, Benign neoplasm of ascending colon K64.2, Third degree hemorrhoids CPT copyright 2015 [employer]. All rights reserved. The codes documented in this report are preliminary and upon certified medical records coder review may be revised to meet current compliance requirements. Dr. Hemanth Gimenez MD Hemanth Gimenez MD 01/27/2017 9:04:26 AM This report has been signed electronically. Number of Addenda: 0 Note Initiated On: 01/27/2017 7:27 AM [facility] 01/27/2017 7:27 AM CDT us Hemanth Gimenez MD GI PROCEDURE ORDERABLES Edited Result - Final [facility] [place] [address] from Last 3 Months or Most Recently Relevant to Health Maintenance Insurance [facility] MANAGED MEDICARE [facility] MEDICAID - [place] Member Subscriber Plan / Payer (Ef fective for All Dates) Name:Brenden Dunham Member ID:Not on file Relation to Subscriber:Self Name:Brenden Dunham Subscriber ID:Not on file Payer ID:Not on file Group ID:Not on file Type:Medicaid [place] Address: [place] [id number] [facility] MANAGED MEDICARE ADV Member Subscriber Plan / Payer (Ef fective 2024-Present) Name:Brenden Dunham Relation to Subscriber:Self Name:Brenden Dunham Payer ID:[id number] (NAIC) Type:Medicare-Managed Care Address: [address] MEDICAID - [place] [facility] MANAGED MEDICARE ADV Member Subscriber Plan / Payer (Ef fective 2024-Present) Name:Brenden Dunham Relation to Subscriber:Self Name:Brenden Dunham Payer ID:[id number] (NAIC) Type:Medicare-Managed Care Address: [address] MEDICAID - [place] Member Subscriber Plan / Payer (Ef fective for All Dates) Name:Brenden Dunham Member ID:Not on file Relation to Subscriber:Self Name:Brenden Dunham Subscriber ID:Not on file Payer ID:Not on file Group ID:Not on file Type:Medicaid [place] Address: [place] [id number] [facility] MANAGED MEDICARE ADV Care Teams Casting Machine Operator Relationship Specialty Start Date End Date Spenesr Crooks MD [address] [facility] [address] [place] [id number] PCP - General Internal Medicine 01/07/17
--- OUTSIDE RECORDS SUMMARY | 2024-12-08 07:23 | XMS_ITS | Referral Summary ---
Author Organization [facility] Address [address] [place] [address] Care Team Providers Care Venetian Blind Maker Name Role Phone Brendon Ramirez MD Unavailable [phone] Sania Levin MD Primary Care Provider Encounters Date Type Department Care Team Description 12/07/2024 1:10 PM CDT Ancillary Procedure [facility] Cardiology [address] [place] [address] Cardiac arrhythmia, unspecified cardiac arrhythmia [...] (07/13/2019): Added automatically from request for surgery [id number] Perirectal abscess 06/17/2019 Alcohol use 06/17/2019 Pseudarthrosis after fusion or arthrodesis 09/14 Overview (09/14/2018): Added automatically from request for surgery [id number] Assessment & Plan (03/20/2020 10:31 AM CDT): Assessment Healed fusion L5-S1 Plan Released with permanent restrictions as outlined in the functional capabilities report that I filled out. 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 I have told him that there is nothing else surgically to offer him Assessment & Plan (05/03/2019 9:26 AM PIPE COVERING MOLDER): Assessment Healing fusion L5-S1 with ongoing symptoms [...] (09/14/2018): Added automatically from request for surgery [id number] Assessment & Plan (12/15/2018 12:04 PM CDT): [...] (03/01/2018): Added automatically from request for surgery [id number] Assessment & Plan (07/22/2018 12:17 PM PIPE COVERING MOLDER): Assessment Healing fusion L5-S1 with some increased leg pain compared to the recent visit Plan Observation I added Neurontin at HS talked about do's no 6 cues and from work and he is to return for x-ray in 6 weeks Intervertebral disc disorder s with radiculopathy, lumbosacral region 03/01/2018 Overview (03/01/2018): Added automatically from request for surgery [id number] Assessment & Plan (09/04/2021 11:31 AM CDT): [...] (03/01/2018): Added automatically from request for surgery [id number] Assessment & Plan (06/10/2018 12:05 PM PIPE COVERING MOLDER): Assessment Healing fusion L5-S1 Plan I talked [...] on file Legal Sex Male 4:43 AM PIPE COVERING MOLDER Gender Identity Not on file Sexual Orientation Not on file Last Filed Vital Signs Vital Sign Reading Time Taken Comments Blood Pressure 130/91 05/22/2021 11:08 AM PIPE COVERING MOLDER Pulse 87 05/22/2021 11:08 AM PIPE COVERING MOLDER Temperature 36.5 C (97.7 F) 08/03/2019 8:42 AM PIPE COVERING MOLDER Respiratory Rate 18 05/22/2021 11:0 8 AM PIPE COVERING MOLDER Oxygen Saturation 97% 11/21/2020 2:27 PM CDT Inhaled Oxygen Concentration - - Weight 95.2 kg (209 lb 12.8 oz) 021 11:08 AM PIPE COVERING MOLDER Height 180.3 cm (5' 11) 05/22/2021 11: 08 AM PIPE COVERING MOLDER Body Mass Index 29.26 05/22/2021 11:08 AM PIPE COVERING MOLDER Plan of Treatment Not on file Medical Devices Implanted Type Area Community Resource Officer Device Identifier Shelf Expiration Date Model / Serial / Lot [employer] [id number] Inqu Paste Mix Plus Child Development Consultant 10cc Bone Graft Hyaluronic Acid Poly - [id number] Implanted:Qty: 1 on 03/16/2018 by Ronaldo Toledo MD at [facility] N/A: Lumbar-Sa cral Spine [employer] 11/25/2018 [id number] / / [id number] Screw 7.0mm X 40mm Streamline Tl Pedicle - [id number] Implanted:Qty: 4 on 03/16/2018 by Ronaldo Toledo MD at [facility] N/A: Lumbar-Sa cral Spine [employer] PA-70-40 / / Description:Polyaxial screw Screw Set Streamline Tl Screw System - [id number] Implanted:Qty: 4 on 03/16/2018 by Ronaldo Toledo MD at [facility] N/A: Lumbar-Sa cral Spine [employer] CREW / / [employer] Pr35 Quantum 5.5mm 35mm Prebent Michele Spinal Titanium - [id number] Implanted:Qty: 2 on 03/16/2018 by Ronaldo Toledo MD at [facility] N/A: Lumbar-Sa cral Spine [employer] -AZ-35 / / Description:Prebent michele Medtronic Sofamor Danek [id number] Infuse 20ga 2x1in Vial Absorbable Syringe Needle Medium Graft 5.6 - [id number] Implanted:Qty: 1 on 10/06/2018 by Ronaldo Toledo MD at [facility] N/A: Lumbar-Sa cral Spine Med[employer]onic Sofamor Danek 04/21/2019 [id number] / / [id number] [employer] [id number] Contact Option Vbr [id number] Insertion Hole Back Cut Teeth - [id number] Implanted:Qty: 1 on 10/06/2018 by Ronaldo Toledo MD at [facility] N/A: Lumbar-Sa cral Spine [employer] 06/04/2021 [id number] / / [id number] [employer] 25-Sp-36 36mm Spine Sacral Anterior Plate Bone Nonsterile - [id number] Implanted:Qty: 1 on 10/06/2018 by Ronaldo Toledo MD at [facility] N/A: Lumbar-Sa cral Spine [employer] 25-SP-36 / / [employer] 24 6mm 24mm Spine Lumbar Screw Bone Nonsterile - [id number] Implanted:Qty: 4 on 10/06/2018 by Ronaldo Toledo MD at [facility] N/A: Lumbar-Sa cral Spine [employer] 24 / / Insurance [facility] MEDICARE ADVANTAGE [facility] MEDICARE ADVANTAGE Advance Directives For more information, please contact: [phone] * Full Code (Latest Code Status on File) Date Activated Date Inactivated Comments 06/17/2019 9:18 PM 06/19/2019 6:47 PM * Full Code Date Activated Date Inactivated Comments 10/06/2018 5:48 PM 10/07/2018 5:18 PM * Full Code Date Activated Date Inactivated Comments 03/16/2018 6:28 PM 03/18/2018 4:03 PM Care Teams Venetian Blind Maker Relationship Specialty Start Date End Date Sania Levin MD [facility] [address] [address] PCP - General Family Practice 11/09/24 Brendon Ramirez MD Consulting Physician Colon and Rectal Surgery 08/03/19
--- OUTSIDE RECORDS SUMMARY | 2024-12-08 07:23 | XMS_ITS | Encounter Summary ---
Author Organization [facility] Address [address] [place] [address] Care Team Providers Care General Partner Name Role Phone Brendon Ramirez MD Unavailable [phone] Sania Levin MD Primary Care Provider Reason for Visit * Cardiology (Routine) - Closed Specialty Diagnoses / Procedures Referred By Contac t Referred To Contact Diagnoses Cardiac arrhythmia, unspecified cardiac arrhythmia type Procedures MCT Mobile Cardiac Telemetry Event Monitor Lexy Taylor NP [address] [facility] [address] [address] Phone: tel: fax: [facility] Cardiology [address] [facility] [address] [place] [phone] Phone: tel: fax: Referral ID Status Reason Start Date Expiration Date Visits Re quested Visits Authorized [id number] Closed 12/07/2024 01/06/2026 1 1 Encounter Details Date Type Department Care Team (Latest Contact Info) Description 12/07/2024 1:10 PM CDT Ancillary Procedure [facility] Cardiology [address] [facility] [address] [place] [phone] Cardiac arrhythmia, unspecified cardiac arrhythmia type [...] on file 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
--- OUTSIDE RECORDS SUMMARY | 2024-12-08 07:23 | XMS_ITS | CONTINUITY OF CARE DOCUMENT ---
Author Name sameer estrella Address Unknown Organization [facility] Address [address] [facility] [address] [place] [address] Phone [phone] Care Team Providers Care Commutator Tester Name Role Phone Agus MEYERS, Katarzyna Unavailable [phone] Spenser Crooks MD Unavailable [phone] Spenser Crooks MD Unavailable PROBLEMS Condition Status Date Provider Notes Alcohol [...] In-person encounter Office Visit Trino Kruse MD [facility] Hypertriglyceridemia - In-person encounter Office Visit Katarzyna Goldsmith MD [facility] Lower extremity edemaLeg ulcer, right - In-person encounter Office Visit Slava Blanco MD [facility] - In-person encounter Office Visit Katarzyna Goldsmith MD [facility] - In-person encounter Office Visit Katarzyna Goldsmith MD [facility] Chest pain--stress nuc nl, 04/2023 - In-person encounter Office Visit Katarzyna Goldsmith MD [facility] Tobacco abuseSyncopeSVT / atrial tach, mobapHypertension--echo [...] libertad Pratt blood pressure, systolic 132 mm[Hg] [facility] respiratory rate E&M 16 /min [facility] pulse rate 85 /min [facility] oxygen saturation, oximetry 97 % [facility] weight E&M 221 [lb_av] [facility] height E&M 71 [in_i] [facility] Body Mass Index (Ratio) 30.82 kg/m2 Francisco J as Raffi blood pressure, diastolic 80 mm[Hg] Li nkLogic blood pressure, systolic 118 mm[Hg] Tasha kLogic blood pressure, diastolic 80 mm[Hg] Ja blood pressure, systolic 118 mm[Hg] Jar [facility] pulse rate 91 /min [facility] y blood pressure, cuff size regular [facility] oxygen saturation, oximetry 97 % [facility] respiratory rate E&M 16 /min [facility] weight E&M 221 [lb_av] [facility] y height E&M 71 [in_i] [facility] Body Mass Index (Ratio) 30.54 kg/m2 Frank Goldsmith MD blood pressure, diastolic 93 mm[Hg] Ja rret blood pressure, systolic 140 mm[Hg] Jar ret pulse rate 90 /min Isaak y blood pressure, cuff size regular [facility] oxygen saturation, oximetry 98 % [facility] respiratory rate E&M 16 /min Isaak weight E&M 219 [lb_av] [facility] y height E&M 71 [in_i] [facility] Body Mass Index (Ratio) 32.21 kg/m2 Frank Goldsmith MD blood pressure, cuff size regular Ja [facility] blood pressure, diastolic 103 mm[Hg] Ja et blood pressure, systolic 152 mm[Hg] Jacoby delarosa pulse rate 81 /min Isaak respiratory rate E&M 12 /min Isaak oxygen saturation, oximetry 98 % Isaak weight E&M 231 [lb_av] Isaak height E&M 71 [in_i] [facility] Body Mass Index (Ratio) 31.66 kg/m2 Frank Goldsmith MD height E&M 71 [in_i] [facility] blood pressure, cuff size regular [facility] blood pressure, diastolic 127 mm[Hg] [facility] blood pressure, systolic 148 mm[Hg] [facility] oxygen saturation, oximetry 98 % [facility] pulse rate 98 /min [facility] respiratory rate E&M 16 /min Rosa Kohler iller weight E&M 227 [lb_av] [facility] ALLERGIES Allergy Name Onset Date Reaction [...] 1 tablet by mouth at bedtime - [facility] losartan 100 mg tablet completed Take 1 tablet by mouth once a day - Rashel Manley Vitamin D3 50 mcg (2,000 unit) tablet completed TAKE 1 TABLET BY MOUTH EVERY DAY - Isaak pregabalin 100 mg capsule completed - Rashel Manley omeprazole 20 mg capsule,delayed release(DR/EC) active TAKE 1 CAPSULE BY MOUTH EVERY DAY 30 MINUTES TO 1 HOUR BEFORE A MEAL [facility] flecainide 100 mg tablet completed - [...] Payer name Policy type / Coverage type Doniphan red libertarian ID AARP MEDICARE ADVANTAGE ([facility] COMPLETE PPO) Other [id number] ADVANCE DIRECTIVES Name Date DISCUSSED - NO DECISION MADE TREATMENT PLAN Date Name Performer [id number],S, Rashel Hinojosa i [id number],S, Rashel Hinojosa i [id number],S, Rashel Hinojosa i [id number],SRashel i [id number],S, Rashel Hinojosa i [id number],S, Rashel Hinojosa i Cardiology:The patie nt is [...] 1 tablet by mouth once a day [facility] Telehealth [facility] Cardiology:This visi t has been [...] V enous Doppler Bilateral LE - Reflux (CPT-90952) [facility]: O rders: V enous Doppler Bilateral LE - Reflux (CPT-68819) A rterial Duplex Bi-Lower EX (CPT-26539) [facility] Cardiology: H is updated medication list for this problem includes: Vascepa 1 Gram Capsule (Icosapent ethyl) ..... Take 2 capsules by mouth twice a day Orders: L IPID PANEL (1409) [facility] Card[facility]: B P today: 132/90 P rior BP: 118/80 (12/23/2023) His updated medication list for this problem includes: Metoprolol Succinate 100 Mg Tablet Extended Release 24 Hr (Metoprolol succinate) ..... Take 1 tablet by mouth once a day Losartan 100 Mg Tablet (Losartan) ..... Take 1 tablet by mouth once a day [facility] Cardiology: H is updated medication list for this problem includes: Metoprolol Succinate 100 Mg Tablet Extended Release 24 Hr (Metoprolol succinate) ..... Take 1 tablet by mouth once a day [facility] Cardiology:The patie nt is using CPAP [...] O rders: C OMPREHENSIVE METABOLIC PANEL, W/EGFR (85749) C BC (INCLUDES DIFF/PLT) (6399) L IPID PANEL (7600) M AGNESIUM (622) T SH, free T4, total T3 (7444) V itamin D, 25-Hydroxy (849641) Rashel Manley Cardiology: O rders: C OMPREHENSIVE METABOLIC PANEL, W/EGFR (16140) C BC (INCLUDES DIFF/PLT) (6399) L IPID PANEL (7600) M AGNESIUM (622) T SH, free T4, total T3 (7444) V itamin D, 25-Hydroxy (792793) Rashel Manley Cardiology: O rders: C OMPREHENSIVE METABOLIC PANEL, W/EGFR (36429) C BC (INCLUDES DIFF/PLT) (6399) L IPID PANEL (7600) M AGNESIUM (622) T SH, free T4, total T3 (7444) V itamin D, 25-Hydroxy (381627) Rashel Manley Cardiology:Patient was advised t o stop smoking. Rashel Ahmedzai Cardiology: O rders: C OMPREHENSIVE METABOLIC PANEL, W/EGFR (68983) C BC (INCLUDES DIFF/PLT) (6399) L IPID PANEL (7600) M AGNESIUM (622) T SH, free T4, total T3 (7444) V itamin D, 25-Hydroxy (242689) Rashel Ahmedzai Cardiology: O rders: R PM (remote patient monitoring) (60531) C OMPREHENSIVE METABOLIC PANEL, W/EGFR (87127) C BC (INCLUDES DIFF/PLT) (6399) L IPID PANEL (7600) M AGNESIUM (622) T SH, free T4, total T3 (7444) V itamin D, 25-Hydroxy (421503) H is updated medication list for this [...]
--- OUTSIDE RECORDS SUMMARY | 2024-12-08 07:23 | XMS_ITS | Encounter Summary ---
Author Organization [facility] Address [address] [place] [address] Care Team Providers Care Field Ironworker Name Role Phone Spenser Crooks MD Primary Care Provider [phone] Encounter Details Date Type Department Care Team (Late st Contact Info) Description 01/07/2017 [facility] Outpatient Visit [facility] [address] [place] [address] [place] [id number] [place], [place] [id number] Social History Tobacco Use Types Packs/Day Years Used Date Smoking Tobacco: Every Day Smokeless Tobacco: Never Alcohol Use Standard Drinks/Week Comments Yes 0 (1 standard drink = 0.6 oz pur e alcohol) Sex and Gender Information Value Date Recorded Sex Assigned at Not on file 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
--- OUTSIDE RECORDS SUMMARY | 2024-12-08 07:23 | XMS_ITS | Clinical Summary ---
Author Organization [facility] Address [address] Zavala: Epic Prelude ADT [place]ICE [place] [address] Care Team Providers Care Button Tufting Machine Operator Name Role Phone Unavailable Primary [...]
--- OUTSIDE RECORDS SUMMARY | 2024-12-08 07:23 | XMS_ITS | Clinical Summary ---
Author Organization [facility] Address [address] [place] [address] Care Team Providers Care Distribution Collection Operator Name Role Phone Brendon Ramirez MD Unavailable [phone] Sania Levin MD Primary Care Provider Allergies [...] (07/13/2019): Added automatically from request for surgery [id number] Perirectal abscess 06/17/2019 Alcohol use 06/17/2019 Pseudarthrosis after fusion or arthrodesis 09/14 Overview (09/14/2018): Added automatically from request for surgery [id number] Assessment & Plan (03/20/2020 10:31 AM CDT): Assessment Healed fusion L5-S1 Plan Released with permanent restrictions as outlined in the functional capabilities report that I filled out. His permanent weight limit is 20 lb and could do no bending twisting stooping or awkward positions Assessment & Plan (07/27/2019 9:38 AM AIR EXPORT AGENT): Assessment Healed L5-S1 fusion with ongoing bilateral lower extremity symptoms in light of normal electrical studies and no impingement on the CT scan Plan Physical therapy 2 times per week return in 6 weeks for lumbar spine x-ray in to assess his progress. I have told him that there is nothing else surgically to offer him Assessment & Plan (05/03/2019 9:26 AM AIR EXPORT AGENT): Assessment Healing fusion L5-S1 with ongoing symptoms [...] (09/14/2018): Added automatically from request for surgery [id number] Assessment & Plan (12/15/2018 12:04 PM CDT): [...] (03/01/2018): Added automatically from request for surgery [id number] Assessment & Plan (07/22/2018 12:17 PM AIR EXPORT AGENT): Assessment Healing fusion L5-S1 with some increased leg pain compared to the recent visit Plan Observation I added Neurontin at HS talked about do's no 6 cues and from work and he is to return for x-ray in 6 weeks Intervertebral disc disorder s with radiculopathy, lumbosacral region 03/01/2018 Overview (03/01/2018): Added automatically from request for surgery [id number] Assessment & Plan (09/04/2021 11:31 AM CDT): [...] (03/01/2018): Added automatically from request for surgery [id number] Assessment & Plan (06/10/2018 12:05 PM AIR EXPORT AGENT): Assessment Healing fusion L5-S1 Plan I talked about do's and don'ts he is to continue to exercise on his own return in 6 weeks for an x-ray which time we will likely begin physical therapy. 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 Gender Identity Not on file Sexual Orientation Not on file Obstetrics History Last Filed Vital Signs Vital Sign Reading Time Taken Comments Blood Pressure 130/91 05/22/2021 11:08 AM AIR EXPORT AGENT Pulse 87 05/22/2021 11:08 AM AIR EXPORT AGENT Temperature 36.5 C (97.7 F) 08/03/2019 8:42 AM AIR EXPORT AGENT Respiratory Rate 18 05/22/2021 11:0 8 AM AIR EXPORT AGENT Oxygen Saturation 97% 11/21/2020 2: 27 PM CDT Inhaled Oxygen Concentration - - Weight 95.2 kg (209 lb 12.8 oz) 021 11:08 AM AIR EXPORT AGENT Height 180.3 cm (5' 11) 05/22/2021 11: 08 AM AIR EXPORT AGENT Body Mass Index 29.26 05/22/2021 11:08 AM AIR EXPORT AGENT Plan of Treatment Health Maintenance Due Date [...] Ended) 2025 Medical Devices Implanted Type Area Weed Science Research Technician Device Identifier Shelf Expiration Date Model / Serial / Lot City-dimensional network logo [id number] Inqu Paste Mix Plus Economic Development Manager 10cc Bone Graft Hyaluronic Acid Poly - [id number] Implanted:Qty: 1 on 03/16/2018 by Ronaldo Toledo MD at [facility] N/A: Lumbar-Sa cral Spine Isto Infiniu 11/25/2018 [id number] / / [id number] Screw 7.0mm X 40mm Streamline Tl Pedicle - [id number] Implanted:Qty: 4 on 03/16/2018 by Ronaldo Toledo MD at [facility] N/A: Lumbar-Sa cral Spine [employer] -PA-70-40 / / Description:Polyaxial screw Screw Set Streamline Tl Screw System - [id number] Implanted:Qty: 4 on 03/16/2018 by Ronaldo Toledo MD at [facility] N/A: Lumbar-Sa cral Spine [employer] 01-SETSCREW / / [employer] Pr-35 Quantum 5.5mm 35mm Prebent Michele Spinal Titanium - [id number] Implanted:Qty: 2 on 03/16/2018 by Ronaldo Toledo MD at [facility] N/A: Lumbar-Sa cral Spine [employer] AR-35 / / Description:Prebent michele Medtronic Sofamor Danek [id number] Infuse 20ga 2x1in Vial Absorbable Syringe Needle Medium Graft 5.6 - [id number] Implanted:Qty: 1 on 10/06/2018 by Ronaldo Toledo MD at [facility] N/A: Lumbar-Sa cral Spine Medtronic Sofamor Danek 04/21/2019 [id number] / / [id number] [employer] 34-T15-31-3 Contact Option Vbr [id number] 3 Insertion Hole Back Cut Teeth - [id number] Implanted:Qty: 1 on 10/06/2018 by Ronaldo Toledo MD at [facility] N/A: Lumbar-Sa cral Spine [employer] 06/04/2021 34-G11-27-0 / / [id number] [employer] 25-Sp-36 36mm Spine Sacral Anterior Plate Bone Nonsterile - [id number] Implanted:Qty: 1 on 10/06/2018 by Ronaldo Toledo MD at [facility] N/A: Lumbar-Sa cral Spine [employer] 25-SP-36 / / [employer] 25-60-24 6mm 24mm Spine Lumbar Screw Bone Nonsterile - [id number] Implanted:Qty: 4 on 10/06/2018 by Ronaldo Toledo MD at [facility] N/A: Lumbar-Sa cral Spine [employer] 25-60-24 / / Insurance [facility] MEDICARE [facility] Address: [address] [address] [place] [address] [facility] MEDICARE AD[facility]AGE [facility] Address: [address] [address] [place] [address] Advance Directives For more information, please contact: [phone] * Full Code (Latest Code Status on File) Date Activated Date Inactivated Comments 06/17/2019 9:18 PM 06/19/2019 6:47 PM * Full Code Date Activated Date Inactivated Comments 10/06/2018 5:48 PM 10/07/2018 5:18 PM * Full Code Date Activated Date Inactivated Comments 03/16/2018 6:28 PM 03/18/2018 4:03 PM Care Teams Distribution Collection Operator Relationship Specialty Start Date End Date Sania Levin MD [address] [facility] [address] [address] PCP - General Family Practice 11/09/24 Brendon Ramirez MD Consulting Physician Colon and Rectal Surgery 08/03/19
[2024-12-08 07:29] LABS: Add Urine Microscopic? NO; Appearance Urine Clear (Clear); Bilirubin Urine Negative (Negative); Blood Urine Negative (Negative); Color Urine Yellow (Yellow); Glucose Urine UA Negative (Negative); Ketones Urine Negative (Negative); Leukocyte Esterase Ur Negative LEU/UL (Negative); Nitrate Urine Negative (Negative); Protein Urine Negative (Negative); Specific Grav Ur 1.006 (1.001-1.035); Urobilinogen Urine 0.2 mg/dL (<2.0)
[2024-12-08 08:19] VITALS: PULSE 85; O2SAT 95
[2024-12-08 08:41] VITALS: BP 108/68; PULSE 90; RESP 18; O2SAT 95
== END 2024-12-08 08:44 | disposition home or self-care (01) ==
PROVIDERS: Student in an Organized Health Care Education/Training Program; Emergency Provider Emergency Medicine; PCP Family Medicine
DX: R10.32 Left lower quadrant pain (principal); I48.91 Unspecified atrial fibrillation; I10 Essential (primary) hypertension; E78.5 Hyperlipidemia, unspecified; E55.9 Vitamin D deficiency, unspecified; G47.33 Obstructive sleep apnea (adult) (pediatric); G25.81 Restless legs syndrome; G62.9 Polyneuropathy, unspecified; K21.9 Gastro-esophageal reflux disease without esophagitis; M47.816 Spondylosis without myelopathy or radiculopathy, lumbar region; F17.210 Nicotine dependence, cigarettes, uncomplicated; K76.0 Fatty (change of) liver, not elsewhere classified; Z79.899 Other long term (current) drug therapy
CPT/HCPCS: 36415; 74177; 80053; 81003; 83690; 85025; 93005; 96361; 96374; 96375; 99284; J1171; J2405; J7030; Q9967

== ENCOUNTER 2024-12-15 10:56 | Outpatient (CLI) | payer MEDICARE, MEDICAID, SELFPAY ==
--- NOTE | ~2024-12-15 | XR_ITS ---
EXAM/ PROCEDURE: XR lumbar spine 2-3V - 12/15/2024 11:00 CDT HISTORY: 54 years old Male with M54.50 - Low back pain, unspecified COMPARISON: None available TECHNIQUE: Three view(s) FINDINGS/ IMPRESSION: L5-S1 posterior and anterior spinal fusion. Intact hardware and no loosening. There are no fractures or dislocations.Intervertebral disc spaces are within normal limits. Grade 1 a nterolisthesis of L4 on L5. Reviewed, dictated and finalized at location A.
== END 2024-12-15 10:57 | disposition home or self-care (01) ==
PROVIDERS: PCP Family Medicine; Visit Provider Family Medicine
DX: M54.50 Low back pain, unspecified (principal); Z98.1 Arthrodesis status
CPT/HCPCS: 72100

== ENCOUNTER 2025-03-04 18:26 | Emergency (ER) | payer MEDICARE, MEDICAID, SELFPAY ==
[2025-03-04] VITALS (29 sets, daily range): BP systolic 110–153; BP diastolic 82–105; PULSE 82–129; RESP 12–32; TEMP 37.3; O2SAT 96–100
--- NOTE | ~2025-03-04 | XR_ITS ---
EXAMINATION: XR chest 2V, 03/04/2025 18:45 CDT HISTORY: chest pain COMPARISON: No comparisons available. Technique: 2 views obtained. Findings: The lungs are clear, no effusion. No pneumothorax. Heart is normal size. Mediastinal and hilar contours are within normal limits. Bony thorax no acute abnormality. Impression: No acute cardiopulmonary abnormality. Reviewed, dictated and finalized at location A. Impression: No acute cardiopulmonary abnormality.
--- NOTE | ~2025-03-04 | CT_ITS ---
CTA CHEST CLINICAL HISTORY: L sided CP, SOB, recent covid . COMPARISON: Chest x-rays same day CTA chest abdomen pelvis 12/06/2024 TECHNIQUE: Helical CTA performed from thoracic inlet to upper abdomen 100 mL Omnipaque 350 Coronal, sagittal reformats. Multiplanar MIPS CT images acquired with automatic exposure control for dose reduction DLP: 596 mGy-cm FINDINGS: Pulmonary arteries: No PE. Thoracic Aorta: No dissection or aneurysm. Atherosclerotic disease. Heart/pericardium: Coronary artery calcifications. RV/LV ratio: Normal. Lungs/Pleura: Clear. Tracheobronchial tree: Patent. Central peribronchial wall thickening. Nodes: No enlarged nodes. Bones: No acute bony abnormality. Soft tissues: Unremarkable. Visualized upper abdomen: Enlarged. Steatosis. Small hiatal hernia and/or distal esophageal wall thickening IMPRESSION: 1. No PE or other acute cardiopulmonary findings. Reviewed, dictated and finalized at location R.
--- NOTE | 2025-03-04 18:27 | ECG_ITS ---
Test Date: 2025-03-04 18:33:53 Measurements Intervals [place] Rate: 136 P: 0 TN: 0 QRS: -27 QRSD: 93 T: 30 QT: 327 QTc: 492 Interpretive Statements ATRIAL FIBRILLATION WITH RAPID VENTRICULAR RESPONSE BORDERLINE LEFT AXIS DEVIATION [QRS AXIS < -20] NONSPECIFIC ST ABNORMALITY ABNORMAL ECG Compared to ECG 12/08/2024 06:20:49 ST (T wave) deviation now present Sinus rhythm no longer present Electronically Signed On 03-05-2025 09:39:06 CDT by Jae Borja M.D.
--- OUTSIDE RECORDS SUMMARY | 2025-03-04 18:28 | XMS_ITS | Encounter Summary ---
Author Organization [facility] Address [address] [place] [address] Care Team Providers Care Fire Equipment Operator Name Role Phone Spenser Crooks MD Primary Care Provider Encounter Details Date Type Department Care Team (Late st Contact Info) Description 01/07/[address] 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
--- OUTSIDE RECORDS SUMMARY | 2025-03-04 18:28 | XMS_ITS | Patient Health Record ---
Author Organization [facility] Address [address] [place] [address] [place] [address] Care Team Providers Care Computer Network Engineer Name Role Phone Sania Levin MD [...] (F40.231) Active confirmed Fear of medical treatment (306218591) Problem Unspecified osteoarthritis, unspecified site (M19.90) Active confirmed Osteoarthritis (777715127) Problem Sacroiliitis, not elsewhere classified (M46.1) Active confirmed Solitary sacroiliitis (968147276) Problem Spondylosis without myelopathy or radiculopathy, cervical region (M47.812) Active confirmed Cervical spondylosis without myelopathy (469336945) Problem Spondylosis without myelopathy or radiculopathy, cervicothoracic region (M47.813) Active confirmed Cervical spondylosis without myelopathy (127720661) Problem Spondylosis without myelopathy or radiculopathy, lumbar region (M47.816) Active confirmed Lumbosacral spondylosis without myelopathy (65155027) Problem Spondylosis without myelopathy or radiculopathy, lumbosacral region (M47.817) Active confirmed Lumbosacral spondylosis without myelopathy (disorder) (10513115) Problem Intervertebral disc disorders with radiculopathy, lumbosacral region (M51.17) Active confirmed Lumbosacral radiculopathy (8069080) Problem Radiculopathy, cervical region (M54.12) Active confirmed Cervical radiculopathy (65438447) Problem Radiculopathy, cervicothoracic region (M54.13) Active confirmed Cervical radiculopathy (97094315) Problem Radiculopathy, lumbar region (M54.16) Active confirmed Lumbar radiculopathy (233516812) Problem Radiculopathy, lumbosacral region (M54.17) Active confirmed Lumbosacral radiculopathy (6204745) Problem Cervicalgia (M54.2) Active confirmed Cervicalgia (65951707) Problem Postlaminectomy syndrome, not elsewhere classified (M96.1) Active confirmed Post-lami nectomy syndrome (80998316) Problem Osseous stenosis of neural canal of lumbar region (M99.33) Active confirmed Spinal stenosis of lumbar region (15880244) Problem Other care home (current) drug therapy (Z79.899) Active confirmed Long-term current use of drug therapy (490573172) PLAN OF TREATMENT Pending Test Test Name Order Date Chem 7 (BUN, Cr, Lytes, Glu) 09/04/2022 MRI : Cervical Spine without Contrast (7 0540) 11/07/2021 MRI : Lumbar Spine with and without Cont rast (08774) 04/16/2022 Insurance Providers Payer Name Payer Address Payer Phone Subscriber Number Group Number Insured Name Patient Relationship to Insured Coverage Start Date Coverage End Date [facility] MEDIC[facility] ADVANTAGE (PPO) [address] [address] [place] [address] [id number] BRENDEN DUNHAM Self - patient is the insured Medicare [place] [address] [address] [place] [address] [id number] BRENDEN DUNHAM Self - patient is the insured MEDICAL (GENERAL) HISTORY Medical History History ICD Code AFIB Osteoarthritis SVT Hypertension Surgical History Surgery Date(Month/Year) L5-S1 microdisctomy Posterior lumbar fusion at L5-S1 02/2018 [facility] L5-S1 09/2018
--- OUTSIDE RECORDS SUMMARY | 2025-03-04 18:28 | XMS_ITS | Clinical Summary ---
Author Organization [facility] Address [address] [place] [address] Care Team Providers Care Vest Front Presser Name Role Phone Brendon Ramirez MD Unavailable [phone] Sania Levin MD Primary Care Provider Allergies Active Allergy Reactions Criticality Noted Date Comments Amlodipine Unknown High 06/29/2023 Metoprolol Unknown High 07/21/2023 Varenicline Headache Low 12/23/2023 Medications metoprolol XL (TOPROL-XL) 50 mg extended release tablet metoprolol succinate 50 mg tablet extended release 24 hr 024 Active tiZANidine (ZANAFLEX) 2 mg tablet 0 025 Active losartan (COZAAR) 100 mg tablet Take 0.5 tablets (50 mg total) by mouth daily 024 Active fluticasone propionate (FLONASE) 50 mcg/actuation nasal spray INSTILL 1 SPRAY INTO THE NOSTRIL(S) EVERY 12 HOURS 025 Active HYDROcodone-aceta minophen (NORCO) 5-325 mg per tablet Take by mouth every 6 (six) hours as needed 025 Active omeprazole (PriLOSEC) 10 mg capsule daily Active ondansetron ODT (ZOFRAN-ODT) 4 mg disintegrating tablet TAKE 1 TABLET BY MOUTH EVERY 8 HOURS NEEDED FOR NAUSEA/VOMITI NG 025 Active dilTIAZem CD/XR/XT (CARDIZEM CD,DILACOR XR) 120 mg 24 hr capsule Take 1 capsule (120 mg total) by mouth daily 90 capsule 3 025 2025 Active flecainide (TAMBOCOR) 150 mg tablet Take 1 tablet (150 mg total) by mouth 2 (two) times a day 60 tablet [address] (PROTONIX) 40 mg EC tabletIndications :Acute gastritis, presence of bleeding unspecified, unspecified gastritis type Take 1 tablet (40 mg total) by mouth daily 90 tablet 1 021 2024 Discontinued flecainide (TAMBOCOR) 100 mg tablet Take 1 tablet (100 mg total) by mouth 2 (two) times a day 180 tablet 3 025 2024 Discontinued(A lternate therapy) Active Problems Problem Noted Date Diagnosed Date Paroxysmal atrial tachycardia 11/21/2020 Palpitations 11/21/2020 Paroxysmal atrial fibrillation 11/21/2020 Dyslipidemia 11/21/2020 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 His permanent weight limit is 20 lb and could do no bending twisting stooping or awkward positions Assessment & Plan (07/27/2019 9:38 AM SYSTEMS PROJECT MANAGER): Assessment Healed L5-S1 fusion with ongoing bilateral lower extremity symptoms in light of normal electrical studies and no impingement on the CT scan Plan Physical therapy 2 times per week return in 6 weeks for lumbar spine x-ray in to assess his progress. I have told him that there is nothing else surgically to offer him Assessment & Plan (05/03/2019 9:26 AM SYSTEMS PROJECT MANAGER): Assessment Healing fusion L5-S1 with ongoing [...] (09/14/2018): Added automatically from request for surgery [id number] Assessment & Plan (12/15/2018 12:04 PM CDT): [...] (03/01/2018): Added automatically from request for surgery [id number] Assessment & Plan (07/22/2018 12:17 PM SYSTEMS PROJECT MANAGER): Assessment Healing fusion L5-S1 with some increased leg pain compared to the recent visit Plan Observation I added Neurontin at HS talked about do's no 6 cues and from work and he is to return for x-ray in 6 weeks Intervertebral disc disorder s with radiculopathy, lumbosacral region 03/01/2018 Overview (03/01/2018): Added automatically from request for surgery [id number] Assessment & Plan (09/04/2021 11:31 AM CDT): [...] (03/01/2018): Added automatically from request for surgery [id number] Assessment & Plan (06/10/2018 12:05 PM SYSTEMS PROJECT MANAGER): Assessment Healing fusion L5-S1 Plan I talked about do's and don'ts he is to continue to exercise on his own return in 6 weeks for an x-ray which time we will likely begin physical therapy. He is to remain off work Encounters Date Type Department Care Team Description 03/01/2025 2:00 PM CDT Procedure visit [facility] [address] [facility] [address] [place] [phone] PAT (paroxysmal atrial tachycardia) 02/27/2025 2:00 PM CDT Procedure visit [facility] [address] [place] [address] [place] [phone] PAT (paroxysmal atrial tachycardia); Palpitations 02/23/2025 Telephone [facility] [address] [place] [address] [place] [phone] Miguel Wang MD 02/17/2025 2:00 PM CDT Office Visit [facility] [address] [place] [address] [place] [phone] Miguel Wang MD Cardiac arrhythmia, unspecified cardiac arrhythmia type (Primary Dx); BEE (obstructive sleep apnea) 02/17/2025 Telephone [facility] [address] [place] [address] [place] [phone] Miguel Wang MD 01/12/2025 11:30 AM CDT Office Visit [facility] [address] [place] [address] [place] [phone] Dhara Patel NP Paroxysmal atrial tachycardia (Primary Dx); BEE (obstructive sleep apnea); RLS (restless legs syndrome); Essential hypertension; Hospital discharge follow-up 01/12/2025 Telephone [facility] [address] [place] [address] [place] [phone] Dhara Patel NP 12/15/2024 Orders Only [facility] [address] [place] [address] [place] [phone] Rosario Orellana MD 12/14/2024 Orders Only [facility] [address] [place] [address] [place] [phone] Rosario Orellana MD 12/07/2024 1:10 PM CDT Ancillary Procedure [facility] [address] [place] [address] [place] [phone] Cardiac arrhythmia, unspecified cardiac arrhythmia type from [...] Cigarettes 0.3 20 Cigars Smokeless Tobacco: Never Tobacco Cessation:Ready to Q uit: Not Asked; Counseling Given: Not Answered Comments:quit cigarettes 12/2017- still smokes occasional cigar Alcohol Use Standard Drinks/Week Comments Not Currently 0 (1 standard drink = 0.6 oz pure alcohol) previously 18 cans beer/week - has not drank since 02/2018 PHQ-2 Answer Date Recorded PHQ-2 Score 0 08/27/2018 Sex and Gender Information Value Date Recorded Sex Assigned at Not on file Legal Sex Male 4:43 AM SYSTEMS PROJECT MANAGER Gender Identity Not on file Sexual Orientation Not on file Obstetrics History Last Filed Vital Signs Vital Sign Reading Time Taken Comments Blood Pressure 106/74 02/17/2025 2:12 PM CDT Pulse 98 02/17/2025 2:12 PM CDT Temperature 36.5 C (97.7 F) 08/03/2019 8:42 AM SYSTEMS PROJECT MANAGER Respiratory Rate 18 05/22/2021 11:08 AM SYSTEMS PROJECT MANAGER Oxygen Saturation 96% 01/12/2025 11:32 AM CDT Inhaled Oxygen Concentration - - Weight 99.4 kg (219 lb 1.6 oz) 02/17/2025 2:12 P M CDT Height 180.3 cm (5' 11) 02/17/2025 2:12 PM CDT Body Mass Index 30.56 02/17/2025 2:12 PM CDT Plan of Treatment Health Maintenance Due Date Last Done Comments Colon Cancer Screening-Colonoscopy 1970 Hepatitis C Screening 1970 Prostate Cancer Screening-PSA 1969 DTaP/Tdap/Td Vaccine (1 - Tdap) 1980 Hepatitis B Screening 1987 Regular Well Visit/Exam 18-64 1987 Pneumococcal vaccine <65 (1 of 2 - PCV) 1988 Zoster Vaccine (1 of 2) 2019 Depression Screening 09/09/2019 09/08/2018, 09/03/19 19 Influenza Vaccine (#1) 2025 Medical Devices Implanted Type Area Machine Cleaner Device Identifier Shelf Expiration Date Model / Serial / Lot Concard [id number] Inqu Paste Mix Plus Application Spec 10cc Bone Graft Hyaluronic Acid Poly - [id number] Implanted:Qty: 1 on 03/16/2018 by Ronaldo Toledo MD at [facility] N/A: Lumbar-Sa cral Spine [employer] 11/25/2018 [id number] / / [id number] Screw 7.0mm X 40mm Streamline Tl Pedicle - [id number] Implanted:Qty: 4 on 03/16/2018 by Ronaldo Toledo MD at [facility] N/A: Lumbar-Sa cral Spine [employer] 01-PA-70-40 / / Description:Polyaxial screw Screw Set Streamline Tl Screw System - [id number] Implanted:Qty: 4 on 03/16/2018 by Ronaldo Toledo MD at [facility] N/A: Lumbar-Sa cral Spine [employer] 01-[id number] / / [employer] 55-Pr-35 Quantum 5.5mm 35mm Prebent Michele Spinal Titanium - [id number] Implanted:Qty: 2 on 03/16/2018 by Ronaldo Toledo MD at [facility] N/A: Lumbar-Sa cral Spine [employer] 55-VA-35 / / Description:Prebent michele [employer] Sofamor Dane[employer] [id number] Infuse 20ga 2x1in Vial Absorbable Syringe Needle Medium Graft 5.6 - [id number] Implanted:Qty: 1 on 10/06/2018 by Ronaldo Toledo MD at [facility] N/A: Lumbar-Sa cral Spine [employer] 04/21/2019 [id number] / / [id number] [employer] 34-O99-01-0 Contact Option Vbr [id number] 3 Insertion Hole Back Cut Teeth - [id number] Implanted:Qty: 1 on 10/06/2018 by Ronaldo Toledo MD at [facility] N/A: Lumbar-Sa cral Spine [employer] 06/04/2021 34-[id number] / / [id number] [employer] 25-Sp-36 36mm Spine Sacral Anterior Plate Bone Nonsterile - [id number] Implanted:Qty: 1 on 10/06/2018 by Ronaldo Toledo MD at [facility] N/A: Lumbar-Sa cral Spine [employer] 25-SP-36 / / [employer] 60-24 6mm 24mm Spine Lumbar Screw Bone Nonsterile - [id number] Implanted:Qty: 4 on 10/06/2018 by Ronaldo Toledo MD at [facility] N/A: Lumbar-Sa cral Spine [employer] [id number] / / Procedures Procedure Name Priority Date/Time Associated Diagnosis Comments ECG 12-LEAD Routine 03/01/2025 2:23 PM CDT PAT (paroxysmal atrial tachycardia) ECG 12-LEAD Routine 02/27/2025 2:36 PM CDT PAT (paroxysmal atrial tachycardia) Palpitations ECG 12-LEAD Routine 02/17/2025 3:36 PM CDT Cardiac arrhythmia, unspecified cardiac arrhythmia type ECG 12-LEAD Routine 02/17/2025 2:14 PM CDT Cardiac arrhythmia, unspecified cardiac arrhythmia type CARDIOLOGY DOCUMENT SCAN Routine 12/07/2024 2:07 PM CDT MCT - MOBILE CARDIAC TELEMETRY EVENT MONITOR Routine 12/07/2024 1:50 PM CDT Cardiac arrhythmia, unspecified cardiac arrhythmia type CARDIOLOGY DOCUMENT SCAN Routine 12/07/2024 1:46 PM CDT from Last 3 Months Results * ECG 12 lead (03/01/2025 2:23 PM CDT) us Miguel Wang MD ECG ORDERABLES Final Re sult CONS SCIMAGE * ECG 12 lead (02/27/2025 2:36 PM CDT) us Miguel Wang MD ECG ORDERABLES Final Re sult CONS SCIMAGE * ECG 12 lead (02/17/2025 3:36 PM CDT) Impressions Miguel Wang MD - 02/17/2025 3:36 PM CDT Sinus rhythm with frequent and consecutive PACs. us Miguel Wang MD ECG ORDERABLES Final Re sult * ECG 12 lead (02/17/2025 2:14 PM CDT) Miguel Wang MD ECG ORDERABLES Final Re sult * Cardiology Document Scan (12/07/2024 2:07 PM CDT) Anatomical Region Laterality Modality Other us Rosario Orellana MD CV CARDIAC SERVICES PRO CEDURES Final Result * MCT Mobile Cardiac Telemetry Event Monitor (12/07/2024 1:50 PM CDT) Anatomical Region Laterality Modality Electrocardiogra phy Narrative 01/10/2025 8:33 AM CDT AMBULATORY TANK WAGON DRIVER REPORT Patient Name: Pa Galeas Date of : 1970 Requesting Physician: Constantino Date of interpretation: 01/10/25 Type of monitor : 30 day event monitor Date of the study/Enrollment period: 12/07/2024 Indication: Atrial tachyarrhythmias Quality of the study: Favorable Interpretation: The basic rhythm is sinus with normal VA, QRS and QT interval. The heart rate varies from a minimum of 58 to a maximum of 175 the average heart rate was 117. There were no pauses seen there were no abnormalities of AV conduction seen. Supraventricular ectopic activity was frequent in present throughout the tracing. There were frequent PACs and frequent examples of intermittent supraventricular tachycardia which on analysis is most consistent with atypical atrial flutter. There was no evidence of kendall atrial fibrillation. The total burden of atrial flutter appears to be about 9%. Ventricular ectopic activity consisted of occasional PVCs which total about 1% of complexes. There were some short 3 and 4 beat ventricular runs. There were no runs of VT longer than 4 beats. There were no patient reported symptoms during this exam. Conclusions: Sinus rhythm/sinus tachycardia with normal heart rate variability Frequent atrial ectopic activity which includes frequent episodes of SVT, probably representing atypical atrial flutter all of which appeared to be asymptomatic No atrial fibrillation Low-frequency ventricular ectopics which did include some short ventricular runs as detailed above No symptoms Voice recognition software was used to complete this document, therefore, manager packaging variances may occur. Gilbert Ceja MD [facility] 01/10/25 Lexy Taylor NP CV CARDIAC SERVICES PROCEDUR ES Final Result * Cardiology Document Scan (12/07/2024 1:46 PM CDT) Anatomical Region Laterality Modality Other Rosario Orellana MD CV CARDIAC SERVICES PRO CEDURES Final Result from Last 3 Months Insurance [facility] MEDICARE ADVANTAGE [facility] MEDICARE ADVANTAGE Advance Directives For more information, please contact: [phone] * Full Code (Latest Code Status on File) Date Activated Date Inactivated Comments 06/17/2019 9:18 PM 06/19/2019 6:47 PM * Full Code Date Activated Date Inactivated Comments 10/06/2018 5:48 PM 10/07/2018 5:18 PM * Full Code Date Activated Date Inactivated Comments 03/16/2018 6:28 PM 03/18/2018 4:03 PM Care Teams Vest Front Presser Relationship Specialty Start Date End Date Sania Levin MD [address] [facility] [address] [address] PCP - General Family Practice 11/09/24 Brendon Ramirez MD Consulting Physician Colon and Rectal Surgery 08/03/19
--- OUTSIDE RECORDS SUMMARY | 2025-03-04 18:28 | XMS_ITS | Clinical Summary ---
Author Organization [facility] Address [address] [place] [address] Care Team Providers Care Stock Taker Name Role Phone Spenser Crooks MD Primary Care Provider [phone] Source Comments [facility],non-owned Affiliates and Associated Physician Practices is amultiple site organization consisting of ambulatory clinics and hospital sitesin [place], [place], [place] and [place]. This disclosure is being madepursuant to the Care Everywhere program and may not contain all information available regarding this patient. 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 Procedure Code(s): --- Professional --- 37134, Colonoscopy, flexible; with removal of tumor(s), polyp(s), or other lesion(s) by hot biopsy forceps --- Technical --- 75327, Colonoscopy, flexible; with removal of tumor(s), polyp(s), or other lesion(s) by hot biopsy forceps Diagnosis Code(s): --- Professional --- Z12.11, Encounter for screening for malignant neoplasm of colon D12.2, Benign neoplasm of ascending colon K64.2, Third degree hemorrhoids --- Technical --- Z12.11, Encounter for screening for malignant neoplasm of colon D12.2, Benign neoplasm of ascending colon K64.2, Third degree hemorrhoids CPT copyright 2015 [employer]. All rights reserved. The codes documented in this report are preliminary and upon rn perinatal review may be revised to meet current compliance requirements. Dr. Hemanth Gimenez MD Hemanth Gimenez MD 01/27/2017 9:04:26 AM This report has been signed electronically. Number of Addenda: 0 Note Initiated On: 01/27/2017 7:27 AM [facility] 01/27/2017 7:27 AM CDT us Hemanth Gimenez MD GI PROCEDURE ORDERABLES Edited Result - Final [facility] [place] [address] from Last 3 Months or Most Recently Relevant to Health Maintenance Insurance [facility] MANAGED MEDICARE FORMERLY [facility] MEDICAID - [place] Member Subscriber Plan / Payer (Ef fective for All Dates) Name:Brenden Dunham Member ID:Not on file Relation to Subscriber:Self Name:Brenden Dunham Subscriber ID:Not on file Payer ID:Not on file Group ID:Not on file Type:Medicaid [place] Address: [place] [address] [facility] MANAGED MEDICARE ADV Member Subscriber Plan / Payer (Ef fective 2024-Present) Name:Brenden Dunham Relation to Subscriber:Self Name:Brenden Dunham Payer ID:[id number] (NAIC) Type:Medicare-Managed Care Address: [address] MEDICAID - [place] [facility] MANAGED MEDICARE ADV Member Subscriber Plan / Payer (Ef fective 2024-Present) Name:Brenden Dunham Relation to Subscriber:Self Name:Brenden Dunham Payer ID:[id number] (NAIC) Type:Medicare-Managed Care Address: [address] MEDICAID - [place] Member Subscriber Plan / Payer (Ef fective for All Dates) Name:Brenden Dunham Member ID:Not on file Relation to Subscriber:Self Name:Brenden Dunham Subscriber ID:Not on file Payer ID:Not on file Group ID:Not on file Type:Medicaid [place] Address: [place] [address] [facility] MANAGED MEDICARE ADV Care Teams Stock Taker Relationship Specialty Start Date End Date Spenser Crooks MD [address] [facility] [address] [place] [phone] PCP - General Internal Medicine 01/07/17
--- OUTSIDE RECORDS SUMMARY | 2025-03-04 18:28 | XMS_ITS | Patient Health Record ---
Author Organization [facility] Address [address] [place] [address] Care Team Providers Care Leg Man Name Role Phone Ronaldo Hoang Primary Care Provider Pedro Heard Unavailable [phone] Regino Rodriguez Unavailable Unavailable Reason For Referral No Information Social History Tobacco Use: Social History Observation Description Date Details (start date - stop date) Current Smoker NA - NA Tobacco Use/Smoking Question Answer Notes Are you a current smoker Alcohol Screen (Audit-C) Question Answer Notes Did you have a drink contain ing alcohol in the past year? Yes How often did you have a dri nk containing alcohol in the past year? 2 to 3 times a week (3 points) Points 3 Interpretation Negative Tobacco use other than smoking: Question Answer Notes Are you an other tobacco user? No Problems Problem Type SNOMED Code ICD Code Onset Dates Problem Status W/U Status Risk Notes Problem Degeneration of lumbar intervertebral disc (01075467) Other intervertebral disc degeneration, lumbar region (M51.36) Active confirmed Problem Degeneration of lumbosacral intervertebral disc (07268506) Other intervertebral disc degeneration, lumbosacral region (M51.37) Active confirmed Plan Of Treatment No Information Insurance Providers Payer Name Payer Address Payer Phone Subscriber Number Group Number Insured Name Patient Relationship to Insured Coverage Start Date Coverage End Date [facility] [employer] [address] [place] [address] [id number] Pa Galeas Self - patient is the insured 8 Medical (General) History Surgical History Surgery Date(Month/Year) Tonsils 08/31/1972 Zaira-rectal abcess 08/26/2014 Transant Flap 01/22/2017 L5-S1 Microdiscectomy 03/29/2013
[2025-03-04 18:49] LABS: Hematocrit 47.0 % (42.0-52.0); Hemoglobin 16.3 g/dL (14.0-18.0); Immature Granulocyte Percent A 0.3 % (0-0.5); Lymphocytes Absolute Auto 3.16 K/mm3 (0.9-3.2); Mean Corpuscular HGB Conc 34.7 g/dl (32-36); Mean Corpuscular Hemoglobin 35.0 pg (26-34); Mean Corpuscular Volume 100.9 fl (80-100); Nucleated Red Blood Cells Absolute Auto 0.000 K/mm3 (0.0-0.012); Nucleated Red Blood Cells Perc 0.0 % (0.0-0.2); Platelet Count Result 227 k/mm3 (150-375); Red Blood Count 4.66 M/mm3 (4.6-6.20); White Blood Count 9.2 K/mm3 (4.5-10.0)
[2025-03-04 20:13] LABS: INR 1.0; Prothrombin Time 13.0 Seconds (11.1-14.7)
[2025-03-04 20:14] LABS: Partial Thromboplastin Time 28.0 Seconds (22.3-36.8)
[2025-03-04] MEDS: ASPIRIN 81 MG CHEWABLE TABLET 324 MG PO (20:14)
--- NOTE | 2025-03-04 20:14 | PC.NURSE ---
pt verbalized testing positive for covid at the beginning of the month. 02/20/2025
[2025-03-04 20:18] LABS: Alanine Aminotransferase 55 U/L (6-50); Albumin Level 4.2 g/dL (3.5-5.1); Alkaline Phosphatase 77 U/L (38-126); Anion Gap 8 mmol/L (4-12); Aspartate Amino Transferase 49 U/L (17-59); Bilirubin,Total 0.8 mg/dL (0.2-1.3); Blood Urea Nitrogen 13 mg/dL (9-20); Calcium 9.0 mg/dL (8.4-10.2); Carbon Dioxide 24 mmol/L (22-30); Chloride 104 mmol/L (98-107); Estimated CRCL calculation 80 ml/min; Estimated Glomerular Filt Rate > 60; Glucose 95 mg/dL (65-110); Lipase 290 U/L (23-300); Potassium 4.0 mmol/L (3.4-5.0); Sodium 136 mmol/L (137-145); Total Protein 7.5 g/dL (6.3-8.2)
[2025-03-04 20:28] LABS: Troponin I < 0.012 ng/mL (0.000-0.034)
--- NOTE | 2025-03-04 20:52 | ED.CHESTPAIN ---
HPI - Chest Pain General Chief Complaint: Chest Pain Stated Complaint: cp Time Seen by Provider: 03/04/25 19:31 Source: patient Mode of arrival: ambulatory Limitations: no limitations History of Present Illness HPI narrative: Patient is a 54-year-old male who presents the ED with report of chest pain. Patient has history of paroxysmal atrial fibrillation, sees Dr. Wang at [facility]. Most recently saw him on 02/17/2025. At that time, had his metoprolol discontinued, was started on flecainide, diltiazem. Patient states he has not been feeling well with intermittent L sided CP, fatigue since being started on these medications. Denies radiation of pain to neck/arm/back. Reports feeling slightly short of breath. Reports intermittent swelling in legs. Reports small painful bumps to right posterior calf over the past few days. Denies previous history of blood clots. He has a chads Vasc score of 0 and is not currently on anticoagulation. Patient states he tested positive for COVID-19 a few weeks ago, but does feel improved from this. No further cough or congestion. Related Data Home Medications ?Medication ?Instructions ?Recorded ?Confirmed ?Last Taken ?Type losartan 100 mg tablet 100 mg PO DAILY 05/04/23 12/15/24 09/01/23 History Allergies Allergy/AdvReac Type Severity Reaction Status Date / Time No Known Allergies Allergy Verified 12/15/24 10:16 Review of Systems Review of Systems: All systems reviewed & are unremarkable except as noted in HPI. All systems reviewed & are unremarkable except as noted in HPI and below PMFSH Past Medical History Medical History Atrial fibrillation GERD without esophagitis Lumbar spondylosis Post laminectomy syndrome Dyslipidemia Vitamin D deficiency BEE (obstructive sleep apnea) Essential (primary) hypertension Restless legs syndrome (RLS) Erectile dysfunction Peripheral neuropathy Arthritis, lumbar spine Chronic back pain Surgical History Surgical History History of carpal tunnel surgery (~08/2023) Right Perirectal cyst 2018 - Excision Hx of tonsillectomy (~1973) Previous back surgery (~2013) Lumbar spine surgeries - 2013, 2017, 2019 Family History Family History Father History of blood clots Mother Hypertension Social History Social History Smoking packs per day: 0.5 Smoking cigarettes per day: 10.0 Years smoked: 33 Smoking pack-years: 16.50 Smoking status: Current every day smoker Tobacco type: cigarettes Second hand tobacco smoke exposure: Yes Alcohol intake: current Drinks per week: 14 Alcohol use details: 6 beers/day Substance use: current Substance use type: marijuana Other substance usage details: still smokes marijuana occasionally Last use: 2000 Do You Feel Safe in your Home?: Yes Lack of Transportation: No Lack of Food: Never True Current Housing: I Have Housing Concerned About Future Housing: No Difficulty Paying Gas/Electric Bills: No Difficulty Paying for Meds: No Currently Unemployed: No Education: Associate Degree Difficulty w/ Childcare or Family Care: No Living arrangements: with family Gender identity (if verbalized by the patient): Male Spiritual care concerns: No Exam Narrative: GENERAL: Well appearing, obese with BMI of 30.0, non-toxic, in no acute distress. HEAD: Normocephalic, atraumatic. RESPIRATORY: Airway patent, respirations nonlabored. Clear to auscultation bilaterally, no rales, rhonchi, wheezing. No significant focal lung sounds. CARDIOVASCULAR: Regular rate with irregular rhythm without murmurs, rubs, or gallops. MUSCULOSKELETAL: Moves all extremities. No gross deformities. Small area of hyperpigmentation/localized induration to R posterior calf with mild tenderness to palpation. No significant swelling throughout BLE. No redness/warmth. SKIN: Warm, dry, normal color. NEURO: A&O X3. Speech clear. Cranial nerves II-XII grossly intact. Steady gait. No ataxic movements. PSYCHIATRIC: Appropriate mood and affect. Normal interaction. Course Vital Signs Vital signs: Vital Signs Temperature 99.1 F 03/04/25 18:28 Pulse Rate 95 03/04/25 18:28 Respiratory Rate 16 03/04/25 18:28 Blood Pressure 153/92 H 03/04/25 18:28 Pulse Oximetry 98 03/04/25 18:28 Oxygen Delivery Room Air 03/04/25 18:28 Temperature 97.9 F 03/05/25 00:54 Pulse Rate 88 03/05/25 00:54 Respiratory Rate 18 03/05/25 00:54 Blood Pressure 147/98 H 03/05/25 00:54 Pulse Oximetry 100 03/05/25 00:54 Oxygen Delivery Room Air 03/04/25 18:28 MDM - Chest Pain MDM Narrative Medical decision making narrative: Patient presented to ED with intermittent chest pain, fatigue over the past few weeks after being started on diltiazem and flecainide for his paroxysmal AFib. Vital signs are stable upon arrival. Initial EKG did show evidence of AFib with RVR, however upon my evaluation, patient is rate controlled. Consistently in the low 100/90s. He reports he is due for his nighttime dose of flecainide. This was given in the ED. No concerning ST changes on EKG. Baseline troponin is undetectable. Chest x-ray clear HEART score =2 Basic laboratory studies without significant abnormalities. BNP only very minimally elevated to 264 CTA of chest was obtained due to chest pain, shortness breath, recent COVID. Negative for PE or other acute cardiopulmonary abnormality, pulmonary edema, pneumonia. 3 hr trop also undetectable Patient's heart rate has normalized into the 80s. Also appears he has self converted back into sinus rhythm his home medications. He did not require any further rate-controlling agents. Vitals otherwise remaining stable. Discussed overall reassuring workup with patient, low suspicion for ACS at this time. Feel patient is safe for discharge home at this time with close outpatient Cardiology follow-up. Advised patient to contact adult literacy instructor on Thursday to discuss medications and the symptoms he has been experiencing since being started on the medications. Regarding pain and indurated area in right calf, will set patient up for venous doppler US in the am. D-dimer is age adjusted normal at this time, will hold on anticoagulation for now. Patient in agreement with plan. Feels comfortable going home. Discussed very strict return precautions. Patient voiced understanding. Discharged in stable condition. Vital signs stable at time of D/C. Medical Records Data Attestation: I reviewed the patient's medical records. Lab Data Attestation: I reviewed the patient's lab results. 03/04/25 18:42 03/04/25 19:50 Labs: Lab Results 03/04/25 03/04/25 03/04/25 Range/Units 18:42 19:50 21:37 WBC 9.2 (4.5-10.0) K/mm3 RBC 4.66 (4.6-6.20) M/mm3 Hgb 16.3 (14.0-18.0) g/dL Hct 47.0 (42.0-52.0) % MCV 100.9 H (80-100) fl MCH 35.0 H (26-34) pg MCHC 34.7 (32-36) g/dl RDW 12.3 (11.5-14.5) % Plt Count 227 (150-375) k/mm3 MPV 9.9 (7.4-10.4) fl Immature Gran % (Auto) 0.3 (0-0.5) % Neut % (Auto) 57.3 (45.5-73.1) % Lymph % (Auto) 34.4 (18.3-44.2) % Kimball % (Auto) 7.6 (2.6-8.5) % Eos % (Auto) 0.2 (0-4.4) % Baso % (Auto) 0.2 (0.2-1.2) % Lymph # (Auto) 3.16 (0.9-3.2) K/mm3 Kimball # (Auto) 0.7 H (0.1-0.6) K/mm3 Eos # (Auto) 0.0 (0-0.3) K/mm3 Baso # (Auto) 0.0 (0.0-0.1) K/mm3 Abs Immat Gran (auto) 0.03 (0.00-0.031) K/mm3 Absolute Neuts (auto) 5.3 (1.3-6.7) K/mm3 Absolute Nucleated RBC 0.000 (0.0-0.012) K/mm3 Nucleated RBC % 0.0 (0.0-0.2) % PT 13.0 (11.1-14.7) Seconds INR 1.0 APTT 28.0 (22.3-36.8) Seconds D-Dimer 0.55 H (<0.48) ug/mL Sodium 136 L (137-145) mmol/L Potassium 4.0 (3.4-5.0) mmol/L Chloride 104 (98-107) mmol/L Carbon Dioxide 24 (22-30) mmol/L Anion Gap 8 (4-12) mmol/L BUN 13 (9-20) mg/dL Creatinine 0.98 (0.7-1.3) mg/dL Estim Creat Clear Calc 80 ml/min Estimated GFR > 60 (59 - ) Glucose 95 (65-110) mg/dL Calcium 9.0 (8.4-10.2) mg/dL Total Bilirubin 0.8 (0.2-1.3) mg/dL AST 49 (17-59) U/L ALT 55 H (6-50) U/L Alkaline Phosphatase 77 (38-126) U/L Troponin I < 0.012 < 0.012 (0.000-0.034) ng/mL NT-Pro-B Natriuret Pep 264 H (19.9-100) pg/mL Total Protein 7.5 (6.3-8.2) g/dL Albumin 4.2 (3.5-5.1) g/dL Lipase 290 (23-300) U/L Imaging Data Attestation: I personally reviewed and interpreted this imaging study as follows: Radiologist's impression: STAT RAD CTA chest: Impression: No acute pulmonary embolism. ITS Impressions Chest X-Ray 03/04/25 19:06 Impression: No acute cardiopulmonary abnormality. ECG Data EKG #1: Attestation: I personally reviewed and interpreted this ECG as follows: ECG completion date: 03/04/25 ECG completion time: 18:33 EKG Interpretation: tachycardia (136), atrial fibrillation (RVR) and non-specific ST changes Discharge Plan Discharge Clinical Impression: Atypical chest pain, Pain in right lower leg, Paroxysmal A-fib Patient Disposition: Home Condition: Stable Instructions: Antibiotic Form, Angina (ED), Chest Pain (ED), Deep Vein Thrombosis Prevention (ED) Additional Instructions: You are set up for an ultrasound of your right leg this morning at 7:30 AM at [facility]. Please arrive at least 10 minutes early. Take lab order sheet with you. Follow-up with your primary care doctor for ultrasound results and further evaluation. Continue home medications. Follow-up closely with your adult literacy instructor for further evaluation and to discuss ongoing chest pain. Return to the ED if you experience worsening or severe pain, difficulty breathing, unable to keep down food or drink, severe swelling of legs, or any other symptoms of concern. Patient Language: Turkmen Prescriptions: No Action losartan 100 mg tablet 100 mg PO DAILY metoprolol succinate 50 mg Tablet Extended Release 24 Hr 100 mg PO QAM Qty: 60 0RF hydrocodone-acetaminophen 5-325 mg tablet 1 tablet PO Q6H PRN (Reason: pain) Qty: 10 0RF tizanidine 2 mg tablet 2 mg PO TID PRN (Reason: muscle spasticity) Qty: 30 0RF omeprazole 20 mg capsule,delayed release(DR/EC) 20 mg PO DAILY Qty: 90 1RF Other Ambulatory Orders: US venous doppler LE RT (Routine) Timeframe: [id number] Location: Determined by Patient Ordered By: Anastasia Barr Follow-up/Referrals: Chase Levin MD [Primary Care Provider, [facility]] Time of Disposition: 00:23 Quality HEART score for chest pain patients History: slightly suspicious ECG: normal Age: > 45 and < 65 years Risk factors: 1 or 2 risk factors Troponin: < or = to 1x normal limit Heart score: 2
[2025-03-04 21:36] LABS: NT Pro B Type Natriuretic Pept 264 pg/mL (19.9-100)
--- NOTE | 2025-03-04 21:42 | ECG_ITS ---
Test Date: 2025-03-04 21:46:25 Measurements Intervals [place] Rate: 121 P: 0 GA: 0 QRS: -21 QRSD: 88 T: 42 QT: 350 QTc: 497 Interpretive Statements ATRIAL FIBRILLATION WITH RAPID VENTRICULAR RESPONSE BORDERLINE LEFT AXIS DEVIATION [QRS AXIS < -20] ABNORMAL RHYTHM ECG Compared to ECG 03/04/2025 18:33:53 ST (T wave) deviation no longer present Electronically Signed On 03-05-2025 09:41:46 CDT by Jae Borja M.D.
[2025-03-04 22:07] LABS: Troponin I < 0.012 ng/mL (0.000-0.034)
[2025-03-05] VITALS (7 sets, daily range): BP systolic 142–147; BP diastolic 98–105; PULSE 82–97; RESP 16–21; TEMP 36.6; O2SAT 97–100
== END 2025-03-05 00:55 | disposition home or self-care (01) ==
PROVIDERS: Student in an Organized Health Care Education/Training Program; Emergency Provider Physician Assistant; PCP Family Medicine
DX: R07.89 Other chest pain (principal); M79.661 Pain in right lower leg; I48.0 Paroxysmal atrial fibrillation; R00.0 Tachycardia, unspecified; F17.210 Nicotine dependence, cigarettes, uncomplicated; K21.9 Gastro-esophageal reflux disease without esophagitis; E78.5 Hyperlipidemia, unspecified; G47.30 Sleep apnea, unspecified; I10 Essential (primary) hypertension; G25.81 Restless legs syndrome; M19.90 Unspecified osteoarthritis, unspecified site; R06.02 Shortness of breath
CPT/HCPCS: 36415; 71046; 71275; 80053; 83690; 83880; 84484; 85025; 85380; 85610; 85730; 93005; 99284; A9270; Q9967

== ENCOUNTER 2025-03-05 07:42 | Outpatient (CLI) | payer MEDICARE, MEDICAID, SELFPAY ==
--- NOTE | ~2025-03-05 | US_ITS ---
EXAMINATION: US venous doppler LE RT, 03/05/2025 8:14 CDT HISTORY: M79.661 - Pain in right lower leg Comparison: None Technique: Parsons-scale and color Doppler images were attempted of the lower saphenofemoral junction, common femoral vein,superficial femoral vein, proximal deep femoral vein, proximal deep femoral vein, popliteal vein and posterior tibial veins. Findings: Deep Venous System:Normal flow, augmentation and compressibility. No echogenic thrombus identified. The contralateral saphenofemoral junction appears unremarkable. Superficial Venous system there is thrombus noted within the distal lesser saphenous vein Soft tissues: Soft tissues are unremarkable. Impression: Negative for DVT. Superficial thrombophlebitis Reviewed, dictated and finalized at location A. Impression: Negative for DVT. Superficial thrombophlebitis
--- OUTSIDE RECORDS SUMMARY | 2025-03-05 07:45 | XMS_ITS | Clinical Summary ---
Author Organization [facility] Address [address] Z[place]ala: Epic Prelude ADT JUSTICE [place] [address] Care Team Providers Care Parent Educator Name Role Phone Unavailable Primary Care Provider [...] (1 of 2) 2019 INFLUENZA VACCINE (#1) 2025
--- OUTSIDE RECORDS SUMMARY | 2025-03-05 07:45 | XMS_ITS | Patient Health Record ---
Author Organization [facility] Address [address] [place] [address] Care Team Providers Care Pool Finisher Name Role Phone Ronaldo Hoang Primary Care Provider Pedro Heard Unavailable [phone] Regino Rodriguez Unavailable Unavailable Reason For Referral [...] Notes Problem Degeneration of lumbar intervertebral disc (58499844) Other intervertebral disc degeneration, lumbar region (M51.36) Active confirmed Problem Degeneration of lumbosacral intervertebral disc (92309967) Other intervertebral disc degeneration, lumbosacral region (M51.37) Active confirmed Plan Of Treatment No Information Insurance Providers Payer Name Payer Address Payer Phone Subscriber Number Group Number Insured Name Patient Relationship to Insured Coverage Start Date Coverage End Date [facility] Choice Plus [address] [place] [address] [phone] [id number] Pa G[place] Self - patient is the insured 8 Medical (General) History Surgical History Surgery Date(Month/Year) Tonsils 08/31/1972 Zaira-rectal abcess 08/26/2014 Transant Flap 01/22/2017 L5-S1 Microdiscectomy 03/29/2013
--- OUTSIDE RECORDS SUMMARY | 2025-03-05 07:46 | XMS_ITS | Patient Health Record ---
Author Organization [facility] Address [address] [place] [address] [place] [address] Care Team Providers Care Scallop Dredger Name Role Phone Sania Levin MD Primary [...] (F40.231) Active confirmed Fear of medical treatment (698865258) Problem Unspecified osteoarthritis, unspecified site (M19.90) Active confirmed Osteoarthritis (951546105) Problem Sacroiliitis, not elsewhere classified (M46.1) Active confirmed Solitary sacroiliitis (802023151) Problem Spondylosis without myelopathy or radiculopathy, cervical region (M47.812) Active confirmed Cervical spondylosis without myelopathy (357005072) Problem Spondylosis without myelopathy or radiculopathy, cervicothoracic region (M47.813) Active confirmed Cervical spondylosis without myelopathy (065275697) Problem Spondylosis without myelopathy or radiculopathy, lumbar region (M47.816) Active confirmed Lumbosacral spondylosis without myelopathy (66787284) Problem Spondylosis without myelopathy or radiculopathy, lumbosacral region (M47.817) Active confirmed Lumbosacral spondylosis without myelopathy (disorder) (61079146) Problem Intervertebral disc disorders with radiculopathy, lumbosacral region (M51.17) Active confirmed Lumbosacral radiculopathy (8514599) Problem Radiculopathy, cervical region (M54.12) Active confirmed Cervical radiculopathy (89209558) Problem Radiculopathy, cervicothoracic region (M54.13) Active confirmed Cervical radiculopathy (21604267) Problem Radiculopathy, lumbar region (M54.16) Active confirmed Lumbar radiculopathy (499713986) Problem Radiculopathy, lumbosacral region (M54.17) Active confirmed Lumbosacral radiculopathy (0822221) Problem Cervicalgia (M54.2) Active confirmed Cervicalgia (14533991) Problem Postlaminectomy syndrome, not elsewhere classified (M96.1) Active confirmed Post-lami nectomy syndrome (66434719) Problem Osseous stenosis of neural canal of lumbar region (M99.33) Active confirmed Spinal stenosis of lumbar region (98453711) Problem Other skilled nursing (current) drug therapy (Z79.899) Active confirmed Long-term current use of drug therapy (806722821) PLAN OF TREATMENT Pending Test Test Name Order Date Chem 7 (BUN, Cr, Lytes, Glu) 09/04/2022 MRI : Cervical Spine without Contrast (7 0540) 11/07/2021 MRI : Lumbar Spine with and without Cont rast (53980) 04/16/2022 Insurance Providers Payer Name Payer Address Payer Phone Subscriber Number Group Number Insured Name Patient Relationship to Insured Coverage Start Date Coverage End Date [facility] MEDICARE ADVANTAGE (PPO) [address] [address] [place] [address] [id number] BRENDEN DUNHAM Self - patient is the insured Medicare [place] [address] [address] [place] [address] [id number] BRENDEN DUNHAM Self - patient is the insured MEDICAL (GENERAL) HISTORY Medical History History ICD Code AFIB Osteoarthritis SVT Hypertension Surgical History Surgery Date(Month/Year) L5-S1 microdisctomy Posterior lumbar fusion at L5-S1 02/2018 ALIF L5-S1 09/2018
--- OUTSIDE RECORDS SUMMARY | 2025-03-05 07:46 | XMS_ITS | Clinical Summary ---
Author Organization [facility] Address [address] [place] [address] Care Team Providers Care Material Assistant Name Role Phone Spenser Crooks MD Primary Care Provider [phone] [facility],non-owned Affiliates and Associated Physician Practices is amultiple site organization consisting of ambulatory clinics and hospital sitesin [place], [place], [place] and [place]. This disclosure is being madepursuant to the Care Everywhere program and may not contain all information available regarding this patient. Last updated 18.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 Procedure Code(s): --- Professional --- 92679, Colonoscopy, flexible; with removal of tumor(s), polyp(s), or other lesion(s) by hot biopsy forceps --- Technical --- 99290, Colonoscopy, flexible; with removal of tumor(s), polyp(s), or other lesion(s) by hot biopsy forceps Diagnosis Code(s): --- Professional --- Z12.11, Encounter for screening for malignant neoplasm of colon D12.2, Benign neoplasm of ascending colon K64.2, Third degree hemorrhoids --- Technical --- Z12.11, Encounter for screening for malignant neoplasm of colon D12.2, Benign neoplasm of ascending colon K64.2, Third degree hemorrhoids CPT copyright 2015 [employer]. All rights reserved. The codes documented in this report are preliminary and upon heating worker review may be revised to meet current compliance requirements. Dr. Hemanth Gimenez MD Hemanth Gimenez MD 01/27/2017 9:04:26 AM This report has been signed electronically. Number of Addenda: 0 Note Initiated On: 01/27/2017 7:27 AM [facility] 01/27/2017 7:27 AM CDT us Hemanth Gimenez MD GI PROCEDURE ORDERABLES Edited Result - Final [facility] [place] [place] [address] from Last 3 Months or Most Recently Relevant to Health Maintenance Insurance [facility] MEDICARE [facility] - [place] Member Subscriber Plan / Payer (Ef fective for All Dates) Name:Brenden Dunham Member ID:Not on file Relation to Subscriber:Self Name:Brenden Dunham Subscriber ID:Not on file Payer ID:Not on file Group ID:Not on file Type:Medicaid [place] Address: [place] [id number] [facility] ADV Member Subscriber Plan / Payer (Ef fective 2024-Present) Name:Brenden Dunham Relation to Subscriber:Self Name:Brenden Dunham Payer ID:[id number] (NAIC) Type:Medicare-Managed Care Address: [address] MEDICAID [place] [facility] MEDICARE ADV Member Subscriber Plan / Payer (Ef fective 2024-Present) Name:Brenden Dunham Relation to Subscriber:Self Name:Brenden Dunham Payer ID:[id number] (NAIC) Type:Medicare-Managed Care Address: [address] [place] Member Subscriber Plan / Payer (Ef fective for All Dates) Name:Brenden Dunham Member ID:Not on file Relation to Subscriber:Self Name:Brenden Dunham Subscriber ID:Not on file Payer ID:Not on file Group ID:Not on file Type:Medicaid [place] Address: [place] [phone] [facility] MEDIC[facility] ADV Care Teams Material Assistant Relationship Specialty Start Date End Date Spenser Crooks MD [address] [place] [id number] PCP - General Internal Medicine 01/07/17
--- OUTSIDE RECORDS SUMMARY | 2025-03-05 07:46 | XMS_ITS | Encounter Summary ---
Author Organization [facility] Address [address] [place] [address] Care Team Providers Care Fruit And Vegetable Packer Name Role Phone Spenser Crooks MD Primary Care Provider [phone] Encounter Details Date Type Department Care Team (Late st Contact Info) Description 01/07/2017 [facility] Outpatient Visit [facility] [address] [place] [address] Alfredo [place] [id number] [place], [place] [id number] Social History Tobacco Use Types Packs/Day Years Used Date Smoking Tobacco: Every Day Smokeless Tobacco: Never Alcohol Use Standard Drinks/Week Comments Yes 0 (1 standard drink = 0.6 oz pur e alcohol) Sex and Gender Information Value Date Recorded Sex Assigned at Not on file 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
--- OUTSIDE RECORDS SUMMARY | 2025-03-05 07:46 | XMS_ITS | Clinical Summary ---
Author Organization [facility] Address [address] [place] [address] Care Team Providers Care Yarder Operator Name Role Phone Brendon Ramirez MD Unavailable [phone] Sania Levin MD Primary Care Provider Allergies [...] (07/13/2019): Added automatically from request for surgery [id number] Perirectal abscess 06/17/2019 Alcohol use 06/17/2019 Pseudarthrosis after fusion or arthrodesis 09/14 Overview (09/14/2018): Added automatically from request for surgery [id number] Assessment & Plan (03/20/2020 10:31 AM CDT): Assessment Healed fusion L5-S1 Plan Released with permanent restrictions as outlined in the functional capabilities report that I filled out. 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 I have told him that there is nothing else surgically to offer him Assessment & Plan (05/03/2019 9:26 AM ASSISTANT SALES 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): Assessment Healing fusion L5-S1 with ongoing [...] (09/14/2018): Added automatically from request for surgery [id number] Assessment & Plan (12/15/2018 12:04 PM CDT): [...] (03/01/2018): Added automatically from request for surgery [id number] Assessment & Plan (07/22/2018 12:17 PM ASSISTANT SALES 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): Assessment Healing fusion L5-S1 with some increased leg pain compared to the recent visit Plan Observation I added Neurontin at HS talked about do's no 6 cues and from work and he is to return for x-ray in 6 weeks Intervertebral disc disorder s with radiculopathy, lumbosacral region 03/01/2018 Overview (03/01/2018): Added automatically from request for surgery [id number] Assessment & Plan (09/04/2021 11:31 AM CDT): [...] (03/01/2018): Added automatically from request for surgery [id number] Assessment & Plan (06/10/2018 12:05 PM ASSISTANT SALES 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): Assessment Healing fusion L5-S1 Plan I talked about do's and don'ts he is to continue to exercise on his own return in 6 weeks for an x-ray which time we will likely begin physical therapy. He is to remain off work Encounters Date Type Department Care Team Description 03/01/2025 2:00 PM CDT Procedure visit [facility] [address] [facility] [address] [place] [phone] PAT (paroxysmal atrial tachycardia) 02/27/2025 2:00 PM CDT Procedure visit [facility] [address] [place] [address] [place] [phone] PAT (paroxysmal atrial tachycardia); Palpitations 02/23/2025 Telephone [facility] [address] [place] [address] [place] [phone] Miguel Wang MD 02/17/2025 2:00 PM CDT Office Visit [facility] [address] [place] [address] [place] [phone] Miguel Wang MD Cardiac arrhythmia, unspecified cardiac arrhythmia type (Primary Dx); BEE (obstructive sleep apnea) 02/17/2025 Telephone [facility] [address] [place] [address] [place] [phone] Miguel Wang MD 01/12/2025 11:30 AM CDT Office Visit [facility] Cardiology [address] [place] [address] [place] [phone] Dhara Patel NP Paroxysmal atrial tachycardia (Primary Dx); BEE (obstructive sleep apnea); RLS (restless legs syndrome); Essential hypertension; Hospital discharge follow-up 01/12/2025 Telephone [facility]iology [address] [place] [address] [place] [phone] Dhara Patel NP 12/15/2024 Orders Only [facility]iology [address] [place] [address] [place] [phone] Rosario Orellana MD 12/14/2024 Orders Only [facility] Cardiology [address] [place] [address] [place] [phone] Rosario Orellana MD 12/07/2024 1:10 PM CDT Ancillary Procedure [facility] [address] [place] [address] [place] [phone] Cardiac arrhythmia, unspecified cardiac arrhythmia type from [...] on file Legal Sex Male 4:43 AM 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 SALES 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 Gender Identity Not on file Sexual Orientation Not on file Obstetrics History Last Filed Vital Signs Vital Sign Reading Time Taken Comments Blood Pressure 106/74 02/17/2025 2:12 PM CDT Pulse 98 02/17/2025 2:12 PM CDT Temperature 36.5 C (97.7 F) 08/03/2019 8:42 AM ASSISTANT SALES 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 Respiratory Rate 18 05/22/2021 11:08 AM ASSISTANT SALES 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 Oxygen Saturation 96% 01/12/2025 11:32 AM [...] (#1) 2025 Medical Devices Implanted Type Area Knapsack Sprayer Device Identifier Shelf Expiration Date Model / Serial / Lot [employer] [id number] Inqu Paste Mix Plus Precision Instrument Maker 10cc Bone Graft Hyaluronic Acid Poly - [id number] Implanted:Qty: 1 on 03/16/2018 by Ronaldo Toledo MD at [facility] N/A: Lumbar-Sa cral Spine [employer] 11/25/2018 [id number] / / [id number] Screw 7.0mm X 40mm Streamline Tl Pedicle - [id number] Implanted:Qty: 4 on 03/16/2018 by Ronaldo Toledo MD at [facility] N/A: Lumbar-Sa cral Spine [employer] 01-PA-70-40 / / Description:Polyaxial screw Screw Set Streamline Tl Screw System - [id number] Implanted:Qty: 4 on 03/16/2018 by Ronaldo Toledo MD at [facility] N/A: Lumbar-Sa cral Spine [employer] 01-[id number] / / [employer] 55-Pr-35 Quantum 5.5mm 35mm Prebent Michele Spinal Titanium - [id number] Implanted:Qty: 2 on 03/16/2018 by Ronaldo Toledo MD at [facility] N/A: Lumbar-Sa cral Spine [employer] 55-CO-35 / / Description:Prebent michele Medtronic Sofamor Danek [id number] Infuse 20ga 2x1in Vial Absorbable Syringe Needle Medium Graft 5.6 - [id number] Implanted:Qty: 1 on 10/06/2018 by Ronaldo Toledo MD at [facility] N/A: Lumbar-Sa cral Spine [employer] Sofamor [employer]anek 04/21/2019 [id number] / / [id number] [employer] 34-G44-73-4 Contact Option Vbr [id number] Insertion Hole Back Cut Teeth - [id number] Implanted:Qty: 1 on 10/06/2018 by Ronaldo Toledo MD at [facility] N/A: Lumbar-Sa cral Spine [employer] 06/04/2021 34-N75-68-5 / / [id number] [employer] 25-Sp-36 36mm Spine Sacral Anterior Plate Bone Nonsterile - [id number] Implanted:Qty: 1 on 10/06/2018 by Ronaldo Toledo MD at [facility] N/A: Lumbar-Sa cral Spine [employer] 25-SP-36 / / [employer] 60-24 6mm 24mm Spine Lumbar Screw Bone Nonsterile - [id number] Implanted:Qty: 4 on 10/06/2018 by Ronaldo Toledo MD at [facility] N/A: Lumbar-Sa cral Spine [employer] [...] phy Narrative 01/10/2025 8:33 AM CDT AMBULATORY MAGAZINE GRINDER LOADER REPORT Patient Name: Pa Galeas Date of : 1970 Requesting Physician: Constantino Date of interpretation: 01/10/25 Type of monitor : 30 day event monitor Date of the study/Enrollment period: 12/07/2024 Indication: Atrial tachyarrhythmias Quality of the study: Favorable Interpretation: The basic rhythm is sinus with normal CO, QRS and QT interval. The heart rate [...] used to complete this document, therefore, manager mission variances may occur. Gilbert Ceja MD [facility] 01/10/25 Lexy Taylor NP CV CARDIAC SERVICES PROCEDUR ES Final Result * Cardiology Document Scan (12/07/2024 1:46 PM CDT) Anatomical Region Laterality Modality Other Rosario Orellana MD CV CARDIAC SERVICES PRO CEDURES Final Result from Last 3 Months Insurance [facility] MEDIC[facility] Address: [facility] [address] [place] [address] [facility] MEDICARE AD[facility] Address: [facility] [address] [place] [address] Advance Directives For more information, please contact: [phone] * Full Code (Latest Code Status on File) Date Activated Date Inactivated Comments 06/17/2019 9:18 PM 06/19/2019 6:47 PM * Full Code Date Activated Date Inactivated Comments 10/06/2018 5:48 PM 10/07/2018 5:18 PM * Full Code Date Activated Date Inactivated Comments 03/16/2018 6:28 PM 03/18/2018 4:03 PM Care Teams Yarder Operator Relationship Specialty Start Date End Date Sania Levin MD [address] [facility] [address] [address] PCP - General Family Practice 11/09/24 Brendon Ramirez MD Consulting Physician Colon and Rectal Surgery 08/03/19
== END 2025-03-05 07:43 | disposition home or self-care (01) ==
PROVIDERS: PCP Family Medicine; Visit Provider Physician Assistant
DX: M79.661 Pain in right lower leg (principal)
CPT/HCPCS: 93971

== ENCOUNTER 2025-05-14 14:31 | Observation (INO) | payer MEDICARE, MEDICAID, SELFPAY ==
[2025-05-14] VITALS (10 sets, daily range): BP systolic 115–143; BP diastolic 78–98; PULSE 94–118; RESP 16–20; TEMP 36.4; O2SAT 98–100; BMI 29.8
--- NOTE | ~2025-05-14 | XR_ITS ---
EXAMINATION: XR chest 2V, 05/14/2025 15:00 SSIS ARCHITECT HISTORY: chest pain COMPARISON: No comparisons available. Technique: 2 views obtained. Findings: The lungs are clear, no effusion. No pneumothorax. Heart is normal size. Mediastinal and hilar contours are within normal limits. Bony thorax no acute abnormality. Impression: No acute cardiopulmonary abnormality. Reviewed, dictated and finalized at location P. ARCHITECT Impression: No acute cardiopulmonary abnormality.
--- OUTSIDE RECORDS SUMMARY | 2025-05-14 14:34 | XMS_ITS | Clinical Summary ---
Author Organization [facility] Address [address] [place] [address] Care Team Providers Care Director Of Patient Care Name Role Phone Spenser Crooks MD Primary Care Provider Source Comments [facility],non-owned Affiliates and Associated Physician Practices is amultiple site organization consisting of ambulatory clinics and hospital sitesin [place], [place], [place] and [place]. This disclosure is being madepursuant to the Care Everywhere program and may not contain all information available regarding this patient. 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 Procedure Code(s): --- Professional --- 95886, Colonoscopy, flexible; with removal of tumor(s), polyp(s), or other lesion(s) by hot biopsy forceps --- Technical --- 34491, Colonoscopy, flexible; with removal of tumor(s), polyp(s), or other lesion(s) by hot biopsy forceps Diagnosis Code(s): --- Professional --- Z12.11, Encounter for screening for malignant neoplasm of colon D12.2, Benign neoplasm of ascending colon K64.2, Third degree hemorrhoids --- Technical --- Z12.11, Encounter for screening for malignant neoplasm of colon D12.2, Benign neoplasm of ascending colon K64.2, Third degree hemorrhoids CPT copyright 2015 [employer]. All rights reserved. The codes documented in this report are preliminary and upon horizontal boring mill operator review may be revised to meet current compliance requirements. Dr. Hemanth Gimenez MD Hemanth Gimenez MD 01/27/2017 9:04:26 AM This report has been signed electronically. Number of Addenda: 0 Note Initiated On: 01/27/2017 7:27 AM [facility] 01/27/2017 7:27 AM CDT us Hemanth Gimenez MD GI PROCEDURE ORDERABLES Edited Result - Final [facility] [place] [address] from Last 3 Months or Most Recently Relevant to Health Maintenance Insurance [facility] MANAGED MEDICARE [facility] MEDICAID - [place] Member Subscriber Plan / Payer (Ef fective for All Dates) Name:Brenden Dunham Member ID:Not on file Relation to Subscriber:Self Name:Brenden Dunham Subscriber ID:Not on file Payer ID:Not on file Group ID:Not on file Type:Medicaid [place] Address: [place] [id number] [facility] MANAGED MEDICARE ADV Member Subscriber Plan / Payer (Ef fective 2024-Present) Name:Brenden Dunham Relation to Subscriber:Self Name:Brenden Dunham Payer ID:[id number] (NAIC) Type:Medicare-Managed Care Address: [address] MEDICAID - [place] [facility] MANAGED MEDICARE ADV Member Subscriber Plan / Payer (Ef fective 2024-Present) Name:Brenden Dunham Relation to Subscriber:Self Name:Brenden Dunham Payer ID:[id number] (NAIC) Type:Medicare-Managed Care Address: [address] MEDICAID [place] Member Subscriber Plan / Payer (Ef fective for All Dates) Name:Brenden Dunham Member ID:Not on file Relation to Subscriber:Self Name:Brenden Dunham Subscriber ID:Not on file Payer ID:Not on file Group ID:Not on file Type:Medicaid [place] Address: [place] [id number] [facility] MANAGED MEDICARE ADV Care Teams Director Of Patient Care Relationship Specialty Start Date End Date Spenser Crooks MD [address] [facility] [address] [place] [phone] PCP - General Internal Medicine 01/07/17
--- OUTSIDE RECORDS SUMMARY | 2025-05-14 14:34 | XMS_ITS | Patient Health Record ---
Author Organization [facility] Address [address] [place] [address] [place] [address] Care Team Providers Care Dental Front Office Assistant Name Role Phone Sania Levin MD Primary [...] (F40.231) Active confirmed Fear of medical treatment (013950286) Problem Unspecified osteoarthritis, unspecified site (M19.90) Active confirmed Osteoarthritis (861409491) Problem Sacroiliitis, not elsewhere classified (M46.1) Active confirmed Solitary sacroiliitis (191350850) Problem Spondylosis without myelopathy or radiculopathy, cervical region (M47.812) Active confirmed Cervical spondylosis without myelopathy (705147880) Problem Spondylosis without myelopathy or radiculopathy, cervicothoracic region (M47.813) Active confirmed Cervical spondylosis without myelopathy (116009523) Problem Spondylosis without myelopathy or radiculopathy, lumbar region (M47.816) Active confirmed Lumbosacral spondylosis without myelopathy (90313548) Problem Spondylosis without myelopathy or radiculopathy, lumbosacral region (M47.817) Active confirmed Lumbosacral spondylosis without myelopathy (disorder) (46903189) Problem Intervertebral disc disorders with radiculopathy, lumbosacral region (M51.17) Active confirmed Lumbosacral radiculopathy (6742032) Problem Radiculopathy, cervical region (M54.12) Active confirmed Cervical radiculopathy (29584544) Problem Radiculopathy, cervicothoracic region (M54.13) Active confirmed Cervical radiculopathy (28239452) Problem Radiculopathy, lumbar region (M54.16) Active confirmed Lumbar radiculopathy (987872855) Problem Radiculopathy, lumbosacral region (M54.17) Active confirmed Lumbosacral radiculopathy (7168880) Problem Cervicalgia (M54.2) Active confirmed Cervicalgia (95068136) Problem Postlaminectomy syndrome, not elsewhere classified (M96.1) Active confirmed Post-lami nectomy syndrome (70823462) Problem Osseous stenosis of neural canal of lumbar region (M99.33) Active confirmed Spinal stenosis of lumbar region (08821634) Problem Other nursing home (current) drug therapy (Z79.899) Active confirmed Long-term current use of drug therapy (294671096) PLAN OF TREATMENT Pending Test Test Name Order Date Chem 7 (BUN, Cr, Lytes, Glu) 09/04/2022 MRI : Cervical Spine without Contrast (7 0540) 11/07/2021 MRI : Lumbar Spine with and without Cont rast (00342) 04/16/2022 Insurance Providers Payer Name Payer Address Payer Phone Subscriber Number Group Number Insured Name Patient Relationship to Insured Coverage Start Date Coverage End Date [facility] MEDICARE ADVANTAGE (PPO) [address] [address] [place] [address] [id number] BRENDEN DUNHAM Self - patient is the insured Medicare [place] [address] [address] [place] [address] [id number] BRENDEN DUNHAM Self - patient is the insured MEDICAL (GENERAL) HISTORY Medical History History ICD Code AFIB Osteoarthritis SVT Hypertension Surgical History Surgery Date(Month/Year) L5-S1 microdisctomy Posterior lumbar fusion at L5-S1 02/2018 ALIF L5-S1 09/2018
--- OUTSIDE RECORDS SUMMARY | 2025-05-14 14:34 | XMS_ITS | Clinical Summary ---
Author Organization [facility] Address [address] [place] [address] Care Team Providers Care Supervisor Silvering Department Name Role Phone Brendon Ramirez MD Unavailable [phone] Sania Levin MD Primary Care Provider Allergies Active Allergy Reactions Criticality Noted Date Comments Amlodipine Unknown High 06/29/2023 Metoprolol Unknown High 07/21/2023 Varenicline Headache Low 12/23/2023 Medications losartan (COZAAR) 100 mg tablet Take 0.5 tablets (50 mg total) by mouth daily 04/18/2024 Active fluticasone propionate (FLONASE) 50 mcg/actuation nasal spray INSTILL 1 SPRAY INTO THE NOSTRIL(S) EVERY 12 HOURS 12/07/2024 Active omeprazole (PriLOSEC) 10 mg capsule daily Active flecainide (TAMBOCOR) 150 mg tablet Take 1 tablet (150 mg total) by mouth 2 (two) times a day 60 tablet 11 02/27/2025 6 Active dilTIAZem CD/XR/XT (CARDIZEM CD,DILACOR XR) 240 mg 24 hr capsule Take 1 capsule (240 mg total) by mouth daily 90 capsule 3 03/06/2025 6 Active Active Problems Problem Noted Date Diagnosed Date Paroxysmal atrial tachycardia 11/21/2020 Palpitations 11/21/2020 Paroxysmal atrial fibrillation 11/21/2020 Dyslipidemia 11/21/2020 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 His permanent weight limit is 20 lb and could do no bending twisting stooping or awkward positions Assessment & Plan (07/27/2019 9:38 AM BUSINESS TRAINER): Assessment Healed L5-S1 fusion with ongoing bilateral lower extremity symptoms in light of normal electrical studies and no impingement on the CT scan Plan Physical therapy 2 times per week return in 6 weeks for lumbar spine x-ray in to assess his progress. I have told him that there is nothing else surgically to offer him Assessment & Plan (05/03/2019 9:26 AM BUSINESS TRAINER): Assessment Healing fusion L5-S1 with ongoing symptoms [...] (09/14/2018): Added automatically from request for surgery [id number] Assessment & Plan (12/15/2018 12:04 PM CDT): [...] (03/01/2018): Added automatically from request for surgery [id number] Assessment & Plan (07/22/2018 12:17 PM BUSINESS TRAINER): Assessment Healing fusion L5-S1 with some increased leg pain compared to the recent visit Plan Observation I added Neurontin at HS talked about do's no 6 cues and from work and he is to return for x-ray in 6 weeks Intervertebral disc disorder s with radiculopathy, lumbosacral region 03/01/2018 Overview (03/01/2018): Added automatically from request for surgery [id number] Assessment & Plan (09/04/2021 11:31 AM CDT): [...] (03/01/2018): Added automatically from request for surgery [id number] Assessment & Plan (06/10/2018 12:05 PM BUSINESS TRAINER): Assessment Healing fusion L5-S1 Plan I talked about do's and don'ts he is to continue to exercise on his own return in 6 weeks for an x-ray which time we will likely begin physical therapy. He is to remain off work Encounters Date Type Department Care Team Description 03/29/2025 Results [facility]Up [facility] [address] [place] [address] [place] [address] [phone] Cyndie Wagner NP Extended/Snf Holter Patch (8 days up to 15 days) 03/16/2025 11:00 AM CDT Office Visit [facility] [address] [facility] [address] [place] [phone] Dhara Patel NP Paroxysmal atrial tachycardia; Paroxysmal atrial fibrillation (HCC); BEE (obstructive sleep apnea); Mixed hyperlipidemia 03/06/2025 1:30 PM CDT Ancillary Procedure [facility] [address] [place] [address] [place] [phone] PAT (paroxysmal atrial tachycardia); Palpitations; Cardiac arrhythmia, unspecified cardiac arrhythmia type; Paroxysmal atrial tachycardia; Essential hypertension 03/06/2025 12:30 PM CDT Procedure visit [facility] [address] [place] [address] [place] [phone] Palpitations (Primary Dx); PAT (paroxysmal atrial tachycardia); Cardiac arrhythmia, unspecified cardiac arrhythmia type; Paroxysmal atrial tachycardia; Essential hypertension 03/06/2025 Orders Only [facility] [address] [phone] Cyndie Wagenr NP Cardiac arrhythmia, unspecified cardiac arrhythmia type (Primary Dx) 03/06/2025 Telephone [facility] [address] [place] [address] [phone] Miguel Wang MD 03/01/2025 2:00 PM CDT Procedure visit [facility] [address] [place] [address] [phone] PAT (paroxysmal atrial tachycardia) 02/27/2025 2:00 PM CDT Procedure visit [facility] [address] [place] [phone] PAT (paroxysmal atrial tachycardia); Palpitations 02/23/2025 Telephone [facility] [address] [place] [address] [phone] Miguel Wang MD 02/17/2025 2:00 PM CDT Office Visit [facility] [address] [place] [address] [phone] Miguel Wang MD Cardiac arrhythmia, unspecified cardiac arrhythmia type (Primary Dx); BEE (obstructive sleep apnea) 02/17/2025 Telephone [facility] [address] [place] [address] [phone] Miguel Wang MD from Last 3 Months Surgical History Surgery [...] on file Legal Sex Male 4:43 AM BUSINESS TRAINER Gender Identity Not on file Sexual Orientation Not on file Last Filed Vital Signs Vital Sign Reading Time Taken Comments Blood Pressure 110/80 03/16/2025 10:56 AM CDT Pulse 95 03/16/2025 10:56 AM CDT Temperature 36.5 C (97.7 F) 08/03/2019 8:42 AM BUSINESS TRAINER Respiratory Rate 18 05/22/2021 11:08 AM BUSINESS TRAINER Oxygen Saturation 96% 03/16/2025 10:56 AM CDT Inhaled Oxygen Concentration - - Weight 99.3 kg (219 lb) 03/16/2025 10:56 AM CDT Height 180.3 cm (5' 11) 03/16/2025 10:56 AM CDT Body Mass Index 30.54 03/16/2025 10:56 AM CDT Plan of Treatment Health Maintenance Due [...] (#1) 2025 Medical Devices Implanted Type Area Glost Tile Sorter Device Identifier Shelf Expiration Date Model / Serial / Lot Democracy Engine [id number] Inqu Paste Mix Plus Account Receivable Clerk 10cc Bone Graft Hyaluronic Acid Poly - [id number] Implanted:Qty: 1 on 03/16/2018 by Ronaldo Toledo MD at [facility] N/A: Lumbar-Sa cral Spine [employer] 11/25/2018 [id number] / / [id number] Screw 7.0mm X 40mm Streamline Tl Pedicle - [id number] Implanted:Qty: 4 on 03/16/2018 by Ronaldo Toledo MD at [facility] N/A: Lumbar-Sa cral Spine [employer] -70-40 / / Description:Polyaxial screw Screw Set Streamline Tl Screw System - [id number] Implanted:Qty: 4 on 03/16/2018 by Ronaldo Toledo MD at [facility] N/A: Lumbar-Sa cral Spine [employer] -SETSCREW / / [employer] 35 Quantum 5.5mm 35mm Prebent Michele Spinal Titanium - [id number] Implanted:Qty: 2 on 03/16/2018 by Ronaldo Toledo MD at [facility] N/A: Lumbar-Sa cral Spine [employer] SD35 / / Description:Prebent michele Medtronic Sofamor Danek [id number] Infuse 20ga 2x1in Vial Absorbable Syringe Needle Medium Graft 5.6 - [id number] Implanted:Qty: 1 on 10/06/2018 by Ronaldo Toledo MD at [facility] N/A: Lumbar-Sa cral Spine [employer] 04/21/2019 [id number] / / [id number] [employer] 34-P10-52-3 Contact Option Vbr [id number] 3 Insertion Hole Back Cut Teeth - [id number] Implanted:Qty: 1 on 10/06/2018 by Ronaldo Toledo MD at [facility] N/A: Lumbar-Sa cral Spine [employer] 06/04/2021 34-[id number] / / [id number] [employer] 25-Sp-36 36mm Spine Sacral Anterior Plate Bone Nonsterile - [id number] Implanted:Qty: 1 on 10/06/2018 by Ronaldo Toledo MD at [facility] N/A: Lumbar-Sa cral Spine [employer] 25-SP-36 / / [employer] 2560-24 6mm 24mm Spine Lumbar Screw Bone Nonsterile - [id number] Implanted:Qty: 4 on 10/06/2018 by Ronaldo Toledo MD at [facility] N/A: Lumbar-Sa cral Spine [employer] 25-60-24 / / Procedures Procedure Name Priority Date/Time Associated Diagnosis Comments POCT LIPID PANEL Routine 03/16/2025 11:0 0 AM CDT Mixed hyperlipidemia EXTENDED/JAIL HOLTER PATCH (8 DAYS UP TO 15 DAYS) Routine 03/06/2025 1:30 PM CDT PAT (paroxysmal atrial tachycardia) Palpitations Cardiac arrhythmia, unspecified cardiac arrhythmia type Paroxysmal atrial tachycardia Essential hypertension ECG 12-LEAD Routine 03/06/2025 1:21 PM CDT Cardiac arrhythmia, unspecified cardiac arrhythmia type ECG 12-LEAD Routine 03/01/2025 2:23 PM CDT PAT (paroxysmal atrial tachycardia) ECG 12-LEAD Routine 02/27/2025 2:36 PM CDT PAT (paroxysmal atrial tachycardia) Palpitations ECG 12-LEAD Routine 02/17/2025 3:36 PM CDT Cardiac arrhythmia, unspecified cardiac arrhythmia type ECG 12-LEAD Routine 02/17/2025 2:14 PM CDT Cardiac arrhythmia, unspecified cardiac arrhythmia type from Last 3 Months Results * (ABNORMAL) POCT lipid panel (03/16/2025 11:00 AM CDT) Cholesterol, POC 372 <200 MG/DL HDL, POC 88 >=40 mg/dL Triglycerides, POC 177(A) <=149 mg/dL LDL Cholesterol POC 248(A) <=129 mg/dL Chol/HDL Ratio, POC 2.8 NONE Non-HDL Cholesterol, POC 283 NONE mg/dL Cholesterol Total, POC 372(A) 30 - 199 mg/dL Capillary blood 03/16/2025 1 1:00 AM CDT Dhara Patel NP POINT OF CARE TEST ORDERA BLES Final Result * Extended/Snf Holter Patch (8 days up to 15 days) (03/06/2025 1:30 PM CDT) Anatomical Region Laterality Modality Electrocardiogra phy Narrative 03/29/2025 10:05 AM CDT [facility] Report Summary Patient ID; Pa Galeas is a 54 y.o. male Date of ; 1970 MRN; [id number] [place] ID: [id number] Recording Period; 03/06/2025 AT 1:30 P.M. TO 03/20/2025 AT 1:23 P.M. Recording length; 13 DAYS, 23 HOURS Indication; PALPITATIONS Button pressed; Count; 0 Correlates to; -- Critical status notes; None Predominant Rhythm: NSR Sinus heart rates; Average: 99 bpm Min: 73 bpm, on March 19 at 4:53 a.m. Max: 129 bpm, on March 07 at 11:43 a.m. ECG intervals SD: 0.17 s QRS: 0.12 s QT: 0.36 s QTc: 0.46 s Supraventricular arrhythmias, AT; Episodes 24,179, Longest 24.2 seconds at an average 156 bpm (up to 223 bpm), Fastest 20 beats at an average 168 bpm (up to 179), Variable, Aberrant PAC; [place] 0.2%, AVG 330 /day, Isolated 4471, Pairs 53 Ventricular arrhythmias, VT; Episodes --, Longest/ -- @ AVG -- bpm, Fastest (-- bpm) PVC; [place] < 0.1%, AVG 8 /day, Isolated 107, Pairs 0 Other -- A total of 22 events captured. Findings summary; Predominant rhythm: NSR Atrial Tachycardia (AT) 08411 episodes, Longest 24.2 s @ Avg 156 bpm up to 213 bpm, Fastest 20 beats @ Avg 168 bpm up to 197 bpm PAC 0.2 % PVC <0.1 % Cyndie Wagner NP CV CARDIAC SERVICES PROCED URES Final Result * ECG 12 lead (03/06/2025 1:21 PM CDT) us Cyndie Wagner NP ECG ORDERABLES Final Resu lt * ECG 12 lead (03/01/2025 2:23 PM CDT) us Miguel Wang MD ECG ORDERABLES Final Re sult CONS SCIMAGE * ECG 12 lead (02/27/2025 2:36 PM CDT) us Miguel Wang MD ECG ORDERABLES Final Re sult Performing Organization Address [facility] Co de Phone Number CONS SCIMAGE * ECG 12 lead (02/17/2025 3:36 PM CDT) Impressions Miguel Wang MD - 02/17/2025 3:36 PM CDT Sinus rhythm with frequent and consecutive PACs. us Miguel Wang MD ECG ORDERABLES Final Re sult * ECG 12 lead (02/17/2025 2:14 PM CDT) us Miguel Wang MD ECG ORDERABLES Final Re sult from Last 3 Mon[address] Insurance [facility] MEDICARE ADV[facility]AGE [facility] Address: [address] [address] [place] [address] [facility] MEDICARE [facility] Address: [address] [address] [place] [address] Advance Directives For more information, please contact: [phone] * Full Code (Latest Code Status on File) Date Activated Date Inactivated Comments 06/17/2019 9:18 PM 06/19/2019 6:47 PM * Full Code Date Activated Date Inactivated Comments 10/06/2018 5:48 PM 10/07/2018 5:18 PM * Full Code Date Activated Date Inactivated Comments 03/16/2018 6:28 PM 03/18/2018 4:03 PM Care Teams Supervisor Silvering Department Relationship Specialty Start Date End Date Sania Levin MD [address] [facility] [address] [address] PCP - General Family Practice 11/09/24 Brendon Ramirez MD Consulting Physician Colon and Rectal Surgery 08/03/19
--- OUTSIDE RECORDS SUMMARY | 2025-05-14 14:34 | XMS_ITS | Patient Health Record ---
Author Organization [facility] Address [address] [place] [address] Care Team Providers Care Computer Programming Manager Name Role Phone Ronaldo Hoang Primary Care Provider Pedro Heard Unavailable [phone] Regino Rodriguez Unavailable Unavailable Reason For Referral [...] Notes Problem Degeneration of lumbar intervertebral disc (78568693) Other intervertebral disc degeneration, lumbar region (M51.36) Active confirmed Problem Degeneration of lumbosacral intervertebral disc (30461477) Other intervertebral disc degeneration, lumbosacral region (M51.37) Active confirmed Plan Of Treatment No Information Insurance Providers Payer Name Payer Address Payer Phone Subscriber Number Group Number Insured Name Patient Relationship to Insured Coverage Start Date Coverage End Date [facility] Choice Plus [address] [place] [address] [id number] Pa Galeas Self - patient is the insured 8 Medical (General) History Surgical History Surgery Date(Month/Year) Tonsils 08/31/1972 Zaira-rectal abcess 08/26/2014 Transant Flap 01/22/2017 L5-S1 Microdiscectomy 03/29/2013
--- OUTSIDE RECORDS SUMMARY | 2025-05-14 14:34 | XMS_ITS | Encounter Summary ---
Author Organization [facility] Address [address] [place] [address] Care Team Providers Care Inside Channel Account Manager Name Role Phone Spenser Crooks MD Primary Care Provider [phone] Encounter Details Date Type Department Care Team (Late st Contact Info) Description 01/07/2017 [facility] Outpatient Visit [facility] [address] [place] [address] [place] [id number] [place], [place] [id number] Social History Tobacco Use Types Packs/Day Years Used Date Smoking Tobacco: Every Day Smokeless Tobacco: Never Alcohol Use Standard Drinks/Week Comments Yes 0 (1 standard drink = 0.6 oz pur e alcohol) Sex and Gender Information Value Date Recorded Sex Assigned at Not on file Legal Sex Male 5:51 AM DRIVER'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
--- NOTE | 2025-05-14 14:38 | ECG_ITS ---
Test Date: 2025-05-14 14:37:05 Measurements Intervals [place] Rate: 103 P: 0 KS: 0 QRS: -23 QRSD: 89 T: -1 QT: 343 QTc: 451 Interpretive Statements ATRIAL FIBRILLATION WITH RAPID VENTRICULAR RESPONSE BORDERLINE LEFT AXIS DEVIATION [QRS AXIS < -20] MINIMAL ST DEPRESSION [0.025+ mV ST DEPRESSION] ABNORMAL RHYTHM ECG Compared to ECG 03/04/2025 21:46:25 ST (T wave) deviation now present Electronically Signed On 05-14-2025 19:59:31 SPEED BELT SANDER by Yuriy Tinoco M.D.
[2025-05-14] MEDS: ASPIRIN 81 MG CHEWABLE TABLET 324 MG PO (14:42)
[2025-05-14] MEDS: LACTATED RINGERS 1,000 ML 999 ML IV CONT (14:44)
--- NOTE | 2025-05-14 14:47 | ED_ITS ---
HPI - General Adult General Chief complaint: Arrhythmia/Palpitations Stated complaint: palpitations - hx afib Time Seen by Provider: 05/14/25 14:34 History of Present Illness HPI narrative: 54-year-old male prior history of atrial fibrillation, hypertension, high cholesterol, SVT, GERD, peripheral neuropathy present to the emergency department for evaluation for chest discomfort and rapid heart rate since Thursday. Patient reports Thursday he had acute onset heart palpitations. Patient is unsure he was always in atrial fibrillation. Patient states that in February he had an episode COVID and they were making changes to his medications he has felt fine since then. Patient began having increased her palpitations on Thursday and has felt them since then. Patient states his heart rate has been fluctuating between 50s and 130. Upon arrival emergency department patient's heart rate was in AFib approximately 120. Patient is on flecainide and Cardizem and losartan. Patient is currently not on a blood thinner Related Data Home Medications ?Medication ?Instructions ?Recorded ?Confirmed ?Last Taken ?Type losartan 100 mg tablet 100 mg PO DAILY 05/04/2305/14/25 08:00 History diltiazem HCl 240 mg 240 mg PO QAM 05/08/2505/1405/14/25 08:00 History capsule,extended release 24 hr, controlled flecainide 150 mg tablet 150 mg PO Q12H 05/08/2504/2305/14/25 08:00 History Allergies Allergy/AdvReac Type Severity Reaction Status Date / Time No Known Allergies Allergy Verified 05/14/25 17:22 Review of Systems 2 Review of Systems: All systems reviewed & are unremarkable except as noted in HPI and below [facility] Past Medical History Medical History PSVT (paroxysmal supraventricular tachycardia) Atrial fibrillation Atrial paroxysmal tachycardia GERD without esophagitis Lumbar spondylosis Post laminectomy syndrome Dyslipidemia Vitamin D deficiency BEE (obstructive sleep apnea) Intolerant of CPAP Essential (primary) hypertension Restless legs syndrome (RLS) Erectile dysfunction Peripheral neuropathy Arthritis, lumbar spine Chronic back pain Surgical History Surgical History History of hand surgery (~08/2023) right ring finger mass excision History of carpal tunnel surgery (~08/2023) Right Perirectal cyst 2018 - Excision Hx of tonsillectomy (~1973) Previous back surgery (~2013) Lumbar spine surgeries - 2013, 2017, 2019 Family History Family History Father History of blood clots Mother Hypertension Social History Social History Smoking packs per day: 1 Smoking cigarettes per day: 20.0 Years smoked: 30 Smoking pack-years: 30.00 Smoking status: Current every day smoker Tobacco type: cigarettes Second hand tobacco smoke exposure: Yes Alcohol intake: current Drinks per week: 42 Alcohol use details: 6 beers/day Substance use: former Substance use type: crack/cocaine and painkillers Other substance usage details: USES ONLY PRESCRIBED DRUGS NOW. DRINKS 6 TO 8 BEERS PER DAY Last use: 25 YEARS AGO Do You Feel Safe in your Home?: Yes Lack of Transportation: No Lack of Food: Never True Current Housing: I Have Housing Concerned About Future Housing: No Difficulty Paying Gas/Electric Bills: No Difficulty Paying for Meds: No Currently Unemployed: No Education: High School Diploma/GED Difficulty w/ Childcare or Family Care: No Living arrangements: with family Gender identity (if verbalized by the patient): Male Spiritual care concerns: No Exam 2 Narrative: APPEARANCE: Well appearing, no pain, no distress, well-nourished. HEAD: normocephalic, atraumatic. EYES: PERRLA/EOMI, conjunctivae clear. NOSE: Normal no drainage EARS:TMS clear with good light reflex. THROAT: Pharynx clear, no exudate. NECK: Supple. No adenopathy, no masses. RESPIRATORY: Airway patent, respirations nonlabored. Clear to auscultation bilaterally, no rales, rhonchi, wheezing. CARDIOVASCULAR: AFib with RVR ABDOMINAL: Soft, nontender, nondistended, normal bowel sounds MUSCULOSKELETAL: Moves all extremities. Strength/ROM intact, No edema, No calf tenderness. NEURO: Alert. Cranial nerves II through XII intact. Good gait. Good coordination SKIN: Warm, dry. Normal Color Course Vital Signs Vital signs: Vital Signs Pulse Rate 118 H 05/14/25 14:35 Respiratory Rate 18 05/14/25 14:35 Blood Pressure 143/98 H 05/14/25 14:35 Pulse Oximetry 98 05/14/25 14:35 Oxygen Delivery Room Air 05/14/25 14:35 Pulse Rate 101 H 05/14/25 16:50 Respiratory Rate 18 05/14/25 16:50 Blood Pressure 142/92 H 05/14/25 16:50 Pulse Oximetry 98 05/14/25 16:50 Oxygen Delivery Room Air 05/14/25 14:35 Medical Decision Making MDM Narrative Medical decision making narrative: 54-year-old male present to the emergency department for evaluation for AFib with RVR. Patient does have history of AFib but is typically the rhythm controlled using flecainide and Cardizem. Patient is not on any blood thinners. Patient is currently afebrile and leukocytosis hemoglobin of 17.6. Patient has an INR of 1.0. No acute abnormalities on his CMP and patient's initial troponin is negative. Chest x-ray shows no acute cardiopulmonary abnormality. Patient's Mag was in normal range. Patient has previously had follow-up with Dr. Orellana. Patient does follow-up with left graphic user interface designer at [facility]. Differential Diagnosis Differential Diagnosis: AFib with RVR, tachycardia, pneumonia, pneumothorax Vital Signs Vital Signs: Vital Signs Pulse Rate 118 H 05/14/25 14:35 Respiratory Rate 18 05/14/25 14:35 Blood Pressure 143/98 H 05/14/25 14:35 Pulse Oximetry 98 05/14/25 14:35 Oxygen Delivery Room Air 05/14/25 14:35 Pulse Rate 101 H 05/14/25 16:50 Respiratory Rate 18 05/14/25 16:50 Blood Pressure 142/92 H 05/14/25 16:50 Pulse Oximetry 98 05/14/25 16:50 Oxygen Delivery Room Air 05/14/25 14:35 Lab Data Lab results reviewed: Yes I reviewed the patient's lab results. 05/14/25 14:43 05/14/25 14:43 Labs: Lab Results 05/14/25 Range/Units 14:43 WBC 6.6 (4.5-10.0) K/mm3 RBC 4.96 (4.6-6.20) M/mm3 Hgb 17.6 (14.0-18.0) g/dL Hct 50.7 (42.0-52.0) % MCV 102.2 H (80-100) fl MCH 35.5 H (26-34) pg MCHC 34.7 (32-36) g/dl RDW 12.5 (11.5-14.5) % Plt Count 225 (150-375) k/mm3 MPV 9.2 (7.4-10.4) fl Immature Gran % (Auto) 0.3 (0-0.5) % Neut % (Auto) 46.4 (45.5-73.1) % Lymph % (Auto) 44.2 (18.3-44.2) % [place] % (Auto) 7.9 (2.6-8.5) % Eos % (Auto) 0.6 (0-4.4) % Baso % (Auto) 0.6 (0.2-1.2) % Lymph # (Auto) 2.92 (0.9-3.2) K/mm3 [place] # (Auto) 0.5 (0.1-0.6) K/mm3 Eos # (Auto) 0.0 (0-0.3) K/mm3 Baso # (Auto) 0.0 (0.0-0.1) K/mm3 Abs Immat Gran (auto) 0.02 (0.00-0.031) K/mm3 Absolute Neuts (auto) 3.1 (1.3-6.7) K/mm3 Absolute Nucleated RBC 0.000 (0.0-0.012) K/mm3 Nucleated RBC % 0.0 (0.0-0.2) % PT 12.9 (11.1-14.7) Seconds INR 1.0 APTT 28.3 (22.3-36.8) Seconds Sodium 136 L (137-145) mmol/L Potassium 4.6 (3.4-5.0) mmol/L Chloride 103 (98-107) mmol/L Carbon Dioxide 24 (22-30) mmol/L Anion Gap 9 (4-12) mmol/L BUN 7 L D (9-20) mg/dL Creatinine 1.04 (0.7-1.3) mg/dL Estim Creat Clear Calc Not Reportable Estimated GFR > 60 (59 - ) Glucose 102 (65-110) mg/dL Calcium 9.7 (8.4-10.2) mg/dL Magnesium 2.0 (1.6-2.3) mg/dL Total Bilirubin 0.9 (0.2-1.3) mg/dL AST 47 (17-59) U/L ALT 54 H (6-50) U/L Alkaline Phosphatase 73 (38-126) U/L Troponin I < 0.012 (0.000-0.034) ng/mL Total Protein 8.4 H (6.3-8.2) g/dL Albumin 4.7 (3.5-5.1) g/dL Lipase 211 (23-300) U/L TSH (Reflex) 0.753 (0.465-4.68) uIU/mL Imaging Data Radiologist's impression: Impressions Chest X-Ray 05/14/25 15:12 Impression: No acute cardiopulmonary abnormality. Discharge Plan Discharge Clinical Impression: Atrial fibrillation Qualifiers: Atrial fibrillation type: paroxysmal Qualified Code(s): I48.0 - Paroxysmal atrial fibrillation Patient Disposition: Still a Patient Condition: Serious
[2025-05-14 14:48] LABS: Hematocrit 50.7 % (42.0-52.0); Hemoglobin 17.6 g/dL (14.0-18.0); Immature Granulocyte Percent A 0.3 % (0-0.5); Lymphocytes Absolute Auto 2.92 K/mm3 (0.9-3.2); Mean Corpuscular HGB Conc 34.7 g/dl (32-36); Mean Corpuscular Hemoglobin 35.5 pg (26-34); Mean Corpuscular Volume 102.2 fl (80-100); Nucleated Red Blood Cells Absolute Auto 0.000 K/mm3 (0.0-0.012); Nucleated Red Blood Cells Perc 0.0 % (0.0-0.2); Platelet Count Result 225 k/mm3 (150-375); Red Blood Count 4.96 M/mm3 (4.6-6.20); White Blood Count 6.6 K/mm3 (4.5-10.0)
[2025-05-14 14:58] LABS: Alanine Aminotransferase 54 U/L (6-50); Albumin Level 4.7 g/dL (3.5-5.1); Alkaline Phosphatase 73 U/L (38-126); Anion Gap 9 mmol/L (4-12); Aspartate Amino Transferase 47 U/L (17-59); Bilirubin,Total 0.9 mg/dL (0.2-1.3); Blood Urea Nitrogen 7 mg/dL (9-20); Calcium 9.7 mg/dL (8.4-10.2); Carbon Dioxide 24 mmol/L (22-30); Chloride 103 mmol/L (98-107); Estimated Glomerular Filt Rate > 60; Glucose 102 mg/dL (65-110); Lipase 211 U/L (23-300); Magnesium 2.0 mg/dL (1.6-2.3); Potassium 4.6 mmol/L (3.4-5.0); Sodium 136 mmol/L (137-145); Total Protein 8.4 g/dL (6.3-8.2)
[2025-05-14 15:02] LABS: INR 1.0; Prothrombin Time 12.9 Seconds (11.1-14.7)
[2025-05-14 15:03] LABS: Partial Thromboplastin Time 28.3 Seconds (22.3-36.8)
[2025-05-14 15:10] LABS: Troponin I < 0.012 ng/mL (0.000-0.034)
[2025-05-14 15:28] LABS: Thyroid Stimulating Hormone Reflex 0.753 uIU/mL (0.465-4.68)
--- NOTE | 2025-05-14 15:42 | PM.IMHP ---
H&P: HPI History of Present Illness Date/Time: 05/14/25 15:42 Chief Complaint: Palpitations, SOB Narrative: 54 y/o M with PMH of RLS, sleep apnea (intolerant of CPAP), chronic back pain, tobacco use, alcohol use, previous polysubstance abuse, SVT, paroxysmal atrial tachycardia, paroxysmal AFib, and peripheral neuropathy presents here with palpitations and shortness of breath. The patient presents here from home on 05/14 for further evaluation of palpitations and shortness of breath. He reports onset on Thursday, 05/09. At home he reports his heart rate has fluctuated between the 50s and 130s. He has a cardiac history significant for SVT, paroxysmal atrial tachycardia, and paroxysmal atrial fibrillation for which he follows with cardiology and EP at [facility]. He is currently on flecainide and diltiazem for rate control in he denies any recently missed doses. He is not currently on anticoagulation. Palpitations/shortness of breath or accompanied by chest pressure which has also been constant and does not appear to improve or resolve with fluctuations in his heart rate. He denies dizziness, syncope, nausea, vomiting, diarrhea, recent illness, hemoptysis, lower extremity edema, or calf pain. Upon arrival to the emergency department the patient's heart rate was in the 120s and telemetry showed atrial fibrillation. While in the ED, patient reportedly became symptomatic when his heart rate would increase over 120, currently not sustaining over 120 and HR remains variable. Initial VS at presentation: HR 118, R 18, 143/98, and 98% on RA. ED workup showed: No leukocytosis, no anemia, sodium 136, creatinine 1.04 and GFR >60, initial troponin negative, TSH within normal limits. CXR showed no acute cardiopulmonary abnormality. EKG showed atrial fibrillation with RVR, rate 103, borderline left axis deviation, minimal ST depression. Review of Systems Review of Systems: All systems reviewed & are unremarkable except as noted in HPI and below [facility] Past Medical History Medical History PSVT (paroxysmal supraventricular tachycardia) Atrial fibrillation Atrial paroxysmal tachycardia GERD without esophagitis Lumbar spondylosis Post laminectomy syndrome Dyslipidemia Vitamin D deficiency BEE (obstructive sleep apnea) Intolerant of CPAP Essential (primary) hypertension Restless legs syndrome (RLS) Erectile dysfunction Peripheral neuropathy Arthritis, lumbar spine Chronic back pain Surgical History Surgical History History of hand surgery (~08/2023) right ring finger mass excision History of carpal tunnel surgery (~08/2023) Right Perirectal cyst 2018 - Excision Hx of tonsillectomy (~1973) Previous back surgery (~2013) Lumbar spine surgeries - 2013, 2017, 2019 Family History Family History Father History of blood clots Mother Hypertension Social History Social History Smoking packs per day: 1 Smoking cigarettes per day: 20.0 Years smoked: 30 Smoking pack-years: 30.00 Smoking status: Current every day smoker Tobacco type: cigarettes Second hand tobacco smoke exposure: Yes Alcohol intake: current Drinks per week: 42 Alcohol use details: 6 beers/day Substance use: former Substance use type: crack/cocaine and painkillers Other substance usage details: USES ONLY PRESCRIBED DRUGS NOW. DRINKS 6 TO 8 BEERS PER DAY Last use: 25 YEARS AGO Do You Feel Safe in your Home?: Yes Lack of Transportation: No Lack of Food: Never True Current Housing: I Have Housing Concerned About Future Housing: No Difficulty Paying Gas/Electric Bills: No Difficulty Paying for Meds: No Currently Unemployed: No Education: High School Diploma/GED Difficulty w/ Childcare or Family Care: No Living arrangements: with family Gender identity (if verbalized by the patient): Male Spiritual care concerns: No Meds Home Medications and Allergies Home Medications ?Medication ?Instructions ?Recorded ?Confirmed ?Type losartan 100 mg tablet 100 mg PO DAILY 05/04/23 05/14/25 History omeprazole 20 mg capsule,delayed 20 mg PO DAILY #90 caps 12/29/24 05/14/25 Rx release diltiazem HCl 240 mg 240 mg PO QAM 05/08/25 05/14/25 History capsule,extended release 24 hr, controlled flecainide 150 mg tablet 150 mg PO Q12H 05/08/25 05/14/25 History Allergies Allergy/AdvReac Type Severity Reaction Status Date / Time No Known Allergies Allergy Verified 05/14/25 17:22 Vital Signs Vital Signs - 24 hr 05/14/25 14:35 05/14/25 15:26 Pulse Rate 118 H 104 H Respiratory Rate 18 20 Blood Pressure 143/98 H Pulse Oximetry 98 100 Oxygen Delivery Room Air Exam Const: General: comfortable and no acute distress Other: , male, nontoxic appearance HENMT: Face/Nose/Sinus: Normal nares present Mouth: Yes moist mucous membranes Eyes: General: appearance normal, both eyes and all related structures Sclera: sclerae normal Pupils: Equal, round and reactive pupils present EOM: EOMs intact bilaterally Resp: Effort & Inspection: normal respiratory effort Auscultation: clear to auscultation bilaterally Cardio: Other: Variable rate, abnormal rhythm. No murmur or rub. S1 and S2 normal. GI: Other: Abdomen soft, nondistended, nontender. Normoactive bowel sounds in all quadrants. Skin: General skin exam: normal color and no rashes or lesions noted Wounds: no wounds Neuro: Speech: normal speech Motor exam (neuro): 5/5 motor strength present throughout Sensory Exam: normal sensation Other: A&O x4 Extrem: Other: No peripheral edema or erythema. No tenderness on exam. Psych: Mental Status: mental status grossly normal Affect: normal affect Other: Good insight and judgment, pleasant H&P: Results Labs Labs: Short CBC 05/14/25 Range/Units 14:43 WBC 6.6 (4.5-10.0) K/mm3 Hgb 17.6 (14.0-18.0) g/dL Hct 50.7 (42.0-52.0) % Plt Count 225 (150-375) k/mm3 [facility] 05/14/25 14:43 Sodium 136 L Potassium 4.6 Chloride 103 Carbon Dioxide 24 BUN 7 L D Creatinine 1.04 Glucose 102 Calcium 9.7 Cardiac Enzymes 05/14/25 Range/Units 14:43 Troponin I < 0.012 (0.000-0.034) ng/mL Liver Function 05/14/25 Range/Units 14:43 Total Bilirubin 0.9 (0.2-1.3) mg/dL AST 47 (17-59) U/L ALT 54 H (6-50) U/L Alkaline Phosphatase 73 (38-126) U/L Albumin 4.7 (3.5-5.1) g/dL Assessment and Plan Assessment and plan (1) Atrial fibrillation: Qualifiers: Atrial fibrillation type: paroxysmal Qualified Code(s): I48.0 - Paroxysmal atrial fibrillation Code(s): I48.91 - Unspecified atrial fibrillation Status: Acute Assessment and Plan: History of paroxysmal atrial tachycardia, paroxysmal atrial fibrillation, and SVT. Follows with cardiology and EP. Currently on flecainide and diltiazem for rate control, reported no missed doses. Has been having palpitations, shortness of breath, and chest discomfort since Thursday, 05/09. Symptomatic with tachycardia in the emergency department when heart rate would go above 120. However currently not sustaining in the 120s. - cardiology consulted for possible medication adjustments - CHADSVasc 1 no current indication for anticoagulation. Checking D-dimer, has had some shortness of breath and chest discomfort. - TSH WNL on 05/14 - continue flecainide and diltiazem at home doses - telemetry monitoring (2) Chest discomfort: Code(s): R07.89 - Other chest pain Status: Acute Assessment and Plan: Palpitations, chest discomfort, and shortness of breath since Thursday. Appears to be having episodes of tachycardia related to paroxysmal AFib, see above. Symptoms resolve with resolution of tachycardia. Chest discomfort likely related to variable heart rate. - check D-dimer to rule out PE - start ASA daily - trend troponin, initial negative - EKG reviewed, no significant ST depressions or elevations - nitro SL p.r.n. - telemetry monitoring (3) Essential (primary) hypertension: Code(s): I10 - Essential (primary) hypertension Status: Chronic Assessment and Plan: - chronic, currently 115/78, stable. - continue home medications: Losartan 100 mg daily - monitor Plan Diet: Heart healthy GI Prophylaxis: N/a DVT Prophylaxis: SCDs IV fluids: 1L bolus Lines/Tubes: Peripheral IV Code Status: Full code Quality VTE Prophylaxis VTE prophylaxis: mechanical ordered Hospitalist MIPS Advance Care Plan I have confirmed that the patient's Advanced Care Plan is present, code status is documented, or surrogate decision maker is listed in patient medical record.: Yes Medication Reconciliation I have utilized all available resources to obtain, update and review the patients current medications (includes all prescriptions, OTC, herbals, cannabis, and nutritional supplements).: Yes
--- NOTE | 2025-05-14 16:51 | WPCEDHO ---
ED Hand Off Checklist All vitals saved: IV Site documented: All med administrations documented: Triage Note Triage Note Palpitations SOB since Thursday. 05/14/25 14:35 Hx of AFIB. Allergies No Known Allergies Allergy (Verified 05/14/25 14:32) Family History (Last Reviewed 05/14/25 @ 15:51 by Chantell Sin, [employer]) Father History of blood clots Mother Hypertension Administered/Completed Medications Discontinued Medications Aspirin (Aspirin 81 Mg Chewable Tablet) 324 mg PO ONCE STA Stop: 05/14/25 14:39 Last Admin: 05/14/25 14:42 Dose: 324 mg Documented By: ECS Lactated Ringer's (Lr - Lactated Ringers Iv) 1,000 mls @ 999 mls/hr IV CONT .Q1H1M STA Stop: 05/14/25 15:42 Last Admin: 05/14/25 14:44 Dose: 999 mls/hr Documented By: ECS Interventions/Assessments IV / Saline Lock, Insert Start: 05/14/25 14:38 Freq: STAT Status: Active Protocol: Document 05/14/25 14:44 ECS (Rec: 05/14/25 14:45 ECS [id number]) IV Assessment Peripheral Access Right Antecubital IV Insertion Date 05/14/25 IV Insertion Time 14:45 Catheter Gauge 18 IV Insertion 1 Attempts IV Site Assessment WNL IV Care and WNL Maintenance PA: Cardiovascular Assessment Start: 05/14/25 14:32 Freq: Status: Active Protocol: Document 05/14/25 14:39 ECS (Rec: 05/14/25 14:39 ECS [id number]) Cardiovascular Assessment Cardiovascular Chest Pressure Symptoms Skin Description Normal Color Chest Pain Assessment Chest Pain Location Epigastric Last Vital Signs Pulse Rate 131 H 05/14/25 16:50 Respiratory Rate 18 05/14/25 16:50 Pulse Oximetry 98 05/14/25 16:50 Blood Pressure 115/78 05/14/25 15:50 Blood Pressure Mean 90 05/14/25 15:50 Blood Pressure Position Supine 05/14/25 14:35 Oxygen Delivery Room Air 05/14/25 14:35 Weight 96 kg 05/14/25 14:35 Last Result - Abnormals Only MCV 102.2 fl (80-100) H 05/14/25 14:43 MCH 35.5 pg (26-34) H 05/14/25 14:43 Sodium 136 mmol/L (137-145) L 05/14/25 14:43 BUN 7 mg/dL (9-20) L D 05/14/25 14:43 ALT 54 U/L (6-50) H 05/14/25 14:43 Total Protein 8.4 g/dL (6.3-8.2) H 05/14/25 14:43 Most Recent Suicide Severity Rating Suicide Severity Rating NO RISK INDICATED 05/14/25 14:35
--- NOTE | 2025-05-14 16:51 | WPCEDHO ---
ED Hand Off Checklist All vitals saved: yes IV Site documented: yes All med administrations documented: yes Triage Note Triage Note Palpitations SOB since Thursday. 05/14/25 14:35 Hx of AFIB. Allergies No Known Allergies Allergy (Verified 05/14/25 14:32) Family History (Last Reviewed 05/14/25 @ 15:51 by Chantell Sin, [employer]NAG GRIND[employer]) Father History of blood clots Mother Hypertension Administered/Completed Medications Discontinued Medications Aspirin (Aspirin 81 Mg Chewable Tablet) 324 mg PO ONCE STA Stop: 05/14/25 14:39 Last Admin: 05/14/25 14:42 Dose: 324 mg Documented By: ECS Lactated Ringer's (Lr - Lactated Ringers Iv) 1,000 mls @ 999 mls/hr IV CONT .Q1H1M STA Stop: 05/14/25 15:42 Last Admin: 05/14/25 14:44 Dose: 999 mls/hr Documented By: ECS Notes 05/14/25 16:51 ED Hand Off by Willie Quiros ED Hand Off Checklist All vitals saved: IV Site documented: All med administrations documented: Triage Note Triage Note Palpitations SOB since Thursday. 05/14/25 14:35 Hx of AFIB. Allergies No Known Allergies Allergy (Verified 05/14/25 14:32) Family History (Last Reviewed 05/14/25 @ 15:51 by Chantell Sin, SNAG GRINDER) Father History of blood clots Mother Hypertension Administered/Completed Medications Discontinued Medications Aspirin (Aspirin 81 Mg Chewable Tablet) 324 mg PO ONCE STA Stop: 05/14/25 14:39 Last Admin: 05/14/25 14:42 Dose: 324 mg Documented By: ECS Lactated Ringer's (Lr - Lactated Ringers Iv) 1,000 mls @ 999 mls/hr IV CONT .Q1H1M STA Stop: 05/14/25 15:42 Last Admin: 05/14/25 14:44 Dose: 999 mls/hr Documented By: ECS Interventions/Assessments IV / Saline Lock, Insert Start: 05/14/25 14:38 Freq: STAT Status: Active Protocol: Document 05/14/25 14:44 ECS (Rec: 05/14/25 14:45 ECS [id number]) IV Assessment Peripheral Access Right Antecubital IV Insertion Date 05/14/25 IV Insertion Time 14:45 Catheter Gauge 18 IV Insertion 1 Attempts IV Site Assessment WNL IV Care and WNL Maintenance PA: Cardiovascular Assessment Start: 05/14/25 14:32 Freq: Status: Active Protocol: Document 05/14/25 14:39 ECS (Rec: 05/14/25 14:39 ECS [id number]) Cardiovascular Assessment Cardiovascular Chest Pressure Symptoms Skin Description Normal Color Chest Pain Assessment Chest Pain Location Epigastric Last Vital Signs Pulse Rate 131 H 05/14/25 16:50 Respiratory Rate 18 05/14/25 16:50 Pulse Oximetry 98 05/14/25 16:50 Blood Pressure 115/78 05/14/25 15:50 Blood Pressure Mean 90 05/14/25 15:50 Blood Pressure Position Supine 05/14/25 14:35 Oxygen Delivery Room Air 05/14/25 14:35 Weight 96 kg 05/14/25 14:35 Last Result - Abnormals Only MCV 102.2 fl (80-100) H 05/14/25 14:43 MCH 35.5 pg (26-34) H 05/14/25 14:43 Sodium 136 mmol/L (137-145) L 05/14/25 14:43 BUN 7 mg/dL (9-20) L D 05/14/25 14:43 ALT 54 U/L (6-50) H 05/14/25 14:43 Total Protein 8.4 g/dL (6.3-8.2) H 05/14/25 14:43 Most Recent Suicide Severity Rating Suicide Severity Rating NO RISK INDICATED 05/14/25 14:35 Initialized on 05/14/25 16:51 - END OF NOTE Interventions/Assessments IV / Saline Lock, Insert Start: 05/14/25 14:38 Freq: STAT Status: Active Protocol: Document 05/14/25 14:44 ECS (Rec: 05/14/25 14:45 ECS [id number]) IV Assessment Peripheral Access Right Antecubital IV Insertion Date 05/14/25 IV Insertion Time 14:45 Catheter Gauge 18 IV Insertion 1 Attempts IV Site Assessment WNL IV Care and WNL Maintenance PA: Cardiovascular Assessment Start: 05/14/25 14:32 Freq: Status: Active Protocol: Document 05/14/25 14:39 ECS (Rec: 05/14/25 14:39 ECS [id number]) Cardiovascular Assessment Cardiovascular Chest Pressure Symptoms Skin Description Normal Color Chest Pain Assessment Chest Pain Location Epigastric Last Vital Signs Pulse Rate 131 H 05/14/25 16:50 Respiratory Rate 18 05/14/25 16:50 Pulse Oximetry 98 05/14/25 16:50 Blood Pressure 115/78 05/14/25 15:50 Blood Pressure Mean 90 05/14/25 15:50 Blood Pressure Position Supine 05/14/25 14:35 Oxygen Delivery Room Air 05/14/25 14:35 Weight 96 kg 05/14/25 14:35 Last Result - Abnormals Only MCV 102.2 fl (80-100) H 05/14/25 14:43 MCH 35.5 pg (26-34) H 05/14/25 14:43 Sodium 136 mmol/L (137-145) L 05/14/25 14:43 BUN 7 mg/dL (9-20) L D 05/14/25 14:43 ALT 54 U/L (6-50) H 05/14/25 14:43 Total Protein 8.4 g/dL (6.3-8.2) H 05/14/25 14:43 Most Recent Suicide Severity Rating Suicide Severity Rating NO RISK INDICATED 05/14/25 14:35
--- NOTE | 2025-05-14 17:19 | ADMGEN ---
This patient, Pa Galeas, was admitted to IMU Room 214-01. Patient/family oriented to hospital policies and general routines including ID bracelet, bed and alarms, visiting hours, pain management, procedures, bathroom and other care routines, personal items, smoking policy, room service/diet, and visiting hours. Information on how to activate the Rapid Response Team has been discussed. Patient/Family are encouraged to report perceived risks to care and to ask questions if they do not understand what they are told or what they should do.
[2025-05-14 19:40] LABS: Troponin I < 0.012 ng/mL (0.000-0.034)
[2025-05-14] MEDS: FLECAINIDE ACETATE 50 MG TABLET PO (20:51)
[2025-05-14] MEDS: FLECAINIDE ACETATE 100 MG TABLET PO (20:52)
--- NOTE | 2025-05-14 21:43 | ECG_ITS ---
Test Date: 2025-05-14 21:58:03 Measurements Intervals [place] Rate: 92 P: 0 TN: 0 QRS: -9 QRSD: 93 T: 33 QT: 385 QTc: 477 Interpretive Statements SINUS RHYTHM WITH FREQUENT PACS NONSPECIFIC ST AND T ABNORMALITY ABNORMAL ECG Compared to ECG 05/14/2025 14:37:05 NO DIFFERENCE Electronically Signed On 05-15-2025 07:24:53 EHS MANAGER by Gilbert Ceja M.D.
[2025-05-14 22:09] LABS: Troponin I < 0.012 ng/mL (0.000-0.034)
[2025-05-15] VITALS (10 sets, daily range): BP systolic 104–136; BP diastolic 66–88; PULSE 80–96; RESP 16–18; TEMP 36.6–36.7; O2SAT 95–100
[2025-05-15 04:38] LABS: Hematocrit 46.0 % (42.0-52.0); Hemoglobin 15.7 g/dL (14.0-18.0); Immature Granulocyte Percent A 0.3 % (0-0.5); Lymphocytes Absolute Auto 3.98 K/mm3 (0.9-3.2); Mean Corpuscular HGB Conc 34.1 g/dl (32-36); Mean Corpuscular Hemoglobin 35.7 pg (26-34); Mean Corpuscular Volume 104.5 fl (80-100); Nucleated Red Blood Cells Absolute Auto 0.000 K/mm3 (0.0-0.012); Nucleated Red Blood Cells Perc 0.0 % (0.0-0.2); Platelet Count Result 178 k/mm3 (150-375); Red Blood Count 4.40 M/mm3 (4.6-6.20); White Blood Count 7.9 K/mm3 (4.5-10.0)
[2025-05-15 04:59] LABS: Anion Gap 6 mmol/L (4-12); Blood Urea Nitrogen 10 mg/dL (9-20); Calcium 9.1 mg/dL (8.4-10.2); Carbon Dioxide 26 mmol/L (22-30); Chloride 103 mmol/L (98-107); Estimated CRCL calculation 73 ml/min; Estimated Glomerular Filt Rate > 60; Glucose 91 mg/dL (65-110); Magnesium 2.0 mg/dL (1.6-2.3); Potassium 4.6 mmol/L (3.4-5.0); Sodium 135 mmol/L (137-145)
--- NOTE | 2025-05-15 07:47 | PM.IMPN ---
Progress Note: A&P Assessment and Plan (1) Atrial fibrillation: Qualifiers: Atrial fibrillation type: paroxysmal Qualified Code(s): I48.0 - Paroxysmal atrial fibrillation Code(s): I48.91 - Unspecified atrial fibrillation Status: Acute Assessment and Plan: History of paroxysmal atrial tachycardia, paroxysmal atrial fibrillation, and SVT. Follows with cardiology and EP. Currently on flecainide and diltiazem for rate control, reported no missed doses. Has been having palpitations, shortness of breath, and chest discomfort since Thursday, 05/09. Symptomatic with tachycardia in the emergency department when heart rate would go above 120. However currently not sustaining in the 120s. - cardiology consulted for possible medication adjustments - CHADSVasc 1 no current indication for anticoagulation. Checking D-dimer, has had some shortness of breath and chest discomfort. - TSH WNL on 05/14 - continue flecainide and diltiazem at home doses - telemetry monitoring (2) Chest discomfort: Code(s): R07.89 - Other chest pain Status: Acute Assessment and Plan: Palpitations, chest discomfort, and shortness of breath since Thursday. Appears to be having episodes of tachycardia related to paroxysmal AFib, see above. Symptoms resolve with resolution of tachycardia. Chest discomfort likely related to variable heart rate. - check D-dimer to rule out PE - start ASA daily - trend troponin, initial negative - EKG reviewed, no significant ST depressions or elevations - nitro SL p.r.n. - telemetry monitoring (3) Essential (primary) hypertension: Code(s): I10 - Essential (primary) hypertension Status: Chronic Assessment and Plan: - chronic, currently 115/78, stable. - continue home medications: Losartan 100 mg daily - monitor Plan Diet: Heart healthy GI Prophylaxis: N/a DVT Prophylaxis: SCDs IV fluids: 1L bolus Lines/Tubes: Peripheral IV Code Status: Full code Subjective Date/time seen: 05/15/25 07:47 Review of Systems Review of Systems: All systems reviewed & are unremarkable except as noted in HPI and below Exam Const: General: comfortable and no acute distress Other: , male, nontoxic appearance HENMT: Face/Nose/Sinus: Normal nares present Mouth: Yes moist mucous membranes Eyes: General: appearance normal, both eyes and all related structures Sclera: sclerae normal Pupils: Equal, round and reactive pupils present EOM: EOMs intact bilaterally Resp: Effort & Inspection: normal respiratory effort Auscultation: clear to auscultation bilaterally Cardio: Other: Variable rate, abnormal rhythm. No murmur or rub. S1 and S2 normal. GI: Other: Abdomen soft, nondistended, nontender. Normoactive bowel sounds in all quadrants. Skin: General skin exam: normal color and no rashes or lesions noted Wounds: no wounds Neuro: Cranial nerves: Yes Equal, round and reactive pupils present Speech: normal speech Motor exam (neuro): 5/5 motor strength present throughout Sensory Exam: normal sensation Other: A&O x4 Extrem: Other: No peripheral edema or erythema. No tenderness on exam. Psych: Mental Status: mental status grossly normal Affect: normal affect Other: Good insight and judgment, pleasant Objective Data Vital Signs Vital Signs: Vital Signs - 24 hr 05/14/25 14:35 05/14/25 15:26 05/14/25 15:50 Temperature Pulse Rate 118 H 104 H Respiratory Rate 18 20 Blood Pressure 143/98 H 115/78 Pulse Oximetry 98 100 Oxygen Delivery Room Air 05/14/25 16:50 05/14/25 18:00 05/14/25 19:48 Temperature 97.6 F Pulse Rate 101 H 105 H 100 Respiratory Rate 18 16 Blood Pressure 142/92 H 134/78 Pulse Oximetry 98 99 Oxygen Delivery 05/14/25 20:00 05/14/25 20:00 05/14/25 20:51 Temperature Pulse Rate 115 H 103 H Respiratory Rate Blood Pressure Pulse Oximetry Oxygen Delivery Room Air 05/14/25 20:52 05/14/25 22:00 05/15/25 00:00 Temperature Pulse Rate 104 H 94 Respiratory Rate Blood Pressure Pulse Oximetry Oxygen Delivery Room Air 05/15/25 00:00 05/15/25 00:00 05/15/25 02:00 Temperature 98.1 F Pulse Rate 93 81 96 Respiratory Rate 16 Blood Pressure 104/69 Pulse Oximetry 97 Oxygen Delivery 05/15/25 04:00 05/15/25 04:00 05/15/25 04:00 Temperature 97.8 F Pulse Rate 87 87 Respiratory Rate 18 Blood Pressure 105/76 Pulse Oximetry 95 Oxygen Delivery Room Air 05/15/25 06:00 05/15/25 07:44 Temperature 97.9 F Pulse Rate 94 80 Respiratory Rate 18 Blood Pressure 116/66 Pulse Oximetry 99 Oxygen Delivery Intake/Output Intake/Output: Intake & Output 05/12/25 05/13/25 05/14/25 05/15/25 23:59 23:59 23:59 23:59 Intake Total 240 1260 Balance 240 1260 Meds/Results Medications: Active Medications Generic Name Dose Route Start Last Admin Trade Name Freq PRN Reason Stop Dose Admin Aspirin 81 mg 05/15/25 09:00 Aspirin 81 Mg [facility] Dilt[facility]em HCl 240 mg 05/15/25 09:00 Diltiazem Hcl Cd 240 Mg Cap.24hr PO QAM [facility] Flecainide Acetate 100 mg 05/14/25 21:00 05/14/25 20:52 Flecainide Acetate 100 Mg Tablet PO 100 mg Q12H GHASSAN Administration Flecainide Acetate 50 mg 05/14/25 21:00 05/14/25 20:51 Flecainide Acetate 50 Mg Tablet PO 50 mg Q12H GHASSAN Administration Losartan Potassium 100 mg 05/15/25 09:00 Losartan Potassium 100 Mg Tablet PO DAILY GHASSAN Nitroglycerin 0.4 mg 05/14/25 17:57 Nitroglycerin Sl 0.4 Mg Tablet SUBLINGUAL Q5MIN PRN Chest Pain Pantoprazole Sodium 40 mg 05/15/25 09:00 Pantoprazole 40 [facility] Results: ITS Impressions Chest X-Ray 05/14/25 15:12 Impression: No acute cardiopulmonary abnormality. Labs Labs: Laboratory Results - last 24 hr 05/14/25 05/14/25 05/14/25 14:43 18:55 21:28 WBC 6.6 RBC 4.96 Hgb 17.6 Hct 50.7 MCV 102.2 H MCH 35.5 H MCHC 34.7 RDW 12.5 Plt Count 225 MPV 9.2 Immature Gran % (Auto) 0.3 Neut % (Auto) 46.4 Lymph % (Auto) 44.2 [place] % (Auto) 7.9 Eos % (Auto) 0.6 Baso % (Auto) 0.6 Lymph # (Auto) 2.92 [place] # (Auto) 0.5 Eos # (Auto) 0.0 Baso # (Auto) 0.0 Abs Immat Gran (auto) 0.02 Absolute Neuts (auto) 3.1 Absolute Nucleated RBC 0.000 Nucleated RBC % 0.0 PT 12.9 INR 1.0 APTT 28.3 D-Dimer < 0.27 Sodium 136 L Potassium 4.6 Chloride 103 Carbon Dioxide 24 Anion Gap 9 BUN 7 L D Creatinine 1.04 Estim Creat Clear Calc Not Reportable Estimated GFR > 60 Glucose 102 Calcium 9.7 Phosphorus Magnesium 2.0 Total Bilirubin 0.9 AST 47 ALT 54 H Alkaline Phosphatase 73 Troponin I < 0.012 < 0.012 < 0.012 Total Protein 8.4 H Albumin 4.7 Lipase 211 TSH (Reflex) 0.753 05/15/25 04:27 WBC 7.9 RBC 4.40 L Hgb 15.7 Hct 46.0 MCV 104.5 H MCH 35.7 H MCHC 34.1 RDW 12.5 Plt Count 178 MPV 9.2 Immature Gran % (Auto) 0.3 Neut % (Auto) 40.8 L Lymph % (Auto) 50.3 H [place] % (Auto) 8.0 Eos % (Auto) 0.0 Baso % (Auto) 0.6 Lymph # (Auto) 3.98 H [place] # (Auto) 0.6 Eos # (Auto) 0.0 Baso # (Auto) 0.1 Abs Immat Gran (auto) 0.02 Absolute Neuts (auto) 3.2 Absolute Nucleated RBC 0.000 Nucleated RBC % 0.0 PT INR APTT D-Dimer Sodium 135 L Potassium 4.6 Chloride 103 Carbon Dioxide 26 Anion Gap 6 BUN 10 Creatinine 1.08 Estim Creat Clear Calc 73 Estimated GFR > 60 Glucose 91 Calcium 9.1 Phosphorus 3.7 Magnesium 2.0 Total Bilirubin AST ALT Alkaline Phosphatase Troponin I Total Protein Albumin Lipase TSH (Reflex) Quality VTE Prophylaxis VTE prophylaxis: mechanical ordered
[2025-05-15] MEDS: LOSARTAN POTASSIUM 100 MG TABLET PO (08:21)
[2025-05-15] MEDS: dilTIAZem HCL CD 240 MG CAP.24HR PO (08:22)
[2025-05-15] MEDS: FLECAINIDE ACETATE 50 MG TABLET PO (08:22)
[2025-05-15] MEDS: PANTOPRAZOLE 40 MG TABLET PO (08:22)
[2025-05-15] MEDS: ASPIRIN 81 MG ENTERIC TABLET PO (08:22)
[2025-05-15] MEDS: FLECAINIDE ACETATE 100 MG TABLET PO (08:22)
--- NOTE | 2025-05-15 10:27 | P.CONCA_ITS ---
Assessment and Plan Assessment and plan (1) Atrial fibrillation: Qualifiers: Atrial fibrillation type: paroxysmal Qualified Code(s): I48.0 - Paroxysmal atrial fibrillation Code(s): I48.91 - Unspecified atrial fibrillation Status: Acute Assessment and Plan: He has paroxysmal atrial fibrillation as well as paroxysmal atrial tachycardia and frequent atrial ectopy. * Continue flecainide 100mg q12h and diltiazem 240mg daily * Hesitant to increase diltiazem due to reports of periodic bradycardia at home, though no significant bradycardia noted on telemetry here * Ultimately, needs to follow up with EP to have another discussion about PVI ablation * (2) Essential (primary) hypertension: Code(s): I10 - Essential (primary) hypertension Status: Chronic (3) BEE (obstructive sleep apnea): Code(s): G47.33 - Obstructive sleep apnea (adult) (pediatric) Status: Acute History of Present Illness History of Present Illness Consult date/time: 05/15/25 10:27 Requesting physician: Yoandy Avila MD Consult reason: atrial fibrillation Reason For Visit: Atrial Fibrillation Narrative: Pa Galeas is a 54 year old male with paroxysmal atrial tachycardia and paroxysmal atrial fibrillation. This is a patient who presents to the hospital with a chief complaint of palpitations. His ECG and telemetry demonstrate sinus rhythm with frequent PAC's as well as some atrial tachycardia and atrial fibrillation. Since his last hospitalization he was seen by EP at [facility] and switched from metoprolol to flecainide and diltiazem. This decision was made because he felt the metoprolol was causing extreme fatigue and had tolerated flecainide well in the past. He has not been able to tell much of a difference in fatigue since making the switch. He tells me that beginning on Thursday of last week he was experiencing palpitations and after several days he decided to come to the hospital for evaluation. He is comfprtable and without any complaints at the time of my evaluation. Review of Systems 2 Review of Systems: All systems reviewed & are unremarkable except as noted in HPI and below PMFSH Past Medical History Medical History PSVT (paroxysmal supraventricular tachycardia) Atrial fibrillation Atrial paroxysmal tachycardia GERD without esophagitis Lumbar spondylosis Post laminectomy syndrome Dyslipidemia Vitamin D deficiency BEE (obstructive sleep apnea) Intolerant of CPAP Essential (primary) hypertension Restless legs syndrome (RLS) Erectile dysfunction Peripheral neuropathy Arthritis, lumbar spine Chronic back pain Surgical History Surgical History History of hand surgery (~08/2023) right ring finger mass excision History of carpal tunnel surgery (~08/2023) Right Perirectal cyst 2018 - Excision Hx of tonsillectomy (~1973) Previous back surgery (~2013) Lumbar spine surgeries - 2013, 2017, 2019 Family History Family History Father History of blood clots Mother Hypertension Social History Social History Smoking packs per day: 1 Smoking cigarettes per day: 20.0 Years smoked: 30 Smoking pack-years: 30.00 Smoking status: Current every day smoker Tobacco type: cigarettes Second hand tobacco smoke exposure: Yes Alcohol intake: current Drinks per week: 42 Alcohol use details: 6 beers/day Substance use: former Substance use type: crack/cocaine and painkillers Other substance usage details: USES ONLY PRESCRIBED DRUGS NOW. DRINKS 6 TO 8 BEERS PER DAY Last use: 25 YEARS AGO Do You Feel Safe in your Home?: Yes Lack of Transportation: No Lack of Food: Never True Current Housing: I Have Housing Concerned About Future Housing: No Difficulty Paying Gas/Electric Bills: No Difficulty Paying for Meds: No Currently Unemployed: No Education: High School Diploma/GED Difficulty w/ Childcare or Family Care: No Living arrangements: with family Gender identity (if verbalized by the patient): Male Spiritual care concerns: No Meds Home Medications and Allergies Home Medications ?Medication ?Instructions ?Recorded ?Confirmed ?Type losartan 100 mg tablet 100 mg PO DAILY 05/04/23 History diltiazem HCl 240 mg 240 mg PO QAM 05/08/2505/14 History capsule,extended release 24 hr, controlled flecainide 150 mg tablet 150 mg PO Q12H 05/08/2504/23 History omeprazole 20 mg capsule,delayed 20 mg PO DAILY #90 ca ps 05/15/25 Rx release Allergies Allergy/AdvReac Type Severity Reaction Status Date / Time No Known Allergies Allergy Verified 05/14/25 17:22 Vital Signs Vital Signs - 24 hr 05/14/25 14:35 05/14/25 15:26 05/14/25 15:50 Temperature Pulse Rate 118 H 104 H Respiratory Rate 18 20 Blood Pressure 143/98 H 115/78 Pulse Oximetry 98 100 Oxygen Delivery Room Air 05/14/25 16:50 05/14/25 18:00 05/14/25 19:48 Temperature 36.4 C Pulse Rate 101 H 105 H 100 Respiratory Rate 18 16 Blood Pressure 142/92 H 134/78 Pulse Oximetry 98 99 Oxygen Delivery 05/14/25 20:00 05/14/25 20:00 05/14/25 20:51 Temperature Pulse Rate 115 H 103 H Respiratory Rate Blood Pressure Pulse Oximetry Oxygen Delivery Room Air 05/14/25 20:52 05/14/25 22:00 05/15/25 00:00 Temperature Pulse Rate 104 H 94 Respiratory Rate Blood Pressure Pulse Oximetry Oxygen Delivery Room Air 05/15/25 00:00 05/15/25 00:00 05/15/25 02:00 Temperature 36.7 C Pulse Rate 93 81 96 Respiratory Rate 16 Blood Pressure 104/69 Pulse Oximetry 97 Oxygen Delivery 05/15/25 04:00 05/15/25 04:00 05/15/25 04:00 Temperature 36.6 C Pulse Rate 87 87 Respiratory Rate 18 Blood Pressure 105/76 Pulse Oximetry 95 Oxygen Delivery Room Air 05/15/25 06:00 05/15/25 07:44 05/15/25 08:22 Temperature 36.6 C Pulse Rate 94 80 90 Respiratory Rate 18 Blood Pressure 116/66 Pulse Oximetry 99 Oxygen Delivery 05/15/25 08:22 Temperature Pulse Rate 90 Respiratory Rate Blood Pressure Pulse Oximetry Oxygen Delivery Exam 2 Const: General: comfortable, no acute distress, alert and awake O rientation/consciousness: patient oriented x3 HENMT: Head: normal to inspection Eyes: General: appearance normal, both eyes and all related structures P upils: Equal, round and reactive pupils present Neck: Neck: normal visual inspection, supple and no JVD Carotids: normal carotid upstroke Resp: Effort & Inspection: normal respiratory effort Auscultation: clear to auscultation bilaterally and wheezes expiratory wheezes Cardio: Rate: regular rate Rhythm: regular rhythm and abnormal rhythm with ectopic beats Heart sounds: S1 normal heart sound present, S2 normal heart sound present and no murmurs GI: Auscultation: normal bowel sounds Skin: General skin exam: normal color Neuro: General: patient oriented x3 Cranial nerves: Yes Equal, round and reactive pupils present Extrem: General: normal to inspection Psych: Appearance: grossly normal Mental Status: mental status grossly normal Results Labs and Meds 05/15/25 04:27 05/15/25 04:27 Lab results: Cardiac Enzymes 05/14/25 05/14/25 05/14/25 Range/Units 14:43 18:55 21:28 AST 47 (17-59) U/L Troponin I < 0.012 < 0.012 < 0.012 (0.000-0.034) ng/mL Coagulation 05/14/25 Range/Units 14:43 PT 12.9 (11.1-14.7) Seconds APTT 28.3 (22.3-36.8) Seconds CBC 05/14/25 05/15/25 Range/Units 14:43 04:27 WBC 6.6 7.9 (4.5-10.0) K/mm3 RBC 4.96 4.40 L (4.6-6.20) M/mm3 Hgb 17.6 15.7 (14.0-18.0) g/dL Hct 50.7 46.0 (42.0-52.0) % Plt Count 225 178 (150-375) k/mm3 Lymph # (Auto) 2.92 3.98 H (0.9-3.2) K/mm3 [place] # (Auto) 0.5 0.6 (0.1-0.6) K/mm3 Eos # (Auto) 0.0 0.0 (0-0.3) K/mm3 Baso # (Auto) 0.0 0.1 (0.0-0.1) K/mm3 Comprehensive Metabolic Panel 05/14/25 05/15/25 Range/Units 14:43 04:27 Sodium 136 L 135 L (137-145) mmol/L Potassium 4.6 4.6 (3.4-5.0) mmol/L Chloride 103 103 (98-107) mmol/L Carbon Dioxide 24 26 (22-30) mmol/L BUN 7 L D 10 (9-20) mg/dL Creatinine 1.04 1.08 (0.7-1.3) mg/dL Glucose 102 91 (65-110) mg/dL Calcium 9.7 9.1 (8.4-10.2) mg/dL AST 47 (17-59) U/L ALT 54 H (6-50) U/L Alkaline Phosphatase 73 (38-126) U/L Total Protein 8.4 H (6.3-8.2) g/dL Albumin 4.7 (3.5-5.1) g/dL Intake and Output 05/14/25 05/15/25 05/15/25 23:59 07:59 15:59 Intake Total 240 1260 Balance 240 1260 Intake: Oral 240 1260 Other: # Unmeasured Voids 6 Number of Bowel Movements Today 1 Patient Weight 05/15/25 23:59 Weight 96.3 kg
--- NOTE | 2025-05-15 14:58 | P.DS_ITS ---
DS: Admitting Diagnosis Discharge Date 05/15/2025 Admitting Diagnosis Atrial fibrillation DS: Discharge Diagnosis Discharge Diagnosis (1) Atrial fibrillation: Qualifiers: Atrial fibrillation type: paroxysmal Qualified Code(s): I48.0 - Paroxysmal atrial fibrillation Code(s): I48.91 - Unspecified atrial fibrillation Status: Acute Assessment and Plan: Please refer to hospital course for brief summary History of paroxysmal atrial tachycardia, paroxysmal atrial fibrillation, and SVT. Follows with cardiology and EP. Currently on flecainide and diltiazem for rate control, reported no missed doses. Has been having palpitations, shortness of breath, and chest discomfort since Thursday, 05/09. Symptomatic with tachycardia in the emergency department when heart rate would go above 120. However currently not sustaining in the 120s. - cardiology consulted for possible medication adjustments - CHADSVasc 1 no current indication for anticoagulation. Checking D-dimer, has had some shortness of breath and chest discomfort. - TSH WNL on 05/14 - continue flecainide and diltiazem at home doses - telemetry monitoring (2) Chest discomfort: Code(s): R07.89 - Other chest pain Status: Acute Assessment and Plan: Palpitations, chest discomfort, and shortness of breath since Thursday. Appears to be having episodes of tachycardia related to paroxysmal AFib, see above. Symptoms resolve with resolution of tachycardia. Chest discomfort likely related to variable heart rate. - check D-dimer to rule out PE - start ASA daily - trend troponin, initial negative - EKG reviewed, no significant ST depressions or elevations - nitro SL p.r.n. - telemetry monitoring (3) Essential (primary) hypertension: Code(s): I10 - Essential (primary) hypertension Status: Chronic Assessment and Plan: - chronic, currently 115/78, stable. - continue home medications: Losartan 100 mg daily - monitor DS: Summary Hospital Course Hospital Course: 54 y/o M with PMH of RLS, sleep apnea (intolerant of CPAP), chronic back pain, tobacco use, alcohol use, previous polysubstance abuse, SVT, paroxysmal atrial tachycardia, paroxysmal AFib, and peripheral neuropathy presents here with palpitations and shortness of breath. The patient presents here from home on 05/14 for further evaluation of palpitations and shortness of breath. He reports onset on Thursday, 05/09. At home he reports his heart rate has fluctuated between the 50s and 130s. He has a cardiac history significant for SVT, paroxysmal atrial tachycardia, and paroxysmal atrial fibrillation for which he follows with cardiology and EP at [facility]. He is currently on flecainide and diltiazem for rate control in he denies any recently missed doses. He is not currently on anticoagulation. Palpitations/shortness of breath or accompanied by chest pressure which has also been constant and does not appear to improve or resolve with fluctuations in his heart rate. He denies dizziness, syncope, nausea, vomiting, diarrhea, recent illness, hemoptysis, lower extremity edema, or calf pain. Upon arrival to the emergency department the patient's heart rate was in the 120s and telemetry showed atrial fibrillation. While in the ED, patient reportedly became symptomatic when his heart rate would increase over 120, currently not sustaining over 120 and HR remains variable. I assumed care 05/15/2025. Discussed with Cardiology who reports patient can follow-up with glass vial bending conveyor feeder as outpatient for further treatment. On the day of discharge, the patient was seen and examined. Vital signs were stable. Physical exam were stable and labs were reviewed at length. Discharge instructions, medications, and follow-up appointments were discussed with the patient at length and all day questions were answered. ER warnings were given. Status at Discharge Cognitive/behavioral status at discharge: Stable Time Spent with Patient Time attestation: Total time spent providing and/or coordinating discharge services: 45 minutes Exam Const: Other: , male, nontoxic appearance Cardio: Other: Variable rate, abnormal rhythm. No murmur or rub. S1 and S2 normal. GI: Other: Abdomen soft, nondistended, nontender. Normoactive bowel sounds in all quadrants. Neuro: Other: A&O x4 Extrem: Other: No peripheral edema or erythema. No tenderness on exam. Psych: Other: Good insight and judgment, pleasant DS: Data Data Completed and Pending Labs on day of discharge: Labs from last 24 hours 05/15/25 05/14/25 05/14/25 04:27 21:28 18:55 WBC 7.9 RBC 4.40 L Hgb 15.7 Hct 46.0 MCV 104.5 H MCH 35.7 H MCHC 34.1 RDW 12.5 Plt Count 178 MPV 9.2 Immature Gran % (Auto) 0.3 Neut % (Auto) 40.8 L Lymph % (Auto) 50.3 H [place] % (Auto) 8.0 Eos % (Auto) 0.0 Baso % (Auto) 0.6 Lymph # (Auto) 3.98 H [place] # (Auto) 0.6 Eos # (Auto) 0.0 Baso # (Auto) 0.1 Abs Immat Gran (auto) 0.02 Absolute Neuts (auto) 3.2 Absolute Nucleated RBC 0.000 Nucleated RBC % 0.0 PT INR APTT D-Dimer < 0.27 Sodium 135 L Potassium 4.6 Chloride 103 Carbon Dioxide 26 Anion Gap 6 BUN 10 Creatinine 1.08 Estim Creat Clear Calc 73 Estimated GFR > 60 Glucose 91 Calcium 9.1 Phosphorus 3.7 Magnesium 2.0 Total Bilirubin AST ALT Alkaline Phosphatase Troponin I < 0.012 < 0.012 Total Protein Albumin Lipase TSH (Reflex) 05/14/25 14:43 WBC RBC Hgb Hct MCV MCH MCHC RDW Plt Count MPV Immature Gran % (Auto) Neut % (Auto) Lymph % (Auto) [place] % (Auto) Eos % (Auto) Baso % (Auto) Lymph # (Auto) [place] # (Auto) Eos # (Auto) Baso # (Auto) Abs Immat Gran (auto) Absolute Neuts (auto) Absolute Nucleated RBC Nucleated RBC % PT 12.9 INR 1.0 APTT 28.3 D-Dimer Sodium 136 L Potassium 4.6 Chloride 103 Carbon Dioxide 24 Anion Gap 9 BUN 7 L D Creatinine 1.04 Estim Creat Clear Calc Not Reportable Estimated GFR > 60 Glucose 102 Calcium 9.7 Phosphorus Magnesium 2.0 Total Bilirubin 0.9 AST 47 ALT 54 H Alkaline Phosphatase 73 Troponin I < 0.012 Total Protein 8.4 H Albumin 4.7 Lipase 211 TSH (Reflex) 0.753 Imaging Radiologist's impression: ITS Impressions Chest X-Ray 05/14/25 15:12 Impression: No acute cardiopulmonary abnormality. Discharge Plan Discharge Attending physician on discharge: Orlando Gonzalez Consulting providers: Yesica Pa Discharging Clinician: Orlando Gonzalez Anticipated Discharge Date/Time: 05/15/25 15:01 Patient Disposition: Home Activity: as tolerated Diet: heart healthy Discharge Instructions: Check blood pressure 1 to 2 times a day. Record and bring into your doctor for review. Call your doctor if your blood pressure is greater than 180/110 or less than 90/45. Walk with cane or other assist device. Take precautions to avoid falls. Rise slowly from a lying or sitting position. Pause before standing or walking. Contact your doctor or call 911 and come to the Emergency Room if you have any palpitation, chest pain, lightheadedness with standing or other worrisome symptoms. Avoid NSAIDs (ibuprofen, naproxen, Aleve). Tylenol is safe to take. Follow-up with your primary care provider in 1-2 weeks. Please call for appointment. Follow-up with Cardiology and glass vial bending conveyor feeder in 2-4 weeks. Please call for an appointment. Thank you for using [facility] for your health care needs. Patient Instructions: Antibiotic Form Patient Language: Japanese Stand Alone Forms: General Discharge Information Follow-up/Referrals: Chase Levin MD [Primary Care Provider, Family Practice] Yesica Pa MD [Physician, Cardiology] Discharge Medications: New aspirin 81 mg Tablet,Delayed Release (Dr/Ec) 81 mg PO QAM Qty: 30 0RF Continued losartan 100 mg tablet 100 mg PO DAILY flecainide 150 mg tablet 150 mg PO Q12H diltiazem HCl 240 mg capsule,ext.rel 24h degradable 240 mg PO QAM omeprazole 20 mg capsule,delayed release(DR/EC) 20 mg PO DAILY Qty: 90 1RF Date of admission: 05/14/25 15:41 Primary Care Provider: Chase Levin Admitting Provider: Thierry Stover Attending physician on admission: Thierry Stover Condition: Stable
== END 2025-05-15 15:20 | disposition home or self-care (01) ==
LOC: ANHED 15:26 → ANHIMU 05-15 15:02
PROVIDERS: Student in an Organized Health Care Education/Training Program; Admitting Provider Internal Medicine; Emergency Provider Emergency Medicine; PCP Family Medicine; Visit Provider General Practice
DX: I48.0 Paroxysmal atrial fibrillation (principal); R07.89 Other chest pain; R94.31 Abnormal electrocardiogram [ECG] [EKG]; I10 Essential (primary) hypertension; I47.19 Other supraventricular tachycardia; M47.816 Spondylosis without myelopathy or radiculopathy, lumbar region; M96.1 Postlaminectomy syndrome, not elsewhere classified; E78.5 Hyperlipidemia, unspecified; K21.9 Gastro-esophageal reflux disease without esophagitis; G47.33 Obstructive sleep apnea (adult) (pediatric); G25.81 Restless legs syndrome; N52.9 Male erectile dysfunction, unspecified; G62.9 Polyneuropathy, unspecified; G89.29 Other chronic pain; M54.9 Dorsalgia, unspecified; F17.210 Nicotine dependence, cigarettes, uncomplicated; Z83.2 Family history of diseases of the blood and blood-forming organs and certain disorders involving the immune mechanism; Z82.49 Family history of ischemic heart disease and other diseases of the circulatory system
CPT/HCPCS: 36415; 71046; 80048; 80053; 83690; 83735; 84100; 84443; 84484; 85025; 85380; 85610; 85730; 93005; 99285; A9270; J7120

== ENCOUNTER 2025-05-22 10:37 | Outpatient (CLI) | payer MEDICARE, MEDICAID, SELFPAY ==
[2025-05-22 11:42] LABS: Alanine Aminotransferase 56 U/L (6-50); Albumin Level 4.6 g/dL (3.5-5.1); Alkaline Phosphatase 90 U/L (38-126); Anion Gap 6 mmol/L (4-12); Aspartate Amino Transferase 54 U/L (17-59); Bilirubin,Total 0.9 mg/dL (0.2-1.3); Blood Urea Nitrogen 12 mg/dL (9-20); Calcium 10.0 mg/dL (8.4-10.2); Carbon Dioxide 28 mmol/L (22-30); Chloride 103 mmol/L (98-107); Cholesterol 305 mg/dL (0-200); Estimated Glomerular Filt Rate > 60; Glucose 103 mg/dL (65-110); HDL Direct 84 mg/dL; Potassium 4.7 mmol/L (3.4-5.0); Sodium 137 mmol/L (137-145); Total Protein 7.9 g/dL (6.3-8.2); Triglycerides 226 mg/dL (<150)
--- OUTSIDE RECORDS SUMMARY | 2025-05-22 12:08 | XMS_ITS | Clinical Summary ---
Author Organization [facility] Address [address] [place] [address] Care Team Providers Care Lead Press Operator Name Role Phone Brendon Ramirez MD Unavailable [phone] Sania Levin MD Primary Care Provider Allergies [...] (07/13/2019): Added automatically from request for surgery [id number] Perirectal abscess 06/17/2019 Alcohol use 06/17/2019 Pseudarthrosis after fusion or arthrodesis 09/14 Overview (09/14/2018): Added automatically from request for surgery [id number] Assessment & Plan (03/20/2020 10:31 AM CDT): Assessment Healed fusion L5-S1 Plan Released with permanent restrictions as outlined in the functional capabilities report that I filled out. His permanent weight limit is 20 lb and could do no bending twisting stooping or awkward positions Assessment & Plan (07/27/2019 9:38 AM BOILER RELINER): Assessment Healed L5-S1 fusion with ongoing bilateral lower extremity symptoms in light of normal electrical studies and no impingement on the CT scan Plan Physical therapy 2 times per week return in 6 weeks for lumbar spine x-ray in to assess his progress. I have told him that there is nothing else surgically to offer him Assessment & Plan (05/03/2019 9:26 AM BOILER RELINER): Assessment Healing fusion L5-S1 with ongoing symptoms [...] (09/14/2018): Added automatically from request for surgery [id number] Assessment & Plan (12/15/2018 12:04 PM CDT): [...] (03/01/2018): Added automatically from request for surgery [id number] Assessment & Plan (07/22/2018 12:17 PM BOILER RELINER): Assessment Healing fusion L5-S1 with some increased leg pain compared to the recent visit Plan Observation I added Neurontin at HS talked about do's no 6 cues and from work and he is to return for x-ray in 6 weeks Intervertebral disc disorder s with radiculopathy, lumbosacral region 03/01/2018 Overview (03/01/2018): Added automatically from request for surgery [id number] Assessment & Plan (09/04/2021 11:31 AM CDT): [...] (03/01/2018): Added automatically from request for surgery [id number] Assessment & Plan (06/10/2018 12:05 PM BOILER RELINER): Assessment Healing fusion L5-S1 Plan I talked about do's and don'ts he is to continue to exercise on his own return in 6 weeks for an x-ray which time we will likely begin physical therapy. He is to remain off work Encounters Date Type Department Care Team Description 03/29/2025 Results [facility]Up [facility] [address] [place] [address] [place] [phone] Cyndie Wagner NP Extended/Long-Term Holter Patch (8 days up to 15 days) 03/16/2025 11:00 AM CDT Office Visit [facility] [address] [facility] [address] [place] [phone] Dhara Patel NP Paroxysmal atrial tachycardia; Paroxysmal atrial fibrillation (HCC); BEE (obstructive sleep apnea); Mixed hyperlipidemia 03/06/2025 1:30 PM CDT Ancillary Procedure [facility] [address] [place] [address] [place] [phone] PAT (paroxysmal atrial tachycardia); Palpitations; Cardiac arrhythmia, unspecified cardiac arrhythmia type; Paroxysmal atrial tachycardia; Essential hypertension 03/06/2025 12:30 PM CDT Procedure visit [facility] [address] [place] [address] [place] [phone] Palpitations (Primary Dx); PAT (paroxysmal atrial tachycardia); Cardiac arrhythmia, unspecified cardiac arrhythmia type; Paroxysmal atrial tachycardia; Essential hypertension 03/06/2025 Orders Only [facility] [address] [phone] Cyndie Wagner NP Cardiac arrhythmia, unspecified cardiac arrhythmia type (Primary Dx) 03/06/2025 Telephone [facility] [address] [place] [phone] Miguel Wang MD 03/01/2025 2:00 PM CDT Procedure visit [facility] [address] [place] [phone] PAT (paroxysmal atrial tachycardia) 02/27/2025 2:00 PM CDT Procedure visit [facility] [address] [place] [address] [phone] PAT (paroxysmal atrial tachycardia); Palpitations 02/23/2025 Telephone [facility] [address] [place] [address] [phone] Miguel Wang MD from Last 3 Months [...] on file Legal Sex Male 4:43 AM BOILER RELINER Gender Identity Not on file Sexual Orientation Not on file Last Filed Vital Signs Vital Sign Reading Time Taken Comments Blood Pressure 110/80 03/16/2025 10:56 AM CDT Pulse 95 03/16/2025 10:56 AM CDT Temperature 36.5 C (97.7 F) 08/03/2019 8:42 AM BOILER RELINER Respiratory Rate 18 05/22/2021 11:08 AM BOILER RELINER Oxygen Saturation 96% 03/16/2025 10:56 AM CDT [...] (#1) 2025 Medical Devices Implanted Type Area Horse Show Judge Device Identifier Shelf Expiration Date Model / Serial / Lot [id number] [id number] Inqu Paste Mix Plus Boat Deckhand 10cc Bone Graft Hyaluronic Acid Poly - [id number] Implanted:Qty: 1 on 03/16/2018 by Ronaldo Toledo MD at [facility] N/A: Lumbar-Sa cral Spine [employer] 11/25/2018 [id number] / / [id number] Screw 7.0mm X 40mm Streamline Tl Pedicle - [id number] Implanted:Qty: 4 on 03/16/2018 by Ronaldo Toledo MD at [facility] N/A: Lumbar-Sa cral Spine [employer] 01-PA-70-40 / / Description:Polyaxial screw Screw Set Streamline Tl Screw System - [id number] Implanted:Qty: 4 on 03/16/2018 by Ronaldo Toledo MD at [facility] N/A: Lumbar-Sa cral Spine [employer] 01-SETSCREW / / [employer] -Pr-35 Quantum 5.5mm 35mm Prebent Michele Spinal Titanium - [id number] Implanted:Qty: 2 on 03/16/2018 by Ronaldo Toledo MD at [facility] N/A: Lumbar-Sa cral Spine [employer] -NE-35 / / Description:Prebent michele Medtronic Sofamor Danek [id number] Infuse 20ga 2x1in Vial Absorbable Syringe Needle Medium Graft 5.6 - [id number] Implanted:Qty: 1 on 10/06/2018 by Ronaldo Toledo MD at [facility] N/A: Lumbar-Sa cral Spine [employer] Sofamor [employer] 04/21/2019 [id number] / / [id number] [employer] 34-A90-22-7 Contact Option Vbr [id number] Insertion Hole Back Cut Teeth - [id number] Implanted:Qty: 1 on 10/06/2018 by Ronaldo Toledo MD at [facility] N/A: Lumbar-Sa cral Spine [employer] 06/04/2021 34-[id number] / / [id number] [employer] 25-Sp-36 36mm Spine Sacral Anterior Plate Bone Nonsterile - [id number] Implanted:Qty: 1 on 10/06/2018 by Ronaldo Toledo MD at [facility] N/A: Lumbar-Sa cral Spine [employer] 25-SP-36 / / [employer] 2560-24 6mm 24mm Spine Lumbar Screw Bone Nonsterile - [id number] Implanted:Qty: 4 on 10/06/2018 by Ronaldo Toledo MD at [facility] N/A: Lumbar-Sa cral Spine [employer] 2560-24 / / Procedures Procedure Name Priority Date/Time Associated Diagnosis Comments POCT LIPID PANEL Routine 03/16/2025 11:0 0 AM CDT Mixed hyperlipidemia EXTENDED/SKILLED NURSING HOLTER PATCH (8 DAYS UP TO 15 [...] PM CDT PAT (paroxysmal atrial tachycardia) Palpitations from Last 3 Months Results * (ABNORMAL) [...] CARE TEST ORDERA BLES Final Result * Extended/Long-Term Holter Patch (8 days up to 15 days) (03/06/2025 1:30 PM CDT) Anatomical Region Laterality Modality Electrocardiogra phy Narrative 03/29/2025 10:05 AM CDT [facility] Report Summary Patient ID; Pa Galeas is a 54 y.o. male Date of ; 1970 MRN; [id number] Tennyson ID: [id number] Recording Period; 03/06/2025 AT 1:30 P.M. TO 03/20/2025 AT 1:23 P.M. Recording length; 13 DAYS, 23 HOURS Indication; PALPITATIONS Button pressed; Count; 0 Correlates to; -- Critical status notes; None Predominant Rhythm: NSR Sinus heart rates; Average: 99 bpm Min: 73 bpm, on March 19 at 4:53 a.m. Max: 129 bpm, on March 07 at 11:43 a.m. ECG intervals NE: 0.17 s QRS: 0.12 s QT: 0.36 s QTc: 0.46 s Supraventricular arrhythmias, AT; Episodes 24,179, Longest 24.2 seconds at an average 156 bpm (up to 223 bpm), Fastest 20 beats at an average 168 bpm (up to 179), Variable, Aberrant PAC; Redmon 0.2%, AVG 330 /day, Isolated 4471, Pairs 53 Ventricular arrhythmias, VT; Episodes --, Longest/ -- @ AVG -- bpm, Fastest (-- bpm) PVC; Redmon < 0.1%, AVG 8 /day, Isolated 107, Pairs 0 Other -- A total of 22 events captured. Findings summary; Predominant rhythm: NSR Atrial Tachycardia (AT) 12118 episodes, Longest 24.2 s @ Avg 156 bpm up to 213 bpm, Fastest 20 beats @ Avg 168 bpm up to 197 bpm PAC 0.2 % PVC <0.1 % Cyndie Wagner NP CV CARDIAC SERVICES PROCED URES Final Result * ECG 12 lead (03/06/2025 1:21 PM CDT) Cyndie Wagner NP ECG ORDERABLES Final Resu lt * ECG 12 lead (03/01/2025 2:23 PM CDT) Miguel Wang MD ECG ORDERABLES Final Re sult Performing Organization Address [facility]/State/ZIP Co de Phone Number CONS SCIMAGE * ECG 12 lead (02/27/2025 2:36 PM CDT) Miguel Wang MD ECG ORDERABLES Final Re sult CONS SCIMAGE from Last 3 Months Insurance Advance Directives For more information, please contact: [phone] * Full Code (Latest Code Status on File) Date Activated Date Inactivated Comments 06/17/2019 9:18 PM 06/19/2019 6:47 PM * Full Code Date Activated Date Inactivated Comments 10/06/2018 5:48 PM 10/07/2018 5:18 PM * Full Code Date Activated Date Inactivated Comments 03/16/2018 6:28 PM 03/18/2018 4:03 PM Care Teams Lead Press Operator Relationship Specialty [place] [address] [place] [address] DR WINTER [address] [place] [address] PCP - General Family Practice 11/09/24 Brendon Ramirez MD Consulting Physician Colon and Rectal Surgery 08/03/19
--- OUTSIDE RECORDS SUMMARY | 2025-05-22 12:08 | XMS_ITS | Encounter Summary ---
Author Organization [facility] Address [address] [place] [address] Care Team Providers Care Director Of Instructional Technology Name Role Phone Spenser Crooks MD Primary Care Provider [phone] Encounter Details Date Type Department Care Team (Late st Contact Info) Description 01/07/2017 [facility] Outpatient Visit [facility] [address] [place] [address] Alfredo [place] [id number] [place], [place] [id number] Social History Tobacco Use Types Packs/Day Years Used Date Smoking Tobacco: Every Day Smokeless Tobacco: Never Alcohol Use Standard Drinks/Week Comments Yes 0 (1 standard drink = 0.6 oz pur e alcohol) Sex and Gender Information Value Date Recorded Sex Assigned at Not on file 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
--- OUTSIDE RECORDS SUMMARY | 2025-05-22 12:08 | XMS_ITS | Clinical Summary ---
Author Organization [facility] Address [address] [facility] [place] [address] Care Team Providers Care Parent Partner Name Role Phone Spenser Crooks MD Primary Care Provider Source Comments [facility],non-owned Affiliates and Associated Physician Practices is amultiple site organization consisting of ambulatory clinics and hospital sitesin [place], [place] and [place]. This disclosure is being madepursuant to the Care Everywhere program and may not contain all information available regarding this patient. 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 Procedure Code(s): --- Professional --- 67225, Colonoscopy, flexible; with removal of tumor(s), polyp(s), or other lesion(s) by hot biopsy forceps --- Technical --- 10358, Colonoscopy, flexible; with removal of tumor(s), polyp(s), or other lesion(s) by hot biopsy forceps Diagnosis Code(s): --- Professional --- Z12.11, Encounter for screening for malignant neoplasm of colon D12.2, Benign neoplasm of ascending colon K64.2, Third degree hemorrhoids --- Technical --- Z12.11, Encounter for screening for malignant neoplasm of colon D12.2, Benign neoplasm of ascending colon K64.2, Third degree hemorrhoids CPT copyright 2015 [employer]. All rights reserved. The codes documented in this report are preliminary and upon budget report clerk review may be revised to meet current compliance requirements. Dr. Hemanth Gimenez MD Hemanth Gimenez MD 01/27/2017 9:04:26 AM This report has been signed electronically. Number of Addenda: 0 Note Initiated On: 01/27/2017 7:27 AM [facility] 01/27/2017 7:27 AM CDT us Hemanth Gimenez MD GI PROCEDURE ORDERABLES Edited Result - Final [facility] [place] [place] [address] from Last 3 Months or Most Recently Relevant to Health Maintenance Insurance [facility] MANAGED MEDICARE FORMERLY [facility] MEDICAID - [place] Member Subscriber Plan / Payer (Ef fective for All Dates) Name:Brenden Dunham Member ID:Not on file Relation to Subscriber:Self Name:Brenden Dunham Subscriber ID:Not on file Payer ID:Not on file Group ID:Not on file Type:Medicaid [place] Address: [place] [id number] [facility] MANAGED MEDICARE ADV Member Subscriber Plan / Payer (Ef fective 2024-Present) Name:Brenden Dunham Relation to Subscriber:Self Name:Brenden Dunham Payer ID:[id number] (NAIC) Type:Medicare-Managed Care Address: [address] MEDICAID - [place] [facility] MANAGED MEDICARE ADV Member Subscriber Plan / Payer (Ef fective 2024-Present) Name:Brenden Dunham Relation to Subscriber:Self Name:Brenden Dunham Payer ID:[id number] (NAIC) Type:Medicare-Managed Care Address: [address] MEDICAID - [place] Member Subscriber Plan / Payer (Ef fective for All Dates) Name:Brenden Dunham Member ID:Not on file Relation to Subscriber:Self Name:Brenden Dunham Subscriber ID:Not on file Payer ID:Not on file Group ID:Not on file Type:Medicaid [place] Address: [place] [phone] [facility] MANAGED MEDICARE ADV Care Teams Parent Partner Relationship Specialty Start Date End Date Spenser Crooks MD [address] [facility] [address] [place] [phone] PCP - General Internal Medicine 01/07/17
--- OUTSIDE RECORDS SUMMARY | 2025-05-22 12:08 | XMS_ITS | Clinical Summary ---
Author Organization [facility] Address [address] [place]: Epic Prelude ADT JUSTICE [place]ARWIN [address] Care Team Providers Care Info Analyst Name Role Phone Unavailable Primary Care Provider [...]
[2025-05-22 12:12] LABS: Thyroid Stimulating Hormone Reflex 1.080 uIU/mL (0.465-4.68)
[2025-05-22 12:14] LABS: Hemoglobin A1C 5.2 % (<5.7)
[2025-05-22 12:17] LABS: Prostate Specific Antigen 2.6 ng/mL (< OR = 4.0)
[2025-05-22 12:37] LABS: Vitamin B12 303.0 pg/mL (239-931)
== END 2025-05-22 10:38 | disposition home or self-care (01) ==
LOC: ANHLAB 10:39
PROVIDERS: PCP Family Medicine; Visit Provider Family Medicine
DX: E78.5 Hyperlipidemia, unspecified (principal); I10 Essential (primary) hypertension; R73.9 Hyperglycemia, unspecified; E53.8 Deficiency of other specified B group vitamins; E55.9 Vitamin D deficiency, unspecified; Z12.5 Encounter for screening for malignant neoplasm of prostate
CPT/HCPCS: 36415; 80053; 80061; 82306; 82607; 83036; 84153; 84443; G0103